=== PATIENT | female | born 1940 | race African-American/Black ===

== ENCOUNTER 2024-01-30 15:01 | Emergency (ER) | payer MEDICARE, MEDICAID, SELFPAY ==
--- NOTE | ~2024-01-30 | CT_ITS ---
EXAMINATION: CT brain wo con DATE: 01/30/2024 16:45 INDICATION: Head injury post fall TECHNIQUE: Computed tomography (CT) of the head was performed without intravenous contrast. Sagittal and coronal reconstructions were performed. The mA was adjusted according to patient size. Iterative reconstruction technique was employed. The dose-length product was 605.33 mGy-cm. COMPARISON: None FINDINGS: No fracture. No acute intracranial hemorrhage, acute infarction or abnormal extra axial fluid collect ion. Region of decreased attenuation at the central marcia which appears more likely sequela of streak artifact from old lacunar infarct. There is mild scattered white matter hypoattenuation consistent wi th chronic small vessel ischemic disease. Symmetric prominence of the sulci consistent with mild age- appropriate diffuse cerebral volume loss. Ventricles are normal and symmetric. No mass/mass effect. M ucosal thickening the right maxillary sinus. The orbits, are normal. Small left mastoid effusion. Int racranial calcified cerebral atherosclerosis is noted. Likely developmental nonfusion of the posterio r ring of C1. IMPRESSION: 1. No fracture or acute intracranial process. 2. Streak artifact versus less likely old lacunar infarct at the central marcia. 3. Age-related changes including mild diffuse volume loss and mild scattered white matter hypoattenua tion consistent with chronic small vessel ischemic disease. Reviewed, dictated and finalized at location A. IMPRESSION: 1. No fracture or acute intracranial process. 2. Streak artifact versus less likely old lacunar infarct at the central marcia. 3. Age-related changes including mild diffuse volume loss and mild scattered wh ite matter hypoattenuation consistent with chronic small vessel ischemic diseas e.
--- NOTE | ~2024-01-30 | CT_ITS ---
EXAMINATION: CT cervical spine wo con DATE: 01/30/2024 16:45 INDICATION: Fall with head injury TECHNIQUE: Computed tomography (CT) of the cervical spine was performed without intravenous contrast. Automated exposure control and iterative reconstruction technique were employed. The dose-length pro duct was 484.78 mGy-cm. COMPARISON: None FINDINGS: Mild cervicothoracic dextrocurvature. Sagittal alignment is normal. Vertebral body heights are normal . No fracture. Disc heights are normal. There is multilevel moderate to severe cervical and upper tho racic facet osteoarthritis. There is also multilevel mild cervical uncovertebral osteoarthritis. No c entral canal stenosis. There is mild stenosis of several of the bilateral cervical and upper thoracic vertebral foramina. Cervical soft tissues are unremarkable. Visualized portions of the bilateral upp er lungs are clear. IMPRESSION: 1. 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 No acute osseous a bnormality. Reviewed, dictated and finalized at location A. IMPRESSION: 1. Multilevel moderate to severe cervical and upper thoracic facet osteoarthrit is. No acute osseous abnormality.
--- NOTE | ~2024-01-30 | XR_ITS ---
XR humerus RT Ordering provider: Tameka Vargas MD History: . pain, fall . Comparison: None. FINDINGS: BONES: No acute fracture or dislocation. JOINT SPACES: Osteoarthritic changes of the glenohumeral joint. Osteoarthritic changes of the acromio clavicular joint. SOFT TISSUES: Normal. IMPRESSION: No acute osseous abnormality right humerus. Reviewed, dictated and finalized at location A.
[2024-01-30 15:12] VITALS: BP 143/81; PULSE 97; RESP 18; TEMP 36.3; O2SAT 98
[2024-01-30 15:30] VITALS: PULSE 86; RESP 22
[2024-01-30] MEDS: ACETAMINOPHEN 325 MG TABLET 650 MG PO (16:59)
[2024-01-30 17:00] VITALS: PULSE 82; RESP 20; O2SAT 99
--- NOTE | 2024-01-30 17:21 | ED.FALL ---
HPI - Fall General Chief Complaint: Fall Stated Complaint: fall hit head sent by urgent care Time Seen by Provider: 01/30/24 16:23 Source: patient, RN notes reviewed and other (counter caser) Mode of arrival: ambulatory Limitations: no limitations History of Present Illness HPI Narrative: This is an 83 year old female with history of hypertension and intellectual disabilities who presents for evaluation after head injury. Patient states she was looking at her dempsey so she bent down. When she stood back up she lost her balance and she fell backwards. She hit the back of her head on sidewalk but she denies LOC. She has abrasions to her bilateral arms. She takes aspirin daily. Her case packer and sealer states she is up to date on her immunizations such as tetanus. PAtient reports mild frontal headache but this is chronic. She has been ambulatory without any other complaints. They went to urgent care and they were referred to ER. Related Data Allergies Allergy/AdvReac Type Severity Reaction Status Date / Time No Known Allergies Allergy Verified 01/30/24 16:22 Review of Systems Constitutional: Constitutional: Denies weakness Cardiovascular: Cardiovascular: Denies syncope, Denies rapid heart rate, Denies irregular heart rhythm, Denies leg edema and Denies dyspnea Respiratory: Respiratory: Denies chest congestion, Denies hemoptysis, Denies excessive phlegm production and Denies dyspnea Gastrointestinal: Gastrointestinal: Denies abdominal pain, Denies hematochezia, Denies diarrhea and Denies vomiting Genitourinary: Genitourinary: Denies hematuria and Denies dysuria Musculoskeletal: Musculoskeletal: Denies joint swelling, Denies loss of height, Reports muscle cramps and Denies muscle weakness Neurologic: Denies syncope, Reports headache(s), Denies focal weakness and Denies weakness PMFSH Past Medical History Medical History (Updated 01/30/24 @ 17:32 by Tameka Vargas MD) Depression GERD (gastroesophageal reflux disease) Hyperlipidemia Hypertension Intellectual disability Surgical History Surgical History (Updated 01/30/24 @ 17:29 by Tameka Vargas MD) No pertinent past surgical history Social History Social History (Updated 01/30/24 @ 17:29 by Tameka Vragas MD) Smoking status: Never smoker Exam Const: General: no acute distress and alert Nutritional Appearance: well nourished Orientation/consciousness: patient oriented x3 HENMT: Head: normal to inspection Ears: external ears normal Face and sinus: normal facial exam Throat: posterior oropharynx normal and uvula midline Eyes: Pupils: Equal, round and reactive pupils present EOM: EOMs intact bilaterally Neck: Neck: normal visual inspection and no lymphadenopathy Chest: Chest palpation & inspection: normal inspection of the chest Resp: Effort & Inspection: normal respiratory effort Auscultation: clear to auscultation bilaterally Cardio: Rate: regular rate Rhythm: regular rhythm Heart sounds: no murmurs GI: GI Palp: Yes Soft to palpation, No Tenderness to palpation present (GI), No Guarding due to palpation present (GI) and No Rigid due to palpation Auscultation: normal bowel sounds Skin: Other: abrasion to right posterior upper arm Neuro: General: patient oriented x3, moves all extremities and CN's II-XI intact bilaterally Extrem: Other: FROM of all extremities. Psych: Mental Status: mental status grossly normal Affect: normal affect Attitude: cooperative Course Reevaluation(s) Reevaluation #1: I Reviewed imaging with patient and her case packer and sealer. She feels comfortable with discharge home. Date: 01/30/24 Time: 17:37 Vital Signs Vital signs: Vital Signs Temperature 97.4 F L 01/30/24 15:12 Pulse Rate 97 01/30/24 15:12 Respiratory Rate 18 01/30/24 15:12 Blood Pressure 143/81 H 01/30/24 15:12 Pulse Oximetry 98 01/30/24 15:12 Oxygen Delivery Room Air 01/30/24 15:12 Temperature 97.4 F L 06
== END 2024-01-30 18:17 | disposition home or self-care (01) ==
LOC: ANHED 18:02
PROVIDERS: Emergency Provider General Practice; PCP Family Medicine
DX: S09.90XA Unspecified injury of head, initial encounter (principal); S40.811A Abrasion of right upper arm, initial encounter; F41.9 Anxiety disorder, unspecified; F32.A Depression, unspecified; K21.9 Gastro-esophageal reflux disease without esophagitis; I10 Essential (primary) hypertension; E78.5 Hyperlipidemia, unspecified; W01.0XXA Fall on same level from slipping, tripping and stumbling without subsequent striking against object, initial encounter
CPT/HCPCS: 70450; 72125; 73060; 99284; A9270

== ENCOUNTER 2024-10-26 16:02 | Emergency (ER) | payer MEDICARE, MEDICAID, SELFPAY ==
--- NOTE | ~2024-10-26 | CT_ITS ---
History: Fall PROCEDURE: CT cervical spine without intravenous contrast. COMPARISON: 01/30/2024 TECHNIQUE: Multiple contiguous axial images of the cervical spine were performed without the administration of i ntravenous contrast. DLP: 431 mGy-cm FINDINGS: Preservation of the normal curvature of the cervical spine is identified. Significant degenerative disease is identified, with osteophyte formation, disc space narrowing, and endplate changes. Moderate kyphosis is suspected. No acute fractures are present. Incomplete visualization of 2 suspicious nodules measuring 11 and a 6 mm within the left upper lobe f or which dedicated chest CT is recommended. This focus was not present on the CT examination of the cervical spine in 2023. The remainder of the bilateral lung apices are otherwise unremarkable. No soft tissue abnormality is present. The airway is patent Impression: Severe degenerative disease, without acute fracture. Incomplete visualization of 2 suspicious left upper lobe lung nodules for which dedicated chest CT is recommended. Reviewed, dictated and finalized at location A. Impression: Severe degenerative disease, without acute fracture. Incomplete visualization of 2 suspicious left upper lobe lung nodules for which dedicated chest CT is recommended.
--- NOTE | ~2024-10-26 | CT_ITS ---
CT brain wo con Ordering provider: Fabrizio Mathur MD History: 84 years Female with . FALL . Comparison: January 30, 2024 Technique: CT of the head without contrast. Radiation reduction technique utilized.The dose-length product was 605.33 mGy-cm. FINDINGS: BRAIN PARENCHYMA AND CSF SPACES: Mild leukoaraiosis and diffuse cortical atrophy. Mild atheromatous d isease. No midline shift, mass effect or hemorrhage. The brain parenchyma and CSF spaces are otherwi se normal. VISUALIZED PARANASAL SINUSES: Well aerated. MASTOIDS: Well aerated. BONES: The bones appear intact. SOFT TISSUES: Visualized nasopharynx is normal. Superficial soft tissues are normal. IMPRESSION: No acute intracranial findings. Reviewed, dictated and finalized at location A.
--- NOTE | ~2024-10-26 | CT_ITS ---
CT diagnostic chest wo con Ordering provider: Fabrizio Mathur MD History: 84 years Female with . lung nodules . Comparison: None. Technique: CT chest without IV contrast. Radiation reduction technique utilized.The dose-length product was 95.83 mGy-cm. FINDINGS: VISUALIZED THORACIC INLET: Normal. MEDIASTINUM: Aorta/coronary arteries: Mild atheromatous disease. Heart/other: The heart is not enlarged. Lymph nodes: No mediastinal or hilar adenopathy. LUNGS: Multiple nodules are seen in the right and left upper lobes with the largest measures 9 mm in the left upper lobe No pulmonary masses. No infiltrates or effusions. No pneumothorax. VISUALIZED UPPER ABDOMEN: Cholelithiasis. Otherwise, the visualized upper abdomen is normal. MUSCULOSKELETAL: Soft tissues: The superficial soft tissues are normal. Bones: Age appropriate degenerative changes of the spine. IMPRESSION: Multiple nodules in the right and left upper lobes with the largest measures 9 mm and the left upper lobe. 6 months follow-up CT advised. No acute cardiopulmonary pathology. Cholelithiasis. Reviewed, dictated and finalized at location A.
[2024-10-26 16:04] VITALS: BP 117/72; PULSE 68; RESP 18; TEMP 36.4; O2SAT 95
--- NOTE | 2024-10-26 17:21 | ECG_ITS ---
Test Date: 2024-10-26 18:56:02 Measurements Intervals [place] Rate: 69 P: 63 [place]: 175 QRS: -28 QRSD: 76 T: 31 QT: 390 QTc: 418 Interpretive Statements SINUS RHYTHM LOW QRS VOLTAGE IN PRECORDIAL LEADS PATTERN CONSISTENT WITH PULMONARY DISEASE Electronically Signed On 10-28-2024 13:53:16 CDT by Filiberto Odonnell D.O
--- OUTSIDE RECORDS SUMMARY | 2024-10-26 19:09 | XMS_ITS | Encounter Summary ---
Author Organization [facility] Address [address] [facility] [place] [address] Care Team Providers Care Case Investigator Name Role Phone Ramya Preston NP Primary Care Provider [phone] David Fermin DPM Unavailable [phone] Encounter Details Date Type Department Care Team (Late st Contact Info) Description 10/02/2024 Results Follow-Up [facility] Primary Care at [address] [id number] Ramya Preston NP [address] [facility] [address] [place] [address] Social History Tobacco Use Types Packs/Day Years Used Date Smoking Tobacco: Never Smokeless Tobacco: Never Alcohol Use Standard Drinks/Week Comments No 0 (1 standard drink = 0.6 oz pur e alcohol) PHQ-2 Answer Date Recorded PHQ-2 Total Score (If total score is 3 or more points, staff should administer the PHQ-9) 0 07/05/2024 Comments Unknown Sex and Gender Information Value Date Recorded Sex Assigned at Not on file Legal Sex Female 5:46 PM [employer] 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
--- OUTSIDE RECORDS SUMMARY | 2024-10-26 19:09 | XMS_ITS | Referral Summary ---
Author Organization [facility] Address [address] [place] [phone] Care Team Providers Care Desktop Support Technician Name Role Phone Ramya Preston NP Primary Care Provider [phone] David FerminM Unavailable [phone] Encounters Date Type Department Care Team Description 10/19/2024 Orders Only [facility] Sports Medicine and Primary Care at [address] [phone] Jeremias Laureano DO Chronic left shoulder pain (Primary Dx); Osteoarthritis of left shoulder, unspecified osteoarthritis type 10/19/2024 1:30 PM CAUSTIC ROOM ATTENDANT Office Visit [facility] Medical [facility] Sports Medicine and Primary Care at [address] [phone] Jeremias Laureano DO Osteoarthritis of left shoulder, unspecified osteoarthritis type (Primary Dx); Chronic left shoulder pain; Cervicalgia 10/17/2024 2:15 PM CAUSTIC ROOM ATTENDANT Office Visit [facility] Nephrology at [address] [place] [phone] Raffy Flowers MD Stage 3b chronic kidney disease (HCC) (Primary Dx); Essential hypertension; Type 2 diabetes mellitus with stage 3b chronic kidney disease, without long-term current use of insulin (HCC) 10/16/2024 Telephone [facility] Nephrology at [address] [place] [address] Naif Rodriguez 10/10/2024 Results Follow-Up [facility] Group Primary Care at [address] [phone] Ramya Preston NP Type 2 diabetes mellitus with stage 3b chronic kidney disease, without long-term current use of insulin (HCC) (Primary Dx) 10/09/2024 10:04 AM CAUSTIC ROOM ATTENDANT - 10/09/2024 11:59 PM CAUSTIC ROOM ATTENDANT Hospital Encounter [address] [address] Type 2 diabetes mellitus with stage 3a chronic kidney disease, without long-term current use of insulin (HCC); Leukocytosis, unspecified type Discharge Disposition: Discharge to home or self care 10/09/2024 12:00 PM CAUSTIC ROOM ATTENDANT Lab [facility] Outpatient Lab at [address] [phone] Hypertension (Primary Dx); Hyperlipidemia; Type 2 diabetes mellitus with stage 3a chronic kidney disease, without long-term current use of insulin (HCC) 10/09/2024 11:00 AM CAUSTIC ROOM ATTENDANT Office Visit [facility] Primary Care at [address] [phone] Ramya Preston NP Type 2 diabetes mellitus with stage 3a chronic kidney disease, without long-term current use of insulin (HCC) (Primary Dx); Mixed stress and urge urinary incontinence; Primary hypertension; Mixed hyperlipidemia; Chronic left shoulder pain 10/02/2024 Results Follow-Up [facility] Primary Care at [address] [phone] Ramya Preston NP 09/27/2024 2:24 PM CAUSTIC ROOM ATTENDANT - 09/27/2024 11:59 PM CAUSTIC ROOM ATTENDANT Hospital Encounter [facility] [address] [place] [address] Encounter for osteoporosis screening in asymptomatic postmenopausal patient Discharge Disposition: Discharge to home or self care from Last 3 Months Allergies No known active allergies Medications omega 3-gtu-rsh-fish oil 300-1,000 mg capsule 8 Active nystatin cream 6 8 Active cholecalciferol (REPLESTA) 50,000 unit wafer 8 Active benzonatate (TESSALON) 200 mg capsuleIndicatio ns:Chronic cough Take 1 capsule (200 mg total) by mouth 3 (three) times a day as needed for cough 30 capsule 4 Active aspirin 81 mg enteric coated tablet Take 1 tablet (81 mg total) by mouth daily 90 tablet 1 4 Active NIFEdipine XL 30 mg 24 hr tablet TAKE (1) TABLET BY MOUTH DAILY. 90 tablet [address] (PROTONIX) 40 mg EC tablet TAKE (1) TABLET BY MOUTH DAILY. 90 tablet 1 4 Active ergocalciferol (VITAMIN D) 50,000 unit capsule TAKE (1) CAPSULE BY MOUTH ONCE PER WEEK ON TUESDAY 4 capsule 10 4 Active empagliflozin (JARDIANCE) 10 mg tablet Take 1 tablet (10 mg total) by mouth daily 90 tablet 1 4 Active acetaminophen (TYLENOL) 500 mg tablet Take 1 tablet (500 mg total) by mouth every 6 (six) hours as needed for pain 30 tablet 3 4 Active calcium carbonate-vitami n D3 1500 mg (600 mg elemental) -200 units per tablet Take 1 tablet by mouth 2 (two) times a day 180 tablet 1 4 Active citalopram (CeleXA) 20 mg tablet TAKE (1) TABLET BY MOUTH DAILY. 30 tablet 10 5 Active docusate sodium (COLACE) 100 mg capsule TAKE (1) CAPSULE BY MOUTH TWICE DAILY. 60 capsule 10 5 Active pravastatin (PRAVACHOL) 20 mg tablet TAKE (1) TABLET BY MOUTH AT BEDTIME. 30 tablet 5 Active latanoprost (XALATAN) 0.005 % ophthalmic solution 1 drop nightly Active dapagliflozin propanediol (FARXIGA) 10 mg tablet 1 tablet (10 mg total) Active ibuprofen (ADVIL,MOTRIN) 600 mg tablet TAKE ONE TABLET 3 TIMES DAILY NEEDED FOR PAIN 90 tablet 11 9 10/18/19 25 Discontinu ed(Therapy completed) dapagliflozin propanediol (FARXIGA) 10 mg tablet 1 tablet (10 mg total) 10/18/19 25 Discontinu ed(Therapy completed) Active Problems Problem Noted Date Diagnosed Date Type 2 diabetes mellitus wit h stage 3a chronic kidney disease, without long-term current use of insulin 07/05/2024 Assessment & Plan (10/09/2024 12:38 PM CAUSTIC ROOM ATTENDANT): Continuing Farxiga, updated labs ordered Assessment & Plan (07/05/2024 1:12 PM CAUSTIC ROOM ATTENDANT): Previous A1c 8.1 six months ago. Attempted to start Farxiga, but did not hear back from the pt's facility. Will recheck A1c and kidney function with labs today. Also sending in [facility], samples given today to get started. Medicare annual wellness visit, subsequent 07/05 Assessment & Plan (07/05/2024 1:14 PM CAUSTIC ROOM ATTENDANT): A yearly Medicare Annual Wellness Visit has been performed today. Coral Holt is not up to date on screening tests. She is in need of DEXA- these have been ordered. She is not up to date on needed preventative vaccinations; She is in need of Tdap/Td, Pneumonia (Prevnar-13 or Pneumovax-23), Zoster, and Covid-19 (booster). These have been ordered/arranged unless otherwise indicated. 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 Long-term current use of steroids 12/07/2017 Anxiety 10/24/2017 Assessment & Plan (07/05/2024 12:26 PM CAUSTIC ROOM ATTENDANT): Overall stable on Celexa. Assessment & Plan (01/03/2024 10:55 AM CDT): Overall stable on Celexa. 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 Updated labs ordered for today. Assessment & Plan (07/05/2024 12:26 PM CAUSTIC ROOM ATTENDANT): Patient taking Pravastatin, no side effects noted. Updated labs ordered for today. Assessment & Plan (01/03/2024 10:55 AM CDT): Patient taking Pravastatin, no side effects noted. Updated labs ordered. Hypertension 10/24/2017 Assessment & Plan (10/09/2024 12:37 PM CAUSTIC ROOM ATTENDANT): BP well controlled in office, continuing Nifedipine 30 mg daily. Updated labs ordered today. Assessment & Plan (07/05/2024 12:26 PM CAUSTIC ROOM ATTENDANT): BP well controlled in office, continuing Nifedipine 30 mg daily. Updated labs ordered today. Assessment & Plan (01/03/2024 10:55 AM CDT): BP well controlled in office, continuing Nifedipine 30 mg daily. Updated labs ordered. Resolved Problems Problem Noted Date Diagnosed Date Resolved Date PMR (polymyalgia rheumatica) 10/24/2017 05/30/2018 Immunizations Immunization Administration Dates Next Due Influenza, Quadrivalent, Hig h Dose, Preservative Free, Intrr 05/09/2023,06/09/2022,06/17/2021 Influenza, Quadrivalent, Spl it, Intramuscular 05/29/2020,05/30/2019,09/20/2018,06/01,05/28/2015 Influenza, Trivalent, High D ose, Split, Preservative Free, Intramuscular 07/05/2024 Pneumococcal Polysaccharide PPV23 12/08/2022 Social History Tobacco Use Types Packs/Day Years Used Date Smoking Tobacco: Never Smokeless Tobacco: Never Tobacco Cessation:Counseling Given: Not Answered Alcohol Use Standard Drinks/Week Comments No 0 (1 standard drink = 0.6 oz pur e alcohol) AUDIT-C Answer Date Recorded Q1: How often do you have a drink containing alc ohol? Never 10/17/2024 Average Number of Drinks Not on file 025 Frequency of Binge Drinking Not on file 12/2024 PHQ-2 Answer Date Recorded PHQ-2 Total Score (If total score is 3 or more points, staff should administer the PHQ-9) 0 10/09/2024 Comments Unknown Sex and Gender Information Value Date Recorded Sex Assigned at Not on file Legal Sex Female 5:46 PM CAUSTIC ROOM ATTENDANT Gender Identity Female 10/25/2018 11:04 AM CDT Sexual Orientation Not on file Last Filed Vital Signs Vital Sign Reading Time Taken Comments Blood Pressure 110/69 10/19/2024 1:36 PM CAUSTIC ROOM ATTENDANT Pulse 76 10/19/2024 1:36 PM CAUSTIC ROOM ATTENDANT Temperature 37 C (98.6 F) 10/17/2024 2:09 PM CAUSTIC ROOM ATTENDANT Respiratory Rate 20 07/17/2024 10:14 AM CAUSTIC ROOM ATTENDANT Oxygen Saturation 97% 10/09/2024 11:06 AM CAUSTIC ROOM ATTENDANT Inhaled Oxygen Concentration - - Weight 80.3 kg (177 lb) 10/19/2024 1:36 PM CAUSTIC ROOM ATTENDANT Height 165.1 cm (5' 5 ) 10/19/2024 1:36 PM CAUSTIC ROOM ATTENDANT Body Mass Index 29.45 10/19/2024 1:36 PM CAUSTIC ROOM ATTENDANT Plan of Treatment Not on file Procedures Procedure Name Priority Date/Time Associated Diagnosis Comments EGFR Routine 10/09/2024 10:04 AM CAUSTIC ROOM ATTENDANT Type 2 diabetes mellitus with stage 3a chronic kidney disease, without long-term current use of insulin (HCC) DIFFERENTIAL AUTO Routine 10/09/2024 10:04 AM CAUSTIC ROOM ATTENDANT Leukocytosis, unspecified type CBC WITH AUTO DIFFERENTIAL Routine 10/09/2024 10:04 AM CAUSTIC ROOM ATTENDANT Leukocytosis, unspecified type LIPID PANEL Routine 10/09/2024 10:04 AM CAUSTIC ROOM ATTENDANT Type 2 diabetes mellitus with stage 3a chronic kidney disease, without long-term current use of insulin (HCC) HEMOGLOBIN A1C Routine 10/09/2024 10:04 AM CAUSTIC ROOM ATTENDANT Type 2 diabetes mellitus with stage 3a chronic kidney disease, without long-term current use of insulin (HCC) COMPREHENSIVE METABOLIC PANEL Routine 10/09/2024 10:04 AM CAUSTIC ROOM ATTENDANT Type 2 diabetes mellitus with stage 3a chronic kidney disease, without long-term current use of insulin (HCC) DEXA AXIAL SKELETON BONE DENSITY 1 OR MORE SITES Schedule Routine, Read Routine (OP Routine) 09/27/2024 2:52 PM CAUSTIC ROOM ATTENDANT Encounter for osteoporosis screening in asymptomatic postmenopausal patient ALBUMIN CREATININE RATIO, URINE Routine 07/05/2024 12:30 PM CAUSTIC ROOM ATTENDANT Type 2 diabetes mellitus with stage 3a chronic kidney disease, without long-term current use of insulin (HCC) from Last 3 Months or Most Recently Relevant to Health Maintenance Results * (ABNORMAL) eGFR (10/09/2024 10:04 AM CAUSTIC ROOM ATTENDANT) eGFR 42(L) >=60 mL/min/1. 73 m2 Comment: Interpretive Data Reference Interval Normal >/= 90 mL/min/1.73m2 Mildly decreased* 60 - 89 mL/min/1.73m2 Mildly to moderately decreased 45 - 59 mL/min/1.73m2 Moderately to severely decreased 30 - 44 mL/min/1.73m2 Severely decreased 15 - 29 mL/min/1.73m2 Kidney Failure < 15 mL/min/1.73m2 *Relative to young adult level Estimated glomerular filtration rate is determined by the 2020 CKD-EPI equation recommended by the National Kidney Foundation (A Unifying Approach to GFR Estimation: Recommendations of the NKF-ASK Task Force on Reassessing the Inclusion of Race in Diagnosing Kidney Disease, JASN 202). The CKD-EPI equation should not be used for patients with unstable renal function and has not been validated in children and those over 70. Current interpretive data was last reviewed 2021. Blood 10/09/2024 10:0 4 AM CAUSTIC ROOM ATTENDANT 10/09/2024 9:25 PM CAUSTIC ROOM ATTENDANT us Ramya Preston CUT ROLL MACHINE OFFBEARER LAB BLOOD ORDERABLES Final Resul t [facility] [place] [id number] [address] [place] [address] * Differential, auto (10/09/2024 10:04 AM CAUSTIC ROOM ATTENDANT) Neutrophil abs 6.1 1.5 - 6.5 K/cumm Imm gran abs 0.1 0.0 - 0.1 K/cumm [facility] Lymphocyte abs 2.5 0.8 - 3.3 K/cumm [facility] Monocyte abs 0.6 0.2 - 0.8 K/cumm [facility] Eosinophil abs 0.1 0.0 - 0.5 K/cumm [facility] Basophil abs 0.0 0.0 - 0.1 K/cumm [facility] Neutrophil pct 64.9 % [facility] Comment: Interpretive Data Percent cell count reference ranges are not reported, since discordance with absolute values may lead to misinterpretation of CBC data. Current Interpretive Data was last revised on 2017. Imm gran pct 0.6 % [facility] Comment: Interpretive Data Percent cell count reference ranges are not reported, since discordance with absolute values may lead to misinterpretation of CBC data. Current Interpretive Data was last revised on 2017. Lymphocyte pct 26.1 % [facility] Comment: Interpretive Data Percent cell count reference ranges are not reported, since discordance with absolute values may lead to misinterpretation of CBC data. Current Interpretive Data was last revised on 2017. Monocyte pct 6.8 % [facility] Comment: Interpretive Data Percent cell count reference ranges are not reported, since discordance with absolute values may lead to misinterpretation of CBC data. Current Interpretive Data was last revised on 2017. Eosinophil pct 1.2 % [facility] Comment: Interpretive Data Percent cell count reference ranges are not reported, since discordance with absolute values may lead to misinterpretation of CBC data. Current Interpretive Data was last revised on 2017. Basophil pct 0.4 % [facility] Comment: Interpretive Data Percent cell count reference ranges are not reported, since discordance with absolute values may lead to misinterpretation of CBC data. Current Interpretive Data was last revised on 2017. Blood 10/09/2024 10:0 4 AM CAUSTIC ROOM ATTENDANT 10/09/2024 9:15 PM CAUSTIC ROOM ATTENDANT us Ramya Preston NP LAB BLOOD [place]ABLES [place] [id number] [address] [place] [address] * (ABNORMAL) CBC with auto differential (10/09/2024 10:04 AM CAUSTIC ROOM ATTENDANT) WBC 9.4 3.8 - 9.9 K/cumm Hgb 13.2 11.9 - 15.5 g/dL [facility] Hct 42.0 35.6 - 45.5 % [facility] Plt 349 150 - 400 K/cumm [facility] MPV 11.2 9.1 - 12.3 fL [facility] RBC 4.36 3.90 - 5.20 M/cumm [facility] MCV 96.3 81.3 - 96.4 fL [facility] MCH 30.3 27.1 - 33.3 pg [facility] MCHC 31.4(L) 32.3 - 35.7 g/dL [facility] RDW CV 13.7 11.1 - 14.9 % [facility] RDW SD 48.9(H) 35.7 - 48.1 fL [facility] NRBC abs 0.00 0.00 - 0.01 K/cumm [facility] Blood 10/09/2024 10:0 4 AM CAUSTIC ROOM ATTENDANT 10/09/2024 9:15 PM CAUSTIC ROOM ATTENDANT us Ramya Preston NP LAB BLOOD ORDERABLES Final Resul t Performing Organization Address City/State/[facility] de Phone Number [facility] [address] [address] Department of Laboratories [place], [place] [id number] * (ABNORMAL) Hemoglobin A1c (10/09/2024 10:04 AM CAUSTIC ROOM ATTENDANT) Pathologist [facility] Hgb A1C 6.7(H) 4.0 - 5.6 % Estimated Average Glucose 146 mg/dL [facility] Comment: The ADA recommends reporting an estimated Average Glucose (eAG) with all Hemoglobin A1c results using the equation derived from a study of 507 normal and diabetic adults. Minority populations were underrepresented and children were not included. (Diabetes Care 31:0006-1788, 2008). The eAG is not equivalent to a fasting glucose. Blood 10/09/2024 10:0 4 AM CAUSTIC ROOM ATTENDANT 10/09/2024 9:15 PM CAUSTIC ROOM ATTENDANT us Ramya Preston NP LAB BLOOD ORDERABLES [place] [address] [address] [place] [address] * Lipid panel (10/09/2024 10:04 AM CAUSTIC ROOM ATTENDANT) Cholesterol 151 30 - 199 mg/dL Comment: Interpretive Data Ages < or = 19 years Acceptable: <170 mg/dL Borderline high: 170-199 mg/dL High: >or= 200 mg/dL Ages > or = 20 years Desirable: <200 mg/dL Borderline high: 200-239 mg/dL High: >or= 240 mg/dL Literature References: 1. Expert Panel on Integrated Guidelines for Cardiovascular Health and Risk Reduction in Children and Adolescents. Pediatrics 2011;128:S213 2. NCEP Expert Panel. Circulation 2004;110:227 Current Interpretive Data was last revised on 2018. Triglycerides 140 <=149 mg/dL [facility] Comment: Interpretive Data Ages < or = 9 years Acceptable: <75 mg/dL Borderline high: 75-99 mg/dL High: >or= 100 mg/dL Ages 10 to 20 years Acceptable: <90 mg/dL Borderline high: 90-129 mg/dL High: >or= 130 mg/dL Ages > or = 20 years Desirable: <150 mg/dL Borderline high: 150-199 mg/dL High: 200-499 mg/dL Very high: >or= 499 mg/dL Literature References: 1. Expert Panel on Integrated Guidelines for Cardiovascular Health and Risk Reduction in Children and Adolescents. Pediatrics 2011;128:S213 2. NCEP Expert Panel. Circulation 2004;110:227 Current Interpretive Data was last revised on 2018. HDL 42 >=40 mg/dL [facility] Comment: Interpretive Data Ages < or = 19 years Acceptable: >45 mg/dL Borderline low: 40-45 mg/dL Low: <40 mg/dL Ages > or = 20 years Desirable: >or= 60 mg/dL Low: <40 mg/dL Literature References: 1. Expert Panel on Integrated Guidelines for Cardiovascular Health and Risk Reduction in Children and Adolescents. Pediatrics 2011;128:S213 2. NCEP Expert Panel. Circulation 2004;110:227 Current Interpretive Data was last revised on 2018. LDL, calculated 84 <=129 mg/dL [facility] Comment: Interpretive Data Ages < or = 19 years Acceptable: <110 mg/dL Borderline high: 110-129 mg/dL High: >or= 130 mg/dL Ages > or = 20 years Optimal: <100 mg/dL Near optimal: 100-129 mg/dL Borderline high: 130-159 mg/dL High: >160 mg/dL Calculated using the Ganesh LDL-C estimating equation. This equation was implemented on 2024. Prior to this date LDL-C was estimated using the Friedewald equation. Literature References: 1. Expert Panel on Integrated Guidelines for Cardiovascular Health and Risk Reduction in Children and Adolescents. Pediatrics 2011;128:S213 2. NCEP Expert Panel. Circulation 2004;110:227 3. Ganesh Oviedo et al. PRAFUL Cardiol. 2020 December 13;5(5):540-548. doi: 10.1001/jamacardio.2020.0013 Current Interpretive Data was last revised on 2024. Non-HDL Cholesterol 109 mg/dL [facility] Comment: Interpretive Data Ages < or = 19 years Acceptable: <120 mg/dL Borderline high: 120-144 mg/dL High: >145 mg/dL Ages > or = 20 years When triglycerides are >200 mg/dL, Non-HDL cholesterol is a secondary target of therapy with treatment goals that are 30 mg/dL greater than the LDL cholesterol target. Literature References: 1. Expert Panel on Integrated Guidelines for Cardiovascular Health and Risk Reduction in Children and Adolescents. Pediatrics 2011;128:S213 2. NCEP Expert Panel. Circulation 2004;110:227 Current Interpretive Data was last revised on 2018. Chol/HDL ratio 4 [facility] Blood 10/09/2024 10:0 4 AM CAUSTIC ROOM ATTENDANT 10/09/2024 9:15 PM CAUSTIC ROOM ATTENDANT us Ramya Preston NP LAB BLOOD ORDERABLES Final Resul t [place] [address] [address] [place] [address] * (ABNORMAL) Comprehensive metabolic panel (10/09/2024 10:04 AM CAUSTIC ROOM ATTENDANT) Sodium 136 135 - 145 mmol/L Potassium, pl 4.9 3.3 - 4.9 mmol/L [facility] Chloride 99 97 - 110 mmol/L [facility] CO2 21(L) 22 - 32 mmol/L [facility] Anion gap 16(H) 2 - 15 mmol/L [facility] BUN 26(H) 6 - 25 mg/dL [facility] Creatinine 1.26(H) 0.60 - 1.10 mg/dL [facility] Glucose 120 70 - 199 mg/dL [facility] Comment: Interpretive Data Fasting glucose >/= 126 mg/dl is diagnostic for diabetes. Fasting is defined as no caloric intake for at least 8 hours. Fasting glucose between 100 mg/dl to 125 mg/dl is diagnostic of prediabetes. In a patient with classic symptoms of hyperglycemia or hyperglycemic crisis, a random glucose >/= 200 mg/dl is diagnostic for diabetes. In the absence of unequivocal hyperglycemia, results should be confirmed by repeat testing. The classification and Diagnosis of Diabetes Diabetes Care 2021; 46: S19-S40. Current interpretive data was last revised 2022. Calcium 10.1 8.5 - 10.3 mg/dL [facility] Bilirubin, total 0.3 0.1 - 1.2 mg/dL [facility] Protein, pl 7.8 6.5 - 8.5 g/dL [facility] Albumin 3.9 3.5 - 5.0 g/dL [facility] Alk phos 60 40 - 130 Units/L [facility] ALT 12 7 - 45 Units/L [facility] AST 31 10 - 45 Units/L [facility] Blood 10/09/2024 10:0 4 AM CAUSTIC ROOM ATTENDANT 10/09/2024 9:15 PM CAUSTIC ROOM ATTENDANT us Ramya Preston NP LAB BLOOD ORDERABLES [place]ul [place] [id number] [address] Department [place] [address] * Dexa Axial Skeleton Bone Density 1 or 2 Site (09/27/2024 2:52 PM CAUSTIC ROOM ATTENDANT) Anatomical Region Laterality Modality Body N/A Other 10/02/2024 8:21 AM CAUSTIC ROOM ATTENDANT Narrative 10/02/2024 8:21 AM CAUSTIC ROOM ATTENDANT EXAM DESCRIPTION: DEXA AXIAL SKELETON BONE DENSITY 1 OR MORE SITES REASON FOR STUDY: 83 y/o year old F with given history of: Postmenopausal status. History of secondary osteoporosis. Patient takes vitamin-D and calcium. It Instructor/Model: [employer] (S/N [id number]) Facility LSC value of 0.022 for the AP spine, 0.027 for the femur, and 0.023 for the forearm. CLINICAL INFORMATION: Current height: 65 inches Maximum height: 65 inches Weight: 187 pounds Risk factors: Secondary osteoporosis COMPARISON: None available FINDINGS: AP LUMBAR SPINE L1-L4: Total BMD is 1.406 g/cm2 T-score is 3.3 LEFT HIP: Total BMD is 0.964 g/cm2 T-score is 0.2 Femoral neck BMD is 0.700 g/cm2 T-score is -1.3 FRAX: 10 year risk for a major osteoporotic fracture is 12 %, 10 year risk for a hip fracture is 3 % IMPRESSION: Low bone mass REFERENCE: Bone mineral density: T-Score: Normal (T-score above or = -1.0) Low bone mass (T-score between -1.0 and -2.5) replaces the previously used term osteopenia Osteoporosis (T-score = or below -2.5) Z-Score: Within the expected range for age (Z-score above -2.0) Below the expected range for age (Z-score is -2.0 or below) Please see below follow up recommendations. Medical evaluation for secondary causes of low bone mineral density may be appropriate. FRAX is a World Health Organization validated fracture risk assessment tool that calculates a person's 10 year probability of a major osteoporosis related fracture and hip fracture. According to the National Osteoporosis Foundation guidelines, postmenopausal women and men age 50 or older with low bone mass and a 10 year probability of a major osteoporosis related fracture = or greater than 20% or a 10 year probability of a hip fracture = or greater than 3% should be considered for pharmacological treatment for the prevention of osteoporosis. For further information, including treatment recommendations, please refer to the 2019 ISCD Official Positions (http://www.iscd.org) and the NOF's Clinician's Guide to Prevention and Treatment of Osteoporosis (http://www.nof.org/professionals/clinical-guidelines) THIS IS AN ELECTRONICALLY VERIFIED FINAL REPORT 10/02/2024 8:21 AM - Electronically signed by Beatrice Vogel M.D. TW: TW Report ID: [id number] Reading Location: [place] [address] Procedure Note Beatrice Vogel MD - 10/02/2024 EXAM DESCRIPTION: DEXA AXIAL SKELETON BONE DENSITY 1 OR MORE SITES REASON FOR STUDY: 83 y/o year old F with given history of:Postmenopausal status. History of secondary osteoporosis. Patient takes vitamin-D and calcium. It Instructor/Model: [employer] (S/N [id number]) Facility LSC value of 0.022 for the AP spine, 0.027 for the femur, and0.023 for the forearm. CLINICAL INFORMATION: Current height: 65 inches Maximum height: 65 inches Weight: 187 pounds Risk factors: Secondary osteoporosis COMPARISON: None available FINDINGS: AP LUMBAR SPINE L1-L4: Total BMD is 1.406 g/cm2 T-score is 3.3 LEFT HIP: Total BMD is 0.964 g/cm2 T-score is 0.2 Femoral neck BMD is 0.700 g/cm2 T-score is -1.3 FRAX: 10 year risk for a major osteoporotic fracture is 12 %, 10 year risk for ahip fracture is 3 % IMPRESSION: Low bone mass REFERENCE: Bone mineral density: T-Score: Normal (T-score above or = -1.0) Low bone mass (T-score between -1.0 and -2.5) replaces thepreviously used term osteopenia Osteoporosis (T-score = or below -2.5) Z-Score: Within the expected range for age (Z-score above -2.0) Below the expected range for age (Z-score is -2.0 or below) Please see below follow up recommendations. Medical evaluation forsecondary causes of low bone mineral density may be appropriate. FRAX is a World Health Organization validated fracture risk assessmenttool that calculates a person's 10 year probability of a major osteoporosisrelated fracture and hip fracture. According to the National OsteoporosisFoundation guidelines, postmenopausal women and men age 50 or older with low bonemass and a 10 year probability of a major osteoporosis related fracture = or greater than 20% or a 10 year probability of a hip fracture = or greaterthan 3% should be considered for pharmacological treatment for the preventionof osteoporosis. For further information, including treatment recommendations, please referto the 2019 ISCD Official Positions (http://www.iscd.org) and the NOF's Clinician's Guide to Prevention and Treatment of Osteoporosis (http://www.nof.org/professionals/clinical-guidelines) THIS IS AN ELECTRONICALLY VERIFIED FINAL REPORT 10/02/2024 8:21 AM - Electronically signed by Beatrice Vogel M.D. TW: WILLIAMS Report ID: [id number] Reading Location: [place] [address] us Ramya Preston NP IMG DXA PROCEDURES Final Result * (ABNORMAL) Albumin Creatinine Ratio, Urine (07/05/2024 12:30 PM CAUSTIC ROOM ATTENDANT) Albumin Ur 198.1 mg/L Comment: Interpretive Data No reference range established. Current interpretive data was last revised 2018. Creatinine Ur 255.5 mg/dL [facility] Comment: Interpretive Data No reference range established. Current interpretive data was last revised 2018. Albumin Creatinine Ratio, Ur 78(H) 1 - 29 mg/g [facility] Urine 07/05/2024 12:3 0 PM CAUSTIC ROOM ATTENDANT 07/06/2024 11:13 AM CAUSTIC ROOM ATTENDANT us Ramya Preston NP LAB URINE [place] [address] R[address] [place] [address] from Last 3 Months or Most Recently Relevant to Health Maintenance Insurance MEDICARE [facility] Address: [address] [phone] IDPA IDPA IDPA MEDICARE [facility] Address: [address] [phone] Care Teams Desktop Support Technician Relationship Specialty Start Date End Date Ramya Preston NP [address] [facility] [facility] [address] [place] [address] PCP - General Family Medicine 01/03/24 David Fermin DPM [address] [place] [address] Consulting Physician Orthotics 01/03/24
--- OUTSIDE RECORDS SUMMARY | 2024-10-26 19:09 | XMS_ITS | Clinical Summary ---
Author Organization [facility] Address [address] [place] [address] Care Team Providers Care Mine Promotor Name Role Phone Ramya Preston NP Primary Care Provider [phone] David Fermin DPM Unavailable [phone] Allergies No known active allergies Medications omega 3-twq-hdm-fish oil 300-1,000 mg capsule 8 Active nystatin [...] TABLET BY MOUTH AT BEDTIME. 30 tablet 10 5 Active latanoprost (XALATAN) 0.005 % ophthalmic [...] 07/05/2024 Assessment & Plan (10/09/2024 12:38 PM NON MORSE INTERCEPT TECHNICIAN): Continuing Farxiga, updated labs ordered Assessment & Plan (07/05/2024 1:12 PM NON MORSE INTERCEPT TECHNICIAN): Previous A1c 8.1 six months ago. Attempted to start Farxiga, but did not hear back from the pt's facility. Will recheck A1c and kidney function with labs today. Also sending in Farxiga, samples given today to get started. Medicare annual wellness visit, subsequent 07/05 Assessment & Plan (07/05/2024 1:14 PM NON MORSE INTERCEPT TECHNICIAN): A yearly Medicare Annual Wellness Visit has been performed today. 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 Long-term current use of steroids 12/07/2017 Anxiety 10/24/2017 Assessment & Plan (07/05/2024 12:26 PM NON MORSE INTERCEPT TECHNICIAN): Overall stable on Celexa. Assessment & Plan (01/03/2024 10:55 AM CDT): Overall stable on Celexa. 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 Updated labs ordered for today. Assessment & Plan (07/05/2024 12:26 PM NON MORSE INTERCEPT TECHNICIAN): Patient taking Pravastatin, no side effects noted. Updated labs ordered for today. Assessment & Plan (01/03/2024 10:55 AM CDT): Patient taking Pravastatin, no side effects noted. Updated labs ordered. Hypertension 10/24/2017 Assessment & Plan (10/09/2024 12:37 PM NON MORSE INTERCEPT TECHNICIAN): BP well controlled in office, continuing Nifedipine 30 mg daily. Updated labs ordered today. Assessment & Plan (07/05/2024 12:26 PM NON MORSE INTERCEPT TECHNICIAN): BP well controlled in office, continuing Nifedipine 30 mg daily. Updated labs ordered today. Assessment & Plan (01/03/2024 10:55 AM CDT): BP well controlled in office, continuing Nifedipine 30 mg daily. Updated labs ordered. Resolved Problems Problem Noted Date Diagnosed Date Resolved Date PMR (polymyalgia rheumatica) 10/24/2017 05/30/2018 Encounters Date Type Department Care Team Description 10/19/2024 1:30 PM NON MORSE INTERCEPT TECHNICIAN Office Visit [facility] at [address] [place] [address] Jeremias Laureano DO Osteoarthritis of left shoulder, unspecified osteoarthritis type (Primary Dx); Chronic left shoulder pain; Cervicalgia 10/19/2024 Orders Only [facility] at [address] [place] [address] Jeremias Laureano DO Chronic left shoulder pain (Primary Dx); Osteoarthritis of left shoulder, unspecified osteoarthritis type 10/17/2024 2:15 PM NON MORSE INTERCEPT TECHNICIAN Office Visit [facility] Nephrology at [address] [address] Raffy Flowers MD Stage 3b chronic kidney disease (HCC) (Primary Dx); Essential hypertension; Type 2 diabetes mellitus with stage 3b chronic kidney disease, without long-term current use of insulin (HCC) 10/16/2024 Telephone [facility] at [address] [place] [address] Naif Rodriguez 10/10/2024 Results Follow-Up [facility] at [address] [address] Ramya Preston NP Type 2 diabetes mellitus with stage 3b chronic kidney disease, without long-term current use of insulin (HCC) (Primary Dx) 10/09/2024 12:00 PM NON MORSE INTERCEPT TECHNICIAN Lab [facility] at [address] [address] Hypertension (Primary Dx); Hyperlipidemia; Type 2 diabetes mellitus with stage 3a chronic kidney disease, without long-term current use of insulin (HCC) 10/09/2024 11:00 AM NON MORSE INTERCEPT TECHNICIAN Office Visit [facility] at [address] [address] Ramya Preston NP Type 2 diabetes mellitus with stage 3a chronic kidney disease, without long-term current use of insulin (HCC) (Primary Dx); Mixed stress and urge urinary incontinence; Primary hypertension; Mixed hyperlipidemia; Chronic left shoulder pain 10/09/2024 10:04 AM NON MORSE INTERCEPT TECHNICIAN - 10/09/2024 11:59 PM NON MORSE INTERCEPT TECHNICIAN Hospital Encounter [address] [address] Type 2 diabetes mellitus with stage 3a chronic kidney disease, without long-term current use of insulin (HCC); Leukocytosis, unspecified type Discharge Disposition: Discharge to home or self care 10/02/2024 Results Follow-Up [facility] at [address] [phone] Ramya Preston NP 09/27/2024 2:24 PM NON MORSE INTERCEPT TECHNICIAN - 09/27/2024 11:59 PM NON MORSE INTERCEPT TECHNICIAN Hospital Encounter [facility] [address] [place] [address] Encounter for osteoporosis screening in asymptomatic postmenopausal patient Discharge Disposition: Discharge to home or self care from Last 3 Months Immunizations Immunization Administration Dates Next Due Influenza, Quadrivalent, Hig h Dose, Preservative Free, Intrr 05/09/2023,06/09/2022,06/17/2021 Influenza, Quadrivalent, Spl it, Intramuscular 05/29/2020,05/30/2019,09/20/2018,06/01,05/28/2015 Influenza, Trivalent, High D ose, Split, Preservative Free, Intramuscular 07/05/2024 Pneumococcal Polysaccharide PPV23 12/08/2022 Surgical History Surgery Date Site/Laterality Comments HEEL SPUR SURGERY Medical History Medical History Date Comments Hypertension Osteoporosis GERD (gastroesophageal reflux disease) Depression Family History Medical History Relation Name Comments Heart disease Father Heart disease Mother Relation Name Status Comments Father Mother Social History Tobacco Use Types Packs/Day Years [...] Frequency of Binge Drinking Not on file 030 12/2024 PHQ-2 Answer Date Recorded PHQ-2 Total Score (If total score is 3 or more points, staff should administer the PHQ-9) 0 10/09/2024 Comments Unknown Sex and Gender Information Value Date Recorded Sex Assigned at Not on file Legal Sex Female 5:46 PM NON MORSE INTERCEPT TECHNICIAN Gender Identity Female 10/25/2018 11:04 AM CDT Sexual Orientation Not on file Obstetrics History Last Filed Vital Signs Vital Sign Reading Time Taken Comments Blood Pressure 110/69 10/19/2024 1:36 PM NON MORSE INTERCEPT TECHNICIAN Pulse 76 10/19/2024 1:36 PM NON MORSE INTERCEPT TECHNICIAN Temperature 37 C (98.6 F) 10/17/2024 2:09 PM NON MORSE INTERCEPT TECHNICIAN Respiratory Rate 20 07/17/2024 10:14 AM NON MORSE INTERCEPT TECHNICIAN Oxygen Saturation 97% 10/09/2024 11:06 AM NON MORSE INTERCEPT TECHNICIAN Inhaled Oxygen Concentration - - Weight 80.3 kg (177 lb) 10/19/2024 1:36 PM NON MORSE INTERCEPT TECHNICIAN Height 165.1 cm (5' 5 ) 10/19/2024 1:36 PM NON MORSE INTERCEPT TECHNICIAN Body Mass Index 29.45 10/19/2024 1:36 PM NON MORSE INTERCEPT TECHNICIAN Plan of Treatment Health Maintenance Due Date Last Done Comments Dilated Eye Exam 1940 Foot Exam 1940 DTaP/Tdap/Td Vaccine (1 - Tdap) 1950 Hepatitis B Screening 1957 Zoster Vaccine (1 of 2) 1989 Pneumococcal vaccine 65+ (2 of 2 - PCV) 12/09/2023 12/08/2022 Covid-19 Vaccine (4 - 2023-2 5 season) 2024 09/02/2021, 11/04/2020, 10/07/2020 Hemoglobin A1C 04/08/2025 10/09/2024, 06/16, 01/03/2024 Albumin Creatinine Ratio, Urine 07/05/2025 Well Visit 65+ 07/05/2025 07/05/2024 Depression Screening 10/09/2025 10/09/2024, 07/05/2024, 01/03/2024 Fall Risk Assessment 10/09/2025 10/09/2024, 07/05/2024, 01/03/2024 Lipid Panel 10/09/2025 10/09/2024, 06/16, 01/03/2024 eGFR 10/09/2025 10/09/2024, 06/16, 01/03/2024, Additional history exists Osteoporosis Screening-Bone Density Scan 09/27/2026 09/27/2024 Influenza Vaccine Completed 07/05/2024, , 06/09/2022, Additional history exists Procedures Procedure Name Priority Date/Time Associated Diagnosis Comments EGFR Routine 10/09/2024 10:04 AM NON MORSE INTERCEPT TECHNICIAN Type 2 diabetes mellitus with stage 3a chronic kidney disease, without long-term current use of insulin (HCC) DIFFERENTIAL AUTO Routine 10/09/2024 10:04 AM NON MORSE INTERCEPT TECHNICIAN Leukocytosis, unspecified type CBC WITH AUTO DIFFERENTIAL Routine 10/09/2024 10:04 AM NON MORSE INTERCEPT TECHNICIAN Leukocytosis, unspecified type LIPID PANEL Routine 10/09/2024 10:04 AM NON MORSE INTERCEPT TECHNICIAN Type 2 diabetes mellitus with stage 3a chronic kidney disease, without long-term current use of insulin (HCC) HEMOGLOBIN A1C Routine 10/09/2024 10:04 AM NON MORSE INTERCEPT TECHNICIAN Type 2 diabetes mellitus with stage 3a chronic kidney disease, without long-term current use of insulin (HCC) COMPREHENSIVE METABOLIC PANEL Routine 10/09/2024 10:04 AM NON MORSE INTERCEPT TECHNICIAN Type 2 diabetes mellitus with stage 3a chronic kidney disease, without long-term current use of insulin (HCC) DEXA AXIAL SKELETON BONE DENSITY 1 OR MORE SITES Schedule Routine, Read Routine (OP Routine) 09/27/2024 2:52 PM NON MORSE INTERCEPT TECHNICIAN Encounter for osteoporosis screening in asymptomatic postmenopausal patient ALBUMIN CREATININE RATIO, URINE Routine 07/05/2024 12:30 PM NON MORSE INTERCEPT TECHNICIAN Type 2 diabetes mellitus with stage 3a chronic kidney disease, without long-term current use of insulin (HCC) from Last 3 Months or Most Recently Relevant to Health Maintenance Results * (ABNORMAL) eGFR (10/09/2024 10:04 AM NON MORSE INTERCEPT TECHNICIAN) Pathologist [facility] eGFR 42(L) >=60 mL/min/1. 73 m2 Comment: [...] of Race in Diagnosing Kidney Disease, JASN 2020). The CKD-EPI equation should not be used for patients with unstable renal function and has not been validated in children and those over 70. Current interpretive data was last reviewed 2021. Blood 10/09/2024 10:0 4 AM NON MORSE INTERCEPT TECHNICIAN 10/09/2024 9:25 PM NON MORSE INTERCEPT TECHNICIAN us Ramya Preston NP LAB BLOOD [place] [address] [address]ani [address] Department [place] [address] * Differential, auto (10/09/2024 10:04 AM NON MORSE INTERCEPT TECHNICIAN) Pathologist [facility] Neutrophil abs 6.1 1.5 - 6.5 K/cumm Imm gran abs 0.1 0.0 - 0.1 K/cumm [facility] Lymphocyte abs 2.5 0.8 - 3.3 K/cumm [facility] Monocyte abs 0.6 0.2 - 0.8 K/cumm [facility] Eosinophil abs 0.1 0.0 - 0.5 K/cumm [facility] Basophil abs 0.0 0.0 - 0.1 K/cumm [facility] Neutrophil pct 64.9 % [facility] Comment: Interpretive Data Percent cell count reference ranges are not reported, since discordance with absolute values may lead to misinterpretation of CBC data. Current Interpretive Data was last revised on 2017. Imm gran pct 0.6 % [facility] Comment: Interpretive Data Percent cell count reference ranges are not reported, since discordance with absolute values may lead to misinterpretation of CBC data. Current Interpretive Data was last revised on 2017. Lymphocyte pct 26.1 % [facility] Comment: Interpretive Data Percent cell count reference ranges are not reported, since discordance with absolute values may lead to misinterpretation of CBC data. Current Interpretive Data was last revised on 2017. Monocyte pct 6.8 % [facility] Comment: Interpretive Data Percent cell count reference ranges are not reported, since discordance with absolute values may lead to misinterpretation of CBC data. Current Interpretive Data was last revised on 2017. Eosinophil pct 1.2 % [facility] Comment: Interpretive Data Percent cell count reference ranges are not reported, since discordance with absolute values may lead to misinterpretation of CBC data. Current Interpretive Data was last revised on 2017. Basophil pct 0.4 % [facility] Comment: Interpretive Data Percent cell count reference ranges are not reported, since discordance with absolute values may lead to misinterpretation of CBC data. Current Interpretive Data was last revised on 2017. Blood 10/09/2024 10:0 4 AM NON MORSE INTERCEPT TECHNICIAN 10/09/2024 9:15 PM NON MORSE INTERCEPT TECHNICIAN us Ramya Preston NP LAB BLOOD [place]AB[place] [address] [address] Department [place] [address] * (ABNORMAL) CBC with auto differential (10/09/2024 10:04 AM NON MORSE INTERCEPT TECHNICIAN) WBC 9.4 3.8 - 9.9 K/cumm Hgb 13.2 11.9 - 15.5 g/dL [facility] Hct 42.0 35.6 - 45.5 % [facility] Plt 349 150 - 400 K/cumm [facility] MPV 11.2 9.1 - 12.3 fL [facility] RBC 4.36 3.90 - 5.20 M/cumm [facility] MCV 96.3 81.3 - 96.4 fL [facility] MCH 30.3 27.1 - 33.3 pg [facility] MCHC 31.4(L) 32.3 - 35.7 g/dL [facility] RDW CV 13.7 11.1 - 14.9 % [facility] RDW SD 48.9(H) 35.7 - 48.1 fL [facility] NRBC abs 0.00 0.00 - 0.01 K/cumm [facility] Blood 10/09/2024 10:0 4 AM NON MORSE INTERCEPT TECHNICIAN 10/09/2024 9:15 PM NON MORSE INTERCEPT TECHNICIAN us Ramya Preston NP LAB BLOOD ORDERABLES Final Resul t Performing Organization Address [facility] de Phone Number [facility] [address] [address] [place] [employer] [place] [address] * (ABNORMAL) Hemoglobin A1c (10/09/2024 10:04 AM NON MORSE INTERCEPT TECHNICIAN) Pathologist [facility] Hgb A1C 6.7(H) 4.0 - 5.6 % Estimated Average Glucose 146 mg/dL [facility] Comment: The ADA recommends reporting an estimated Average Glucose (eAG) with all Hemoglobin A1c results using the equation derived from a study of 507 normal and diabetic adults. Minority populations were underrepresented and children were not included. (Diabetes Care 31:0210-6797, 2008). The eAG is not equivalent to a fasting glucose. Blood 10/09/2024 10:0 4 AM NON MORSE INTERCEPT TECHNICIAN 10/09/2024 9:15 PM NON MORSE INTERCEPT TECHNICIAN us Ramya Preston NP LAB BLOOD ORDERABLES Final Resul t Performing Organization Address [facility] Co de Phone Number [facility] [address] [address] [facility] [place] [address] * Lipid panel (10/09/2024 10:04 AM NON MORSE INTERCEPT TECHNICIAN) Pathologist [facility] Cholesterol 151 30 - 199 mg/dL Comment: [...] on 2018. Triglycerides 140 <=149 mg/dL [facility] Comment: Interpretive Data Ages < or = [...] on 2018. HDL 42 >=40 mg/dL ROM Comment: Interpretive Data Ages < or = [...] 2018. LDL, calculated 84 <=129 mg/dL ROM Comment: Interpretive Data Ages < or = 19 years Acceptable: <110 mg/dL Borderline high: 110-129 mg/dL High: >or= 130 mg/dL Ages > or = 20 years Optimal: <100 mg/dL Near optimal: 100-129 mg/dL Borderline high: 130-159 mg/dL High: >160 mg/dL Calculated using the Andersen LDL-C estimating equation. This equation was implemented on 2024. Prior to this date LDL-C was estimated using the Friedewald equation. Literature References: 1. Expert Panel on Integrated Guidelines for Cardiovascular Health and Risk Reduction in Children and Adolescents. Pediatrics 2011;128:S213 2. NCEP Expert Panel. Circulation 2004;110:227 3. Ganesh Oviedo et al. PRAFUL Cardiol. 2019December 13;5(5):540-548. doi: 10.1001/jamacardio.2020.0013 Current Interpretive Data was last revised on 2024. Non-HDL Cholesterol 109 mg/dL [facility] Comment: Interpretive Data Ages < or = [...] last revised on 2018. Chol/HDL ratio 4 [facility] Blood 10/09/2024 10:0 4 AM NON MORSE INTERCEPT TECHNICIAN 10/09/2024 9:15 PM NON MORSE INTERCEPT TECHNICIAN Ramya Preston NP LAB BLOOD ORDERABLES Final Resul t [facility] [address] [address] Department [place] [address] * (ABNORMAL) Comprehensive metabolic panel (10/09/2024 10:04 AM NON MORSE INTERCEPT TECHNICIAN) Sodium 136 135 - 145 mmol/L Potassium, [...] [facility] Blood 10/09/2024 10:0 4 AM NON MORSE INTERCEPT TECHNICIAN 10/09/2024 9:15 PM NON MORSE INTERCEPT TECHNICIAN us Ramya Preston NP LAB BLOOD ORDERABLES Final Resul t [place] [address] [address]ani Vasquez Department [place] [address] * Dexa Axial Skeleton Bone Density 1 or 2 Site (09/27/2024 2:52 PM NON MORSE INTERCEPT TECHNICIAN) Anatomical Region Laterality Modality Body N/A Other 10/02/2024 8:21 AM NON MORSE INTERCEPT TECHNICIAN Narrative 10/02/2024 8:21 AM NON MORSE INTERCEPT TECHNICIAN EXAM DESCRIPTION: DEXA AXIAL SKELETON BONE DENSITY 1 OR MORE SITES REASON FOR STUDY: 83 y/o year old F with given history of: Postmenopausal status. History of secondary osteoporosis. Patient takes vitamin-D and calcium. 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 TW: TW Report ID: [id number] Reading Location: [id number] Procedure Note Beatrice Vogel MD - 10/02/2024 EXAM DESCRIPTION: DEXA AXIAL SKELETON BONE DENSITY 1 OR MORE SITES REASON FOR STUDY: 83 y/o year old F with given history of:Postmenopausal status. History of secondary osteoporosis. Patient takes vitamin-D and calcium. 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 TW: WILLIAMS Report ID: [id number] Reading Location: [place] [address] us Ramya Preston NP IMG DXA PROCEDURES Final Result * (ABNORMAL) Albumin Creatinine Ratio, Urine (07/05/2024 12:30 PM NON MORSE INTERCEPT TECHNICIAN) Albumin Ur 198.1 mg/L Comment: Interpretive Data No reference range established. Current interpretive data was last revised 2018. Creatinine Ur 255.5 mg/dL [facility] Comment: Interpretive Data No reference range established. Current interpretive data was last revised 2018. Albumin Creatinine Ratio, Ur 78(H) 1 - 29 mg/g [facility] Urine 07/05/2024 12:3 0 PM NON MORSE INTERCEPT TECHNICIAN 07/06/2024 11:13 AM NON MORSE INTERCEPT TECHNICIAN Ramya Preston NP LAB URINE ORDERABLES [place] [address] [address] Department [place] [address] from Last 3 Months or Most Recently Relevant to Health Maintenance Insurance MEDICARE [facility] MEDIC[facility] Care Teams Mine Promotor Relationship Specialty Start Date End Date Ramya Preston NP [address] [place] [address] PCP - General Family Medicine 01/03/24 David Fermin DPM [address] [place] [address] Consulting Physician Orthotics 01/03/24
--- OUTSIDE RECORDS SUMMARY | 2024-10-26 19:09 | XMS_ITS | CONTINUITY OF CARE DOCUMENT ---
Author Name duyen geller Address Unknown Organization [facility] Address [address] [place] [address] Phone [phone] Care Team Providers Care Store Stock Associate Name Role Phone REYNOLD ANAYA, AARON Unavailable [phone] ANJELICA WOODSON MD Unavailable [phone] INSURANCE PROVIDERS Payer name Policy type / Coverage type [place] red democrat [employer] [facility] Medicaid 0 [id number] [place] Medicare [id number]
--- OUTSIDE RECORDS SUMMARY | 2024-10-26 19:09 | XMS_ITS | Encounter Summary ---
Author Organization [facility] Address [address] [place] [address] Phone Care Team Providers Care Conflicts Analyst Name Role Phone Maryse Schrader MD Primary Care Provider [phone] Ramya Preston NP Primary Care Provider [phone] David Fermin DPM Unavailable [phone] Encounter Details Date Type Department Care Team (Late st Contact Info) Description 12/27/2017 Orders Only [facility] Scanning, Provider Social History Tobacco Use Types Packs/Day Years Used Date Smoking Tobacco: Never Comments Unknown Sex and Gender Information Value Date Recorded Sex Assigned at Not on file Legal Sex Female 5:46 PM ASSOCIATE DIRECTOR Gender Identity Female 10/25/2018 11:04 AM CDT Sexual Orientation Not on file documented as of this encounter Plan of Treatment Not on file documented as of this encounter Procedures Procedure Name Priority Date/Time Associated Diagnosis Comments SCAN - RADIOLOGY/IMAGING 12/27/2017 documented in this encounter Results * SCAN - RADIOLOGY/IMAGING (12/27/2017) Anatomical Region Laterality Modality Other us Provider Scanning Final Result documented in this encounter Visit Diagnoses Not on filedocumented in this encounter Care Teams Conflicts Analyst Relationship Specialty Start Date End Date Maryse Schrader MD [address] [address] PCP - General 12/07/17 01/02/24 Ramya Preston NP [address] [facility] [address] [place] [address] PCP - General Family Medicine 01/03/24 David Fermin DPM [address] [place] [address] Consulting Physician Orthotics 01/03/24 [employer] Truck Driver 01/03/24 01/03/24 documented as of this encounter
--- OUTSIDE RECORDS SUMMARY | 2024-10-26 19:09 | XMS_ITS | Continuity of Care Document ---
Author Organization [facility] Address [address] [place] [address] Phone Care Team Providers Care Career Services Director Name Role Phone Mary Becerra OT Unavailable Unavailable Procedures Procedure Date Therapeutic Activities Hot or Cold Pack Doc neg elder mal no plan PRES/ABSN URINE INCON ASSESS Identified as not an unhealthy alcohol u ser Not identified as unhealthy alcohol via screening OT Evaluation Low Complexity Therapeutic Activities Hot or Cold Pack Advance Directives Directive Yes / No Effective Date File Name No Information Encounters Encounter Description Practice Location Reason(s) For Visit Diagnoses Date Provider Providers Copied on Encounter [facility], [address], [place], [place], [id number], tel:[phone] [place] No Information 5 Mariam Hernandez. . Referring Provider: Jeremias Laureano [address], [place], [address]. tel:[phone] [facility], [address], [place], [place], [id number], tel:[phone] [place] No Information 5 Mariam Hernandez. . Referring Provider: Jeremias Laureano [address], [place], [address]. tel:[phone] Family History Family Member Type Diagnosis Age At Onset No Information Payers Payer name Insurance type Covered republican ID Leonarda arguelles(s) Medicare [facility] [id number] Medicaid OON Write Off CI 00 Social History Type Description Quantity Date Captured Comments Sex Female Smoking Status No Information Chief Complaint And Reason For Visit No Information Reason For Referral Reason For Referral No Information Plan Of Treatment Date Type Action Status Appointment Silvia Kern BOOKED Appointment Sivlia Kern BOOKED History Of Present Illness Encounter Date Complaint History Of Prese nt Illness No Information Functional Status Date Functional Assessmen t No Information Instructions Date Instruction Additional Infor mation No Information Assessments Type Assessment Date No Information Patient Care Teams Name Effective Dates (start - stop) Status Members No Information
--- OUTSIDE RECORDS SUMMARY | 2024-10-26 19:09 | XMS_ITS | Encounter Summary ---
Author Organization [facility] Address [address] [place] [address] Care Team Providers Care Software Computer Specialist Name Role Phone Ramya Preston NP Primary Care Provider [phone] David Fermin DPM Unavailable [phone] Reason for Referral * Consultation (Routine) - Authorized Specialty Diagnoses / Procedures Referred By Ros klein Referred To Contact Nephrology Diagnoses Type 2 diabetes mellitus with stage 3b chronic kidney disease, without long-term current use of insulin (HCC) Ramya Preston NP [address] [place] [address] Phone: tel: fax: [facility] at [address] [place] [address] Phone: tel: fax: Referral ID Status Reason Start Date Expiration Date Visits Requested Visits Authorized [id number] Authorized Specialty Services Required 10/10/2024 11/09/2025 1 1 Question Answer Please select the performing region: [facility] [[id number]] Please select the performing department: [facility] [[id number]] # of visits: 1 DOFFER Encounter Details Date Type Department Care Team (Late st Contact Info) Description 10/10/2024 Results Follow-Up [facility] at [address] [address] Ramya Preston NP [address] [facility] [place] [address] Type 2 diabetes mellitus with stage 3b chronic kidney disease, without long-term current use of insulin (HCC) (Primary Dx) Social History Tobacco Use Types Packs/Day Years [...] on file Legal Sex Female 5:46 PM HEAD DOFFER Gender Identity Female 10/25/2018 11:04 AM CDT Sexual Orientation Not on file documented as of this encounter Plan of Treatment Scheduled Referrals Name Type Priority Associated Diagnoses Order Schedule Ambulatory referral to Nephrology Outpatient Referral Routine Type 2 diabetes mellitus with stage 3b chronic kidney disease, without long-term current use of insulin (HCC) Expected: 10/24/2024 (Approximate), Expires: 10/10/2025 documented as of this encounter Visit Diagnoses Diagnosis Type 2 diabetes mellitus with stage 3b chronic kidney disease, without long-term current use of insulin (HCC)- Primary documented in this encounter Care Teams Software Computer Specialist Relationship Specialty Start Date End Date Ramya Preston NP [address] [facility] [address] [place] [address] PCP - General Family Medicine 01/03/24 David Fermin DPM [address] [place] [address] Consulting Physician Orthotics 01/03/24 documented as of this encounter
--- OUTSIDE RECORDS SUMMARY | 2024-10-26 19:09 | XMS_ITS | Data Portability ---
Author Organization [facility] Rae [facility] Address [address] [place] [address] Care Team Providers Care Sociology Instructor Name Role Phone JANET HAGEN Paper Bundler Assessment No assessment recorded. Plan of Treatment Reminders Order Date Submit Date Provider Last Modified By Organization Details Last Modified Time Details Appointments ANY 15 2024 02:00P M Adriana Flores MD Not available Not available Not available Lab None recorded. Referral None recorded. Procedures None recorded. Surgeries None recorded. Imaging None recorded. Medication Orders nystatin 100,000 unit/gram topical cream 2022 023 [employer], [address], [address] [place] [address], [id number], 05/09/2023 12:52:05 aspirin 81 mg tablet,de layed release 2022 023 [employer], [address], [address] [place] [address], [id number], 12/08/2022 11:33:44 pantopraz ole 40 mg tablet,de layed release 2022 023 [employer], [address], [address] [place] [address], [address], 12/08/2022 11:33:44 nystatin 100,000 unit/gram topical cream 2022 023 [employer], [address], [address] [place] [address], [address], 12/08/2022 11:33:44 nifedipin e ER 30 mg tablet,ex tended release 24 hr 2022 023 [employer], [address], [address], [place], [address], 12/08/2022 11:33:44 calcium 600 mg (as carbonate )-vitamin D3 10 mcg (400 unit) tablet 2022 023 [employer], [address], [place], [address], 12/08/2022 11:33:44 ergocalci ferol (vitamin D2) 1,250 mcg (50,000 unit) capsule 2022 023 [employer], [facility], , [place], [address], 12/08/2022 11:33:44 pravastat in 20 mg tablet 2022 023 [employer], [facility], , [place], [address], 12/08/2022 11:33:44 Patient TargetsNo targets recorded. Patient Instructions Encounter Date Encounter Id Patient Instructions Last Modified By Organization Details Last Modified Time 03/09/2022 [id number] osteoarthritis: care instructions [facility] Not available 03/09/2022 11:41:43 When You Want to Lose Weight: Care Instructions si Not available 03/09/2022 11:41:43 06/09/2022 [id number] influenza (flu) vaccine: care instructions si Not available 06/10/2022 10:32:36 osteoarthritis: care instructions [facility] Not available 06/10/2022 13:18:24 osteoporosis: care instructions [facility] Not available 06/10/2022 13:18:24 high cholesterol : care instructions sie[facility] Not available 06/10/2022 13:18:24 When You Want to Lose Weight: Care Instructions [facility] Not available 06/10/2022 13:18:24 learning about high blood pressure si Not available 06/10/2022 13:18:24 12/08/2022 [id number] osteoarthritis: care instructions [facility] Not available 12/08/2022 11:33:44 When You Want to Lose Weight: Care Instructions [facility] Not available 12/08/2022 11:33:43 A healthy lifestyle: care instructions [facility] Not available 12/08/2022 11:34:47 A healthy lifestyle: care instructions [facility] Not available 12/08/2022 11:34:47 high cholesterol : care instructions [facility] Not available 12/08/2022 11:33:43 05/09/2023 [id number] influenza (flu) vaccine: care instructions [facility] Not available 05/09/2023 12:51:47 Reason for Referral None Reported. Problems Name Problem SNOMED Code Status Onset Date Resolution Date Notes Provider Name and Address Organization Details Recorded Time Glaucoma 50917996 Active 2019 ZENAIDA HARRELL Attn: Parminder gillette,[address] [place], [place], [address] [place] [address] 2, [place] [facility] 0 11:10:12 Osteopenia 314392939 Active Maryse Schrader MD Attn: Parmin[employer] gillette,[address] [place], [address] [place] [address] 2, [place] [facility] 5 10:46:50 Osteoarthritis 679594202 Active Maryse Schrader MD Attn: Parminder gillette,[address] [place], [address] [place] [address] 2, [place] [facility] 6 11:06:35 Essential hypertension 87508883 Active Maryse Schrader MD Attn: Parminder gillette,[address] [place], [address] [place] [address] 2, [place] [facility] 6 11:06:35 Obesity 919854250 Active Maryse Schrader MD Attn: Parminder gillette,[address] [place], [address] [place] [address] 2, [place] [facility] 6 11:06:35 Hyperlipidemia 99783574 Active Maryse Schrader MD Attn: [employer]ell gileltte,[address] [facility], [place], [place], [address] [place] [address] 2, [place] [facility] 6 11:43:13 Tinea corporis 41989256 Active Maryse Schrader MD Attn: Kanjewell gillette,[address] [facility], [place], [place], [address] [place] [address] 2, [place] [facility] 6 11:06:35 Scapulalgia 51435006 Active Maryse Schrader MD Attn: Parminder nain,[address] [facility], [place], [place], [address] [place] [address] 2, [place] [facility] 5 10:56:06 Osteoporosis 05194103 Active Maryse Schrader MD Attn: Parminder nain,[address] [facility], [place], [place], [address] [place] [address] 2, [place] [facility] 6 11:43:13 Chronic anemia 361357006 Active Maryse Schrader MD Attn: Parminder nain,[address] [facility], [place], [address] [place] [address] 2, [place] [facility] 6 11:43:13 Osteoarthritis of knee 589558711 Active Maryse Schrader MD Attn: Parminder nain,[address] [facility], [place], [place], [address] [place] [address] 2, [place] [facility] 6 11:43:13 Unsteady gait Active Maryse Schrader MD Attn: Parminder gillette,[address] [facility], [place], [place], [address] [place] [address] 2, [place] [facility] 6 11:43:13 Acid reflux 410666253 Active Maryse Schrader MD Attn: Parminder nain,[address] [facility], [place], [place], [address] [place] [address] 2, [place] [facility] 6 11:43:13 Problem Notes None recorded. Medical Equipment None Reported. Allergies No known drug allergies Medications Name Sig Start Date Stop Date Status Note LastModified by Organization Details LastModified Time Prescriptio n - Clarificati on 09/08 completed Not Available Not Available Not Available nifedipine ER 30 mg tablet,exte nded release 24 hr TAKE 1 TABLET BY MOUTH DAILY. active Not Available Not Available No t Available celecoxib 200 mg capsule TAKE ONE CAPSULE BY MOUTH EVERY DAY 09/08 completed Not Available Not Available Not Available latanoprost 0.005 % eye drops 08/25 completed Not Available Not Available Not Available nystatin 100,000 unit/mL oral suspension Take 5 mL 3 times a day by oral route as directed for 7 days. 11/30 completed Not Available Not Available Not Available pravastatin 40 mg tablet Take 1 tablet(s) every day by oral route at dinner for 30 days. 09/08 completed Not Available Not Available Not Available Fish Oil 120 mg-180 mg-1000 mg capsule Take by oral route. active Not Available Not Available No t Available lisinopril 20 mg tablet Take one tablet by mouth once daily. 09/08 completed Not Available Not Available Not Available prednisone 20 mg tablet 06/01 completed Not Available Not Available Not Available alendronate 70 mg tablet TAKE 1 TABLET BY MOUTH ONCE A WEEK, 30 minutes before meal, in upright position, with a glass of water. 09/08 completed Not Available Not Available Not Available prednisone 5 mg tablet 11/30 completed Not Available Not Available Not Available pantoprazol e 40 mg intravenous solution active Not Available Not Available Not Available simvastatin 80 mg tablet 09/08 completed Not Available Not Available Not Available aspirin 81 mg tablet,torey yed release TAKE (1) TABLET BY MOUTH ONCE DAILY WITH MEAL. active Not Available Not Available No t Available simvastatin 40 mg tablet TAKE 1 TABLET BY MOUTH AT BEDTIME 09/08 completed Not Available Not Available Not Available citalopram 20 mg tablet TAKE (1) TABLET BY MOUTH DAILY. active Not Available Not Available No t Available nifedipine ER 60 mg tablet,exte nded release 24 hr TAKE ONE TABLET DAILY 09/08 completed Not Available Not Available Not Available prednisone 1 mg tablet 05/30 completed Not Available Not Available Not Available L-Glutamine 500 mg capsule Take 1 capsule 3 times a day by oral route as directed for 30 days. 09/08 completed Not Available Not Available Not Available benzonatate 100 mg capsule Take 1 capsule 3 times a day by oral route as needed for 10 days. active Not Available Not Available No t Available pantoprazol e 40 mg tablet,torey yed release TAKE 1 TABLET BY MOUTH DAILY. active Not Available Not Available No t Available nystatin 100,000 unit/gram topical cream APPLY TO THE AFFECTED AREA(S) BY TOPICAL ROUTE 2 TIMES PER DAY active Not Available Not Available No t Available lisinopril 10 mg tablet TAKE 1 TABLET BY MOUTH EVERY DAY (STOP LISINOPRI L 20 MG) 06/01 completed Not Available Not Available Not Available docusate sodium 100 mg capsule one tab po bid prn 2024 active Not Available Not Available Not Avai lable pravastatin 20 mg tablet one tab po q d active Not Available Not Available No t Available lisinopril 5 mg tablet 06/01 completed Not Available Not Available Not Available gabapentin 100 mg capsule Take 1 capsule(s ) 3 times a day by oral route with meals for 30 days. 09/08 completed Not Available Not Available Not Available ergocalcife rol (vitamin D2) 1,250 mcg (50,000 unit) capsule TAKE (1) CAPSULE BY MOUTH ONCE PER WEEK ON TUESDAY active Not Available Not Available No t Available Cheratussin AC 10 mg-100 mg/5 mL oral liquid Take 10 mL 3 times a day by oral route as needed for 5 days. 11/30 completed Not Available Not Available Not Available ibuprofen 600 mg tablet TAKE 1 TABLET BY MOUTH 3 TIMES A DAY NEEDED FOR PAIN. active Not Available Not Available No t Available celecoxib 100 mg capsule Take 1 capsule(s ) every day by oral route as needed for 30 days. 09/08 completed Not Available Not Available Not Available docusate sodium 100 mg tablet Take 1 tablet twice a day by oral route. 11/30 completed Not Available Not Available Not Available amoxicillin 500 mg-potassiu m clavulanate 125 mg tablet Take 1 tablet every 12 hours by oral route after meals for 10 days. 07/03 completed Not Available Not Available Not Available Fish Oil 500 mg capsule Take 1 capsule 3 times a day by oral route with meals for 30 days. 09/08 completed Not Available Not Available Not Available fenofibrate nanocrystal lized 145 mg tablet Take 1 tablet every day by oral route. 09/08 completed Not Available Not Available Not Available omega-3 fatty acids-fish oil 300 mg-1,000 mg capsule Take 1 capsule twice a day by oral route with meals for 30 days. 08/25 completed Not Available Not Available Not Available calcium 600 mg (as carbonate)- vitamin D3 10 mcg (400 unit) tablet TAKE (1) TABLET BY MOUTH TWICE DAILY. active Not Available Not Available No t Available fenofibric acid (choline) 135 mg capsule,del ayed release TAKE ONE CAPSULE BY MOUTH EVERY DAY 09/08 completed Not Available Not Available Not Available Vitals Date Recorded Body height Body mass index (BMI) Body weight Body temperature Oxygen saturation Oxygen saturation in Arterial blood by Pulse oximetry Heart rate Systolic blood pressure Diastolic blood pressure Provider Name and Address Organization Details Last Updated DateTime 2 149.86 cm 39.1 kg/m2 72788.2 g 97.5 [degF] 95 % 95 % 90 /min 126 mm[Hg] 74 mm[Hg] Alessio Watson [place] - [facility] 2 11:08:00 Date Recorded Body height Body mass index (BMI) Body weight Heart rate Oxygen saturation Oxygen saturation in Arterial blood by Pulse oximetry Systolic blood pressure Diastolic blood pressure Provider Name and Address Organization Details Last Updated DateTime 2 149.86 cm 39 kg/m2 31185.3 3 g 71 /min 96 % 96 % 118 mm[Hg] 70 mm[Hg] Uyen Cagel [place] - [facility] 2 10:28:40 Date Recorded Body height Heart rate Oxygen saturation Oxygen saturation in Arterial blood by Pulse oximetry Body mass index (BMI) Body weight Systolic blood pressure Diastolic blood pressure Provider Name and Address Organization Details Last Updated DateTime 3 149.86 cm 75 /min 95 % 95 % 35.9 kg/m2 77429.7 2 g 142 mm[Hg] 82 mm[Hg] Ellen Ca [place] - [facility] 3 10:32:57 Date Recorded Body height Body mass index (BMI) Body weight Heart rate Oxygen saturation Oxygen saturation in Arterial blood by Pulse oximetry Systolic blood pressure Diastolic blood pressure Provider Name and Address Organization Details Last Updated DateTime 3 149.86 cm 39.4 kg/m2 66160.5 1 g 66 /min 97 % 97 % 130 mm[Hg] 78 mm[Hg] Fernanda Ramsay [place] - [facility] 3 11:51:42 Social History Question Answer Notes LastModified by Organizat ion Details LastModified Time Tobacco Smoking Status Never Smoker Alessio Watson [place] null, [place] [facility] 10/18/2014 12:48:11 What Was The Date Of Your Most Recent Tobacco Screening? 05/09/2023 adavisma Information not available 05/09/2023 Sex: Unknown Functional Status None recorded. Mental Status None recorded. Family History Nothing Reported. Medical History No medical history recorded. Gynecological HistoryNo gynecological history recorded. Obstetrics History GPAL:G 0 P 0 0 0 0 Immunizations Vaccine Type Date Status Note Provider Nam e and Address Organization Details Recorded Time COVID-19, mRNA, LNP-S, PF, 100 mcg/0.5mL dose or 50 mcg/0.25mL dose 1 completed Ginny Oliveros [place], [place] [facility] 02/18/2021 12:22:58 COVID-19, mRNA, LNP-S, PF, 100 mcg/0.5mL dose or 50 mcg/0.25mL dose 1 completed Ginny Oliver[place], [place] [facility] 02/18/2021 12:23:34 Influenza, split virus, quadrivalent, preservative 7 completed Not Available [facility] 09/01/2019 02:34:25 Influenza, split virus, quadrivalent, preservative 9 completed Not Available [facility] 09/01/2019 02:47:53 Influenza, split virus, quadrivalent, preservative 9 completed Not Available [facility] 09/01/2019 02:38:15 Influenza, split virus, quadrivalent, preservative 0 completed Alessio Watson [place], [place] [facility] 05/29/2020 14:22:58 Influenza, high-dose, quadrivalent, PF 1 completed Maryse Schrader MD Attn: [employer]ing[address] [place], [address], [place] [facility] 06/17/2021 14:41:23 COVID-19, mRNA, LNP-S, PF, 100 mcg/0.5mL dose or 50 mcg/0.25mL dose 2 completed Francine Rodriges LPN [place], [place] [facility] 09/02/2021 11:00:47 Influenza, high-dose, quadrivalent, PF 2 completed Maryse Schrader MD Attn: [address] [place], [address], [place] [facility] 06/10/2022 13:18:24 pneumococcal polysaccharide PPV23 3 completed Ellen Ca [place], [place] [facility] 12/08/2022 12:21:38 Influenza, high-dose, quadrivalent, PF 3 completed Maryse Schrader MD Attn: Accounting[address] [facility], [place], [address], [place] [facility] 05/09/2023 16:52:48 Influenza, split virus, quadrivalent, preservative 5 completed Not Available [facility] 09/01/2019 02:32:10 Past Encounters Encounter ID Performer Location Encounter Start Date Encounter Closed Date Diagnosis/Indication Diagnosis SNOMED-CT Code Diagnosis ICD10 Code Diagnosis Note [id number] MIKE Tay (Adult Med) [address] [place] [id number] 10/18/2014 12:10:04 10/18/2014 13:36:21 Osteopenia 058853051 Osteoarthritis 310205779 Essential hypertension 48248529 Obesity 879673341 Hyperlipidemia 81132673 Tinea corporis 98902162 [id number] MD Tim Juan (Adult Med) [address] [place] [address] [id number] 02/25/2015 09:56:28 02/25/2015 13:12:09 Scapulalgia 86695963 Essential hypertension 47633849 Hyperlipidemia 40385975 Obesity 043857822 Osteoarthritis 252736397 Osteoporosis 91593759 [id number] Haley Dumont (Adult Med) [address] [place] [id number] 05/28/2015 10:30:05 05/28/2015 12:50:50 Obesity 358582677 E66.9 Hyperlipidemia 20650841 E78.5 Essential hypertension 66798480 I10 Osteoporosis 62565605 M8 1.0 Administra tion of influenza vaccine 94162769 Z23 [id number] [facility] (Adult Med) [address] [place] [address] [id number] 11/27/2015 09:56:38 11/27/2015 11:07:35 Essential hypertension 87492463 I10 Hyperlipidemia 96146310 E78.5 Obesity 433381792 E66.9 Osteoarthritis 152448119 M19.90 Osteoporosis 46292769 M8 1.0 Tinea corporis 10578790 B35.4 [id number] [facility] (Adult Med) [address] [place] [id number] 05/17/2016 10:24:34 05/17/2016 11:46:02 Chronic anemia 426305582 D64.9 Osteoarthr itis of knee 102463551 M17.0 Unsteady gait 083536804 R26.81 Administra tion of influenza vaccine 80285308 Z23 Hyperlipidemia 92309938 E78.5 Acid reflux 545942845 K2 1.9 Osteoporosis 24553289 M8 1.0 [id number] MD Tmi Juan (Adult Med) [address] [place] [address] [id number] 12/01/2016 10:46:31 12/01/2016 12:18:26 Chronic anemia 233823563 D64.9 Will check CBC and blood test. Osteoarthr itis of knee 088027755 M17.0 PT, calcium/vi tamin D and alendronat e. Osteoarthritis 193649740 M19.90 Calcium/vi tamin d and alendronat e. Obesity 685590869 E66.9 Diet, exercise and lose weight. Hyperlipidemia 88918440 E78.5 Low saturated diet and pravastati n. Essential hypertension 99043796 I10 Low salt diet,and lisinopril . Osteoporosis 57029757 M8 1.0 To continue PT. calcium/vi tamin D and alendronat e, may add on glucosamin . Tinea corporis 34847099 B35.4 To continue nystatin cream topically. Screening mammography 24 273623 Z12.31 Patient refuses. Screening for malignant neoplasm of colon 107020103 Z12.11 Patient refuses. [id number] Maryse Schrader MD [facility] (Adult Med) [address] [place] [id number] 06/01/2017 10:40:59 06/01/2017 12:28:15 Chronic anemia 665548029 D64.9 Will check CBC and blood test. She is no longer anemic according to cbc 12-01-2016 her HG, was 11.5 g/dl. Osteoarthr itis of knee 353277798 M17.0 PT, calcium/vi tamin D and alendronat e. will add physical therapy. She reuses to see a improvement specialist . Unsteady gait 937009618 R26.81 Due to her osteoarthr itis, right side is worse than the left. Osteoarthritis 754783089 M19.90 Calcium/vi tamin d and alendronat e. Hyperlipidemia 51889759 E78.5 Low saturated diet and pravastati n. Osteoporosis 13399184 M8 1.0 Acid reflux 263460141 K2 1.9 Administra tion of influenza vaccine 33428290 Z23 Hypertensive disorder 38 659816 I10 Low salt diet. Screening mammography 24 372184 Z12.31 She refuses. Screening for malignant neoplasm of colon 550633639 Z12.11 She refuses. [id number] [facility] [address] [place] [address] [id number] 0 09/08/2017 12:12:36 09/08/2017 13:21:45 Polymyalgia rheumatica 01145956 M35.3 Urgent. Patient is dydisablin g on wheel chair. Go to ER any time for any concern. Depressive disorder 3548 9007 F32.9 Essential hypertension 28975927 I10 Low salt diet,and lisinopril . Acid reflux 360828064 K2 1.9 Vitamin D deficiency 347 66493 E55.9 On vitamin D as prescribed . Osteoporosis 89853595 M8 1.0 [id number] [facility] [address] [place] [address] [id number] 11/30/2017 10:13:08 11/30/2017 16:30:24 Screening for malignant neoplasm of colon 624321390 Z12.11 She refuses. Screening mammography 24 749130 Z12.31 She refuses. Osteoarthr itis of knee 253556938 M17.0 PT, calcium/vi tamin D and alendronat e. will add physical therapy. She reuses to see a improvement specialist . Osteopenia 209856048 M85 .80 On vitamin D. Unsteady gait 988872000 R26.81 Due to her osteoarthr itis, right side is worse than the left. Hyperlipidemia 72978631 E78.5 Low saturated diet and pravastati n. On fish oil. Essential hypertension 70199237 I10 Low salt diet,and lisinopril . Osteoporosis 55212798 M8 1.0 Acid reflux 110831514 K2 1.9 Tinea corporis 52580043 B35.4 To continue nystatin cream topically. Depressive disorder 3548 9007 F32.9 Chronic constipation 236 541556 K59.09 [id number] Maryse Schrader MD [facility] (Adult Med) [address] [place] [address] [id number] 0 06/01/2018 10:03:04 06/01/2018 11:04:30 Acute bronchitis 61554305 J20.9 [id number] Maryse Schrader MD [facility] (Adult Med) [address] [place] [address] [id number] 07/03/2018 10:12:07 07/03/2018 11:11:56 Chronic bronchitis 90911915 J42 [id number] JULIANNE Ledesma (Adult Med) [address] [place] [address] [id number] 09/20/2018 14:19:45 09/21/2018 10:01:25 Administration of influenza vaccine 34243547 Z23 [id number] MD Tim Juan (Adult Med) [address] [place] [address] [id number] 0 11/30/2018 10:11:22 12/01/2018 09:11:14 Screening for osteoporosis 249449817 Z13.820 Tinea cruris 707781542 B 35.6 Osteoporosis 35732401 M8 1.0 [id number] MD Tim Juan (Adult Med) [address] [place] [address] [id number] 0 05/30/2019 09:52:54 05/30/2019 11:08:06 Essential hypertension 78653269 I10 Low salt diet,and lisinopril . Hyperlipidemia 01749740 E78.5 Low saturated diet and pravastati n. On fish oil. Obesity 079266596 E66.9 Diet, exercise and lose weight. Osteoarthritis 950241304 M19.90 Calcium/vi tamin d and alendronat e. Acid reflux 683738853 K2 1.9 Controlled by pantoprazo le, Osteoporosis 39916271 M8 1.0 Senile osteopenia 536562 06 M85.80 Administra tion of influenza vaccine 09806354 Z23 Marsha tolerated shot well. Administra tion of diphtheria, pertussis, and tetanus vaccine 384726516 Z23 [id number] ZENAIDA COVARRUBIAS ([employer]PER[employer]) [address] [place] [address] [id number] 11/29/2019 09:55:17 12/07/2019 09:14:55 Essential hypertension 76940213 I10 Continue nifedipine as prescribed . F/u CBC, CMP.Discus sed DASH diet. Advised 30 minutes of exercise minimum daily. RTC in 3 months. Hyperlipidemia 86062072 E78.5 Continue fish oil supplement s. Recheck fasting lipid panel. Limit saturated fats and sugars. Osteopenia 252706979 M85 .80 Continue Calcium/Vi tamin D supplement twice daily. Vitamin D deficiency 347 45816 E55.9 Previously taking 50,000 units daily. Now taking 800 units daily. Last vitamin D level a year ago. Will recheck. Glaucoma 86680132 H40.9 Continue eye drops as prescribed . Follows with [facility]. Obesity 644319984 E66.9 Diet high in fruits and vegetables . Limit fat, sugar, and processed foods. Exercise at least 30 minutes 5x/week. Gastroesop hageal reflux disease without esophagitis 849612432 K21.9 Continue pantoprazo le as prescribed . Advised to stay away from spicy and greasy foods. Do not eat within 2 hours of going to bed. Stay sitting up after meals. [id number] Maryse Schrader MD [facility] (Adult Med) [address] [place] [address] [id number] 0 02/25/2020 09:45:46 02/27/2020 12:39:36 Acid reflux 144929322 K21.9 Controlled by pantoprazo le, Essential hypertension 98773234 I10 Low salt diet,and on nifedipine Er 30 mg/day according to record. Hyperlipidemia 32912721 E78.5 Low saturated diet and pravastati n. On fish oil. Obesity 347442660 E66.9 Diet, exercise and lose weight. Osteoarthritis 700787568 M19.90 Calcium/vi tamin d and alendronat e. Osteoporosis 11177142 M8 1.0 On vitamin D and calcium, [id number] Alessio Watson MA [facility] (Adult Med) [address] [place] [address] [id number] 0 05/29/2020 13:52:40 05/30/2020 10:48:47 Administration of influenza vaccine 66155610 Z23 Marsha tolerated shot well. [id number] Maryse Schrader MD [facility] (Adult Med) [address] [place] [address] [id number] 09/03/2020 08:07:13 09/04/2020 10:37:08 Degenerative joint disease involving multiple joints 149483427 M15.9 On ibuprofen three times after meals as needed,, seems helping for the relief of joint pain. Acid reflux 810385074 K2 1.9 Controlled by pantoprazo le, Essential hypertension 87331040 I10 Low salt diet,and on nifedipine Er 30 mg/day according to record. Glaucoma 00170805 H40.9 Under the care of her ophthalmol ogist. Hyperlipidemia 29647668 E78.5 Low saturated diet and pravastati n. On fish oil. Obesity 648897657 E66.9 Diet, exercise and lose weight. Osteopenia 929577419 M85 .80 On vitamin D. 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 [id number] Maryse Schrader MD [facility] (Adult Med) [address] [place] [address] [phone] 03/03/2021 13:22:47 03/09/2021 13:19:42 Acid reflux 357360473 K21.9 Controlled by pantoprazo le, Essential hypertension 87795164 I10 Low salt diet,and on nifedipine Er 30 mg/day according to record. Hyperlipidemia 88770402 E78.5 Low saturated diet and pravastati n. On fish oil. Obesity 456244497 E66.9 Diet, exercise and lose weight. Osteoarthritis 309758583 M19.90 Calcium/vi tamin d and alendronat e. Osteopenia 373871281 M85 .80 On vitamin D. Osteoporosis 98724671 M8 1.0 On vitamin D and calcium, Acute sinusitis 64173543 J01.90 Will give benzonatat e. [id number] Maryse Schrader MD [facility] (Adult Med) [address] [place] [address] [phone] 06/17/2021 14:30:59 06/18/2021 12:14:33 Administration of influenza vaccine 40396723 Z23 She tolerated shot well. [id number] Maryse Schrader MD [facility] (Adult Med) [address] [place] [address] [phone] 08/25/2021 11:24:11 08/27/2021 15:07:37 Acid reflux 442201040 K21.9 Controlled by pantoprazo le, Chronic anemia 507442707 D64.9 Will check CBC and blood test. She is no longer anemic according to cbc 12-01-2016 her HG, was 11.5 g/dl. Essential hypertension 74381525 I10 Low salt diet,and on nifedipine Er 30 mg/day according to record. Blood pressure reading is 140/82 mm Hg. 08-26-2021 . Hyperlipidemia 22826469 E78.5 Low saturated diet and pravastati n. On fish oil. Osteoarthritis 225594458 M19.90 Calcium/vi tamin d and alendronat e. Obesity 809574717 E66.9 Diet, exercise and lose weight. Osteoporosis 07279079 M8 1.0 On vitamin D and calcium, [id number] [facility] (Peds) [address] [place] [address] [phone] 09/02/2021 10:21:38 09/14/2021 05:12:03 Administration of SARS-CoV-2 mRNA vaccine 2912949200 Z23 [id number] MD [facility] (Adult Med) [address] [place] [address] [phone] 03/09/2022 10:31:27 03/10/2022 13:32:58 Acid reflux 084771296 K21.9 Controlled by pantoprazo le, Obesity 701566222 E66.9 Diet, exercise and lose weight. Hypertensive disorder 38 516373 I10 Low salt diet. Blood pressure is 126/74 today 03-09-2022 . on nifediopin e Vitamin D deficiency 347 84175 E55.9 On vitamin D as prescribed . Dyslipidemia 489339546 E 78.5 On low animal fat diet, also on fish oil. Degenerati ve joint disease involving multiple joints 177315774 M15.9 On ibuprofen three times after meals as needed,, seems helping for the relief of joint pain. Also on calcium. [id number] MD [facility] (Adult Med) [address] [place] [address] [phone] 06/09/2022 10:10:54 06/10/2022 16:20:23 Administration of influenza vaccine 51848410 Z23 She tolerated shot well. Acid reflux 288947434 K2 1.9 Controlled by pantoprazo le, Essential hypertension 62262877 I10 Low salt diet,and on nifedipine Er 30 mg/day according to record. Blood pressure reading is 140/82 mm Hg. 08-26-2021 .As 06-09-2022 , her blood pressure is 118/70. Hyperlipidemia 52772757 E78.5 Low saturated diet and pravastati n. On fish oil. Obesity 807843351 E66.9 Diet, exercise and lose weight. Osteoarthritis 176327286 M19.90 Calcium/vi tamin d and alendronat e. Osteopenia 048423676 M85 .80 On vitamin D. Osteoporosis 53932518 M8 1.0 On vitamin D and calcium, [id number] MD [facility] (Adult [facility]) [address] [place] [address] [phone] 12/08/2022 10:18:53 12/14/2022 14:25:51 Acid reflux 781392419 K21.9 Controlled by pantoprazo le, Hyperlipidemia 25364786 E78.5 Low saturated diet and pravastati n. On fish oil. Obesity 117195845 E66.9 Diet, exercise and lose weight.BMI is 345.9, 12-08-22. Osteoarthritis 378130584 M19.90 Calcium/vi tamin d and alendronat e. Administra tion of pneumococcal vaccine 08410478 Z23 She tolerated the shot well. Tinea corporis 76473215 B35.4 To continue nystatin cream topically. Osteopenia 351739301 M85 .80 On vitamin D. Essential hypertension 78638708 I10 Low salt diet,and on nifedipine Er 30 mg/day according to record. Blood pressure reading is 140/82 mm Hg. 08-26-2021 .As 06-09-2022 , her blood pressure is 118/70. Tinea cruris 922482645 B 35.6 Refills of nystatin. [id number] Marsye Schrader MD [facility] (Adult Med) [address] [place] [address] [phone] 05/09/2023 11:37:10 05/10/2023 11:47:36 Administration of influenza vaccine 22772959 Z23 She tolerated shot well. Tinea cruris 821393018 B 35.6 Refills of nystatin. Health Concerns Section Related Observation LastModified by Organization Detai ls LastModified Time None Recorded Concern Status LastModified by Organization Details LastModified Time None Recorded Advance Directives Directive None Recorded Payers Encounter Date Sequence Insurance Name Policy Number Policy [place] Covered Member ID [place] Member ID Guarantor Name 09/02/2021 1 [place] Silvia Kern [id number] Silvia Kern 09/02/2021 2 [place] OR MEDICARE REPLACEMENT PRIMARY) Silvia Kern [id number] Silvia Kern 03/09/2022 1 [place] Silvia Lainey MonteiroConcha [id number] Silvia Concha 03/09/2022 2 [place]PLACEMENT PR[place]) Silvia Concha [id number] Silvia Concha 06/09/2022 1 [place] Silvia L Concha [id number] Silvia Concha 06/09/2022 2 [place]IC[place] REPLACEMENT PRIMARY) Silvia Concha [id number] Silvia Concha 12/08/2022 1 [place] Silvia L Concha [id number] Silvia Concha 12/08/2022 2 [place] MEDIC[place] REPLACEMENT PRIMARY) Silvia Concha [id number] Silvia Concha 05/09/2023 1 [place] Silvia L Concha [id number] Silvia Concha 05/09/2023 2 [place] OR MEDICARE REPLACEMENT PRIMARY) Silvia Concha [id number] Silvia Concha Notes Date Note Type Note Provider Name and Address Organization Details Recorded Time 03/09/2022 text/html Office visit, ANDREA CANTRELL. history of acid reflux, hypertension, obesity and hyperlipidemia. Came with field care manager as usual. Maryse Schrader MD Attn: [address] [place], [address], [place] [facility] 03/09/2022 11:42:18 06/09/2022 text/html Office visit, ca tn with her field care manager, WING. history of acid reflux , hypertension, hyperlipidemia, osteoarthritis , osteopenia and osteoporosis. Has enough med refills. Maryse Schrader MD Attn: [address] [place], [address], [place] [facility] 06/10/2022 13:18:28 12/08/2022 text/html Office visit. NK DA, history of arthritis, tinea corporis. acid reflux. dyslipidemia and hypertension. Med refill.. Maryse Schrader MD Attn: [address] [facility], [place], [address], [facility] 12/08/2022 11:34:51 05/09/2023 text/html Office visit, as usual , came with field care manager. NKDA. med refill as usual. Maryse Schrader MD Attn: [address] [facility], [place], [address], [facility] 05/09/2023 16:55:59 OBGyn Episode No OBEpisode recorded.
[2024-10-26] MEDS: ACETAMINOPHEN 500 MG TABLET 1000 MG PO (20:27)
[2024-10-26 20:28] VITALS: BP 147/75; PULSE 70; RESP 18; O2SAT 98
--- NOTE | 2024-10-26 22:29 | ED_ITS ---
HPI - Fall General Chief Complaint: Fall Stated Complaint: fall Time Seen by Provider: 10/26/24 16:07 History of Present Illness HPI Narrative: 84-year-old female with history of hypertension, intellectual disability who presents to the emergency department for evaluation of a head injury. Patient is accompanied by her daughter who provides the majority collateral formation. Patient was at home when she stepped backwards and tripped over her own wheelchair and landed on the ground hitting her head. Did not lose consciousness and not taking blood thinners. She is alert oriented x1 which is her baseline mentation. Denies any headache, vision changes. She has a left- sided scalp hematoma without any actual bleeding. No visual deficits, headache, nausea, vomiting. Patient has been acting appropriately according to the daughter. No restricted range of motion and she has no overt injury or deficits. Related Data Home Medications ?Medication ?Instructions ?Recorded ?Confirmed ?Last Taken ?Type aspirin 81 mg tablet,delayed mg 10/26/24 Unknown History release benzonatate 200 mg capsule mg PO 10/26/24 Unknown History calcium 600 mg (as tablet PO 10/26/24 Unknown History carbonate)-vitamin D3 10 mcg (400 unit) tablet citalopram 20 mg tablet mg 10/26/24 Unknown History docusate sodium 100 mg capsule mg PO 10/26/24 Unknown History empagliflozin 10 mg tablet 10 mg PO DAILY 10/26/24 10/26/24 Unknown History (Jardiance) ergocalciferol (vitamin D2) 1,250 10/26/24 Unknown History mcg (50,000 unit) capsule ibuprofen 600 mg tablet mg 10/26/24 Unknown History nifedipine 30 mg tablet,extended mg PO 10/26/24 Unknown History release 24 hr pantoprazole 40 mg tablet,delayed mg PO 10/26/24 Unknown History release pravastatin 20 mg tablet mg 10/26/24 Unknown History Allergies Allergy/AdvReac Type Severity Reaction Status Date / Time No Known Allergies Allergy Verified 01/30/24 16:22 Review of Systems Review of Systems: As reviewed above in HPI [facility] Past Medical History Medical History Hyperlipidemia GERD (gastroesophageal reflux disease) Depression Hypertension Intellectual disability Surgical History Surgical History No pertinent past surgical history Social History Social History Smoking status: Never smoker Exam Narrative: GENERAL: [Well-appearing, well-nourished, and in no acute distress.] HEAD: Left-sided scalp hematoma without any active bleeding. No tenderness to palpation. EYES: [PERRLA and EOMI.] ENT: Nares clear, no rhinorrhea or epistaxis. Mucous membranes moist. NECK: Supple. CHEST: [Clear to auscultation. No respiratory distress.] HEART: [Regular rate and rhythm]. No murmur heard. [Normal peripheral pulses.] ABDOMEN: [Soft, nondistended], [nontender], [No rigidity or guarding] EXTREMITIES: Normal range of motion. [No edema.] SKIN: Warm, dry, no rash. NEURO: [No focal deficits]. Alert and oriented x1, at baseline mentation PSYCH: [Normal mood and affect.] Course Vital Signs Vital signs: Vital Signs Temperature 36.4 C 10/26/24 16:04 Pulse Rate 68 10/26/24 16:04 Respiratory Rate 18 10/26/24 16:04 Blood Pressure 117/72 10/26/24 16:04 Pulse Oximetry 95 10/26/24 16:04 Oxygen Delivery Room Air 10/26/24 16:04 Temperature 36.4 C 10/26/24 16:04 Pulse Rate 70 10/26/24 20:28 Respiratory Rate 18 10/26/24 20:28 Blood Pressure 147/75 H 10/26/24 20:28 Pulse Oximetry 98 10/26/24 20:28 Oxygen Delivery Room Air 10/26/24 16:04 MDM - Fall MDM Narrative Medical decision making narrative: 84-year-old female with history of intellectual delay and hypertension. She presents after a ground level mechanical fall while tripping on her wheelchair landing backwards onto her left head. No loss of consciousness. No blood thinner use. Patient is alert oriented x1 which is her baseline. She has left- sided parietal scalp hematoma without bleeding. No neurological deficits that are new. She is moving all extremities equally. CT of the head and CT cervical spine were obtained given her injuries and risk factors. Suspicion low for in tracranial pathology such as bleed or skull fracture. Low suspicion cervical injury or cervical fracture. EKG also obtained. CT head shows no acute intracranial findings. Cervical spine CT shows d egenerative changes but no acute fracture. They did visualize some upper lobe nodules with recommendations for CT chest which were ordered. Chest CT shows nodules in the right and left upper lobes, recommended 6 month follow-up. No acute cardiopulmonary process. EKG obtained shows no dysrhythmia and appears normal sinus rhythm. She is safe and stable for discharge home at this time. Encouraged to follow-up about her lung nodules and provided return precautions. Patient's family member comfortable with this plan and was safely discharged. Medical Records Attestation: I reviewed the patient's medical records. Imaging Data Attestation: I personally reviewed and interpreted this imaging study as follows: My impression: Impressions Head CT 10/26/24 17:23 IMPRESSION: No acute intracranial findings. Cervical Spine CT 10/26/24 17:28 Impression: Severe degenerative disease, without acute fracture. Incomplete visualization of 2 suspicious left upper lobe lung nodules for which dedicated chest CT is recommended. Chest CT 10/26/24 20:24 IMPRESSION: Multiple nodules in the right and left upper lobes with the largest measures 9 mm and the left upper lobe. 6 months follow-up CT advised. No acute cardiopulmonary pathology. Cholelithiasis. Discharge Plan Discharge Clinical Impression: CHI (closed head injury), Incidental pulmonary nodule Patient Disposition: Home, Self-Care Condition: Stable Instructions: Antibiotic Form, Concussion (ED), Head Injury (DC), Pulmonary Nodules (ED) Additional Instructions: Your CT scan shows no intracranial injury, no cervical spinal injury. No trauma from the injury. There was some incidentally found nodules in her lungs on the left and right upper lobes with recommendations to follow-up with a outpatient CT scan. Will refer you back to her primary care provider as well as a experiential therapist to schedule an appointment with. No acute concerns today. Patient Language: Romansh Prescriptions: No Action benzonatate 200 mg capsule PO aspirin 81 mg tablet,delayed release (DR/EC) citalopram 20 mg tablet docusate sodium 100 mg capsule PO ibuprofen 600 mg tablet Jardiance 10 mg tablet 10 mg PO DAILY nifedipine 30 mg tablet extended release 24hr PO pantoprazole 40 mg tablet,delayed release (DR/EC) PO pravastatin 20 mg tablet ergocalciferol (vitamin D2) 1,250 mcg (50,000 unit) capsule calcium carbonate-vitamin D3 600 mg-10 mcg (400 unit) tablet PO Follow-up/Referrals: Nakul,Kevin Larry MD [Primary Care Provider] - Jeremias Mueller MD [Physician] - 1 Week (Incidental pulmonary nodule) Time of Disposition: 21:06
== END 2024-10-26 21:22 | disposition home or self-care (01) ==
PROVIDERS: Emergency Provider Student in an Organized Health Care Education/Training Program; PCP Family Medicine
DX: S09.90XA Unspecified injury of head, initial encounter (principal); R91.8 Other nonspecific abnormal finding of lung field; I10 Essential (primary) hypertension; E78.5 Hyperlipidemia, unspecified; K21.9 Gastro-esophageal reflux disease without esophagitis; F32.A Depression, unspecified; F79 Unspecified intellectual disabilities; M47.812 Spondylosis without myelopathy or radiculopathy, cervical region; K80.20 Calculus of gallbladder without cholecystitis without obstruction; Z79.82 Long term (current) use of aspirin; Z79.899 Other long term (current) drug therapy; Z79.84 Long term (current) use of oral hypoglycemic drugs; W18.09XA Striking against other object with subsequent fall, initial encounter
CPT/HCPCS: 70450; 71250; 72125; 93005; 99284; A9270

== ENCOUNTER 2024-12-28 20:36 | Emergency (ER) | payer MEDICARE, MEDICAID, SELFPAY ==
--- NOTE | ~2024-12-28 | XR_ITS ---
XR shoulder LT min 2V Ordering provider: Fabrizio Mathur MD History: . fall . Comparison: None. FINDINGS: BONES: No acute fracture or dislocation. JOINT SPACES: The acromioclavicular joint shows osteoarthritic changes. The glenohumeral joint is nor mal. SOFT TISSUES: Normal. IMPRESSION: No acute osseous abnormality left shoulder. Reviewed, dictated and finalized at location A.
--- NOTE | ~2024-12-28 | CT_ITS ---
CT cervical spine wo con Ordering provider: Fabrizio Mathur MD History: . fall . Comparison: October 26, 2024 Technique: CT of the cervical spine was performed without contrast. Sagittal and coronal reformatted images were also obtained and reviewed. Automated exposure control and iterative reconstruction link hnique were employed. The dose-length product was 444.94 mGy-cm. FINDINGS: VERTEBRAE: No subluxation or acute fracture. The occipital condyles are intact. Bifid posterior arch of C1 DISC SPACES: Normal. Multilevel facet joint disease. PARASPINOUS SOFT TISSUES: Normal. Focal atelectasis or pneumonia in the left upper lobe is noted. Nodule is also seen measuring 5 mm. N odule in the right side is seen measuring 5 mm. 6 months follow-up CT advised. IMPRESSION: No acute osseous abnormality cervical spine. Nodules in the upper lobes. 6 months follow-up CT is advised. Reviewed, dictated and finalized at location A.
--- OUTSIDE RECORDS SUMMARY | 2024-12-28 20:38 | XMS_ITS | CONTINUITY OF CARE DOCUMENT ---
Author Name duyen geller Address Unknown Organization [facility] Address [address] [place] [address] Phone [phone] Care Team Providers Care Injection Operator Name Role Phone REYNOLD ANAYA, AARON Unavailable [phone] ANJELICA WOODSON MD Unavailable [phone] INSURANCE PROVIDERS Payer name Policy type / Coverage type [place] [employer] party ID [facility] [facility] FAMILY [facility] Medicaid 0 [id number] [place] [employer] Medicare [id number]
--- OUTSIDE RECORDS SUMMARY | 2024-12-28 20:38 | XMS_ITS | Referral Summary ---
Author Organization [facility] Address [address] [place] [id number] Care Team Providers Care Conservation Officer Name Role Phone Ramya Preston KLYSTROM TUBE TESTER Primary Care Provider [phone] David Fermin DPM Unavailable [phone] Encounters Date Type Department Care Team Description 11/28/2024 Telephone [facility] Medical Group Primary Care at [address] [address] Ramya Preston NP Additional Services Or Orders 10/31/2024 8:30 AM CDT Office Visit [facility] Medical Group Primary Care at [address] [phone] Julia Gonzalez NP Incidental lung nodule, greater than or equal to 8mm (Primary Dx); Concussion without loss of consciousness, subsequent encounter 10/29/2024 Telephone [facility] Medical Group Primary Care at [address] [phone] Ramya Preston NP Appointment Request 10/19/2024 Orders Only [facility] Medical [facility] Sports Medicine and Primary Care at [address] [phone] Jeremias Laureano DO Chronic left shoulder pain (Primary Dx); Osteoarthritis of left shoulder, unspecified osteoarthritis type 10/19/2024 1:30 PM TELEVISION WRITER Office Visit [facility] Medical [facility] Sports Medicine and Primary Care at [address] [address] Jeremias Laureano DO Osteoarthritis of left shoulder, unspecified osteoarthritis type (Primary Dx); Chronic left shoulder pain; Cervicalgia 10/17/2024 2:15 PM TELEVISION WRITER Office Visit [facility] Nephrology [place] [address] [facility] [address] [address] [place] [phone] Raffy Flowers MD Stage 3b chronic kidney disease (HCC) (Primary Dx); Essential hypertension; Type 2 diabetes mellitus with stage 3b chronic kidney disease, without long-term current use of insulin (HCC) 10/16/2024 Telephone [facility] Nephrology at [address] [place] [address] Naif Rodriguez 10/10/2024 Results Follow-Up [facility] Primary Care at [address] [phone] Ramya Preston NP Type 2 diabetes mellitus with stage 3b chronic kidney disease, without long-term current use of insulin (HCC) (Primary Dx) 10/09/2024 10:04 AM TELEVISION WRITER - 10/09/2024 11:59 PM TELEVISION WRITER [place] [address] Type 2 diabetes mellitus with stage 3a chronic kidney disease, without long-term current use of insulin (HCC); Leukocytosis, unspecified type Discharge Disposition: Discharge to home or self care 10/09/2024 12:00 PM TELEVISION WRITER Lab [facility] at [address] [address] Hypertension (Primary Dx); Hyperlipidemia; Type 2 diabetes mellitus with stage 3a chronic kidney disease, without long-term current use of insulin (HCC) 10/09/2024 11:00 AM TELEVISION WRITER Office Visit [facility] Primary Care at [address] [phone] Ramya Preston NP Type 2 diabetes mellitus with stage 3a chronic kidney disease, without long-term current use of insulin (HCC) (Primary Dx); Mixed stress and urge urinary incontinence; Primary hypertension; Mixed hyperlipidemia; Chronic left shoulder pain 10/02/2024 Results Follow-Up [facility] Primary Care at [address] [phone] Ramya Preston NP from Last 3 Months Allergies No known active allergies Medications omega 0-dkm-rvo-fish oil 300-1,000 mg capsule 8 Active nystatin cream 6 8 Active cholecalciferol (REPLESTA) 50,000 unit wafer 8 Active benzonatate (TESSALON) 200 mg capsuleIndicatio ns:Chronic cough Take 1 capsule (200 mg total) by mouth 3 (three) times a day as needed for cough 30 capsule 4 Active ergocalciferol (VITAMIN D) 50,000 unit capsule TAKE (1) CAPSULE BY MOUTH ONCE PER WEEK ON TUESDAY 4 capsule 10 4 Active acetaminophen (TYLENOL) 500 mg tablet Take 1 tablet (500 mg total) by mouth every 6 (six) hours as needed for pain 30 tablet 3 4 Active citalopram (CeleXA) 20 mg tablet [...] tablet 1 tablet (10 mg total) Active NIFEdipine (NIFEdipine XL) 30 mg 24 hr tablet TAKE (1) TABLET BY MOUTH DAILY. 30 tablet [address] (PROTONIX) 40 mg EC tablet TAKE (1) TABLET BY MOUTH DAILY. 30 tablet 2 5 Active Jardiance 10 mg tablet TAKE (1) TABLET BY MOUTH DAILY. 30 tablet 10 5 Active aspirin 81 mg enteric coated tablet Take 1 tablet (81 mg total) by mouth daily 90 tablet 1 5 Active calcium carbonate-vitami n D3 1500 mg (600 mg elemental) -200 units per tablet Take 1 tablet by mouth 2 (two) times a day 180 tablet 1 5 Active aspirin 81 mg enteric coated tablet Take 1 tablet (81 mg total) by mouth daily 90 tablet 1 4 12/25/19 25 Discontinu ed(Reorder ) calcium carbonate-vitami n D3 1500 mg (600 mg elemental) -200 units per tablet Take 1 tablet by mouth 2 (two) times a day 180 tablet 1 4 12/25/19 25 Discontinu ed(Reorder ) Active Problems Problem Noted Date Diagnosed Date Concussion without loss of consciousness 025 Assessment & Plan (10/31/2024 9:24 AM CDT): CT brain negative for acute injury. Fall precautions advised. Incidental lung nodule, greater than or equal to 8mm 10/31/2024 Assessment & Plan (10/31/2024 9:25 AM CDT): F/u CT in 6 months ordered. Type 2 diabetes mellitus wit h stage 3a chronic kidney disease, without long-term current use of insulin 07/05/2024 Assessment & Plan (10/09/2024 12:38 PM TELEVISION WRITER): Continuing Farxiga, updated labs ordered Assessment & Plan (07/05/2024 1:12 PM TELEVISION WRITER): Previous A1c 8.1 six months ago. Attempted to start Farxiga, but did not hear back from the pt's facility. Will recheck A1c and kidney function with labs today. Also sending in [facility], samples given today to get started. Medicare annual wellness visit, subsequent 07/05 Assessment & Plan (07/05/2024 1:14 PM TELEVISION WRITER): A yearly Medicare Annual Wellness Visit has [...] CDT): Patient has had DEXA performed, patient's case consultant is getting records to drop off to us. Long-term current use of steroids 12/07/2017 Anxiety 10/24/2017 Assessment & Plan (07/05/2024 12:26 PM TELEVISION WRITER): Overall stable on Celexa. Assessment & Plan (01/03/2024 10:55 AM CDT): Overall stable on Celexa. 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 Updated labs ordered for today. Assessment & Plan (07/05/2024 12:26 PM TELEVISION WRITER): Patient taking Pravastatin, no side effects noted. Updated labs ordered for today. Assessment & Plan (01/03/2024 10:55 AM CDT): Patient taking Pravastatin, no side effects noted. Updated labs ordered. Hypertension 10/24/2017 Assessment & Plan (10/09/2024 12:37 PM TELEVISION WRITER): BP well controlled in office, continuing Nifedipine 30 mg daily. Updated labs ordered today. Assessment & Plan (07/05/2024 12:26 PM TELEVISION WRITER): BP well controlled in office, continuing Nifedipine [...] on file Legal Sex Female 5:46 PM TELEVISION WRITER Gender Identity Female 10/25/2018 11:04 AM CDT Sexual Orientation Not on file Last Filed Vital Signs Vital Sign Reading Time Taken Comments Blood Pressure 128/82 10/31/2024 8:43 AM CDT Pulse 85 10/31/2024 8:43 AM CDT Temperature 36.3 C (97.3 F) 10/31/2024 8:43 AM CDT Respiratory Rate 18 10/31/2024 8:43 AM CDT Oxygen Saturation 95% 10/31/2024 8:43 AM CDT Inhaled Oxygen Concentration - - Weight 80.2 kg (176 lb 12.8 oz) 10/31/2024 8:43 AM CDT Height 165.1 cm (5' 5 ) 10/31/2024 8:43 AM CDT Body Mass Index 29.42 10/31/2024 8:43 AM CDT Plan of Treatment Not on file Procedures Procedure Name Priority Date/Time Associated Diagnosis Comments BRAIN COMPUTED TOMOGRAPHY (CT) Schedule Routine, Read Routine (OP Routine) 10/26/2024 CT CERVICAL SPINE WO CONTRAST Schedule Routine, Read Routine (OP Routine) 10/26/2024 CT CHEST WO CONTRAST Schedule Routine, Read Routine (OP Routine) 10/26/2024 EGFR Routine 10/09/2024 10:04 AM TELEVISION WRITER Type 2 diabetes mellitus with stage 3a chronic kidney disease, without long-term current use of insulin (HCC) DIFFERENTIAL AUTO Routine 10/09/2024 10:04 AM TELEVISION WRITER Leukocytosis, unspecified type CBC WITH AUTO DIFFERENTIAL Routine 10/09/2024 10:04 AM TELEVISION WRITER Leukocytosis, unspecified type LIPID PANEL Routine 10/09/2024 10:04 AM TELEVISION WRITER Type 2 diabetes mellitus with stage 3a chronic kidney disease, without long-term current use of insulin (HCC) HEMOGLOBIN A1C Routine 10/09/2024 10:04 AM TELEVISION WRITER Type 2 diabetes mellitus with stage 3a chronic kidney disease, without long-term current use of insulin (HCC) COMPREHENSIVE METABOLIC PANEL Routine 10/09/2024 10:04 AM TELEVISION WRITER Type 2 diabetes mellitus with stage 3a chronic kidney disease, without long-term current use of insulin (HCC) DEXA AXIAL SKELETON BONE DENSITY 1 OR MORE SITES Schedule Routine, Read Routine (OP Routine) 09/27/2024 2:52 PM TELEVISION WRITER Encounter for osteoporosis screening in asymptomatic postmenopausal patient ALBUMIN CREATININE RATIO, URINE Routine 07/05/2024 12:30 PM TELEVISION WRITER Type 2 diabetes mellitus with stage 3a chronic kidney disease, without long-term current use of insulin (HCC) from Last 3 Months or Most Recently Relevant to Health Maintenance Results * BRAIN COMPUTED TOMOGRAPHY (CT) (10/26/2024) Anatomical Region Laterality Modality N/A Computed Tomogra phy us Historical Provider MD RAZO CT PROCEDURES Final R esult * CT Cervical Spine WO Contrast (10/26/2024) Anatomical Region Laterality Modality Spine N/A Computed Tomogra phy Historical Provider IMG CT PROCEDURES Final R esult * CT Chest WO Contrast (10/26/2024) Anatomical Region Laterality Modality Body N/A Computed Tomogra phy Historical Provider IMConner CT PROCEDURES Final R esult * (ABNORMAL) eGFR (10/09/2024 10:04 AM TELEVISION WRITER) eGFR 42(L) >=60 mL/min/1. 73 m2 Comment: [...] reviewed 2021. Blood 10/09/2024 10:0 4 AM TELEVISION WRITER 10/09/2024 9:25 PM TELEVISION WRITER Ramya Preston KLYSTROM TUBE TESTER LAB BLOOD [place]AB[place] [address] Rani [address] Department [place] [address] * Differential, auto (10/09/2024 10:04 AM TELEVISION WRITER) Neutrophil abs 6.1 1.5 - 6.5 K/cumm Imm gran abs 0.1 0.0 - 0.1 K/cumm [facility] Lymphocyte abs 2.5 0.8 - 3.3 K/cumm [facility] Monocyte abs 0.6 0.2 - 0.8 K/cumm [facility] Eosinophil abs 0.1 0.0 - 0.5 K/cumm [facility] Basophil abs 0.0 0.0 - 0.1 K/cumm [facility] Neutrophil pct 64.9 % [facility] Comment: Interpretive Data Percent cell count reference ranges are not reported, since discordance with absolute values may lead to misinterpretation of CBC data. Current Interpretive Data was last revised on 2017. Imm gran pct 0.6 % [facility] Comment: Interpretive Data Percent cell count reference ranges are not reported, since discordance with absolute values may lead to misinterpretation of CBC data. Current Interpretive Data was last revised on 2017. Lymphocyte pct 26.1 % [facility] Comment: Interpretive Data Percent cell count reference ranges are not reported, since discordance with absolute values may lead to misinterpretation of CBC data. Current Interpretive Data was last revised on 2017. Monocyte pct 6.8 % [facility] Comment: Interpretive Data Percent cell count reference ranges are not reported, since discordance with absolute values may lead to misinterpretation of CBC data. Current Interpretive Data was last revised on 2017. Eosinophil pct 1.2 % [facility] Comment: Interpretive Data Percent cell count reference ranges are not reported, since discordance with absolute values may lead to misinterpretation of CBC data. Current Interpretive Data was last revised on 2017. Basophil pct 0.4 % [facility] Comment: Interpretive Data Percent cell count reference ranges are not reported, since discordance with absolute values may lead to misinterpretation of CBC data. Current Interpretive Data was last revised on 2017. Blood 10/09/2024 10:0 4 AM TELEVISION WRITER 10/09/2024 9:15 PM TELEVISION WRITER us Ramya Preston NP LAB BLOOD ORDERABLES Final Resul t [place] [address] [address] Department [place] [address] * (ABNORMAL) CBC with auto differential (10/09/2024 10:04 AM TELEVISION WRITER) WBC 9.4 3.8 - 9.9 K/cumm Hgb 13.2 11.9 - 15.5 g/dL [facility] Hct 42.0 35.6 - 45.5 % [facility] Plt 349 150 - 400 K/cumm [facility] MPV 11.2 9.1 - 12.3 fL [facility] RBC 4.36 3.90 - 5.20 M/cumm [facility] MCV 96.3 81.3 - 96.4 fL [facility] MCH 30.3 27.1 - 33.3 pg [facility] MCHC 31.4(L) 32.3 - 35.7 g/dL [facility] RDW CV 13.7 11.1 - 14.9 % [facility] RDW SD 48.9(H) 35.7 - 48.1 fL [facility] NRBC abs 0.00 0.00 - 0.01 K/cumm [facility] Blood 10/09/2024 10:0 4 AM TELEVISION WRITER 10/09/2024 9:15 PM TELEVISION WRITER us Ramya Preston NP LAB BLOOD ORDERABLES Final Resul t Performing Organization Address [facility] de Phone Number [place] [address] [address] [employer] [place] [address] * (ABNORMAL) Hemoglobin A1c (10/09/2024 10:04 AM TELEVISION WRITER) Hgb A1C 6.7(H) 4.0 - 5.6 % Estimated Average Glucose 146 mg/dL [facility] Comment: The ADA recommends reporting an estimated Average Glucose (eAG) with all Hemoglobin A1c results using the equation derived from a study of 507 normal and diabetic adults. Minority populations were underrepresented and children were not included. (Diabetes Care 31:4099-3053, 2008). The eAG is not equivalent to a fasting glucose. Blood 10/09/2024 10:0 4 AM TELEVISION WRITER 10/09/2024 9:15 PM TELEVISION WRITER us Ramya Preston NP LAB BLOOD ORDERABLES Final Resul t Performing Organization Address [facility] de Phone Number ROM [address] Rani Vasquez Department [place] [address] * Lipid panel (10/09/2024 10:04 AM TELEVISION WRITER) Cholesterol 151 30 - 199 mg/dL Comment: [...] revised on 2018. Chol/HDL ratio 4 ROM Blood 10/09/2024 10:0 4 AM TELEVISION WRITER 10/09/2024 9:15 PM TELEVISION WRITER us Ramya Preston NP LAB BLOOD ORDERABLES Final Resul t [place] [address] [address] Department [place] [address] * (ABNORMAL) Comprehensive metabolic panel (10/09/2024 10:04 AM TELEVISION WRITER) Sodium 136 135 - 145 mmol/L Potassium, pl 4.9 3.3 - 4.9 mmol/L [facility] Chloride 99 97 - 110 mmol/L [...] classification and Diagnosis of Diabetes Diabetes Care 202; 46: S19-S40. Current interpretive data was last [...] [facility] Blood 10/09/2024 10:0 4 AM TELEVISION WRITER 10/09/2024 9:15 PM TELEVISION WRITER Ramya Preston KLYSTROM TUBE TESTER LAB BLOOD ORDERABLES [place] [address] Rani Vasquez Department [place] [address] * Dexa Axial Skeleton Bone Density 1 or 2 Site (09/27/2024 2:52 PM TELEVISION WRITER) Anatomical Region Laterality Modality Body N/A Other 10/02/2024 8:2 1 AM TELEVISION WRITER Narrative 10/02/2024 8:21 AM TELEVISION WRITER EXAM DESCRIPTION: DEXA AXIAL SKELETON BONE DENSITY 1 OR MORE SITES REASON FOR STUDY: 83 y/o year old F with given history of: Postmenopausal status. History of secondary osteoporosis. Patient takes vitamin-D and calcium. Physician Pediatrician/Model: [email or web address] (S/N [id number]) Facility LSC value of 0.022 for the [...] Beatrice Vogel M.D. TW: TW Report ID: [id number] Reading Location: [id number] Procedure Note Beatrice Vogel MD - 10/02/2024 EXAM DESCRIPTION: DEXA AXIAL SKELETON BONE DENSITY 1 OR MORE SITES REASON FOR STUDY: 83 y/o year old F with given history of:Postmenopausal status. History of secondary osteoporosis. Patient takes vitamin-D and calcium. Physician Pediatrician/Model: [facility] (S/N [id number]) Facility LSC value of 0.022 for the [...] Beatrice Vogel M.D. TW: WILLIAMS Report ID: [id number] Reading Location: [place] [address] us Ramya Preston NP IMG DXA PROCEDURES Final Result * (ABNORMAL) Albumin Creatinine Ratio, Urine (07/05/2024 12:30 PM TELEVISION WRITER) Albumin Ur 198.1 mg/L Comment: Interpretive Data No reference range established. Current interpretive data was last revised 2018. Creatinine Ur 255.5 mg/dL ROM Comment: Interpretive Data No reference range established. Current interpretive data was last revised 2018. Albumin Creatinine Ratio, Ur 78(H) 1 - 29 mg/g [facility] Urine 07/05/2024 12:3 0 PM TELEVISION WRITER 07/06/2024 11:13 AM TELEVISION WRITER us Ramya Preston NP LAB URINE ORDERABLES [place] [address] Rani Vasquez [place] [address] from Last 3 Months or Most Recently Relevant to Health Maintenance Insurance MEDICARE IDPA Member Subscriber Plan / Payer (Ef fective 2017-Present) Name:CORAL HOLT Relation to Subscriber:Self Name:Coral Holt Payer ID [id number]|2024-12-28 22:30:00|2024-12-28 22:30:00|XMS_ITS|BKG DAEMON|External Medical Summaries|[id number]|" Encounter Summary Created on: December 28, 2024 Coral Holt : 1940 Sex: Female Author Organization [facility] Address [address] [facility] [address] [place] [address] Phone Care Team Providers Care Conservation Officer Name Role Phone Maryse Schrader MD Primary Care Provider [phone] Ramya Preston NP Primary Care Provider [phone] David Fermin DPM Unavailable [phone] Encounter Details Date Type Department Care Team (Late st Contact Info) Description 12/27/2017 Orders Only [facility] Scanning, Provider Social History Tobacco Use Types Packs/Day Years Used Date Smoking Tobacco: Never Comments Unknown Sex and Gender Information Value Date Recorded Sex Assigned at Not on file Legal Sex Female 5:46 PM TELEVISION WRITER Gender Identity Female 10/25/2018 11:04 AM CDT [...] on filedocumented in this encounter Care Teams Conservation Officer Relationship Specialty Start [place] [address] [place] [id number] PCP - General 12/07/17 01/02/24 Ramya Preston NP [address] [address] PCP - General Family Medicine 01/03/24 David Fermin DPM [address] [place] [id number] Consulting Physician Orthotics 01/03/24 Stove Carriage Operator 01/03/24 01/03/24 documented as of this encounter "
--- OUTSIDE RECORDS SUMMARY | 2024-12-28 20:38 | XMS_ITS | Data Portability ---
Author Organization [facility] MARKRae [facility] Address [address] [place] [address] Care Team Providers Care Emergency Department Manager Name Role Phone JANET HAGEN Well Tester [phone] Assessment No assessment recorded. Plan of Treatment Reminders Order Date Submit Date Provider Last Modified By Organization Details Last Modified Time Details Appointments None recorded. Lab None recorded. Referral None recorded. Procedures None recorded. Surgeries None recorded. Imaging None recorded. Medication Orders nystatin 100,000 unit/gram topical cream 2022 023 [facility], [facility], , [place], [address], 3 12:52:05 aspirin 81 mg tablet,torey yed release 2022 023 [employer] [address], [address] [place] [address], [address], 3 11:33:44 pantoprazol e 40 mg tablet,torey yed release 2022 023 [employer] [address], [address], [place], [address], 3 11:33:44 nystatin 100,000 unit/gram topical cream 2022 023 [employer] [address], [address], [address], 3 11:33:44 nifedipine ER 30 mg tablet,exte nded release 24 hr 2022 023 [employer] [address] [place] [address], , [place], [address], 3 11:33:44 calcium 600 mg (as carbonate)- vitamin D3 10 mcg (400 unit) tablet 2022 023 [employer] [address] [place], [place] [address]wy, , [place], [address], 11:33:44 ergocalcife rol (vitamin D2) 1,250 mcg (50,000 unit) capsule 2022 023 [employer] [address] [place] [address] Pkwy, , [place], [address], 11:33:44 pravastatin 20 mg tablet 2022 023 [employer] [address] [place] [address] Pkwy, , [place], [address], 11:33:44 Patient TargetsNo targets recorded. Patient Instructions Encounter Date Encounter Id Patient Instructions Last Modified By Organization Details Last Modified Time 03/09/2022 [id number] osteoarthritis: care instructions [facility] Not available 03/09/2022 11:41:43 When You Want to Lose Weight: Care Instructions [facility] Not available 03/09/2022 11:41:43 06/09/2022 [id number] influenza (flu) vaccine: care instructions [facility] Not available 06/10/2022 10:32:36 osteoarthritis: care instructions [facility] Not available 06/10/2022 13:18:24 osteoporosis: care instructions [facility] Not available 06/10/2022 13:18:24 high cholesterol : care instructions [facility] Not available 06/10/2022 13:18:24 When You Want to Lose Weight: Care Instructions [facility] Not available 06/10/2022 13:18:24 learning about high blood pressure [facility] Not available 06/10/2022 13:18:24 12/08/2022 [id number] osteoarthritis: care instructions [facility] Not available 12/08/2022 11:33:44 When You Want to Lose Weight: Care Instructions [facility] Not available 12/08/2022 11:33:43 A healthy lifestyle: care instructions [facility] Not available 12/08/2022 11:34:47 A healthy lifestyle: care instructions [facility] Not available 12/08/2022 11:34:47 high cholesterol : care instructions [facility] Not available 12/08/2022 11:33:43 05/09/2023 [id number] influenza (flu) vaccine: care instructions [facility] Not available 05/09/2023 12:51:47 Reason for Referral None Reported. Problems Name Problem SNOMED Code Status Onset Date Resolution Date Notes Provider Name and Address Organization Details Recorded Time Glaucoma 44841042 Active 2019 ZENAIDA HARRELL Attn: Parminder g,[address] [facility], [place], [address], [place] [facility] 0 11:10:12 Osteopenia 563961655 Active Maryse Schrader MD Attn: Kanin g,[address] [facility], [place], [address], [place] [facility] 5 10:46:50 Osteoarthritis 439779858 Active Maryse Schrader MD Attn: Accountin g,[address] [facility], [place], [address], [place] [facility] 6 11:06:35 Essential hypertension 98733286 Active Maryse Schrader MD Attn: Parminder g,[address] [facility], [place], [address], [place] [facility] 6 11:06:35 Obesity 792139177 Active Maryse Schrader MD Attn: Parminder g,[address] [facility], [place], [address], [place] [facility] 6 11:06:35 Hyperlipidemia 74379620 Active Maryse Schrader MD Attn: Parminder gillette,[address] [facility], [place], [place], [address] [place] [address] 2, [place] [facility] 6 11:43:13 Tinea corporis 67806446 Active Maryse Schrader MD Attn: Kanjewell gillette,[address] [facility], [place], [place], [address] [place] [address] 2, [place] [facility] 6 11:06:35 Scapulalgia 11967331 Active Maryse Schrader MD Attn: Kanjewell gillette,[address] [facility], [place], [place], [address] [place] [address] 2, [place] [facility] 5 10:56:06 Osteoporosis 42265574 Active Maryse Schrader MD Attn: Kanjewell gillette,[address] [place], [place], [address] [place] [address] 2, [place] [facility] 6 11:43:13 Chronic anemia 201544102 Active Maryse Schrader MD Attn: Kanjewell gillette,[address] [place], [place], [address] [place] [address] 2, [place] [facility] 6 11:43:13 Osteoarthritis of knee 578813397 Active Maryse Schrader MD Attn: Kanjewell gillette,[address] [place], [place], [address] [place] [address] 2, [place] [facility] 6 11:43:13 Unsteady gait Active Maryse Schrader MD Attn: Parminder nain,[address] [place], [place], [address] [place] [address] 2, [place] [facility] 6 11:43:13 Acid reflux 644617959 Active Maryse Schrader MD Attn: Parminder nain,[address] [place], [place], [address] [place] [address] 2, [place] [facility] 6 11:43:13 Problem [...] Updated DateTime 2 149.86 cm 39.1 kg/m2 40267.2 g 97.5 [degF] 95 % 95 % 90 /min 126 mm[Hg] 74 mm[Hg] Alessio Watson [place] [facility] 2 11:08:00 Date Recorded Body height Body mass index (BMI) Body weight Heart rate Oxygen saturation Oxygen saturation in Arterial blood by Pulse oximetry Systolic blood pressure Diastolic blood pressure Provider Name and Address Organization Details Last Updated DateTime 2 149.86 cm 39 kg/m2 56576.3 3 g 71 /min 96 % 96 % 118 mm[Hg] 70 mm[Hg] Uyen Cagle MA [place] [facility] 2 10:28:40 Date Recorded Body height Heart rate Oxygen saturation Oxygen saturation in Arterial blood by Pulse oximetry Body mass index (BMI) Body weight Systolic blood pressure Diastolic blood pressure Provider Name and Address Organization Details Last Updated DateTime 3 149.86 cm 75 /min 95 % 95 % 35.9 kg/m2 09351.7 2 g 142 mm[Hg] 82 mm[Hg] Ellen Ca MA [place] [facility] 3 10:32:57 Date Recorded Body height Body mass index (BMI) Body weight Heart rate Oxygen saturation Oxygen saturation in Arterial blood by Pulse oximetry Systolic blood pressure Diastolic blood pressure Provider Name and Address Organization Details Last Updated DateTime 3 149.86 cm 39.4 kg/m2 84141.5 1 g 66 /min 97 % 97 [...] or 50 mcg/0.25mL dose 1 completed Ginny griffith, [place] [facility] 02/18/2021 12:22:58 COVID-19, mRNA, LNP-S, PF, 100 mcg/0.5mL dose or 50 mcg/0.25mL dose 1 completed Ginny Oliveros [place], [place] [facility] 02/18/2021 12:23:34 Influenza, split virus, quadrivalent, preservative 7 completed Not Available [facility] 09/01/2019 02:34:25 Influenza, split virus, quadrivalent, preservative 9 completed Not Available [facility] 09/01/2019 02:47:53 Influenza, split virus, quadrivalent, preservative 9 completed Not Available [facility] 09/01/2019 02:38:15 Influenza, split virus, quadrivalent, preservative 0 completed Alessio Watson [place], [place] [facility] 05/29/2020 14:22:58 Influenza, high-dose, quadrivalent, PF 1 completed Maryse Schrader MD Attn: Accounting,[address] [place], [address], [place] [facility] 06/17/2021 14:41:23 COVID-19, mRNA, LNP-S, PF, 100 mcg/0.5mL dose or 50 mcg/0.25mL dose 2 completed Francine Rodriges LPN [place], [place] [facility] 09/02/2021 11:00:47 Influenza, high-dose, quadrivalent, PF 2 completed Maryse Schrader MD Attn: Accounting,[address] [facility], [place], [address], [place] [facility] 06/10/2022 13:18:24 pneumococcal polysaccharide PPV23 3 completed Ellen Ca [place] [facility] 12/08/2022 12:21:38 Influenza, high-dose, quadrivalent, PF 3 completed Maryse Schrader MD Attn: Accounting,[address] [facility], [place], [address], [place] [facility] 05/09/2023 16:52:48 Influenza, split virus, quadrivalent, preservative 5 completed Not Available [facility] 09/01/2019 02:32:10 Past Encounters Encounter ID Performer Location Encounter Start Date Encounter Closed Date Diagnosis/Indication Diagnosis SNOMED-CT Code Diagnosis ICD10 Code Diagnosis Note [id number] Maryse Schrader MD [facility] (Adult Med) [address] [place] [address] 10/18/2014 12:10:04 10/18/2014 13:36:21 Osteopenia 431738358 Osteoarthritis 086657448 Essential hypertension 84523770 Obesity 333844281 Hyperlipidemia 25064257 Tinea corporis 88266664 [id number] Maryse Schrader MD [facility] (Adult Med) [address] [place] [address] 02/25/2015 09:56:28 02/25/2015 13:12:09 Scapulalgia 78349147 Essential hypertension 34560466 Hyperlipidemia 94959273 Obesity 325174539 Osteoarthritis 062283446 Osteoporosis 40955474 [id number] Maryse Schrader MD [facility] (Adult Med) [address] [place] [address] 05/28/2015 10:30:05 05/28/2015 12:50:50 Obesity 551203603 E66.9 Hyperlipidemia 43181739 E78.5 Essential hypertension 80344818 I10 Osteoporosis 22866144 M8 1.0 Administra tion of influenza vaccine 51688872 Z23 [id number] Maryse Schrader MD [facility] (Adult Med) [address] [place] [address] 11/27/2015 09:56:38 11/27/2015 11:07:35 Essential hypertension 29514541 I10 Hyperlipidemia 14742389 E78.5 Obesity 699921415 E66.9 Osteoarthritis 554152133 M19.90 Osteoporosis 97496214 M8 1.0 Tinea corporis 34104265 B35.4 [id number] Maryse Schrader MD [facility] (Adult Med) [address] [place] [address] 05/17/2016 10:24:34 05/17/2016 11:46:02 Chronic anemia 597730339 D64.9 Osteoarthr itis of knee 757531518 M17.0 Unsteady gait 134788626 R26.81 Administra tion of influenza vaccine 13455598 Z23 Hyperlipidemia 92128838 E78.5 Acid reflux 189961906 K2 1.9 Osteoporosis 85339735 M8 1.0 [id number] Maryse Schrader MD [facility] (Adult Med) [address] [place] [address] 12/01/2016 10:46:31 12/01/2016 12:18:26 Chronic anemia 433093749 D64.9 Will check CBC and blood test. Osteoarthr itis of knee 461714309 M17.0 PT, calcium/vi tamin D and alendronat e. Osteoarthritis 367585562 M19.90 Calcium/vi tamin d and alendronat e. Obesity 213997220 E66.9 Diet, exercise and lose weight. Hyperlipidemia 76366862 E78.5 Low saturated diet and pravastati n. Essential hypertension 64232333 I10 Low salt diet,and lisinopril . Osteoporosis 18280015 M8 1.0 To continue PT. calcium/vi tamin D and alendronat e, may add on glucosamin . Tinea corporis 59132356 B35.4 To continue nystatin cream topically. Screening mammography 24 494888 Z12.31 Patient refuses. Screening for malignant neoplasm of colon 065138227 Z12.11 Patient refuses. [id number] MD Tim [facility] (Adult Med) [address] [place] [address] 06/01/2017 10:40:59 06/01/2017 12:28:15 Chronic anemia 046225673 D64.9 Will check CBC and blood test. She is no longer anemic according to cbc 12-01-2016 her HG, was 11.5 g/dl. Osteoarthr itis of knee 958385324 M17.0 PT, calcium/vi tamin D and alendronat e. will add physical therapy. 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 Unsteady gait 639033719 R26.81 Due to her osteoarthr itis, right side is worse than the left. Osteoarthritis 190652295 M19.90 Calcium/vi tamin d and alendronat e. Hyperlipidemia 34655284 E78.5 Low saturated diet and pravastati n. Osteoporosis 03852830 M8 1.0 Acid reflux 702221310 K2 1.9 Administra tion of influenza vaccine 90960070 Z23 Hypertensive disorder 38 377288 I10 Low salt diet. Screening mammography 24 335478 Z12.31 She refuses. Screening for malignant neoplasm of colon 802897479 Z12.11 She refuses. [id number] Maryse Schrader MD [facility] (Adult Med) [address] [place] [address] 09/08/2017 12:12:36 09/08/2017 13:21:45 Polymyalgia rheumatica 56773027 M35.3 Urgent. Patient is dydisablin g on wheel chair. Go to ER any time for any concern. Depressive disorder 3548 9007 F32.9 Essential hypertension 51460841 I10 Low salt diet,and lisinopril . Acid reflux 720881487 K2 1.9 Vitamin D deficiency 347 79231 E55.9 On vitamin D as prescribed . Osteoporosis 43565761 M8 1.0 [id number] [facility] [address] [place] [address] 11/30/2017 10:13:08 11/30/2017 16:30:24 Screening for malignant neoplasm of colon 595099456 Z12.11 She refuses. Screening mammography 24 335528 Z12.31 She refuses. Osteoarthr itis of knee 755990132 M17.0 PT, calcium/vi tamin D and alendronat e. will add physical therapy. 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 Osteopenia 947304231 M85 .80 On vitamin D. Unsteady gait 373169583 R26.81 Due to her osteoarthr itis, right side is worse than the left. Hyperlipidemia 65154080 E78.5 Low saturated diet and pravastati n. On fish oil. Essential hypertension 22041501 I10 Low salt diet,and lisinopril . Osteoporosis 51309407 M8 1.0 Acid reflux 066290647 K2 1.9 Tinea corporis 67116171 B35.4 To continue nystatin cream topically. Depressive disorder 3548 9007 F32.9 Chronic constipation 236 749918 K59.09 [id number] Maryse Schrader MD [facility] (Adult Med) [address] [place] [address] 06/01/2018 10:03:04 06/01/2018 11:04:30 Acute bronchitis 33035777 J20.9 [id number] Maryse Schrader MD [facility] (Adult Med) [address] [place] [address] 07/03/2018 10:12:07 07/03/2018 11:11:56 Chronic bronchitis 11996535 J42 [id number] Maryse Schrader MD [facility] (Adult Med) [address] [place] [address] 0 09/20/2018 14:19:45 09/21/2018 10:01:25 Administration of influenza vaccine 65889692 Z23 [id number] Maryse Schrader MD [facility] (Adult Med) [address] [place] [address] 0 11/30/2018 10:11:22 12/01/2018 09:11:14 Screening for osteoporosis 494508982 Z13.820 Tinea cruris 711318940 B 35.6 Osteoporosis 20841948 M8 1.0 [id number] MD Tim [facility] (Adult Med) [address] [place] [address] 05/30/2019 09:52:54 05/30/2019 11:08:06 Essential hypertension 74115385 I10 Low salt diet,and lisinopril . Hyperlipidemia 57463300 E78.5 Low saturated diet and pravastati n. On fish oil. Obesity 178208873 E66.9 Diet, exercise and lose weight. Osteoarthritis 593929722 M19.90 Calcium/vi tamin d and alendronat e. Acid reflux 758939019 K2 1.9 Controlled by pantoprazo le, Osteoporosis 32183089 M8 1.0 Senile osteopenia 404529 06 M85.80 Administra tion of influenza vaccine 37167957 Z23 Marsha tolerated shot well. Administra tion of diphtheria, pertussis, and tetanus vaccine 950525924 Z23 [id number] ZENAIDA COVARRUBIAS (REPAIR TABLE OPERATOR) [address] [place] [address] 11/29/2019 09:55:17 12/07/2019 09:14:55 Essential hypertension 38532676 I10 Continue nifedipine as prescribed . F/u CBC, CMP.Discus sed DASH diet. Advised 30 minutes of exercise minimum daily. RTC in 3 months. Hyperlipidemia 81676994 E78.5 Continue fish oil supplement s. Recheck fasting lipid panel. Limit saturated fats and sugars. Osteopenia 268687881 M85 .80 Continue Calcium/Vi tamin D supplement twice daily. Vitamin D deficiency 347 05168 E55.9 Previously taking 50,000 units daily. Now taking 800 units daily. Last vitamin D level a year ago. Will recheck. Glaucoma 10719437 H40.9 Continue eye drops as prescribed . Follows with [facility]. Obesity 213165462 E66.9 Diet high in fruits and vegetables . Limit fat, sugar, and processed foods. Exercise at least 30 minutes 5x/week. Gastroesop hageal reflux disease without esophagitis 766904659 K21.9 Continue pantoprazo le as prescribed . Advised to stay away from spicy and greasy foods. Do not eat within 2 hours of going to bed. Stay sitting up after meals. [id number] Maryse Schrader MD [facility] (Adult Med) [address] [place] [address] 0 02/25/2020 09:45:46 02/27/2020 12:39:36 Acid reflux 390241574 K21.9 Controlled by pantoprazo le, Essential hypertension 35473132 I10 Low salt diet,and on nifedipine Er 30 mg/day according to record. Hyperlipidemia 37028163 E78.5 Low saturated diet and pravastati n. On fish oil. Obesity 864937964 E66.9 Diet, exercise and lose weight. Osteoarthritis 808660083 M19.90 Calcium/vi tamin d and alendronat e. Osteoporosis 68209137 M8 1.0 On vitamin D and calcium, [id number] Maryse Schrader MD [facility] (Adult Med) [address] [place] [address] 16999[address]678 0 05/29/2020 13:52:40 05/30/2020 10:48:47 Administration of influenza vaccine 54983327 Z23 Marsha tolerated shot well. [id number] MD Tim [facility] (Adult Med) [address] [place] [address] 83366[address]169 0 09/03/2020 08:07:13 09/04/2020 10:37:08 Generalized osteoarthritis 645774616 M15.9 On ibuprofen three times after meals as needed,, seems helping for the relief of joint pain. Acid reflux 249434857 K2 1.9 Controlled by pantoprazo le, Essential hypertension 24928411 I10 Low salt diet,and on nifedipine Er 30 mg/day according to record. Glaucoma 69933322 H40.9 Under the care of her ophthalmol ogist. Hyperlipidemia 79700049 E78.5 Low saturated diet and pravastati n. On fish oil. Obesity 311048730 E66.9 Diet, exercise and lose weight. Osteopenia 060308089 M85 .80 On vitamin D. Osteoporosis 59243681 M8 1.0 On vitamin D and calcium, Unsteady when walking 22 441524 R26.89 Has youth career specialist at her apartment all the time. [id number] MD [facility] (Adult Med) [address] [place] [address] 03/03/2021 13:22:47 03/09/2021 13:19:42 Acid reflux 621553902 K21.9 Controlled by pantoprazo le, Essential hypertension 02384725 I10 Low salt diet,and on nifedipine Er 30 mg/day according to record. Hyperlipidemia 37855671 E78.5 Low saturated diet and pravastati n. On fish oil. Obesity 214183533 E66.9 Diet, exercise and lose weight. Osteoarthritis 038251112 M19.90 Calcium/vi tamin d and alendronat e. Osteopenia 367273474 M85 .80 On vitamin D. Osteoporosis 02807671 M8 1.0 On vitamin D and calcium, Acute sinusitis 34816662 J01.90 Will give benzonatat e. [id number] Maryse Schrader MD [facility] (Adul [id number]|2024-12-28 22:29:00|2024-12-28 22:29:00|XMS_ITS|BKG DAEMON|External Medical Summaries|[id number]|" Encounter Summary Created on: December 28, 2024 Silvia Kern : 1940 Sex: Female Author Organization [facility] Healthcare Address [address] [place] [address] Care Team Providers Care Emergency Department Manager Name Role Phone Ramya Preston NP Primary Care Provider [phone] David Fermin DPM Unavailable [phone] Reason for Visit * Reason Onset Date Comments Additional Services Or Orders 11/28/2024 Encounter Details Date Type Department Care Team (Late st Contact Info) Description 11/28/2024 Telephone [facility] Primary Care at [place] [address] [place] [phone] Ramya Preston NP [facility] [address] [place] [address] Additional Services Or Orders Social History Tobacco Use Types Packs/Day Years [...] on file Legal Sex Female 5:46 PM [employer] Gender Identity Female 10/25/2018 11:04 AM CDT Sexual Orientation Not on file documented as of this encounter Miscellaneous Notes * Telephone Encounter - Marti Dailey MA - 11/28/2024 4:29 PM CDT Noted will wait for fax. * Telephone Encounter - Ramya Preston NP - 11/28/2024 3:42 PM CDT Please assist with getting pt what I assume are incontinence supplies, not inconvenience supplies. * Telephone Encounter - Florencio Dumont - 11/28/2024 3:05 PM CDT Additional Services or Orders Type of Service Requested:Equipment Reason for Request (e.g. condition/symptom, date of COVID exposure if applicable): Forms for supplies Details Regarding Additional Services (e.g. type of home health, type of equipment, type of test, etc.): [facility] will be faxing form to practice Where will services be performed? (if outside of the practice, facility name, address, phone/fax offacility): Patient home Additional Comments: [facility] will be sending form to practice for patient's inconvenience supplies 126pull ups box of medium gloves Does message need to be routed? Yes-Action Needed documented in this encounter Plan of Treatment Not on file documented as of this encounter Visit Diagnoses Not on filedocumented in this encounter Care Teams Emergency Department Manager Relationship Specialty Start Date End Date Ramya Preston NP [address] [facility] [address] [place] [address] PCP - General Family Medicine 01/03/24 David Fermin DPM [address] [place] [address] Consulting Physician Orthotics 01/03/24 documented as of this encounter "
--- OUTSIDE RECORDS SUMMARY | 2024-12-28 20:38 | XMS_ITS | Continuity of Care Document ---
Author Organization [facility] Address [address] [facility] [place] [address] Phone Care Team Providers Care Liquid Hydrogen Plant Operator Name Role Phone Mary Becerra OT Unavailable Unavailable Procedures Procedure Date Therapeutic Activities Hot or Cold Pack Therapeutic Activities Hot or Cold Pack Therapeutic Activities Hot or Cold Pack Doc [...] Diagnoses Date Provider Providers Copied on Encounter [facility], [address] [facility] [address], [place], [place], [id number], tel:[phone] [place] No Information 0- 5 Mariam Hernandez. . Referring Provider: Jeremias Laureano [address], [place], [address]. tel:[phone] [facility], [address], [place], [place], [address], tel:[phone] [place] No Information 7 5 Mariam Hernandez. . Referring Provider: Jeremias Laureano [address], [place], [address]. tel:[phone] [facility], [address] [facility] [address], [place], [place], [address], tel:[phone] [place] No Information 5 Mariam Hernandez. . Referring Provider: Jeremias Laureano, [address], [place], [address]. tel:[phone] [facility], [address] [facility] [address], [place], [place], [address], tel:[phone] [place] No Information 5 Mariam Hernandez. . Referring Provider: Jeremias Laureano [address], [place], [address]. tel:[phone] Family History Family Member Type Diagnosis Age At Onset No Information Payers Payer name Insurance type Covered constitution party ID Authorlivia arguelles(s) Medicare [place] [id number] Medicaid OON Write Off CI 00 Social History Type Description Quantity Date Captured Comments Sex Female Smoking Status No Information Chief Complaint And Reason For Visit No Information Reason For Referral Reason For Referral No Information History Of Present Illness Encounter Date Complaint History Of Prese nt Illness No Information Functional Status Date Functional Assessmen t No Information Instructions Date Instruction Additional Infor mation No Information Assessments Type Assessment Date No Information Patient Care Teams Name Effective Dates (start - stop) Status Members No Information
--- OUTSIDE RECORDS SUMMARY | 2024-12-28 20:38 | XMS_ITS | Encounter Summary ---
Author Organization [facility] Address [address] [place] [address] Phone Care Team Providers Care Enamel Applier Name Role Phone Maryse Schrader MD Primary Care Provider [phone] aRmya Preston NP Primary Care Provider [phone] David Fermin DPM Unavailable [phone] Encounter Details Date Type Department Care Team (Late st Contact Info) Description 12/27/2017 Orders Only [facility] Scanning, Provider Social History Tobacco Use Types Packs/Day Years Used Date Smoking Tobacco: Never Comments Unknown Sex and Gender Information Value Date Recorded Sex Assigned at Not on file 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
--- OUTSIDE RECORDS SUMMARY | 2024-12-28 20:38 | XMS_ITS | Encounter Summary ---
Author Organization [facility] Healthcare Address [address] [place] [address] Care Team Providers Care Director Of Video Analytics Name Role Phone Ramya Preston NP Primary Care Provider [phone] David Fermin DPM Unavailable [phone] Reason for Visit * Reason Onset Date Comments Additional Services Or Orders 11/28/2024 Encounter Details Date Type Department Care Team (Late st Contact Info) Description 11/28/2024 Telephone [facility] Primary Care at [address] [address] Ramya Preston NP [address] [place] [address] [address] [place] [address] Additional Services Or Orders Social [...] on file Legal 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 [address] [place] [address] PCP - General Family Medicine 01/03/24 David Fermin DPM [address] [place] [address] Consulting Physician Orthotics 01/03/24 documented as of this encounter
--- OUTSIDE RECORDS SUMMARY | 2024-12-28 20:38 | XMS_ITS | Clinical Summary ---
Author Organization [facility] Address [address] [place] [phone] Care Team Providers Care Risk Officer Name Role Phone Ramya Preston NP Primary Care Provider [phone] David Fermin DPM Unavailable [phone] Allergies No known active allergies Medications omega 9-kcw-ckk-fish oil 300-1,000 mg capsule 8 Active nystatin [...] 07/05/2024 Assessment & Plan (10/09/2024 12:38 PM TILTR[employer] CHIEF): Continuing Farxiga, updated labs ordered Assessment & Plan (07/05/2024 1:12 PM [employer]IL[employer] CHIEF): Previous A1c 8.1 six months ago. Attempted to start Farxiga, but did not hear back from the pt's facility. Will recheck A1c and kidney function with labs today. Also sending in Farxiga, samples given today to get started. Medicare annual wellness visit, subsequent 07/05 Assessment & Plan (07/05/2024 1:14 PM TIL[employer]IEF): A yearly Medicare Annual Wellness Visit has [...] CDT): Patient has had DEXA performed, patient's caseworker intake is getting records to drop off to us. Long-term current use of steroids 12/07/2017 Anxiety 10/24/2017 Assessment & Plan (07/05/2024 12:26 PM [employer]IEF): Overall stable on Celexa. Assessment & Plan (01/03/2024 10:55 AM CDT): Overall stable on Celexa. 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 Updated labs ordered for today. Assessment & Plan (07/05/2024 12:26 PM [employer]IEF): Patient taking Pravastatin, no side effects noted. Updated labs ordered for today. Assessment & Plan (01/03/2024 10:55 AM CDT): Patient taking Pravastatin, no side effects noted. Updated labs ordered. Hypertension 10/24/2017 Assessment & Plan (10/09/2024 12:37 PM TILTR[employer] CHIEF): BP well controlled in office, continuing Nifedipine 30 mg daily. Updated labs ordered today. Assessment & Plan (07/05/2024 12:26 PM TILTR[employer]IEF): BP well controlled in office, continuing Nifedipine 30 mg daily. Updated labs ordered today. Assessment & Plan (01/03/2024 10:55 AM CDT): BP well controlled in office, continuing Nifedipine 30 mg daily. Updated labs ordered. Resolved Problems Problem Noted Date Diagnosed Date Resolved Date PMR (polymyalgia rheumatica) 10/24/2017 05/30/2018 Encounters Date Type Department Care Team Description 11/28/2024 Telephone [facility] at [address] [phone] Ramya Preston NP Additional Services Or Orders 10/31/2024 8:30 AM CDT Office Visit [facility] at [address] [phone] Julia Gonzalez NP Incidental lung nodule, greater than or equal to 8mm (Primary Dx); Concussion without loss of consciousness, subsequent encounter 10/29/2024 Telephone [facility] at [address] [phone] Ramya Preston NP Appointment Request 10/19/2024 1:30 PM [employer] Office Visit [facility] at [address] [phone] Jeremias Laureano DO Osteoarthritis of left shoulder, unspecified osteoarthritis type (Primary Dx); Chronic left shoulder pain; Cervicalgia 10/19/2024 Orders Only [facility] at [address] [phone] Jeremias Laureano DO Chronic left shoulder pain (Primary Dx); Osteoarthritis of left shoulder, unspecified osteoarthritis type 10/17/2024 2:15 PM [employer] Office Visit [facility] at [address] [place] [address] [place] [phone] Raffy Flowers MD Stage 3b chronic kidney disease (HCC) (Primary Dx); Essential hypertension; Type 2 diabetes mellitus with stage 3b chronic kidney disease, without long-term current use of insulin (HCC) 10/16/2024 Telephone [facility] at [address] [place] [address] Naif Rodriguez 10/10/2024 Results Follow-Up [facility] at [address] [phone] Ramya Preston NP Type 2 diabetes mellitus with stage 3b chronic kidney disease, without long-term current use of insulin (HCC) (Primary Dx) 10/09/2024 12:00 PM [employer] Lab [facility] at [address] [phone] Hypertension (Primary Dx); Hyperlipidemia; Type 2 diabetes mellitus with stage 3a chronic kidney disease, without long-term current use of insulin (HCC) 10/09/2024 11:00 AM [employer] Office Visit [facility] at [address] [phone] Ramya Preston NP Type 2 diabetes mellitus with stage 3a chronic kidney disease, without long-term current use of insulin (HCC) (Primary Dx); Mixed stress and urge urinary incontinence; Primary hypertension; Mixed hyperlipidemia; Chronic left shoulder pain 10/09/2024 10:04 AM [employer] - 10/09/2024 11:59 PM [employer] Hospital Encounter [address] [address] Type 2 diabetes mellitus with stage 3a chronic kidney disease, without long-term current use of insulin (HCC); Leukocytosis, unspecified type Discharge Disposition: Discharge to home or self care 10/02/2024 Results Follow-Up [facility] at [address] [phone] Ramya Preston NP from Last 3 Months Immunizations Immunization Administration Dates Next Due Influenza, Quadrivalent, Hig h Dose, Preservative Free, Intrr 05/09/2023,06/09/2022,06/17/2021 Influenza, Quadrivalent, Spl it, Intramuscular 05/29/2020,05/30/2019,09/20/2018,06/01,05/28/2015 Influenza, Trivalent, High D ose, Split, Preservative Free, Intramuscular 07/05/2024 Pneumococcal Polysaccharide PPV23 12/08/2022 Surgical History Surgery Date Site/Laterality Comments HEEL SPUR SURGERY Medical History Medical History Date Comments Hypertension Osteoporosis GERD (gastroesophageal reflux disease) Depression Chronic kidney disease Family History Medical History Relation Name Comments [...] on file Legal Sex Female 5:46 PM [employer] Gender Identity Female 10/25/2018 11:04 AM CDT [...] 10/31/2024 8:43 AM CDT Plan of Treatment Health Maintenance Due Date [...] Routine) 10/26/2024 EGFR Routine 10/09/2024 10:04 AM [employer] Type 2 diabetes mellitus with stage 3a chronic kidney disease, without long-term current use of insulin (HCC) DIFFERENTIAL AUTO Routine 10/09/2024 10:04 AM [employer]F Leukocytosis, unspecified type CBC WITH AUTO DIFFERENTIAL Routine 10/09/2024 10:04 AM [employer]F Leukocytosis, unspecified type LIPID PANEL Routine 10/09/2024 10:04 AM [employer] Type 2 diabetes mellitus with stage 3a chronic kidney disease, without long-term current use of insulin (HCC) HEMOGLOBIN A1C Routine 10/09/2024 10:04 AM [employer] Type 2 diabetes mellitus with stage 3a chronic kidney disease, without long-term current use of insulin (HCC) COMPREHENSIVE METABOLIC PANEL Routine 10/09/2024 10:04 AM [employer] Type 2 diabetes mellitus with stage 3a chronic kidney disease, without long-term current use of insulin (HCC) DEXA AXIAL SKELETON BONE DENSITY 1 OR MORE SITES Schedule Routine, Read Routine (OP Routine) 09/27/2024 2:52 PM [employer] Encounter for osteoporosis screening in asymptomatic postmenopausal patient ALBUMIN CREATININE RATIO, URINE Routine 07/05/2024 12:30 PM [employer] Type 2 diabetes mellitus with stage 3a chronic kidney disease, without long-term current use of insulin (HCC) from Last 3 Months or Most Recently Relevant to Health Maintenance Results * BRAIN COMPUTED TOMOGRAPHY (CT) (10/26/2024) Anatomical Region Laterality Modality N/A Computed Tomogra phy us Historical Provider IMG CT PROCEDURES Final R esult * CT Cervical Spine WO Contrast (10/26/2024) Anatomical Region Laterality Modality Spine N/A Computed Tomogra phy Historical Provider IMG CT PROCEDURES Final R esult * CT Chest WO Contrast (10/26/2024) Anatomical Region Laterality Modality Body N/A Computed Tomogra phy Historical Provider IMG CT PROCEDURES Final R esult * (ABNORMAL) eGFR (10/09/2024 10:04 AM TILTR[employer] CHIEF) Pathologist [facility] eGFR 42(L) >=60 mL/min/1. 73 m2 Comment: [...] reviewed 2021. Blood 10/09/2024 10:0 4 AM [employer] 10/09/2024 9:25 PM [employer] us Ramya Preston ADMINISTRATIVE HEARING OFFICER LAB BLOOD ORDERABLES Final Resul t [facility] [id number] [address] Department [place] [address] * Differential, auto (10/09/2024 10:04 AM TILTR[employer] CHIEF) Pathologist [facility] Neutrophil abs 6.1 1.5 - 6.5 K/cumm Imm gran abs 0.1 0.0 - 0.1 K/cumm [facility] Lymphocyte abs 2.5 0.8 - 3.3 K/cumm [facility] Monocyte abs 0.6 0.2 - 0.8 K/cumm [facility] Eosinophil abs 0.1 0.0 - 0.5 K/cumm [facility] Basophil abs 0.0 0.0 - 0.1 K/cumm [facility] Neutrophil pct 64.9 % [facility] Comment: Interpretive Data Percent cell count reference ranges are not reported, since discordance with absolute values may lead to misinterpretation of CBC data. Current Interpretive Data was last revised on 2017. Imm gran pct 0.6 % [facility] Comment: Interpretive Data Percent cell count reference ranges are not reported, since discordance with absolute values may lead to misinterpretation of CBC data. Current Interpretive Data was last revised on 2017. Lymphocyte pct 26.1 % [facility] Comment: Interpretive Data Percent cell count reference ranges are not reported, since discordance with absolute values may lead to misinterpretation of CBC data. Current Interpretive Data was last revised on 2017. Monocyte pct 6.8 % [facility] Comment: Interpretive Data Percent cell count reference ranges are not reported, since discordance with absolute values may lead to misinterpretation of CBC data. Current Interpretive Data was last revised on 2017. Eosinophil pct 1.2 % [facility] Comment: Interpretive Data Percent cell count reference ranges are not reported, since discordance with absolute values may lead to misinterpretation of CBC data. Current Interpretive Data was last revised on 2017. Basophil pct 0.4 % [facility] Comment: Interpretive Data Percent cell count reference ranges are not reported, since discordance with absolute values may lead to misinterpretation of CBC data. Current Interpretive Data was last revised on 2017. Blood 10/09/2024 10:0 4 AM [employer]IEF 10/09/2024 9:15 PM [employer] us Ramya Preston NP LAB BLOOD ORDERABLES Final Resul t [facility] [address] [address] Department [place] [address] * (ABNORMAL) CBC with auto differential (10/09/2024 10:04 AM TIL[employer] CHIEF) WBC 9.4 3.8 - 9.9 K/cumm Hgb 13.2 11.9 - 15.5 g/dL [facility] Hct 42.0 35.6 - 45.5 % [facility] Plt 349 150 - 400 K/cumm [facility] MPV 11.2 9.1 - 12.3 fL [facility] RBC 4.36 3.90 - 5.20 M/cumm [facility] MCV 96.3 81.3 - 96.4 fL [facility] MCH 30.3 27.1 - 33.3 pg [facility] MCHC 31.4(L) 32.3 - 35.7 g/dL [facility] RDW CV 13.7 11.1 - 14.9 % [facility] RDW SD 48.9(H) 35.7 - 48.1 fL [facility] NRBC abs 0.00 0.00 - 0.01 K/cumm [facility] Blood 10/09/2024 10:0 4 AM [employer]IE[employer] 10/09/2024 9:15 PM [employer]F Ramya Preston NP LAB BLOOD ORDERABLES Final Resul t Performing Organization Address [facility] de Phone Number [facility] [address] [place] [address] * (ABNORMAL) Hemoglobin A1c (10/09/2024 10:04 AM TILTR[employer] CHIEF) Pathologist [facility] Hgb A1C 6.7(H) 4.0 - 5.6 % Estimated Average Glucose 146 mg/dL [facility] Comment: The ADA recommends reporting an estimated Average Glucose (eAG) with all Hemoglobin A1c results using the equation derived from a study of 507 normal and diabetic adults. Minority populations were underrepresented and children were not included. (Diabetes Care 31:5590-1147, 2008). The eAG is not equivalent to a fasting glucose. Blood 10/09/2024 10:0 4 AM [employer] CHIEF 10/09/2024 9:15 PM [employer]IEF us Ramya Preston NP LAB BLOOD ORDERABLES Final Resul t Performing Organization Address City/[facility] Co de Phone Number [place] [address] [place] [address] * Lipid panel (10/09/2024 10:04 AM TILTROTOR CRE[employer] CHIEF) Pathologist [facility] Cholesterol 151 30 - 199 mg/dL Comment: [...] Pediatrics 2011;128:S213 2. NCEP Expert Panel. Circulation 2003;110:227 Current Interpretive Data was last revised on [...] CERNER CH Blood 10/09/2024 10:0 4 AM [employer] CHIEF 10/09/2024 9:15 PM [employer]F Ramya Preston NP LAB BLOOD ORDERABLES Final Resul t [place] [address] [address] Department [place] [address] * (ABNORMAL) Comprehensive metabolic panel (10/09/2024 10:04 AM TIL[employer] CHIEF) Sodium 136 135 - 145 mmol/L Potassium, [...] CERNER CH Blood 10/09/2024 10:0 4 AM [employer]IEF 10/09/2024 9:15 PM [employer]IEF us Ramya Preston ADMINISTRATIVE HEARING OFFICER LAB BLOOD ORDERABLES Final Resul t [place] [address] [address] Department [place] [address] * Dexa Axial Skeleton Bone Density 1 or 2 Site (09/27/2024 2:52 PM TILTR[employer] CRE[employer] CHIEF) Anatomical Region Laterality Modality Body N/A Other 10/02/2024 8:21 AM [employer] CHIEF Narrative 10/02/2024 8:21 AM [employer]IL[employer]OR CRE[employer] CHIEF EXAM DESCRIPTION: DEXA AXIAL SKELETON BONE DENSITY 1 OR MORE SITES REASON FOR STUDY: 83 y/o year old F with given history of: Postmenopausal status. History of secondary osteoporosis. Patient takes vitamin-D and calcium. Scanning Tech/Model: Black coin Discovery SL (S/N [id number]) Facility LSC value of 0.022 for the [...] Beatrice Vogel M.D. TW: TW Report ID: [id number] Reading Location: [place] [address] Procedure Note Beatrice Vogel MD - 10/02/2024 EXAM DESCRIPTION: DEXA AXIAL SKELETON BONE DENSITY 1 OR MORE SITES REASON FOR STUDY: 83 y/o year old F with given history of:Postmenopausal status. History of secondary osteoporosis. Patient takes vitamin-D and calcium. Scanning Tech/Model: HoloImpliant Discovery SL (S/N [id number]) Facility LSC value of 0.022 for the [...] Beatrice Vogel M.D. TW: TW Report ID: [id number] Reading Location: [id number] us Ramya Preston NP IMG DXA PROCEDURES Final Result * (ABNORMAL) Albumin Creatinine Ratio, Urine (07/05/2024 12:30 PM T[employer] CHIEF) Albumin Ur 198.1 mg/L [id number]|2024-12-28 22:30:00|2024-12-28 22:30:00|XMS_ITS|BKG DAEMON|External Medical Summaries|[id number]|" Referral Summary Created on: December 28, 2024 Coral Holt : 1940 Sex: Female Author Organization [facility] Address [address] [place] [phone] Care Team Providers Care Risk Officer Name Role Phone Ramya Preston NP Primary Care Provider [phone] David Fermin DPM Unavailable [phone] Encounters Date Type Department Care Team Description 11/28/[address] [facility] Primary Care at [address] [phone] Ramya Preston NP Additional Services Or Orders 10/31/2024 8:30 AM CDT Office Visit [facility] Care at [address] [phone] Julia Gonzalez NP Incidental lung nodule, greater than or equal to 8mm (Primary Dx); Concussion without loss of consciousness, subsequent encounter 10/29/[address] [facility] at [address] [phone] Ramya Preston NP Appointment Request 10/19/2024 Orders Only [facility] at [address] [place] [phone] Jeremias Laureano DO Chronic left shoulder pain (Primary Dx); Osteoarthritis of left shoulder, unspecified osteoarthritis type 10/19/2024 1:30 PM [employer] Office Visit [facility] at [address] [phone] Jeremias Laureano, Osteoarthritis of left shoulder, unspecified osteoarthritis type (Primary Dx); Chronic left shoulder pain; Cervicalgia 10/17/2024 2:15 PM [employer]F Office Visit [facility] Medical [facility] at [address] [place] [phone] Rfafy Flowers MD Stage 3b chronic kidney disease (HCC) (Primary Dx); Essential hypertension; Type 2 diabetes mellitus with stage 3b chronic kidney disease, without long-term current use of insulin (HCC) 10/16/2024 Telephone [facility] at [address] [place] [address] Naif Rodriguez 10/10/2024 Results Follow-Up [facility] Care at [address] [phone] Ramya Preston NP Type 2 diabetes mellitus with stage 3b chronic kidney disease, without long-term current use of insulin (HCC) (Primary Dx) 10/09/2024 10:04 AM [employer] CHIEF - 10/09/2024 11:59 PM [employer] CHIEF Hospital Encounter [address] [address] Type 2 diabetes mellitus with stage 3a chronic kidney disease, without long-term current use of insulin (HCC); Leukocytosis, unspecified type Discharge Disposition: Discharge to home or self care 10/09/2024 12:00 PM T[employer] CHIEF Lab [facility] at [address] [phone] Hypertension (Primary Dx); Hyperlipidemia; Type 2 diabetes mellitus with stage 3a chronic kidney disease, without long-term current use of insulin (HCC) 10/09/2024 11:00 AM [employer]IEF Office Visit [facility] at [address] [phone] Ramya Preston NP Type 2 diabetes mellitus with stage 3a chronic kidney disease, without long-term current use of insulin (HCC) (Primary Dx); Mixed stress and urge urinary incontinence; Primary hypertension; Mixed hyperlipidemia; Chronic left shoulder pain 10/02/2024 Results Follow-Up [facility] at [address] [phone] Ramya Preston NP from Last 3 Months Allergies No known active allergies Medications omega 7-ekl-res-fish oil 300-1,000 mg capsule 8 Active nystatin [...] 07/05/2024 Assessment & Plan (10/09/2024 12:38 PM TILTR[employer]OR [employer] CHIEF): Continuing Farxiga, updated labs ordered Assessment & Plan (07/05/2024 1:12 PM TILTR[employer]OR CRE[employer] CHIEF): Previous A1c 8.1 six months ago. Attempted to start Farxiga, but did not hear back from the pt's facility. Will recheck A1c and kidney function with labs today. Also sending in Farxiga, samples given today to get started. Medicare annual wellness visit, subsequent 07/05 Assessment & Plan (07/05/2024 1:14 PM TILTR[employer]OR [employer] CHIEF): A yearly Medicare Annual Wellness Visit has [...] CDT): Patient has had DEXA performed, patient's caseworker intake is getting records to drop off to us. Long-term current use of steroids 12/07/2017 Anxiety 10/24/2017 Assessment & Plan (07/05/2024 12:26 PM TIL[employer] CHIEF): Overall stable on Celexa. Assessment & Plan (01/03/2024 10:55 AM CDT): Overall stable on Celexa. 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 Updated labs ordered for today. Assessment & Plan (07/05/2024 12:26 PM TILTR[employer]OR [employer] CHIEF): Patient taking Pravastatin, no side effects noted. Updated labs ordered for today. Assessment & Plan (01/03/2024 10:55 AM CDT): Patient taking Pravastatin, no side effects noted. Updated labs ordered. Hypertension 10/24/2017 Assessment & Plan (10/09/2024 12:37 PM TILTR[employer]OR CRE[employer] CHIEF): BP well controlled in office, continuing Nifedipine 30 mg daily. Updated labs ordered today. Assessment & Plan (07/05/2024 12:26 PM TILTROTOR CREW CHIEF): BP well controlled in office, continuing Nifedipine [...] on file Legal Sex Female 5:46 PM T[employer] CHIEF Gender Identity Female 10/25/2018 11:04 AM CDT [...] Routine) 10/26/2024 EGFR Routine 10/09/2024 10:04 AM T[employer]OR [employer] CHIEF Type 2 diabetes mellitus with stage 3a chronic kidney disease, without long-term current use of insulin (HCC) DIFFERENTIAL AUTO Routine 10/09/2024 10:04 AM T[employer]OR [employer] CHIEF Leukocytosis, unspecified type CBC WITH AUTO DIFFERENTIAL Routine 10/09/2024 10:04 AM TIL[employer]OR [employer] CHIEF Leukocytosis, unspecified type LIPID PANEL Routine 10/09/2024 10:04 AM T[employer]OR [employer] CHIEF Type 2 diabetes mellitus with stage 3a chronic kidney disease, without long-term current use of insulin (HCC) HEMOGLOBIN A1C Routine 10/09/2024 10:04 AM TIL[employer]OR [employer] CHIEF Type 2 diabetes mellitus with stage 3a chronic kidney disease, without long-term current use of insulin (HCC) COMPREHENSIVE METABOLIC PANEL Routine 10/09/2024 10:04 AM TILTROTOR CRE[employer] CHIEF Type 2 diabetes mellitus with stage 3a chronic kidney disease, without long-term current use of insulin (HCC) DEXA AXIAL SKELETON BONE DENSITY 1 OR MORE SITES Schedule Routine, Read Routine (OP Routine) 09/27/2024 2:52 PM TILTROTOR CREW CHIEF Encounter for osteoporosis screening in asymptomatic postmenopausal patient ALBUMIN CREATININE RATIO, URINE Routine 07/05/2024 12:30 PM TILTROTOR CRE[employer] CHIEF Type 2 diabetes mellitus with stage 3a chronic kidney disease, without long-term current use of insulin (HCC) from Last 3 Months or Most Recently Relevant to Health Maintenance Results * BRAIN COMPUTED TOMOGRAPHY (CT) (10/26/2024) Anatomical Region Laterality Modality N/A Computed Tomogra phy us Historical Provider IMG CT PROCEDURES Final R esult * CT Cervical Spine WO Contrast (10/26/2024) Anatomical Region Laterality Modality Spine N/A Computed Tomogra phy Historical Provider IMG CT PROCEDURES Final R esult * CT Chest WO Contrast (10/26/2024) Anatomical Region Laterality Modality Body N/A Computed Tomogra phy Historical Provider IMG CT PROCEDURES Final R esult * (ABNORMAL) eGFR (10/09/2024 10:04 AM TILTROTOR CREW CHIEF) eGFR 42(L) >=60 mL/min/1. 73 m2 Comment: [...] reviewed 2021. Blood 10/09/2024 10:0 4 AM TILTR[employer]OR CREW CHIEF 10/09/2024 9:25 PM TILTR[employer]OR CRE[employer]IEF us Ramya Preston ADMINISTRATIVE HEARING OFFICER LAB BLOOD ORDERABLES Final Resul t [facility] [address] [address] Department [place] [address] * Differential, auto (10/09/2024 10:04 AM TILTROTOR CREW CHIEF) Neutrophil abs 6.1 1.5 - 6.5 K/cumm Imm gran abs 0.1 0.0 - 0.1 K/cumm [facility] Lymphocyte abs 2.5 0.8 - 3.3 K/cumm [facility] Monocyte abs 0.6 0.2 - 0.8 K/cumm [facility] Eosinophil abs 0.1 0.0 - 0.5 K/cumm [facility] Basophil abs 0.0 0.0 - 0.1 K/cumm [facility] Neutrophil pct 64.9 % [facility] Comment: Interpretive Data Percent cell count reference ranges are not reported, since discordance with absolute values may lead to misinterpretation of CBC data. Current Interpretive Data was last revised on 2017. Imm gran pct 0.6 % [facility] Comment: Interpretive Data Percent cell count reference ranges are not reported, since discordance with absolute values may lead to misinterpretation of CBC data. Current Interpretive Data was last revised on 2017. Lymphocyte pct 26.1 % [facility] Comment: Interpretive Data Percent cell count reference ranges are not reported, since discordance with absolute values may lead to misinterpretation of CBC data. Current Interpretive Data was last revised on 2017. Monocyte pct 6.8 % [facility] Comment: Interpretive Data Percent cell count reference ranges are not reported, since discordance with absolute values may lead to misinterpretation of CBC data. Current Interpretive Data was last revised on 2017. Eosinophil pct 1.2 % [facility] Comment: Interpretive Data Percent cell count reference ranges are not reported, since discordance with absolute values may lead to misinterpretation of CBC data. Current Interpretive Data was last revised on 2017. Basophil pct 0.4 % [facility] Comment: Interpretive Data Percent cell count reference ranges are not reported, since discordance with absolute values may lead to misinterpretation of CBC data. Current Interpretive Data was last revised on 2017. Blood 10/09/2024 10:0 4 AM TILTROTOR CREW CHIEF 10/09/2024 9:15 PM TILTROTOR CREW CHIEF us Ramya Preston ADMINISTRATIVE HEARING OFFICER LAB BLOOD ORDERABLES Final Resul t Performing Organization Address [facility] Co de Phone Number ROM BALDWIN [address] [place] [address] * (ABNORMAL) CBC with auto differential (10/09/2024 10:04 AM TILTROTOR CREW CHIEF) WBC 9.4 3.8 - 9.9 K/cumm Hgb 13.2 11.9 - 15.5 g/dL [facility] Hct 42.0 35.6 - 45.5 % [facility] Plt 349 150 - 400 K/cumm [facility] MPV 11.2 9.1 - 12.3 fL [facility] RBC 4.36 3.90 - 5.20 M/cumm [facility] MCV 96.3 81.3 - 96.4 fL [facility] MCH 30.3 27.1 - 33.3 pg [facility] MCHC 31.4(L) 32.3 - 35.7 g/dL [facility] RDW CV 13.7 11.1 - 14.9 % [facility] RDW SD 48.9(H) 35.7 - 48.1 fL [facility] NRBC abs 0.00 0.00 - 0.01 K/cumm [facility] Blood 10/09/2024 10:0 4 AM TILTROTOR CREW CHIEF 10/09/2024 9:15 PM TILTROTOR CREW CHIEF us Ramya Preston ADMINISTRATIVE HEARING OFFICER LAB BLOOD ORDERABLES Final Resul t Performing Organization Address [facility] Co de Phone Number ROM BALDWIN [address] [place] [address] * (ABNORMAL) Hemoglobin A1c (10/09/2024 10:04 AM TILTROTOR CREW CHIEF) Hgb A1C 6.7(H) 4.0 - 5.6 % Estimated Average Glucose 146 mg/dL ROM BALDWIN Comment: The ADA recommends reporting an estimated Average Glucose (eAG) with all Hemoglobin A1c results using the equation derived from a study of 507 normal and diabetic adults. Minority populations were underrepresented and children were not included. (Diabetes Care 31:1854-8623, 2008). The eAG is not equivalent to a fasting glucose. Blood 10/09/2024 10:0 4 AM TILTROTOR CREW CHIEF 10/09/2024 9:15 PM TILTROTOR CREW CHIEF us Ramya Preston NP LAB BLOOD ORDERABLES Final Resul t ROM [facility]IN [address] Department [place] [address] * Lipid panel (10/09/2024 10:04 AM TILTROTOR CREW CHIEF) Cholesterol 151 30 - 199 mg/dL Comment: [...] CERNER CH Blood 10/09/2024 10:0 4 AM TILTROTOR CREW CHIEF 10/09/2024 9:15 PM TILTROTOR CREW CHIEF us Ramya Preston ADMINISTRATIVE HEARING OFFICER LAB BLOOD [place] [address] [address] Department [place] [address] * (ABNORMAL) Comprehensive metabolic panel (10/09/2024 10:04 AM TILTROTOR CREW CHIEF) Sodium 136 135 - 145 mmol/L Potassium, [...] CERNER CH Blood 10/09/2024 10:0 4 AM TILTROTOR CREW CHIEF 10/09/2024 9:15 PM TILTROTOR CREW CHIEF us Ramya Preston NP LAB BLOOD ORDERABLES Final Resul t ROM [place] [address] [place] [address] * Dexa Axial Skeleton Bone Density 1 or 2 Site (09/27/2024 2:52 PM TILTROTOR CREW CHIEF) Anatomical Region Laterality Modality Body N/A Other 10/02/2024 8:2 1 AM TILTROTOR CREW CHIEF Narrative 10/02/2024 8:21 AM TILTROTOR CREW CHIEF EXAM DESCRIPTION: DEXA AXIAL SKELETON BONE DENSITY 1 OR MORE SITES REASON FOR STUDY: 83 y/o year old F with given history of: Postmenopausal status. History of secondary osteoporosis. Patient takes vitamin-D and calcium. Scanning Tech/Model: Black coin Discovery SL (S/N [id number]) Facility LSC value of 0.022 for the [...] Beatrice Vogel M.D. TW: TW Report ID: [id number] Reading Location: [id number] Procedure Note Beatrice Vogel MD - 10/02/2024 EXAM DESCRIPTION: DEXA AXIAL SKELETON BONE DENSITY 1 OR MORE SITES REASON FOR STUDY: 83 y/o year old F with given history of:Postmenopausal status. History of secondary osteoporosis. Patient takes vitamin-D and calcium. Scanning Tech/Model: Black coin Discovery SL (S/N [id number]) Facility LSC value of 0.022 for the [...] Beatrice Vogel M.D. TW: TW Report ID: [id number] Reading Location: [place] [address] Ramya Preston ADMINISTRATIVE HEARING OFFICER IMG DXA PROCEDURES Final Result * (ABNORMAL) Albumin Creatinine Ratio, Urine (07/05/2024 12:30 PM TILTROTOR CREW CHIEF) Albumin Ur 198.1 mg/L Comment: Interpretive Data No reference range established. Current interpretive data was last revised 2018. Creatinine Ur 255.5 mg/dL ROM Comment: Interpretive Data No reference range established. Current interpretive data was last revised 2018. Albumin Creatinine Ratio, Ur 78(H) 1 - 29 mg/g ROM Urine 07/05/2024 12:3 0 PM TILTROTOR CREW CHIEF 07/06/2024 11:13 AM TILTROTOR CREW CHIEF us Ramya Preston NP LAB URINE ORDERABLES Final Resul t ROM [place] [address] Department [place] [address] from Last 3 Months or Most Recently Relevant to Health Maintenance Insurance MEDICARE IDPR Member Subscriber Plan / Payer (Ef fective 2017-Present) Name:CORAL HOLT Relation to Subscriber:Self Name:Coral Holt Payer ID
[2024-12-28 20:40] VITALS: BP 135/66; PULSE 73; RESP 16; TEMP 36.6; O2SAT 98
--- NOTE | 2024-12-28 20:49 | PC.NURSE ---
Per Haley - Pt does take a baby aspirin daily. 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 Pt [facility] [address] [facility]. Pt knows name, not sure on year, month, where she lives. Pt will know birds name (kiki biggs) and room mates name is alyce. This is how they tell her orientation status daily.
--- NOTE | 2024-12-28 21:59 | PC.NURSE ---
insights manager at bedside with patient. [facility].
--- OUTSIDE RECORDS SUMMARY | 2024-12-28 22:29 | XMS_ITS | CONTINUITY OF CARE DOCUMENT ---
Author Name duyen geller Address Unknown Organization [facility] Address [address] [place] [address] Phone [phone] Care Team Providers Care Parachute Repairer Name Role Phone REYNOLD ANAYA, AARON Unavailable [phone] ANJELICA WOODSON MD Unavailable [phone] INSURANCE PROVIDERS Payer name Policy type / Coverage type Susan red green party ID [employer] FAMILY [employer] Medicaid 0 [id number] [place] [employer] Medicare [id number]
--- OUTSIDE RECORDS SUMMARY | 2024-12-28 22:29 | XMS_ITS | Continuity of Care Document ---
Author Organization [facility] Address [address] [place] [address] Phone Care Team Providers Care Crop Or Grain Farmworker Name Role Phone Mary Becerra OT Unavailable [...] Diagnoses Date Provider Providers Copied on Encounter [facility], [address], [place], [place], [id number], tel:[phone] Laura No Information 0- 5 Mariam Hernandez. . Referring Provider: Jeremias Laureano [address], [place], [address]. tel:[phone] [facility], [address], [place], [place], [id number], tel:[phone] Laura No Information 7 5 Mariam Hernandez. . Referring Provider: Jeremias Laureano [address], [place], [address]. tel:[phone] [facility], [address], [place], [place], [id number], tel:[phone] Laura No Information 5 Mariam Hernandez. . Referring Provider: Jeremias Laureano, [address], [place], [address]. tel:[phone] [facility], [address], [place], [place], [id number], tel:[phone] Laura No Information 5 Mariam Hernandez. . Referring Provider: Jeremias Laureano [address], [place], [address]. tel:[phone] Family History Family Member Type Diagnosis Age At Onset No Information Payers Payer name Insurance type Covered alliance party ID Authorlivia arguelles(s) Medicare [place] [id number] Medicaid OON Write Off CI 00 Social [...]
--- OUTSIDE RECORDS SUMMARY | 2024-12-28 22:30 | XMS_ITS | Clinical Summary ---
Author Organization [facility] Address [address] [place] [address] Care Team Providers Care Laminator Hand Name Role Phone Ramya Preston NP Primary Care Provider [phone] David Fermin DPM Unavailable [phone] Allergies No known active allergies Medications omega [id number]-[id number]-fish oil 300-1,000 mg capsule 8 Active nystatin [...] 07/05/2024 Assessment & Plan (10/09/2024 12:38 PM JEWELRY SALES): Continuing Farxiga, updated labs ordered Assessment & Plan (07/05/2024 1:12 PM JEWELRY SALES): Previous A1c 8.1 six months ago. Attempted to start Farxiga, but did not hear back from the pt's facility. Will recheck A1c and kidney function with labs today. Also sending in Farxiga, samples given today to get started. Medicare annual wellness visit, subsequent 07/05 Assessment & Plan (07/05/2024 1:14 PM JEWELRY SALES): A yearly Medicare Annual Wellness Visit has been performed today. Silvia Kern is not up to date on screening [...] CDT): Patient has had DEXA performed, patient's pillowcase maker is getting records to drop off to us. Long-term current use of steroids 12/07/2017 Anxiety 10/24/2017 Assessment & Plan (07/05/2024 12:26 PM JEWELRY SALES): Overall stable on Celexa. Assessment & Plan (01/03/2024 10:55 AM CDT): Overall stable on Celexa. 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 Updated labs ordered for today. Assessment & Plan (07/05/2024 12:26 PM JEWELRY SALES): Patient taking Pravastatin, no side effects noted. Updated labs ordered for today. Assessment & Plan (01/03/2024 10:55 AM CDT): Patient taking Pravastatin, no side effects noted. Updated labs ordered. Hypertension 10/24/2017 Assessment & Plan (10/09/2024 12:37 PM JEWELRY SALES): BP well controlled in office, continuing Nifedipine 30 mg daily. Updated labs ordered today. Assessment & Plan (07/05/2024 12:26 PM JEWELRY SALES): BP well controlled in office, continuing Nifedipine 30 mg daily. Updated labs ordered today. Assessment & Plan (01/03/2024 10:55 AM CDT): BP well controlled in office, continuing Nifedipine 30 mg daily. Updated labs ordered. Resolved Problems Problem Noted Date Diagnosed Date Resolved Date PMR (polymyalgia rheumatica) 10/24/2017 05/30/2018 Encounters Date Type Department Care Team Description 11/28/2024 Telephone [facility] Primary Care at [address] [address] Ramya Preston NP Additional Services Or Orders 10/31/2024 8:30 AM CDT Office Visit [facility] Primary Care at [address] [address] Julia Gonzalez NP Incidental lung nodule, greater than or equal to 8mm (Primary Dx); Concussion without loss of consciousness, subsequent encounter 10/29/2024 Telephone [facility] Primary Care at [address] [address] Ramya Preston NP Appointment Request 10/19/2024 1:30 PM JEWELRY SALES Office Visit [facility] Sports Medicine and Primary Care at [address] [address] Jeremias Laureano DO Osteoarthritis of left shoulder, unspecified osteoarthritis type (Primary Dx); Chronic left shoulder pain; Cervicalgia 10/19/2024 Orders Only [facility] Sports Medicine and Primary Care at [address] [address] Jeremias Laureano DO Chronic left shoulder pain (Primary Dx); Osteoarthritis of left shoulder, unspecified osteoarthritis type 10/17/2024 2:15 PM JEWELRY SALES Office Visit [facility] Nephrology at [address] [place] [address] [place] [phone] Raffy Flowers MD Stage 3b chronic kidney disease (HCC) (Primary Dx); Essential hypertension; Type 2 diabetes mellitus with stage 3b chronic kidney disease, without long-term current use of insulin (HCC) 10/16/2024 Telephone [facility] Nephrology at [address] [place] [address] Naif Rodriguez 10/10/2024 Results Follow-Up [facility] Primary Care at [address] [address] Ramya Preston NP Type 2 diabetes mellitus with stage 3b chronic kidney disease, without long-term current use of insulin (HCC) (Primary Dx) 10/09/2024 12:00 PM JEWELRY SALES Lab [facility] Outpatient Lab at [address] [address] Hypertension (Primary Dx); Hyperlipidemia; Type 2 diabetes mellitus with stage 3a chronic kidney disease, without long-term current use of insulin (HCC) 10/09/2024 11:00 AM JEWELRY SALES Office Visit [facility] Primary Care at [address] [address] Ramya Preston NP Type 2 diabetes mellitus with stage 3a chronic kidney disease, without long-term current use of insulin (HCC) (Primary Dx); Mixed stress and urge urinary incontinence; Primary hypertension; Mixed hyperlipidemia; Chronic left shoulder pain 10/09/2024 10:04 AM JEWELRY SALES - 10/09/2024 11:59 PM JEWELRY SALES Hospital Encounter [address] [address] Type 2 diabetes mellitus with stage 3a chronic kidney disease, without long-term current use of insulin (HCC); Leukocytosis, unspecified type Discharge Disposition: Discharge to home or self care 10/02/2024 Results Follow-Up [facility] Primary Care at [address] [phone] Ramya Preston NP from Last [...] on file Legal Sex Female 5:46 PM JEWELRY SALES Gender Identity Female 10/25/2018 11:04 AM CDT [...] Routine) 10/26/2024 EGFR Routine 10/09/2024 10:04 AM JEWELRY SALES Type 2 diabetes mellitus with stage 3a chronic kidney disease, without long-term current use of insulin (HCC) DIFFERENTIAL AUTO Routine 10/09/2024 10:04 AM JEWELRY SALES Leukocytosis, unspecified type CBC WITH AUTO DIFFERENTIAL Routine 10/09/2024 10:04 AM JEWELRY SALES Leukocytosis, unspecified type LIPID PANEL Routine 10/09/2024 10:04 AM JEWELRY SALES Type 2 diabetes mellitus with stage 3a chronic kidney disease, without long-term current use of insulin (HCC) HEMOGLOBIN A1C Routine 10/09/2024 10:04 AM JEWELRY SALES Type 2 diabetes mellitus with stage 3a chronic kidney disease, without long-term current use of insulin (HCC) COMPREHENSIVE METABOLIC PANEL Routine 10/09/2024 10:04 AM JEWELRY SALES Type 2 diabetes mellitus with stage 3a chronic kidney disease, without long-term current use of insulin (HCC) DEXA AXIAL SKELETON BONE DENSITY 1 OR MORE SITES Schedule Routine, Read Routine (OP Routine) 09/27/2024 2:52 PM JEWELRY SALES Encounter for osteoporosis screening in asymptomatic postmenopausal patient ALBUMIN CREATININE RATIO, URINE Routine 07/05/2024 12:30 PM JEWELRY SALES Type 2 diabetes mellitus with stage 3a [...] esult * (ABNORMAL) eGFR (10/09/2024 10:04 AM JEWELRY SALES) Pathologist [facility] eGFR 42(L) >=60 mL/min/1. [...] reviewed 2021. Blood 10/09/2024 10:0 4 AM JEWELRY SALES 10/09/2024 9:25 PM JEWELRY SALES us Ramya Preston ENDOCRINOLOGY NURSE LAB BLOOD ORDERABLES Final Resul t [facility] [address] Department [place] [address] * Differential, auto (10/09/2024 10:04 AM JEWELRY SALES) Pathologist [facility] Neutrophil abs 6.1 1.5 - 6.5 K/cumm Imm gran abs 0.1 0.0 - 0.1 K/cumm [facility] Lymphocyte abs 2.5 0.8 - 3.3 K/cumm [facility] Monocyte abs 0.6 0.2 - 0.8 K/cumm [facility] Eosinophil abs 0.1 0.0 - 0.5 K/cumm [facility] Basophil abs 0.0 0.0 - 0.1 K/cumm [facility] Neutrophil pct 64.9 % [facility] Comment: Interpretive Data Percent cell count reference ranges are not reported, since discordance with absolute values may lead to misinterpretation of CBC data. Current Interpretive Data was last revised on 2017. Imm gran pct 0.6 % [facility] Comment: Interpretive Data Percent cell count reference [...] revised on 2017. Monocyte pct 6.8 % [facility] Comment: Interpretive Data Percent cell count reference [...] revised on 2017. Basophil pct 0.4 % [facility] Comment: Interpretive Data Percent cell count reference ranges are not reported, since discordance with absolute values may lead to misinterpretation of CBC data. Current Interpretive Data was last revised on 2017. Blood 10/09/2024 10:0 4 AM JEWELRY SALES 10/09/2024 9:15 PM JEWELRY SALES us Ramya Preston NP LAB BLOOD ORDERABLES Final Resul t [facility] [address] Department [place] [address] * (ABNORMAL) CBC with auto differential (10/09/2024 10:04 AM JEWELRY SALES) WBC 9.4 3.8 - 9.9 K/cumm Hgb 13.2 11.9 - 15.5 g/dL [facility] Hct 42.0 35.6 - 45.5 % [facility] Plt 349 150 - 400 K/cumm [facility] MPV 11.2 9.1 - 12.3 fL [facility] RBC 4.36 3.90 - 5.20 M/cumm [facility] MCV 96.3 81.3 - 96.4 fL [facility] MCH 30.3 27.1 - 33.3 pg [facility] MCHC 31.4(L) 32.3 - 35.7 g/dL [facility] RDW CV 13.7 11.1 - 14.9 % [facility] RDW SD 48.9(H) 35.7 - 48.1 fL [facility] NRBC abs 0.00 0.00 - 0.01 K/cumm [facility] Blood 10/09/2024 10:0 4 AM JEWELRY SALES 10/09/2024 9:15 PM JEWELRY SALES Ramya Preston NP LAB BLOOD ORDERABLES Final Resul t Performing Organization Address [facility] de Phone Number [facility] [address] [place] [address] * (ABNORMAL) Hemoglobin A1c (10/09/2024 10:04 AM JEWELRY SALES) Pathologist [facility] Hgb A1C 6.7(H) 4.0 - 5.6 % Estimated Average Glucose 146 mg/dL [facility] Comment: The ADA recommends reporting an estimated Average Glucose (eAG) with all Hemoglobin A1c results using the equation derived from a study of 507 normal and diabetic adults. Minority populations were underrepresented and children were not included. (Diabetes Care 31:3568-2843, 2008). The eAG is not equivalent to a fasting glucose. Blood 10/09/2024 10:0 4 AM JEWELRY SALES 10/09/2024 9:15 PM JEWELRY SALES us Ramya Preston NP LAB BLOOD ORDERABLES Final Resul t Performing Organization Address [facility] Co de Phone Number ROM [place]DWIN [address] [place] [address] * Lipid panel (10/09/2024 10:04 AM JEWELRY SALES) Pathologist [facility] Cholesterol 151 30 - [...] CERNER CH Blood 10/09/2024 10:0 4 AM JEWELRY SALES 10/09/2024 9:15 PM JEWELRY SALES Ramya Preston NP LAB BLOOD ORDERABLES Final Resul t [facility] [address] Department [place] [address] * (ABNORMAL) Comprehensive metabolic panel (10/09/2024 10:04 AM JEWELRY SALES) Sodium 136 135 - 145 mmol/L Potassium, [...] CERNER CH Blood 10/09/2024 10:0 4 AM JEWELRY SALES 10/09/2024 9:15 PM JEWELRY SALES us Ramya Preston ENDOCRINOLOGY NURSE LAB BLOOD ORDERABLES Final Resul t [facility] [place] [address] Department [place] [address] * Dexa Axial Skeleton Bone Density 1 or 2 Site (09/27/2024 2:52 PM JEWELRY SALES) Anatomical Region Laterality Modality Body N/A Other 10/02/2024 8:21 AM JEWELRY SALES Narrative 10/02/2024 8:21 AM JEWELRY SALES EXAM DESCRIPTION: DEXA AXIAL SKELETON BONE DENSITY 1 OR MORE SITES REASON FOR STUDY: 83 y/o year old F with given history of: Postmenopausal status. History of secondary osteoporosis. Patient takes vitamin-D and calcium. Regulatory Auditor/Model: Testlio Discovery SL (S/N [id number]) Facility LSC value of 0.022 for the [...] Beatrice Vogel M.D. TW: TW Report ID: [id number] Reading Location: [place] [address] Procedure Note Beatrice Vogel MD - 10/02/2024 EXAM DESCRIPTION: DEXA AXIAL SKELETON BONE DENSITY 1 OR MORE SITES REASON FOR STUDY: 83 y/o year old F with given history of:Postmenopausal status. History of secondary osteoporosis. Patient takes vitamin-D and calcium. Regulatory Auditor/Model: HoloComecer Discovery SL (S/N [id number]) Facility LSC value of 0.022 for the [...] Beatrice Vogel M.D. TW: WILLIAMS Report ID: [id number] Reading Location: [place] [address] us Ramya Preston ENDOCRINOLOGY NURSE IMG DXA PROCEDURES Final Result * (ABNORMAL) Albumin Creatinine Ratio, Urine (07/05/2024 12:30 PM JEWELRY SALES) Albumin Ur 198.1 mg/L [id number]||2024-12-28 22:23:00|CT_ITS|ELZIMMILIZ|Imaging|[id number]|"CT brain wo con Ordering provider: Fabrizio Mathur MD History: 84 years Female with . fall . Comparison: October 26, 2024 Technique: CT of the head without contrast. Radiation reduction technique utilized.The dose-length product was 681 mGy-cm. FINDINGS: BRAIN PARENCHYMA AND CSF SPACES: Deep white matter ischemic changes with mild brain atrophy. No midli ne shift, mass effect or hemorrhage. The brain parenchyma and CSF spaces are otherwise normal. VISUALIZED PARANASAL SINUSES: Well aerated. MASTOIDS: Well aerated. BONES: The bones appear intact. SOFT TISSUES: Visualized nasopharynx is normal. hematoma in the left frontal scalp. Otherwise, Supe rficial soft tissues are normal. IMPRESSION: No acute intracranial findings. Reviewed, dictated and finalized at location A. IMPRESSION: No acute intracranial findings. "
--- NOTE | 2024-12-29 00:08 | ED.FALL ---
HPI - Fall General Chief Complaint: Fall Stated Complaint: glf head lac Time Seen by Provider: 12/28/24 22:01 Source: patient and family Mode of arrival: ambulatory Limitations: no limitations History of Present Illness HPI Narrative: Patient is an 84-year-old female, past medical history of intellectual disability, who presents the ED with report of a fall. Patient reports she slipped and fell walking in her room with the lights off. She hit her head against her bedside table and her bed. Sustained 2 small abrasions/contusions to bilateral upper forehead regions. Denied LOC. Denies neck or back pain. Also complains of pain to her left shoulder. Family member notes that patient has long history of issues with L shoulder. She has been through PT for this. Patient takes an aspirin 81 mg daily. No other blood thinners. Denies any other areas of pain. Has been ambulatory since the fall. Related Data Home Medications Medication Instructions Recorded Confirmed Last Taken Type aspirin 81 mg tablet,delayed mg 10/26/24 Unknown History release benzonatate 200 mg capsule mg PO 10/26/24 Unknown History calcium 600 mg (as tablet PO 10/26/24 Unknown History carbonate)-vitamin D3 10 mcg (400 unit) tablet citalopram 20 mg tablet mg 10/26/24 Unknown History docusate sodium 100 mg capsule mg PO 10/26/24 Unknown History empagliflozin 10 mg tablet 10 mg PO DAILY 10/26/24 10/26/24 Unknown History (Jardiance) ergocalciferol (vitamin D2) 1,250 10/26/24 Unknown History mcg (50,000 unit) capsule ibuprofen 600 mg tablet mg 10/26/24 Unknown History nifedipine 30 mg tablet,extended mg PO 10/26/24 Unknown History release 24 hr pantoprazole 40 mg tablet,delayed mg PO 10/26/24 Unknown History release pravastatin 20 mg tablet mg 10/26/24 Unknown History Allergies Allergy/AdvReac Type Severity Reaction Status Date / Time No Known Allergies Allergy Verified 01/30/24 16:22 Review of Systems Review of Systems: All systems reviewed & are unremarkable except as noted in HPI. All systems reviewed & are unremarkable except as noted in HPI and below PMFSH Past Medical History Medical History Hyperlipidemia GERD (gastroesophageal reflux disease) Depression Hypertension Intellectual disability Surgical History Surgical History No pertinent past surgical history Social History Social History Smoking status: Never smoker Exam Narrative: GENERAL: Elderly but well appearing, obese with BMI of 39.1, non-toxic, in no acute distress. HEAD: Normocephalic. 2 small hematoma/contusions to hay lateral forehead with small overlying abrasion. No active bleeding. Focal TTP. EYES: PERRL/EOMI, conjunctiva clear NECK: NO midline cervical spinal tenderness. RESPIRATORY: Airway patent, respirations nonlabored. Clear to auscultation bilaterally, no rales, rhonchi, wheezing. CARDIOVASCULAR: Regular rate and rhythm without murmurs, rubs, or gallops. Peripheral pulses intact. MUSCULOSKELETAL: Moves all extremities. No gross deformities. No tenderness throughout lumbar or thoracic midline spine. Mild tenderness to palpation over left anterior shoulder joint, but intact range of motion of left upper extremity. SKIN: Warm, dry, normal color. NEURO: Alert, answers questions appropriately. Speech clear. Cranial nerves II-XII grossly intact. Steady gait. No ataxic movements. No focal deficits. PSYCHIATRIC: Appropriate mood and affect. Normal interaction. Course Vital Signs Vital signs: Vital Signs Temperature 97.8 F 12/28/24 20:40 Pulse Rate 73 12/28/24 20:40 Respiratory Rate 16 12/28/24 20:40 Blood Pressure 135/66 12/28/24 20:40 Pulse Oximetry 98 12/28/24 20:40 Oxygen Delivery Room Air 12/28/24 20:40 Temperature 97.8 F 12/28/24 20:40 Pulse Rate 73 12/28/24 20:40 Respiratory Rate 16 12/28/24 20:40 Blood Pressure 135/66 12/28/24 20:40 Pulse Oximetry 98 12/28/24 20:40 Oxygen Delivery Room Air 12/28/24 20:40 MDM - Fall MDM Narrative Medical decision making narrative: Patient presented to ED status post ground level mechanical fall with head injury. Sustained 2 small contusions to forehead. No LOC. Also reporting pain to left shoulder. Vital signs are stable. Patient in no acute distress. Patient neurovascularly intact. Given Tylenol for pain control with relief. CT brain and cervical spine without traumatic findings. X-ray of left shoulder negative. Discussed imaging findings with patient and family at bedside. Offered sling for comfort support, however patient politely declined. Feel patient is safe for discharge home, given strict return precautions. She agrees with plan, is ready to go home. Discharged in stable condition. Medical Records Attestation: I reviewed the patient's medical records. Imaging Data Attestation: I personally reviewed and interpreted this imaging study as follows: Radiologist's impression: ITS Impressions Shoulder X-Ray 12/28/24 22:00 IMPRESSION: No acute osseous abnormality left shoulder. Head CT 12/28/24 22:23 IMPRESSION: No acute intracranial findings. Cervical Spine CT 12/28/24 23:34 IMPRESSION: No acute osseous abnormality cervical spine. Nodules in the upper lobes. 6 months follow-up CT is advised. Discharge Plan Discharge Clinical Impression: Fall from ground level, Closed head injury, Strain of left shoulder Patient Disposition: Home Condition: Stable Instructions: Antibiotic Form, Head Injury (ED), Abrasion (ED) Additional Instructions: Your imaging here did not show any traumatic findings. You may be sore over the next few days. Continue Tylenol as needed for pain. You may ice areas of pain. Follow-up with your primary care doctor for further evaluation. Return to the ED if you experience recurrent fall or injury, severe pain, severe headache, severe dizziness, numbness, or any other symptoms of concern. Patient Language: Bhutanese Prescriptions: No Action benzonatate 200 mg capsule PO aspirin 81 mg tablet,delayed release (DR/EC) citalopram 20 mg tablet docusate sodium 100 mg capsule PO ibuprofen 600 mg tablet Jardiance 10 mg tablet 10 mg PO DAILY nifedipine 30 mg tablet extended release 24hr PO pantoprazole 40 mg tablet,delayed release (DR/EC) PO pravastatin 20 mg tablet ergocalciferol (vitamin D2) 1,250 mcg (50,000 unit) capsule calcium carbonate-vitamin D3 600 mg-10 mcg (400 unit) tablet PO Follow-up/Referrals: Nakul,Kevin Larry MD [Primary Care Provider] - Time of Disposition: 00:10
[2024-12-29] MEDS: ACETAMINOPHEN 500 MG TABLET 1000 MG PO (00:17)
== END 2024-12-29 00:42 | disposition home or self-care (01) ==
PROVIDERS: Emergency Provider Physician Assistant; PCP Family Medicine
DX: S09.90XA Unspecified injury of head, initial encounter (principal); S43.402A Unspecified sprain of left shoulder joint, initial encounter; W18.30XA Fall on same level, unspecified, initial encounter; F79 Unspecified intellectual disabilities; Z79.82 Long term (current) use of aspirin; K21.9 Gastro-esophageal reflux disease without esophagitis; E78.5 Hyperlipidemia, unspecified; I10 Essential (primary) hypertension
CPT/HCPCS: 70450; 72125; 73030; 99284; A9270

== ENCOUNTER 2025-01-06 11:56 | Emergency (ER) | payer MEDICARE, MEDICAID, SELFPAY ==
--- NOTE | ~2025-01-06 | XR_ITS ---
XR knee LT 3V Ordering provider: Deborah Cannon MD History: . fall X 2 DAYS W/AMBULATING PAIN . Comparison: None. FINDINGS: BONES: No acute fracture or dislocation. JOINT SPACES: Moderate to severe narrowing of the medial and lateral compartments. Marginal osteophyt es are seen in the knee and patella. SOFT TISSUES: Normal. IMPRESSION: No acute osseous abnormality left knee. Moderate to severe osteoarthritic changes. Reviewed, dictated and finalized at location A.
--- OUTSIDE RECORDS SUMMARY | 2025-01-06 11:58 | XMS_ITS | CONTINUITY OF CARE DOCUMENT ---
Author Name duyen geller Address Unknown Organization [facility] Address [address] [place] [address] Phone [phone] Care Team Providers Care Surveillance Monitor Name Role Phone REYNOLD ANAYA, AARON Unavailable [phone] ANJELICA WOODSON MD Unavailable [phone] INSURANCE PROVIDERS Payer name Policy type / Coverage type [place] [employer] party ID [employer] Medicaid 0 [id number] [place] [employer] Medicare [id number]
--- OUTSIDE RECORDS SUMMARY | 2025-01-06 11:58 | XMS_ITS | Clinical Summary ---
Author Organization [facility] Address [address] [place] [id number] Care Team Providers Care Police Worker Name Role Phone Ramya Preston NP Primary Care Provider [phone] David Fermin DPM Unavailable [phone] Allergies No known active allergies Medications omega 1-flu-lke-fish oil 300-1,000 mg capsule 8 Active nystatin [...] 07/05/2024 Assessment & Plan (10/09/2024 12:38 PM LARGE ENGINE ASSEMBLER): Continuing Farxiga, updated labs ordered Assessment & Plan (07/05/2024 1:12 PM LARGE ENGINE ASSEMBLER): Previous A1c 8.1 six months ago. Attempted to start Farxiga, but did not hear back from the pt's facility. Will recheck A1c and kidney function with labs today. Also sending in Farxiga, samples given today to get started. Medicare annual wellness visit, subsequent 07/05 Assessment & Plan (07/05/2024 1:14 PM LARGE ENGINE ASSEMBLER): A yearly Medicare Annual Wellness Visit has [...] CDT): Patient has had DEXA performed, patient's director case is getting records to drop off to us. Long-term current use of steroids 12/07/2017 Anxiety 10/24/2017 Assessment & Plan (07/05/2024 12:26 PM LARGE ENGINE ASSEMBLER): Overall stable on Celexa. Assessment & Plan (01/03/2024 10:55 AM CDT): Overall stable on Celexa. 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 Updated labs ordered for today. Assessment & Plan (07/05/2024 12:26 PM LARGE ENGINE ASSEMBLER): Patient taking Pravastatin, no side effects noted. Updated labs ordered for today. Assessment & Plan (01/03/2024 10:55 AM CDT): Patient taking Pravastatin, no side effects noted. Updated labs ordered. Hypertension 10/24/2017 Assessment & Plan (10/09/2024 12:37 PM LARGE ENGINE ASSEMBLER): BP well controlled in office, continuing Nifedipine 30 mg daily. Updated labs ordered today. Assessment & Plan (07/05/2024 12:26 PM LARGE ENGINE ASSEMBLER): BP well controlled in office, continuing Nifedipine 30 mg daily. Updated labs ordered today. Assessment & Plan (01/03/2024 10:55 AM CDT): BP well controlled in office, continuing Nifedipine 30 mg daily. Updated labs ordered. Resolved Problems Problem Noted Date Diagnosed Date Resolved Date PMR (polymyalgia rheumatica) 10/24/2017 05/30/2018 Encounters Date Type Department Care Team Description 01/04/2025 Results Follow-Up [facility] Nephrology at [address] [phone] Jamal Forrest MD PTH, Renal function panel, Vitamin D 25 hydroxy, Additional followed-up results: 4 01/03/2025 2:00 PM CDT Lab [facility] Outpatient Lab at [address] [phone] 01/03/2025 1:49 PM CDT - 01/03/2025 11:59 PM CDT Hospital Encounter [address] [address] Stage 3b chronic kidney disease (HCC) Discharge Disposition: Discharge to home or self care 11/28/2024 Telephone [facility] Primary Care at [address] [phone] Ramya Preston NP Additional Services Or Orders 10/31/2024 8:30 AM CDT Office Visit [facility] Primary Care at [address] [phone] Julia Gonzalez NP Incidental lung nodule, greater than or equal to 8mm (Primary Dx); Concussion without loss of consciousness, subsequent encounter 10/29/2024 Telephone [facility] Primary Care at [address] [phone] Ramya Preston NP Appointment Request 10/19/2024 1:30 PM LARGE ENGINE ASSEMBLER Office Visit [facility] Sports Medicine and Primary Care at [address] [phone] Jeremias Laureano, Osteoarthritis of left shoulder, unspecified osteoarthritis type (Primary Dx); Chronic left shoulder pain; Cervicalgia 10/19/2024 Orders Only [facility] Sports Medicine and Primary Care at [address] [phone] Jeremias Laureano, Chronic left shoulder pain (Primary Dx); Osteoarthritis of left shoulder, unspecified osteoarthritis type 10/17/2024 2:15 PM LARGE ENGINE ASSEMBLER Office Visit [facility] Nephrology at [address] [phone] Raffy Flowers MD Stage 3b chronic kidney disease (HCC) (Primary Dx); Essential hypertension; Type 2 diabetes mellitus with stage 3b chronic kidney disease, without long-term current use of insulin (HCC) 10/16/2024 Telephone [facility] Nephrology at [address] [phone] Naif Rodriguez 10/10/2024 Results Follow-Up [facility] Primary Care at [address] [phone] Ramya Preston NP Comprehensive metabolic panel, Hemoglobin A1c, Lipid panel, Additional followed-up results: 3 10/09/2024 12:00 PM LARGE ENGINE ASSEMBLER Lab [facility] Outpatient Lab at [address] [phone] Hypertension (Primary Dx); Hyperlipidemia; Type 2 diabetes mellitus with stage 3a chronic kidney disease, without long-term current use of insulin (HCC) 10/09/2024 11:00 AM LARGE ENGINE ASSEMBLER Office Visit [facility] Primary Care at [address] [phone] Ramya Preston NP Type 2 diabetes mellitus with stage 3a chronic kidney disease, without long-term current use of insulin (HCC) (Primary Dx); Mixed stress and urge urinary incontinence; Primary hypertension; Mixed hyperlipidemia; Chronic left shoulder pain 10/09/2024 10:04 AM LARGE ENGINE ASSEMBLER - 10/09/2024 11:59 PM LARGE ENGINE ASSEMBLER [place] [address] Type 2 diabetes mellitus with stage 3a [...] on file Legal Sex Female 5:46 PM LARGE ENGINE ASSEMBLER Gender Identity Female 10/25/2018 11:04 AM CDT [...] 8:43 AM CDT Height 165.1 cm (5' 5) 10/31/2024 8:43 AM CDT Body Mass Index [...] 10/07/2020 Hemoglobin A1C 04/08/2025 10/09/2024, 06/16, 01/03/2024 Well Visit 65+ 07/05/2025 07/05/2024 Depression Screening 10/09/2025 10/09/2024, 07/05/2024, 01/03/2024 Fall Risk Assessment 10/09/2025 10/09/2024, 07/05/2024, 01/03/2024 Lipid Panel 10/09/2025 10/09/2024, 06/16, 01/03/2024 Albumin Creatinine Ratio, Urine 01/03/2026 , 07/05/2024 eGFR 01/03/2026 01/03/2025, 09/16, 07/05/2024, Additional history exists Osteoporosis Screening-Bone Density Scan 09/27/2026 09/27/2024 Influenza Vaccine Completed 07/05/2024, , 06/09/2022, Additional history exists Procedures Procedure Name Priority Date/Time Associated Diagnosis Comments EGFR Routine 01/03/2025 1:49 PM CDT Stage 3b chronic kidney disease (HCC) DIFFERENTIAL AUTO Routine 01/03/2025 1:4 9 PM CDT Stage 3b chronic kidney disease (HCC) ALBUMIN CREATININE RATIO, URINE Routine 01/03/2025 1:49 PM CDT Stage 3b chronic kidney disease (HCC) CBC WITH AUTO DIFFERENTIAL Routine 01/03/2025 1:49 PM CDT Stage 3b chronic kidney disease (HCC) VITAMIN D 25 HYDROXY Routine 01/03/2025 1:49 PM CDT Stage 3b chronic kidney disease (HCC) RENAL FUNCTION PANEL Routine 01/03/2025 1:49 PM CDT Stage 3b chronic kidney disease (HCC) PTH Routine 01/03/2025 1:49 PM CDT Stage 3b chronic kidney disease (HCC) BRAIN COMPUTED TOMOGRAPHY (CT) Schedule Routine, Read Routine (OP Routine) 10/26/2024 CT CERVICAL SPINE WO CONTRAST Schedule Routine, Read Routine (OP Routine) 10/26/2024 CT CHEST WO CONTRAST Schedule Routine, Read Routine (OP Routine) 10/26/2024 EGFR Routine 10/09/2024 10:04 AM LARGE ENGINE ASSEMBLER Type 2 diabetes mellitus with stage 3a chronic kidney disease, without long-term current use of insulin (HCC) DIFFERENTIAL AUTO Routine 10/09/2024 10:04 AM LARGE ENGINE ASSEMBLER Leukocytosis, unspecified type CBC WITH AUTO DIFFERENTIAL Routine 10/09/2024 10:04 AM LARGE ENGINE ASSEMBLER Leukocytosis, unspecified type LIPID PANEL Routine 10/09/2024 10:04 AM LARGE ENGINE ASSEMBLER Type 2 diabetes mellitus with stage 3a chronic kidney disease, without long-term current use of insulin (HCC) HEMOGLOBIN A1C Routine 10/09/2024 10:04 AM LARGE ENGINE ASSEMBLER Type 2 diabetes mellitus with stage 3a chronic kidney disease, without long-term current use of insulin (HCC) COMPREHENSIVE METABOLIC PANEL Routine 10/09/2024 10:04 AM LARGE ENGINE ASSEMBLER Type 2 diabetes mellitus with stage 3a chronic kidney disease, without long-term current use of insulin (HCC) DEXA AXIAL SKELETON BONE DENSITY 1 OR MORE SITES Schedule Routine, Read Routine (OP Routine) 09/27/2024 2:52 PM LARGE ENGINE ASSEMBLER Encounter for osteoporosis screening in asymptomatic postmenopausal patient from Last 3 Months or Most Recently Relevant to Health Maintenance Results * (ABNORMAL) eGFR (01/03/2025 1:49 PM CDT) Pathologist [facility] eGFR 48(L) >=60 mL/min/1. 73 m2 Comment: Interpretive Data [...] interpretive data was last reviewed 2021. Blood 01/03/2025 1:49 PM CDT 01/03/2025 9:30 PM CDT us Raffy Flowers MD LAB BLOOD ORDERABLES Final Resu lt [place] [address] [address] Department [place] [address] * Differential, auto (01/03/2025 1:49 PM CDT) Neutrophil abs 6.17 1.50 - 6.50 K/cumm Imm gran abs 0.05 0.00 - 0.10 K/cumm [facility] Lymphocyte abs 2.76 0.80 - 3.30 K/cumm [facility] Monocyte abs 0.70 0.20 - 0.80 K/cumm [facility] Eosinophil abs 0.19 0.00 - 0.50 K/cumm [facility] Basophil abs 0.05 0.00 - 0.10 K/cumm [facility] Neutrophil pct 62.2 % [facility] Comment: Interpretive Data Percent cell count reference ranges are not reported, since discordance with absolute values may lead to misinterpretation of CBC data. Current Interpretive Data was last revised on 2017. Imm gran pct 0.5 % [facility] Comment: Interpretive Data Percent cell count reference ranges are not reported, since discordance with absolute values may lead to misinterpretation of CBC data. Current Interpretive Data was last revised on 2017. Lymphocyte pct 27.8 % [facility] Comment: Interpretive Data Percent cell count reference ranges are not reported, since discordance with absolute values may lead to misinterpretation of CBC data. Current Interpretive Data was last revised on 2017. Monocyte pct 7.1 % [facility] Comment: Interpretive Data Percent cell count reference ranges are not reported, since discordance with absolute values may lead to misinterpretation of CBC data. Current Interpretive Data was last revised on 2017. Eosinophil pct 1.9 % [facility] Comment: Interpretive Data Percent cell count reference ranges are not reported, since discordance with absolute values may lead to misinterpretation of CBC data. Current Interpretive Data was last revised on 2017. Basophil pct 0.5 % [facility] Comment: Interpretive Data Percent cell count reference ranges are not reported, since discordance with absolute values may lead to misinterpretation of CBC data. Current Interpretive Data was last revised on 2017. Blood 01/03/2025 1:49 PM CDT 01/03/2025 9:22 PM CDT us Raffy Flowers MD LAB BLOOD ORDERABLES Final Resu lt [place] [address] [address] Department [place] [address] * (ABNORMAL) CBC with auto differential (01/03/2025 1:49 PM CDT) Pathologist [facility] WBC 9.92(H) 3.80 - 9.90 K/cumm Hgb 12.4 11.9 - 15.5 g/dL [facility] Hct 39.7 35.6 - 45.5 % [facility] Plt 326 150 - 400 K/cumm [facility] MPV 11.2 9.1 - 12.3 fL [facility] RBC 4.13 3.90 - 5.20 M/cumm [facility] MCV 96.1 81.3 - 96.4 fL [facility] MCH 30.0 27.1 - 33.3 pg [facility] MCHC 31.2(L) 32.3 - 35.7 g/dL [facility] RDW CV 13.9 11.1 - 14.9 % [facility] RDW SD 49.1(H) 35.7 - 48.1 fL [facility] NRBC abs 0.00 0.00 - 0.01 K/cumm [facility] Blood 01/03/2025 1:49 PM CDT 01/03/2025 9:22 PM CDT us Raffy Flowers MD LAB BLOOD ORDERABLES Final Resu lt Performing Organization Address City/[facility]/ZIP Co de Phone Number [place] [address] [address] Department [place] [address] * (ABNORMAL) Albumin Creatinine Ratio, Urine (01/03/2025 1:49 PM CDT) Pathologist [facility] Albumin Ur 88.3 mg/L Comment: Interpretive Data No reference range established. Current interpretive data was last revised 2018. Creatinine Ur 113.0 mg/dL [facility] Comment: Interpretive Data No reference range established. Current interpretive data was last revised 2018. Albumin Creatinine Ratio, Ur 78(H) 1 - 29 mg/g [facility] Urine 01/03/2025 1:49 PM CDT 01/03/2025 9:22 PM CDT us Raffy Flowers MD LAB URINE ORDERABLES Final Resu lt Performing Organization Address City/[facility]/ZIP Co de Phone Number [place] [address] [address] [facility] [place] [place] [address] * Vitamin D 25 hydroxy (01/03/2025 1:49 PM CDT) Vitamin D 25-OH 53 30 - 80 ng/mL Blood 01/03/2025 1:49 PM CDT 01/03/2025 9:22 PM CDT us Raffy Flowers MD LAB BLOOD ORDERABLES Final Resu lt Performing Organization Address [facility] Co de Phone Number TELMAJOEL [place] [address] [address] [facility] [place] [place] [address] * PTH (01/03/2025 1:49 PM CDT) PTH 45 15 - 65 pg/mL Blood 01/03/2025 1:49 PM CDT 01/03/2025 9:22 PM CDT us Raffy Flowers MD LAB BLOOD ORDERABLES Final Resu lt Performing Organization Address [facility] Co de Phone Number TELMAJOEL [place] [address] [address] [facility] [place] [place] [address] * (ABNORMAL) Renal function panel (01/03/2025 1:49 PM CDT) Sodium 138 135 - 145 mmol/L Potassium, pl 4.5 3.3 - 4.9 mmol/L [facility] Chloride 102 97 - 110 mmol/L [facility] CH CO2 27 22 - 32 mmol/L [facility] Anion gap 9 2 - 15 mmol/L [facility] BUN 25 6 - 25 mg/dL [facility] Creatinine 1.12(H) 0.60 - 1.10 mg/dL [facility] Glucose 160 70 - 199 mg/dL [facility] Comment: Interpretive Data Fasting glucose >/= 126 [...] interpretive data was last revised 2022. Calcium 9.8 8.5 - 10.3 mg/dL [facility] Phosphorus, pl 3.1 2.3 - 4.5 mg/dL [facility] Albumin 3.8 3.5 - 5.0 g/dL [facility] Blood 01/03/2025 1:49 PM CDT 01/03/2025 9:22 PM CDT Result [facility] Raffy Flowers MD LAB BLOOD ORDERABLES [place] [id number] [address] Department [place] [address] * BRAIN COMPUTED TOMOGRAPHY (CT) (10/26/2024) Anatomical Region Laterality Modality N/A Computed Tomogra phy Result [facility] Provider IMG CT PROCEDURES Final R esult * CT Cervical Spine WO Contrast (10/26/2024) Anatomical Region Laterality Modality Spine N/A Computed Tomogra phy Result [facility] Provider IMG CT PROCEDURES Final R esult * CT Chest WO Contrast (10/26/2024) Anatomical Region Laterality Modality Body N/A Computed Tomogra phy Result [facility] Provider IMG CT PROCEDURES Final R esult * (ABNORMAL) eGFR (10/09/2024 10:04 AM LARGE ENGINE ASSEMBLER) eGFR 42(L) >=60 mL/min/1. 73 m2 Comment: [...] reviewed 2021. Blood 10/09/2024 10:0 4 AM LARGE ENGINE ASSEMBLER 10/09/2024 9:25 PM LARGE ENGINE ASSEMBLER Ramya Preston [employer] LAB BLOOD ORDERABLES Final Resul t [facility] [address] [address] Department [place] [address] * Differential, auto (10/09/2024 10:04 AM LARGE ENGINE ASSEMBLER) Neutrophil abs 6.1 1.5 - 6.5 K/cumm Imm gran abs 0.1 0.0 - 0.1 K/cumm [facility] Lymphocyte abs 2.5 0.8 - 3.3 K/cumm [facility] Monocyte abs 0.6 0.2 - 0.8 K/cumm [facility] Eosinophil abs 0.1 0.0 - 0.5 K/cumm [facility] Basophil abs 0.0 0.0 - 0.1 K/cumm [facility] Neutrophil pct 64.9 % [facility] Comment: Interpretive Data Percent cell count reference ranges are not reported, since discordance with absolute values may lead to misinterpretation of CBC data. Current Interpretive Data was last revised on 2017. Imm gran pct 0.6 % [facility] Comment: Interpretive Data Percent cell count reference ranges are not reported, since discordance with absolute values may lead to misinterpretation of CBC data. Current Interpretive Data was last revised on 2017. Lymphocyte pct 26.1 % [facility] Comment: Interpretive Data Percent cell count reference ranges are not reported, since discordance with absolute values may lead to misinterpretation of CBC data. Current Interpretive Data was last revised on 2017. Monocyte pct 6.8 % [facility] Comment: Interpretive Data Percent cell count reference [...] revised on 2017. Basophil pct 0.4 % [facility] Comment: Interpretive Data Percent cell count reference ranges are not reported, since discordance with absolute values may lead to misinterpretation of CBC data. Current Interpretive Data was last revised on 2017. Blood 10/09/2024 10:0 4 AM LARGE ENGINE ASSEMBLER 10/09/2024 9:15 PM LARGE ENGINE ASSEMBLER Ramya Preston NP LAB BLOOD ORDERABLES Final Resul t [facility] [address] [address] Department [place] [address] * (ABNORMAL) CBC with auto differential (10/09/2024 10:04 AM LARGE ENGINE ASSEMBLER) WBC 9.4 3.8 - 9.9 K/cumm Hgb 13.2 11.9 - 15.5 g/dL [facility] Hct 42.0 35.6 - 45.5 % [facility] Plt 349 150 - 400 K/cumm [facility] MPV 11.2 9.1 - 12.3 fL [facility] RBC 4.36 3.90 - 5.20 M/cumm [facility] MCV 96.3 81.3 - 96.4 fL [facility] MCH 30.3 27.1 - 33.3 pg [facility] MCHC 31.4(L) 32.3 - 35.7 g/dL [facility] RDW CV 13.7 11.1 - 14.9 % [facility] RDW SD 48.9(H) 35.7 - 48.1 fL [facility] NRBC abs 0.00 0.00 - 0.01 K/cumm [facility] Blood 10/09/2024 10:0 4 AM LARGE ENGINE ASSEMBLER 10/09/2024 9:15 PM LARGE ENGINE ASSEMBLER Ramya Preston NP LAB BLOOD ORDERABLES Final Resul t Performing Organization Address [facility] de Phone Number [facility] [address] [address] [place] [address] * (ABNORMAL) Hemoglobin A1c (10/09/2024 10:04 AM LARGE ENGINE ASSEMBLER) Hgb A1C 6.7(H) 4.0 - 5.6 % Estimated Average Glucose 146 mg/dL [facility] Comment: The ADA recommends reporting an estimated Average Glucose (eAG) with all Hemoglobin A1c results using the equation derived from a study of 507 normal and diabetic adults. Minority populations were underrepresented and children were not included. (Diabetes Care 31:6674-6887, 2008). The eAG is not equivalent to a fasting glucose. Blood 10/09/2024 10:0 4 AM LARGE ENGINE ASSEMBLER 10/09/2024 9:15 PM LARGE ENGINE ASSEMBLER us Ramya Preston NP LAB BLOOD ORDERABLES Final Resul t Performing Organization Address [facility] de Phone Number [facility] [address] [address] Department [employer] [place], [place] [id number] * Lipid panel (10/09/2024 10:04 AM LARGE ENGINE ASSEMBLER) Cholesterol 151 30 - 199 mg/dL Comment: [...] NCEP Expert Panel. Circulation 2004;110:227 3. Ganesh M et al. PRAFUL Cardiol. 2020 December 13;5(5):540-548. [...] revised on 2018. Chol/HDL ratio 4 [facility] Blood 10/09/2024 10:0 4 AM LARGE ENGINE ASSEMBLER 10/09/2024 9:15 PM LARGE ENGINE ASSEMBLER us Ramya Preston NP LAB BLOOD ORDERABLES [place] [id number] [address] Department [place] [address] * (ABNORMAL) Comprehensive metabolic panel (10/09/2024 10:04 AM LARGE ENGINE ASSEMBLER) Sodium 136 135 - 145 mmol/L Potassium, [...] [facility] CH Blood 10/09/2024 10:0 4 AM LARGE ENGINE ASSEMBLER 10/09/2024 9:15 PM LARGE ENGINE ASSEMBLER Ramya Preston NP LAB BLOOD ORDERABLES Final Resul t [facility] [address] [address] Department of Laboratories [place] [id number] * Dexa Axial Skeleton Bone Density 1 or 2 Site (09/27/2024 2:52 PM LARGE ENGINE ASSEMBLER) Anatomical Region Laterality Modality Body N/A Other 10/02/2024 8:21 AM LARGE ENGINE ASSEMBLER Narrative 10/02/2024 8:21 AM LARGE ENGINE ASSEMBLER EXAM DESCRIPTION: DEXA AXIAL SKELETON BONE DENSITY 1 OR MORE SITES REASON FOR STUDY: 83 y/o year old F with given history of: Postmenopausal status. History of secondary osteoporosis. Patient takes vitamin-D and calcium. Glue Maker/Model: Sunglass Discovery SL (S/N [id number]) Facility LSC value of 0.022 for the [...] Beatrice Vogel M.D. TW: TW Report ID: [id number] Reading Location: [id number] Procedure Note Beatrice Vogel MD - 10/02/2024 EXAM DESCRIPTION: DEXA AXIAL SKELETON BONE DENSITY 1 OR MORE SITES REASON FOR STUDY: 83 y/o year old F with given history of:Postmenopausal status. History of secondary osteoporosis. Patient takes vitamin-D and calcium. Glue Maker/Model: [employer]ang Lian [employer] Dai Discovery SL (S/N [id number]) Facility LSC value of 0.022 for the [...] Beatrice Vogel M.D. TW: WILLIAMS Report ID: [id number] Reading Location: [place] [address] Ramya Preston NP IMG DXA PROCEDURES Final Result from Last 3 Months or Most Recently Relevant to Health Maintenance Insurance MEDICARE [facility] Address: [address] [address] IDGA IDGA IDPA MEDICARE Care Teams Police Worker Relationship Specialty Start Date End Date Ramya Preston NP [address] [place] [address] PCP - General Family Medicine 01/03/24 David Fermin DPM [address] [place] [address] Consulting Physician Orthotics 01/03/24
--- OUTSIDE RECORDS SUMMARY | 2025-01-06 11:58 | XMS_ITS | Referral Summary ---
Author Organization [facility] Address [address] [place] [address] Care Team Providers Care Law Enforcement Officer Name Role Phone Ramya Preston NP Primary Care Provider [phone] David Fermin DPM Unavailable [phone] Encounters Date Type Department Care Team Description 01/04/2025 Results Follow-Up [facility] Nephrology at [address] [address] Jamal Forrest MD PTH, Renal function panel, Vitamin D 25 hydroxy, Additional followed-up results: 4 01/03/2025 1:49 PM CDT - 01/03/2025 11:59 PM CDT Hospital Encounter [address] [address] Stage 3b chronic kidney disease (HCC) Discharge Disposition: Discharge to home or self care 01/03/2025 2:00 PM CDT Lab [facility] Outpatient Lab at [address] [address] 11/28/2024 Telephone [facility] Primary Care at [address] [phone] Ramya Preston NP Additional Services Or Orders 10/31/2024 8:30 AM CDT Office Visit [facility] Primary Care at [address] [phone] Julia Gonzalez NP Incidental lung nodule, greater than or equal to 8mm (Primary Dx); Concussion without loss of consciousness, subsequent encounter 10/29/2024 Telephone [facility] Primary Care at [address] [phone] Ramya Preston NP Appointment Request 10/19/2024 Orders Only [facility] Care at [address] [phone] Jeremias Laureano, Chronic left shoulder pain (Primary Dx); Osteoarthritis of left shoulder, unspecified osteoarthritis type 10/19/2024 1:30 PM WAFER FABRICATION OPERATOR Office Visit [facility] at [address] [place] [phone] Jeremias Laureano, Osteoarthritis of left shoulder, unspecified osteoarthritis type (Primary Dx); Chronic left shoulder pain; Cervicalgia 10/17/2024 2:15 PM WAFER FABRICATION OPERATOR Office Visit [facility] Nephrology at [address] [address] Raffy Flowers MD Stage 3b chronic kidney disease (HCC) (Primary Dx); Essential hypertension; Type 2 diabetes mellitus with stage 3b chronic kidney disease, without long-term current use of insulin (HCC) 10/16/2024 Telephone [facility] Nephrology at [address] [place] [address] Naif Rodriguez 10/10/2024 Results Follow-Up [facility] Primary Care at [address] [phone] Ramya Preston NP Comprehensive metabolic panel, Hemoglobin A1c, Lipid panel, Additional followed-up results: 3 10/09/2024 10:04 AM WAFER FABRICATION OPERATOR - 10/09/2024 11:59 PM WAFER FABRICATION OPERATOR Hospital Encounter [address] [address] Type 2 diabetes mellitus with stage 3a chronic kidney disease, without long-term current use of insulin (HCC); Leukocytosis, unspecified type Discharge Disposition: Discharge to home or self care 10/09/2024 12:00 PM WAFER FABRICATION OPERATOR Lab [facility] Outpatient Lab at [address] [address] Hypertension (Primary Dx); Hyperlipidemia; Type 2 diabetes mellitus with stage 3a chronic kidney disease, without long-term current use of insulin (HCC) 10/09/2024 11:00 AM WAFER FABRICATION OPERATOR Office Visit [facility] Primary Care at [address] [phone] Ramya Preston NP Type 2 diabetes mellitus with stage 3a chronic kidney disease, without long-term current use of insulin (HCC) (Primary Dx); Mixed stress and urge urinary incontinence; Primary hypertension; Mixed hyperlipidemia; Chronic left shoulder pain from Last 3 Months Allergies No known active allergies Medications omega 5-mds-mnp-fish oil 300-1,000 mg capsule 8 Active nystatin [...] 07/05/2024 Assessment & Plan (10/09/2024 12:38 PM WAFER FABRICATION OPERATOR): Continuing Farxiga, updated labs ordered Assessment & Plan (07/05/2024 1:12 PM WAFER FABRICATION OPERATOR): Previous A1c 8.1 six months ago. Attempted to start Farxiga, but did not hear back from the pt's facility. Will recheck A1c and kidney function with labs today. Also sending in [facility], samples given today to get started. Medicare annual wellness visit, subsequent 07/05 Assessment & Plan (07/05/2024 1:14 PM WAFER FABRICATION OPERATOR): A yearly Medicare Annual Wellness Visit has been performed today. Coral Kern is not up to date on [...] CDT): Patient has had DEXA performed, patient's bottle caser is getting records to drop off to us. Long-term current use of steroids 12/07/2017 Anxiety 10/24/2017 Assessment & Plan (07/05/2024 12:26 PM WAFER FABRICATION OPERATOR): Overall stable on Celexa. Assessment & Plan (01/03/2024 10:55 AM CDT): Overall stable on Celexa. 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 Updated labs ordered for today. Assessment & Plan (07/05/2024 12:26 PM WAFER FABRICATION OPERATOR): Patient taking Pravastatin, no side effects noted. Updated labs ordered for today. Assessment & Plan (01/03/2024 10:55 AM CDT): Patient taking Pravastatin, no side effects noted. Updated labs ordered. Hypertension 10/24/2017 Assessment & Plan (10/09/2024 12:37 PM WAFER FABRICATION OPERATOR): BP well controlled in office, continuing Nifedipine 30 mg daily. Updated labs ordered today. Assessment & Plan (07/05/2024 12:26 PM WAFER FABRICATION OPERATOR): BP well controlled in office, continuing Nifedipine [...] on file Legal Sex Female 5:46 PM WAFER FABRICATION OPERATOR Gender Identity Female 10/25/2018 11:04 AM [...] Routine) 10/26/2024 EGFR Routine 10/09/2024 10:04 AM WAFER FABRICATION OPERATOR Type 2 diabetes mellitus with stage 3a chronic kidney disease, without long-term current use of insulin (HCC) DIFFERENTIAL AUTO Routine 10/09/2024 10:04 AM WAFER FABRICATION OPERATOR Leukocytosis, unspecified type CBC WITH AUTO DIFFERENTIAL Routine 10/09/2024 10:04 AM WAFER FABRICATION OPERATOR Leukocytosis, unspecified type LIPID PANEL Routine 10/09/2024 10:04 AM WAFER FABRICATION OPERATOR Type 2 diabetes mellitus with stage 3a chronic kidney disease, without long-term current use of insulin (HCC) HEMOGLOBIN A1C Routine 10/09/2024 10:04 AM WAFER FABRICATION OPERATOR Type 2 diabetes mellitus with stage 3a chronic kidney disease, without long-term current use of insulin (HCC) COMPREHENSIVE METABOLIC PANEL Routine 10/09/2024 10:04 AM WAFER FABRICATION OPERATOR Type 2 diabetes mellitus with stage 3a chronic kidney disease, without long-term current use of insulin (HCC) DEXA AXIAL SKELETON BONE DENSITY 1 OR MORE SITES Schedule Routine, Read Routine (OP Routine) 09/27/2024 2:52 PM WAFER FABRICATION OPERATOR Encounter for osteoporosis screening in asymptomatic postmenopausal patient from Last 3 Months or Most Recently Relevant to Health Maintenance Results * (ABNORMAL) eGFR (01/03/2025 1:49 PM CDT) eGFR 48(L) >=60 mL/min/1. 73 m2 Comment: [...] MD LAB BLOOD ORDERABLES Final Resu lt [facility] [address] [address] Department [place] [address] * Differential, auto (01/03/2025 1:49 PM CDT) Neutrophil abs 6.17 1.50 - 6.50 K/cumm Imm gran abs 0.05 0.00 - 0.10 K/cumm [facility] Lymphocyte abs 2.76 0.80 - 3.30 K/cumm [facility] Monocyte abs 0.70 0.20 - 0.80 K/cumm [facility] Eosinophil abs 0.19 0.00 - 0.50 K/cumm [facility] Basophil abs 0.05 0.00 - 0.10 K/cumm [facility] Neutrophil pct 62.2 % [facility] Comment: Interpretive Data Percent cell count reference ranges are not reported, since discordance with absolute values may lead to misinterpretation of CBC data. Current Interpretive Data was last revised on 2017. Imm gran pct 0.5 % [facility] Comment: Interpretive Data Percent cell count reference [...] revised on 2017. Monocyte pct 7.1 % [facility] Comment: Interpretive Data Percent cell count reference ranges are not reported, since discordance with absolute values may lead to misinterpretation of CBC data. Current Interpretive Data was last revised on 2017. Eosinophil pct 1.9 % [facility] Comment: Interpretive Data Percent cell count reference ranges are not reported, since discordance with absolute values may lead to misinterpretation of CBC data. Current Interpretive Data was last revised on 2017. Basophil pct 0.5 % [facility] Comment: Interpretive Data Percent cell count reference ranges are not reported, since discordance with absolute values may lead to misinterpretation of CBC data. Current Interpretive Data was last revised on 2017. Blood 01/03/2025 1:49 PM CDT 01/03/2025 9:22 PM CDT Raffy Flowers MD LAB BLOOD ORDERABLES Final Resu lt [facility] [place] [address] [place] [address] * (ABNORMAL) CBC with auto differential (01/03/2025 1:49 PM CDT) WBC 9.92(H) 3.80 - 9.90 K/cumm Hgb 12.4 11.9 - 15.5 g/dL [facility] Hct 39.7 35.6 - 45.5 % [facility] Plt 326 150 - 400 K/cumm [facility] MPV 11.2 9.1 - 12.3 fL [facility] RBC 4.13 3.90 - 5.20 M/cumm [facility] MCV 96.1 81.3 - 96.4 fL [facility] MCH 30.0 27.1 - 33.3 pg [facility] MCHC 31.2(L) 32.3 - 35.7 g/dL [facility] RDW CV 13.9 11.1 - 14.9 % [facility] RDW SD 49.1(H) 35.7 - 48.1 fL [facility] NRBC abs 0.00 0.00 - 0.01 K/cumm [facility] Blood 01/03/2025 1:49 PM CDT 01/03/2025 9:22 PM CDT Raffy Flowers MD LAB BLOOD ORDERABLES Final Resu lt [facility] [place] [address] [address] [place] [address] * (ABNORMAL) Albumin Creatinine Ratio, Urine (01/03/2025 1:49 PM CDT) Albumin Ur 88.3 mg/L Comment: Interpretive Data No reference range established. Current interpretive data was last revised 2018. Creatinine Ur 113.0 mg/dL [facility] Comment: Interpretive Data No reference range established. Current interpretive data was last revised 2018. Albumin Creatinine Ratio, Ur 78(H) 1 - 29 mg/g [facility] Urine 01/03/2025 1:49 PM CDT 01/03/2025 9:22 PM CDT Raffy Flowers MD LAB URINE ORDERABLES Final Resu lt Performing Organization Address City/[facility]/ZIP Co de Phone Number [facility] [address] [address] [place] [address] * Vitamin D 25 hydroxy (01/03/2025 1:49 PM CDT) Vitamin D 25-OH 53 30 - 80 ng/mL Blood 01/03/2025 1:49 PM CDT 01/03/2025 9:22 PM CDT Raffy Flowers MD LAB BLOOD ORDERABLES Final Resu lt Performing Organization Address [facility] Co de Phone Number [place] [address] [address] [employer] [place], [place] [id number] * PTH (01/03/2025 1:49 PM CDT) PTH 45 15 - 65 pg/mL Blood 01/03/2025 1:49 PM CDT 01/03/2025 9:22 PM CDT Raffy Flowers MD LAB BLOOD ORDERABLES Final Resu lt Performing Organization Address [facility]/ZIP Co de Phone Number [place] [address] [address] [employer] [place], [place] [id number] * (ABNORMAL) Renal function panel (01/03/2025 1:49 PM CDT) Sodium 138 135 - 145 mmol/L Potassium, pl 4.5 3.3 - 4.9 mmol/L [facility] Chloride 102 97 - 110 mmol/L [facility] CO2 27 22 - 32 mmol/L [facility] Anion gap 9 2 - 15 mmol/L [facility] BUN 25 6 - 25 mg/dL [facility] Creatinine 1.12(H) 0.60 - 1.10 mg/dL [facility] Glucose 160 70 - 199 mg/dL [facility] Comment: Interpretive Data Fasting glucose >/= 126 [...] 2022. Calcium 9.8 8.5 - 10.3 mg/dL [facility] Phosphorus, pl 3.1 2.3 - 4.5 mg/dL [facility] Albumin 3.8 3.5 - 5.0 g/dL [facility] Blood 01/03/2025 1:49 PM CDT 01/03/2025 9:22 PM CDT Raffy Flowers MD LAB BLOOD ORDERABLES Final Resu lt [facility] [address] [address] Department [place] [address] * BRAIN COMPUTED TOMOGRAPHY (CT) (10/26/2024) Anatomical Region Laterality Modality N/A Computed Tomogra phy Historical Provider IMG CT PROCEDURES Final R esult * CT Cervical Spine WO Contrast (10/26/2024) Anatomical Region Laterality Modality Spine N/A Computed Tomogra phy Historical Provider MD RAZO CT PROCEDURES Final R esult * CT Chest WO Contrast (10/26/2024) Anatomical Region Laterality Modality Body N/A Computed Tomogra phy Historical Provider MD RAZO CT PROCEDURES Final R esult * (ABNORMAL) eGFR (10/09/2024 10:04 AM WAFER FABRICATION OPERATOR) eGFR 42(L) >=60 mL/min/1. 73 m2 Comment: [...] reviewed 2021. Blood 10/09/2024 10:0 4 AM WAFER FABRICATION OPERATOR 10/09/2024 9:25 PM WAFER FABRICATION OPERATOR Ramya Preston NP LAB BLOOD ORDERABLES Final Resul t [facility] [place] [address] [address] [place] [address] * Differential, auto (10/09/2024 10:04 AM WAFER FABRICATION OPERATOR) Neutrophil abs 6.1 1.5 - 6.5 K/cumm Imm gran abs 0.1 0.0 - 0.1 K/cumm [facility] Lymphocyte abs 2.5 0.8 - 3.3 K/cumm [facility] Monocyte abs 0.6 0.2 - 0.8 K/cumm [facility] Eosinophil abs 0.1 0.0 - 0.5 K/cumm [facility] Basophil abs 0.0 0.0 - 0.1 K/cumm [facility] Neutrophil pct 64.9 % [facility] Comment: Interpretive Data Percent cell count reference ranges are not reported, since discordance with absolute values may lead to misinterpretation of CBC data. Current Interpretive Data was last revised on 2017. Imm gran pct 0.6 % [facility] Comment: Interpretive Data Percent cell count reference ranges are not reported, since discordance with absolute values may lead to misinterpretation of CBC data. Current Interpretive Data was last revised on 2017. Lymphocyte pct 26.1 % [facility] Comment: Interpretive Data Percent cell count reference ranges are not reported, since discordance with absolute values may lead to misinterpretation of CBC data. Current Interpretive Data was last revised on 2017. Monocyte pct 6.8 % [facility] Comment: Interpretive Data Percent cell count reference ranges are not reported, since discordance with absolute values may lead to misinterpretation of CBC data. Current Interpretive Data was last revised on 2017. Eosinophil pct 1.2 % [facility] Comment: Interpretive Data Percent cell count reference ranges are not reported, since discordance with absolute values may lead to misinterpretation of CBC data. Current Interpretive Data was last revised on 2017. Basophil pct 0.4 % [facility] Comment: Interpretive Data Percent cell count reference ranges are not reported, since discordance with absolute values may lead to misinterpretation of CBC data. Current Interpretive Data was last revised on 2017. Blood 10/09/2024 10:0 4 AM WAFER FABRICATION OPERATOR 10/09/2024 9:15 PM WAFER FABRICATION OPERATOR us Ramya Preston NP LAB BLOOD ORDERABLES [place] [address] [address] [place] [address] * (ABNORMAL) CBC with auto differential (10/09/2024 10:04 AM WAFER FABRICATION OPERATOR) WBC 9.4 3.8 - 9.9 K/cumm Hgb 13.2 11.9 - 15.5 g/dL [facility] Hct 42.0 35.6 - 45.5 % [facility] Plt 349 150 - 400 K/cumm [facility] MPV 11.2 9.1 - 12.3 fL [facility] RBC 4.36 3.90 - 5.20 M/cumm [facility] MCV 96.3 81.3 - 96.4 fL [facility] MCH 30.3 27.1 - 33.3 pg [facility] MCHC 31.4(L) 32.3 - 35.7 g/dL [facility] RDW CV 13.7 11.1 - 14.9 % [facility] RDW SD 48.9(H) 35.7 - 48.1 fL [facility] NRBC abs 0.00 0.00 - 0.01 K/cumm [facility] Blood 10/09/2024 10:0 4 AM WAFER FABRICATION OPERATOR 10/09/2024 9:15 PM WAFER FABRICATION OPERATOR us Ramya Preston NP LAB BLOOD ORDERABLES Final Resul t Performing Organization Address [facility] de Phone Number [place] [address] [address] [employer] [place] [address] * (ABNORMAL) Hemoglobin A1c (10/09/2024 10:04 AM WAFER FABRICATION OPERATOR) [facility] Signature Hgb A1C 6.7(H) 4.0 - 5.6 % Estimated Average Glucose 146 mg/dL [facility] Comment: The ADA recommends reporting an estimated Average Glucose (eAG) with all Hemoglobin A1c results using the equation derived from a study of 507 normal and diabetic adults. Minority populations were underrepresented and children were not included. (Diabetes Care 31:4616-7388, 2008). The eAG is not equivalent to a fasting glucose. Blood 10/09/2024 10:0 4 AM WAFER FABRICATION OPERATOR 10/09/2024 9:15 PM WAFER FABRICATION OPERATOR us Ramya Preston NP LAB BLOOD ORDERABLES Final Resul t Performing Organization Address City/[facility] Co de Phone Number [place] [address] [address] [employer] [place], [place] [id number] * Lipid panel (10/09/2024 10:04 AM WAFER FABRICATION OPERATOR) Cholesterol 151 30 - 199 mg/dL Comment: [...] [facility] Blood 10/09/2024 10:0 4 AM WAFER FABRICATION OPERATOR 10/09/2024 9:15 PM WAFER FABRICATION OPERATOR Ramya Preston NP LAB BLOOD ORDERABLES Final Resul t [place] [address] [place] [address] * (ABNORMAL) Comprehensive metabolic panel (10/09/2024 10:04 AM WAFER FABRICATION OPERATOR) Sodium 136 135 - 145 mmol/L Potassium, [...] [facility] Blood 10/09/2024 10:0 4 AM WAFER FABRICATION OPERATOR 10/09/2024 9:15 PM WAFER FABRICATION OPERATOR Ramya Preston NP LAB BLOOD ORDERABLES [place]ul [place] [address] [address] [place] [address] * Dexa Axial Skeleton Bone Density 1 or 2 Site (09/27/2024 2:52 PM WAFER FABRICATION OPERATOR) Anatomical Region Laterality Modality Body N/A Other 10/02/2024 8:21 AM WAFER FABRICATION OPERATOR Narrative 10/02/2024 8:21 AM WAFER FABRICATION OPERATOR EXAM DESCRIPTION: DEXA AXIAL SKELETON BONE DENSITY 1 OR MORE SITES REASON FOR STUDY: 83 y/o year old F with given history of: Postmenopausal status. History of secondary osteoporosis. Patient takes vitamin-D and calcium. Payroll Specialist/Model: [employer] (S/N [id number]) Facility LSC value of 0.022 for the [...] Beatrice Vogel M.D. TW: WILLIAMS Report ID: [id number] Reading Location: [id number] Procedure Note Beatrice Vogel MD - 10/02/2024 EXAM DESCRIPTION: DEXA AXIAL SKELETON BONE DENSITY 1 OR MORE SITES REASON FOR STUDY: 83 y/o year old F with given history of:Postmenopausal status. History of secondary osteoporosis. Patient takes vitamin-D and calcium. Payroll Specialist/Model: [employer] SL (S/N [id number]) Facility LSC value of 0.022 for the [...] Beatrice Vogel M.D. TW: WILLIAMS Report ID: [id number] Reading Location: [id number] Ramya Preston NP IMG DXA PROCEDURES Final Result from Last 3 Months or Most Recently Relevant to Health Maintenance Insurance MEDICARE [facility] IDPA IDPA MEDICARE Care Teams Law Enforcement Officer Relationship Specialty Start Date End Date Ramya Preston NP [address] [place] [address] PCP - General Family Medicine 01/03/24 David Fermin DPM [address] [place] [address] Consulting Physician Orthotics 01/03/24
--- OUTSIDE RECORDS SUMMARY | 2025-01-06 11:58 | XMS_ITS | Continuity of Care Document ---
Author Organization [facility] Address [address] [place] [address] Phone Care Team Providers Care Web Portal Developer Name Role Phone Mary Becerra OT Unavailable [...] Diagnoses Date Provider Providers Copied on Encounter [facility], [place], [place], [id number], tel:[phone] [place] No Information 5 Mariam Hernandez. . [facility], [place], [place], [address], tel:[phone] [place] No Information 0 5 Mariam Conwayyenne. . Referring Provider: Jeremias Laureano, [address], [place], [address]. tel:[phone] [facility], [place], [place], [address], tel:[phone] [place] No Information 5 Becerra Mary. . Referring Provider: Jeremias Laureano [address], [place], [address]. tel:[phone] [facility], [address] [place] [address] [address], [place], [place], [id number], tel:[phone] [place] No Information 5 Becerra Mary. . Referring Provider: Jeremias Laureano [address], [place], [address]. tel:[phone], [place], [place], [id number], tel:[phone] [place] No Information 5 Becerra Mary. . Referring Provider: Jeremias Laureano [address], [place], [address]. tel:[phone] Family History Family Member Type Diagnosis Age At Onset No Information Payers Payer name Insurance type Covered republican ID Authoriza tion(s) Medicare [place] MB [id number] Medicaid OON Write Off CI 00 Social [...]
--- OUTSIDE RECORDS SUMMARY | 2025-01-06 11:58 | XMS_ITS | Encounter Summary ---
Author Organization [facility] Healthcare Address [address] [place] [address] Care Team Providers Care Sandblaster Supervisor Name Role Phone Ramya Preston NP Primary Care Provider [phone] David Fermin DPM Unavailable Encounter Details Date Type Department Care Team (Late st Contact Info) Description 01/04/2025 Results Follow-Up [facility] Nephrology at [address] [place] [address] Jamal Forrest MD [address] [place] [address] [address] [place] [address] PTH, Renal function panel, Vitamin D 25 hydroxy, Additional followed-up results: 4 Social History Tobacco Use Types Packs/Day Years [...] on file Legal Sex Female 5:46 PM PHYSICAL BIOCHEMIST Gender Identity Female 10/25/2018 11:04 AM CDT Sexual Orientation Not on file documented as of this encounter Plan of Treatment Not on file documented as of this encounter Visit Diagnoses Not on filedocumented in this encounter Care Teams Sandblaster Supervisor Relationship Specialty Start Date End Date Ramya Preston NP [address] [address] PCP - General Family Medicine 01/03/24 David Fermin DPM [address] [place] [address] Consulting Physician Orthotics 01/03/24 documented as of this encounter
--- OUTSIDE RECORDS SUMMARY | 2025-01-06 11:58 | XMS_ITS | Encounter Summary ---
Author Organization [facility] Address [address] [place] [address] Phone Care Team Providers Care Folder Gluer Operator Name Role Phone Maryse Schrader MD Primary Care Provider [phone] Ramya Preston NP Primary Care Provider [phone] David Fermin DPM Unavailable Encounter Details Date Type Department Care Team (Late st Contact Info) Description 12/27/2017 Orders Only [facility] Scanning, Provider Social History Tobacco Use Types Packs/Day Years Used Date Smoking Tobacco: Never Comments Unknown Sex and Gender Information Value Date Recorded Sex Assigned at Not on file Legal Sex Female 5:46 PM 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
[2025-01-06 12:08] VITALS: BP 141/61; PULSE 78; RESP 16; TEMP 36.6; O2SAT 99
--- OUTSIDE RECORDS SUMMARY | 2025-01-06 13:01 | XMS_ITS | CONTINUITY OF CARE DOCUMENT ---
Author Name duyen geller Address Unknown Organization [facility] Address [address] [place] [address] Phone [phone] Care Team Providers Care Special Machine Operator Name Role Phone REYNOLD ANAYA, AARON Unavailable [phone] ANJELICA WOODSON MD Unavailable [phone] INSURANCE PROVIDERS Payer name Policy type / Coverage type Ocate red libertarian ID [facility] Medicaid 0 [id number] [place] Medicare [id number]
--- OUTSIDE RECORDS SUMMARY | 2025-01-06 13:01 | XMS_ITS | Encounter Summary ---
Author Organization [facility] Address [address] [place] [address] Phone Care Team Providers Care Transportation Coordinator Name Role Phone Maryse Schrader MD Primary Care Provider [phone] Ramya Preston NP Primary Care Provider [phone] David Fermin DPM Unavailable [phone] Encounter Details Date Type Department Care Team (Late st Contact Info) Description 12/27/2017 Orders Only [facility] Scanning, Provider Social History Tobacco Use Types Packs/Day Years Used Date Smoking Tobacco: Never Comments Unknown Sex and Gender Information Value Date Recorded Sex Assigned at Not on file Legal Sex Female 5:46 PM SEPTIC TANK CLEANER Gender Identity Female 10/25/2018 11:04 AM CDT [...] on filedocumented in this encounter Care Teams Transportation Coordinator Relationship Specialty Start Date End Date Maryse Schrader MD [address] [address] PCP - General 12/07/17 01/02/24 Ramya Preston NP [address] [facility] [address] [place] [address] PCP - General Family Medicine 01/03/24 David Fermin DPM [address] [place] [address] Consulting Physician Orthotics 01/03/24 Medical Services Coordinator 01/03/24 01/03/24 documented as of this encounter
--- OUTSIDE RECORDS SUMMARY | 2025-01-06 13:01 | XMS_ITS | Encounter Summary ---
Author Organization [facility] Healthcare Address [address] [place] [address] Care Team Providers Care Obstetrics Teacher Name Role Phone Ramya Preston NP Primary Care Provider [phone] David Fermin DPM Unavailable [phone] Encounter Details Date Type Department Care Team (Late st Contact Info) Description 01/04/2025 Results Follow-Up [facility] Nephrology at [address] [place] [address] Jamal Forrest MD [address] [place] [address] [address] [place] [address] PTH, Renal function panel, Vitamin [...] on file 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
--- OUTSIDE RECORDS SUMMARY | 2025-01-06 13:02 | XMS_ITS | Clinical Summary ---
Author Organization [facility] Address [address] [place] [address] Care Team Providers Care Genetic Technologist Name Role Phone Ramya Preston NP Primary Care Provider [phone] David Fermin DPM Unavailable [phone] Allergies No known active allergies Medications omega 6-trm-eyi-fish oil 300-1,000 mg capsule 8 Active nystatin [...] 07/05/2024 Assessment & Plan (10/09/2024 12:38 PM BRIAR WOOD SORTER): Continuing Farxiga, updated labs ordered Assessment & Plan (07/05/2024 1:12 PM BRIAR WOOD SORTER): Previous A1c 8.1 six months ago. Attempted to start Farxiga, but did not hear back from the pt's facility. Will recheck A1c and kidney function with labs today. Also sending in Farxiga, samples given today to get started. Medicare annual wellness visit, subsequent 07/05 Assessment & Plan (07/05/2024 1:14 PM BRIAR WOOD SORTER): A yearly Medicare Annual Wellness Visit has [...] CDT): Patient has had DEXA performed, patient's casey saw operator is getting records to drop off to us. Long-term current use of steroids 12/07/2017 Anxiety 10/24/2017 Assessment & Plan (07/05/2024 12:26 PM BRIAR WOOD SORTER): Overall stable on Celexa. Assessment & Plan (01/03/2024 10:55 AM CDT): Overall stable on Celexa. 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 Updated labs ordered for today. Assessment & Plan (07/05/2024 12:26 PM BRIAR WOOD SORTER): Patient taking Pravastatin, no side effects noted. Updated labs ordered for today. Assessment & Plan (01/03/2024 10:55 AM CDT): Patient taking Pravastatin, no side effects noted. Updated labs ordered. Hypertension 10/24/2017 Assessment & Plan (10/09/2024 12:37 PM BRIAR WOOD SORTER): BP well controlled in office, continuing Nifedipine 30 mg daily. Updated labs ordered today. Assessment & Plan (07/05/2024 12:26 PM BRIAR WOOD SORTER): BP well controlled in office, continuing Nifedipine 30 mg daily. Updated labs ordered today. Assessment & Plan (01/03/2024 10:55 AM CDT): BP well controlled in office, continuing Nifedipine 30 mg daily. Updated labs ordered. Resolved Problems Problem Noted Date Diagnosed Date Resolved Date PMR (polymyalgia rheumatica) 10/24/2017 05/30/2018 Encounters Date Type Department Care Team Description 01/04/2025 Results Follow-Up [facility] Nephrology at [address] [address] Jamal Forrest MD PTH, Renal function panel, Vitamin D 25 hydroxy, Additional followed-up results: 4 01/03/2025 2:00 PM CDT Lab [facility] Outpatient Lab at [address] [phone] 01/03/2025 1:49 PM CDT - 01/03/2025 11:59 PM CDT Hospital Encounter [address] [address] Stage 3b chronic kidney disease (HCC) Discharge Disposition: Discharge to home or self care 11/28/2024 Telephone [facility] Primary Care at [address] [phone] Ramya Preston NP Additional Services Or Orders 10/31/2024 8:30 AM CDT Office Visit [facility] Primary Care at [address] [phone] Julia Gonzalez NP Incidental lung nodule, greater than or equal to 8mm (Primary Dx); Concussion without loss of consciousness, subsequent encounter 10/29/2024 Telephone [facility] Primary Care at [address] [phone] Ramya Preston NP Appointment Request 10/19/2024 1:30 PM BRIAR WOOD SORTER Office Visit [facility] Sports Medicine and Primary Care at [address] [phone] Jeremias Laureano, Osteoarthritis of left shoulder, unspecified osteoarthritis type (Primary Dx); Chronic left shoulder pain; Cervicalgia 10/19/2024 Orders Only [facility] Sports Medicine and Primary Care at [address] [phone] Jeremias Laureano, Chronic left shoulder pain (Primary Dx); Osteoarthritis of left shoulder, unspecified osteoarthritis type 10/17/2024 2:15 PM BRIAR WOOD SORTER Office Visit [facility] Nephrology at [address] [phone] Raffy Flowers MD Stage 3b chronic kidney disease (HCC) (Primary Dx); Essential hypertension; Type 2 diabetes mellitus with stage 3b chronic kidney disease, without long-term current use of insulin (HCC) 10/16/2024 Telephone [facility] Nephrology at [address] [phone] Naif Rodriguez 10/10/2024 Results Follow-Up [facility] Primary Care at [address] [phone] Ramya Preston NP Comprehensive metabolic panel, Hemoglobin A1c, Lipid panel, Additional followed-up results: 3 10/09/2024 12:00 PM BRIAR WOOD SORTER Lab [facility] Outpatient Lab at [address] [phone] Hypertension (Primary Dx); Hyperlipidemia; Type 2 diabetes mellitus with stage 3a chronic kidney disease, without long-term current use of insulin (HCC) 10/09/2024 11:00 AM BRIAR WOOD SORTER Office Visit [facility] Primary Care at [address] [phone] Ramya Preston NP Type 2 diabetes mellitus with stage 3a chronic kidney disease, without long-term current use of insulin (HCC) (Primary Dx); Mixed stress and urge urinary incontinence; Primary hypertension; Mixed hyperlipidemia; Chronic left shoulder pain 10/09/2024 10:04 AM BRIAR WOOD SORTER - 10/09/2024 11:59 PM BRIAR WOOD [place] [address] Type 2 diabetes mellitus with stage 3a [...] on file Legal Sex Female 5:46 PM BRIAR WOOD SORTER Gender Identity Female 10/25/2018 11:04 AM CDT [...] Routine) 10/26/2024 EGFR Routine 10/09/2024 10:04 AM BRIAR WOOD SORTER Type 2 diabetes mellitus with stage 3a chronic kidney disease, without long-term current use of insulin (HCC) DIFFERENTIAL AUTO Routine 10/09/2024 10:04 AM BRIAR WOOD SORTER Leukocytosis, unspecified type CBC WITH AUTO DIFFERENTIAL Routine 10/09/2024 10:04 AM BRIAR WOOD SORTER Leukocytosis, unspecified type LIPID PANEL Routine 10/09/2024 10:04 AM BRIAR WOOD SORTER Type 2 diabetes mellitus with stage 3a chronic kidney disease, without long-term current use of insulin (HCC) HEMOGLOBIN A1C Routine 10/09/2024 10:04 AM BRIAR WOOD SORTER Type 2 diabetes mellitus with stage 3a chronic kidney disease, without long-term current use of insulin (HCC) COMPREHENSIVE METABOLIC PANEL Routine 10/09/2024 10:04 AM BRIAR WOOD SORTER Type 2 diabetes mellitus with stage 3a chronic kidney disease, without long-term current use of insulin (HCC) DEXA AXIAL SKELETON BONE DENSITY 1 OR MORE SITES Schedule Routine, Read Routine (OP Routine) 09/27/2024 2:52 PM BRIAR WOOD SORTER Encounter for osteoporosis screening in asymptomatic postmenopausal patient from Last 3 Months or Most Recently Relevant to Health Maintenance Results * (ABNORMAL) eGFR (01/03/2025 1:49 PM CDT) Pathologist [facility] eGFR 48(L) >=60 mL/min/1. 73 m2 Comment: [...] BLOOD ORDERABLES Final Resu lt [place] [address] [address] [place] [address] * Differential, auto (01/03/2025 1:49 PM CDT) Neutrophil abs 6.17 1.50 - 6.50 K/cumm Imm gran abs 0.05 0.00 - 0.10 K/cumm [facility] Lymphocyte abs 2.76 0.80 - 3.30 K/cumm [facility] Monocyte abs 0.70 0.20 - 0.80 K/cumm [facility] Eosinophil abs 0.19 0.00 - 0.50 K/cumm [facility] Basophil abs 0.05 0.00 - 0.10 K/cumm [facility] Neutrophil pct 62.2 % [facility] Comment: [...] revised on 2017. Monocyte pct 7.1 % [facility] Comment: Interpretive Data Percent cell count reference ranges are not reported, since discordance with absolute values may lead to misinterpretation of CBC data. Current Interpretive Data was last revised on 2017. Eosinophil pct 1.9 % [facility] Comment: Interpretive Data Percent cell count reference ranges are not reported, since discordance with absolute values may lead to misinterpretation of CBC data. Current Interpretive Data was last revised on 2017. Basophil pct 0.5 % [facility] Comment: Interpretive Data Percent cell count reference ranges are not reported, since discordance with absolute values may lead to misinterpretation of CBC data. Current Interpretive Data was last revised on 2017. Blood 01/03/2025 1:49 PM CDT 01/03/2025 9:22 PM CDT us Raffy Flowers MD LAB BLOOD ORDERABLES Final Resu lt [place] [address] [address] [place] [address] * (ABNORMAL) CBC with auto differential (01/03/2025 1:49 PM CDT) Pathologist [facility] WBC 9.92(H) 3.80 - 9.90 K/cumm Hgb 12.4 11.9 - 15.5 g/dL [facility] Hct 39.7 35.6 - 45.5 % [facility] Plt 326 150 - 400 K/cumm [facility] MPV 11.2 9.1 - 12.3 fL [facility] RBC 4.13 3.90 - 5.20 M/cumm [facility] MCV 96.1 81.3 - 96.4 fL [facility] MCH 30.0 27.1 - 33.3 pg [facility] MCHC 31.2(L) 32.3 - 35.7 g/dL [facility] RDW CV 13.9 11.1 - 14.9 % [facility] RDW SD 49.1(H) 35.7 - 48.1 fL [facility] NRBC abs 0.00 0.00 - 0.01 K/cumm [facility] Blood 01/03/2025 1:49 PM CDT 01/03/2025 9:22 PM CDT us Raffy Flowers MD LAB BLOOD ORDERABLES Final Resu lt Performing Organization Address City/[facility]/ZIP Co de Phone Number [place] [address] Department [place] [address] * (ABNORMAL) Albumin Creatinine Ratio, Urine (01/03/2025 1:49 PM CDT) Pathologist [facility] Albumin Ur 88.3 mg/L Comment: Interpretive Data No reference range established. Current interpretive data was last revised 2018. Creatinine Ur 113.0 mg/dL [facility] Comment: Interpretive Data No reference range established. Current interpretive data was last revised 2018. Albumin Creatinine Ratio, Ur 78(H) 1 - 29 mg/g [facility] Urine 01/03/2025 1:49 PM CDT 01/03/2025 9:22 PM CDT us Raffy Flowers MD LAB URINE ORDERABLES Final Resu lt Performing Organization Address City/[facility]/ZIP Co de Phone Number [place] [address] [address] [facility] [email or web address] [address] * Vitamin D 25 hydroxy (01/03/2025 1:49 PM CDT) Vitamin D 25-OH 53 30 - 80 ng/mL Blood 01/03/2025 1:49 PM CDT 01/03/2025 9:22 PM CDT us Raffy Flowers MD LAB BLOOD ORDERABLES Final Resu lt Performing Organization Address [facility] Co de Phone Number TELMAJOEL [place] [address] [address] [facility] [email or web address] [address] * PTH (01/03/2025 1:49 PM CDT) PTH 45 15 - 65 pg/mL Blood 01/03/2025 1:49 PM CDT 01/03/2025 9:22 PM CDT us Raffy Flowers MD LAB BLOOD ORDERABLES Final Resu lt Performing Organization Address [facility] Co de Phone Number T[place]MAJOEL [place] [address] [address] [facility] [email or web address] [address] * (ABNORMAL) Renal function panel (01/03/2025 1:49 PM CDT) Sodium 138 135 - 145 mmol/L Potassium, pl 4.5 3.3 - 4.9 mmol/L [facility] Chloride 102 97 - 110 mmol/L [facility] CH CO2 27 22 - 32 mmol/L [facility] Anion gap 9 2 - 15 mmol/L [facility] BUN 25 6 - 25 mg/dL [facility] [...] 2022. Calcium 9.8 8.5 - 10.3 mg/dL [facility] Phosphorus, pl 3.1 2.3 - 4.5 mg/dL [facility] Albumin 3.8 3.5 - 5.0 g/dL [facility] Blood 01/03/2025 1:49 PM CDT 01/03/2025 9:22 PM CDT Result [facility] Raffy Flowers MD LAB BLOOD ORDERABLES [place] [address] [address] Department [place] [address] * BRAIN COMPUTED TOMOGRAPHY (CT) (10/26/2024) Anatomical Region Laterality Modality N/A Computed Tomogra phy Result [facility] Provider IMG CT PROCEDURES Final R esult * CT Cervical Spine WO Contrast (10/26/2024) Anatomical Region Laterality Modality Spine N/A Computed Tomogra phy Result [facility] Provider IMG CT PROCEDURES Final R esult * CT Chest WO Contrast (10/26/2024) Anatomical Region Laterality Modality Body N/A Computed Tomogra phy Result [facility] Provider IMG CT PROCEDURES Final R esult * (ABNORMAL) eGFR (10/09/2024 10:04 AM BRIAR WOOD SORTER) eGFR 42(L) >=60 mL/min/1. 73 m2 Comment: [...] reviewed 2021. Blood 10/09/2024 10:0 4 AM BRIAR WOOD SORTER 10/09/2024 9:25 PM BRIAR WOOD SORTER Ramya Preston COMMUNITY HEALTH EDUCATOR LAB BLOOD ORDERABLES Final Resul t [facility] [address] [address] Department [place] [address] * Differential, auto (10/09/2024 10:04 AM BRIAR WOOD SORTER) Neutrophil abs 6.1 1.5 - 6.5 K/cumm [...] on 2017. Imm gran pct 0.6 % [facility] Comment: Interpretive Data Percent cell count reference ranges are not reported, since discordance with absolute values may lead to misinterpretation of CBC data. Current Interpretive Data was last revised on 2017. Lymphocyte pct 26.1 % [facility] Comment: Interpretive Data Percent cell count reference ranges are not reported, since discordance with absolute values may lead to misinterpretation of CBC data. Current Interpretive Data was last revised on 2017. Monocyte pct 6.8 % [facility] Comment: Interpretive Data Percent cell count reference [...] revised on 2017. Basophil pct 0.4 % [facility] Comment: Interpretive Data Percent cell count reference ranges are not reported, since discordance with absolute values may lead to misinterpretation of CBC data. Current Interpretive Data was last revised on 2017. Blood 10/09/2024 10:0 4 AM BRIAR WOOD SORTER 10/09/2024 9:15 PM BRIAR WOOD SORTER Ramya Preston NP LAB BLOOD ORDERABLES Final Resul t [facility] [address] [address] Department [place] [address] * (ABNORMAL) CBC with auto differential (10/09/2024 10:04 AM BRIAR WOOD SORTER) WBC 9.4 3.8 - 9.9 K/cumm Hgb [...] [facility] Blood 10/09/2024 10:0 4 AM BRIAR WOOD SORTER 10/09/2024 9:15 PM BRIAR WOOD SORTER Ramya Preston NP LAB BLOOD ORDERABLES Final Resul t Performing Organization Address [facility] de Phone Number [facility] [address] [address] [place] [address] * (ABNORMAL) Hemoglobin A1c (10/09/2024 10:04 AM BRIAR WOOD SORTER) Hgb A1C 6.7(H) 4.0 - 5.6 % Estimated Average Glucose 146 mg/dL [facility] Comment: The ADA recommends reporting an estimated Average Glucose (eAG) with all Hemoglobin A1c results using the equation derived from a study of 507 normal and diabetic adults. Minority populations were underrepresented and children were not included. (Diabetes Care 31:9941-7186, 2008). The eAG is not equivalent to a fasting glucose. Blood 10/09/2024 10:0 4 AM BRIAR WOOD SORTER 10/09/2024 9:15 PM BRIAR WOOD SORTER us Ramya Preston NP LAB BLOOD ORDERABLES Final Resul t Performing Organization Address [facility] de Phone Number [facility] [address] [address] [employer] [place], [place] [id number] * Lipid panel (10/09/2024 10:04 AM BRIAR WOOD SORTER) Cholesterol 151 30 - 199 mg/dL Comment: [...] 4 [facility] Blood 10/09/2024 10:0 4 AM BRIAR WOOD SORTER 10/09/2024 9:15 PM BRIAR WOOD SORTER us Ramya Preston NP LAB BLOOD ORDERABLES [place]ul [place] [address] [address] Department [place] [address] * (ABNORMAL) Comprehensive metabolic panel (10/09/2024 10:04 AM BRIAR WOOD SORTER) Sodium 136 135 - 145 mmol/L Potassium, [...] [facility] CH Blood 10/09/2024 10:0 4 AM BRIAR WOOD SORTER 10/09/2024 9:15 PM BRIAR WOOD SORTER Ramya Preston NP LAB BLOOD ORDERABLES Final Resul t [facility] [address] [address] Department of Laboratories [place] [id number] * Dexa Axial Skeleton Bone Density 1 or 2 Site (09/27/2024 2:52 PM BRIAR WOOD SORTER) Anatomical Region Laterality Modality Body N/A Other 10/02/2024 8:21 AM BRIAR WOOD SORTER Narrative 10/02/2024 8:21 AM BRIAR WOOD SORTER EXAM DESCRIPTION: DEXA AXIAL SKELETON BONE DENSITY 1 OR MORE SITES REASON FOR STUDY: 83 y/o year old F with given history of: Postmenopausal status. History of secondary osteoporosis. Patient takes vitamin-D and calcium. 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 TW: TW Report ID: [id number] Reading Location: [id number] Procedure Note Beatrice Vogel MD - 10/02/2024 EXAM DESCRIPTION: DEXA AXIAL SKELETON BONE DENSITY 1 OR MORE SITES REASON FOR STUDY: 83 y/o year old F with given history of:Postmenopausal status. History of secondary osteoporosis. Patient takes vitamin-D and calcium. 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 TW: WILLIAMS Report ID: [id number] Reading Location: [place] [address] Ramya Preston NP IMG DXA PROCEDURES Final Result from Last 3 Months or Most Recently Relevant to Health Maintenance Insurance MEDICARE IDNC IDNC IDPA MEDICARE Care Teams Genetic Technologist Relationship Specialty Start Date End Date Ramya Preston NP [address] [place] [address] PCP - General Family Medicine 01/03/24 David Fermin DPM [address] [place] [address] Consulting Physician Orthotics 01/03/24
--- OUTSIDE RECORDS SUMMARY | 2025-01-06 13:02 | XMS_ITS | Continuity of Care Document ---
Author Organization [facility] Address [address] [place] [address] Phone Care Team Providers Care Hyperion Developer Name Role Phone Mary Becerra OT [...] Diagnoses Date Provider Providers Copied on Encounter [facility], [place], [place], [id number], tel:[phone] [place] No Information 5 Mariam Hernandez. . [facility], [place], [place], [id number], tel:[phone] [place] No Information 0 5 Mariam Conwayyenne. . Referring Provider: Jeremias Laureano, [address], [place], [address]. tel:[phone] [facility], [place], [place], [id number], tel:[phone] [place] No Information 5 Becerra Mary. . Referring Provider: Jeremias Laureano [address], [place], [address]. tel:[phone] [facility], [address] [place] [address] [address], [place], [place], [id number], tel:[phone] [place] No Information 5 Becerra Mary. . Referring Provider: Jeremias Laureano [address], [place], [address]. tel:[phone], [place], [place], [id number], tel:[phone] [place] No Information 5 Becerra Mary. . Referring Provider: Jeremias Laureano [address], [place], [address]. tel:[phone] Family History Family Member Type Diagnosis Age At Onset No Information Payers Payer name Insurance type Covered democrat ID Authoriza tion(s) Medicare [place] MB [id number] Medicaid OON Write Off CI 00 Social [...]
--- OUTSIDE RECORDS SUMMARY | 2025-01-06 13:02 | XMS_ITS | Referral Summary ---
Author Organization [facility] Address [address] [place] [phone] Care Team Providers Care Youth Services Librarian Name Role Phone Ramya Preston NP Primary Care Provider [phone] David Fermin DPM Unavailable [phone] Encounters Date Type Department Care Team Description 01/04/2025 Results Follow-Up [facility] Nephrology at [address] [phone] Jamal Forrest MD PTH, Renal function panel, Vitamin D 25 hydroxy, Additional followed-up results: 4 01/03/2025 1:49 PM CDT - 01/03/2025 11:59 PM CDT Hospital Encounter [address] [address] Stage 3b chronic kidney disease (HCC) Discharge Disposition: Discharge to home or self care 01/03/2025 2:00 PM CDT Lab [facility] Outpatient Lab at [address] [phone] 11/28/2024 Telephone [facility] Primary Care at [address] [phone] Ramya Preston NP Additional Services Or Orders 10/31/2024 8:30 AM CDT Office Visit [facility] Primary Care at [address] [phone] Julia Gonzalez NP Incidental lung nodule, greater than or equal to 8mm (Primary Dx); Concussion without loss of consciousness, subsequent encounter 10/29/2024 Telephone [facility] Primary Care at [address] [phone] Rayma Preston NP Appointment Request 10/19/2024 Orders Only [facility] at [address] [phone] Jeremias Laureano, Chronic left shoulder pain (Primary Dx); Osteoarthritis of left shoulder, unspecified osteoarthritis type 10/19/2024 1:30 PM SENIOR ACCOUNTS PAYABLE SPECIALIST Office Visit [facility] at [address] [place] [phone] Jeremias Laureano, Osteoarthritis of left shoulder, unspecified osteoarthritis type (Primary Dx); Chronic left shoulder pain; Cervicalgia 10/17/2024 2:15 PM SENIOR ACCOUNTS PAYABLE SPECIALIST Office Visit [facility]ph[facility] at [address] [phone] Raffy Flowers MD Stage 3b chronic kidney disease (HCC) (Primary Dx); Essential hypertension; Type 2 diabetes mellitus with stage 3b chronic kidney disease, without long-term current use of insulin (HCC) 10/16/2024 Telephone [facility] at [address] [place] [address] Naif Rodriguez 10/10/2024 Results Follow-Up [facility] Primary Care at [address] [phone] Ramya Preston NP Comprehensive metabolic panel, Hemoglobin A1c, Lipid panel, Additional followed-up results: 3 10/09/2024 10:04 AM SENIOR ACCOUNTS PAYABLE SPECIALIST - 10/09/2024 11:59 PM SENIOR ACCOUNTS PAYABLE SPECIALIST Hospital Encounter [address] [address] Type 2 diabetes mellitus with stage 3a chronic kidney disease, without long-term current use of insulin (HCC); Leukocytosis, unspecified type Discharge Disposition: Discharge to home or self care 10/09/2024 12:00 PM SENIOR ACCOUNTS PAYABLE SPECIALIST Lab [facility] Outpatient Lab at [address] [phone] Hypertension (Primary Dx); Hyperlipidemia; Type 2 diabetes mellitus with stage 3a chronic kidney disease, without long-term current use of insulin (HCC) 10/09/2024 11:00 AM SENIOR ACCOUNTS PAYABLE SPECIALIST Office Visit [facility] at [address] [phone] Ramya Preston NP Type 2 diabetes mellitus with stage 3a chronic kidney disease, without long-term current use of insulin (HCC) (Primary Dx); Mixed stress and urge urinary incontinence; Primary hypertension; Mixed hyperlipidemia; Chronic left shoulder pain from Last 3 Months Allergies No known active allergies Medications omega 2-xzw-blo-fish oil 300-1,000 mg capsule 8 Active nystatin [...] 07/05/2024 Assessment & Plan (10/09/2024 12:38 PM SENIOR ACCOUNTS PAYABLE SPECIALIST): Continuing Farxiga, updated labs ordered Assessment & Plan (07/05/2024 1:12 PM SENIOR ACCOUNTS PAYABLE SPECIALIST): Previous A1c 8.1 six months ago. Attempted to start Farxiga, but did not hear back from the pt's facility. Will recheck A1c and kidney function with labs today. Also sending in [facility], samples given today to get started. Medicare annual wellness visit, subsequent 07/05 Assessment & Plan (07/05/2024 1:14 PM SENIOR ACCOUNTS PAYABLE SPECIALIST): A yearly Medicare Annual Wellness Visit has [...] 10/24/2017 Assessment & Plan (07/05/2024 12:26 PM SENIOR ACCOUNTS PAYABLE SPECIALIST): Overall stable on Celexa. Assessment & Plan (01/03/2024 10:55 AM CDT): Overall stable on Celexa. 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 Updated labs ordered for today. Assessment & Plan (07/05/2024 12:26 PM SENIOR ACCOUNTS PAYABLE SPECIALIST): Patient taking Pravastatin, no side effects noted. Updated labs ordered for today. Assessment & Plan (01/03/2024 10:55 AM CDT): Patient taking Pravastatin, no side effects noted. Updated labs ordered. Hypertension 10/24/2017 Assessment & Plan (10/09/2024 12:37 PM SENIOR ACCOUNTS PAYABLE SPECIALIST): BP well controlled in office, continuing Nifedipine 30 mg daily. Updated labs ordered today. Assessment & Plan (07/05/2024 12:26 PM SENIOR ACCOUNTS PAYABLE SPECIALIST): BP well controlled in office, continuing Nifedipine [...] on file Legal Sex Female 5:46 PM SENIOR ACCOUNTS PAYABLE SPECIALIST Gender Identity Female 10/25/2018 11:04 AM CDT [...] Routine) 10/26/2024 EGFR Routine 10/09/2024 10:04 AM SENIOR ACCOUNTS PAYABLE SPECIALIST Type 2 diabetes mellitus with stage 3a chronic kidney disease, without long-term current use of insulin (HCC) DIFFERENTIAL AUTO Routine 10/09/2024 10:04 AM SENIOR ACCOUNTS PAYABLE SPECIALIST Leukocytosis, unspecified type CBC WITH AUTO DIFFERENTIAL Routine 10/09/2024 10:04 AM SENIOR ACCOUNTS PAYABLE SPECIALIST Leukocytosis, unspecified type LIPID PANEL Routine 10/09/2024 10:04 AM SENIOR ACCOUNTS PAYABLE SPECIALIST Type 2 diabetes mellitus with stage 3a chronic kidney disease, without long-term current use of insulin (HCC) HEMOGLOBIN A1C Routine 10/09/2024 10:04 AM SENIOR ACCOUNTS PAYABLE SPECIALIST Type 2 diabetes mellitus with stage 3a chronic kidney disease, without long-term current use of insulin (HCC) COMPREHENSIVE METABOLIC PANEL Routine 10/09/2024 10:04 AM SENIOR ACCOUNTS PAYABLE SPECIALIST Type 2 diabetes mellitus with stage 3a chronic kidney disease, without long-term current use of insulin (HCC) DEXA AXIAL SKELETON BONE DENSITY 1 OR MORE SITES Schedule Routine, Read Routine (OP Routine) 09/27/2024 2:52 PM SENIOR ACCOUNTS PAYABLE SPECIALIST Encounter for osteoporosis screening in asymptomatic postmenopausal [...] MD LAB BLOOD ORDERABLES Final Resu lt [facility] [address] [address] Department [place] [address] * Differential, auto (01/03/2025 1:49 PM CDT) Neutrophil abs 6.17 1.50 - 6.50 K/cumm Imm gran abs 0.05 0.00 - 0.10 K/cumm [facility] Lymphocyte abs 2.76 0.80 - 3.30 K[facility]cumm [facility] Monocyte abs 0.70 0.20 - 0.80 K/cumm [facility] Eosinophil abs 0.19 0.00 - 0.50 K/cumm [facility] Basophil abs 0.05 0.00 - 0.10 K/cumm [facility] Neutrophil pct 62.2 % [facility] Comment: Interpretive Data Percent cell count reference ranges are not reported, since discordance with absolute values may lead to misinterpretation of CBC data. Current Interpretive Data was last revised on 2017. Imm gran pct 0.5 % [facility] Comment: Interpretive Data Percent cell count [...] BLOOD ORDERABLES Final Resu lt [place] [address] [place] [address] * (ABNORMAL) CBC with auto differential (01/03/2025 1:49 PM CDT) WBC 9.92(H) 3.80 - 9.90 K/cumm Hgb 12.4 11.9 - 15.5 g/dL [facility] Hct 39.7 35.6 - 45.5 % [facility] Plt 326 150 - 400 K/cumm [facility] MPV 11.2 9.1 - 12.3 fL [facility] RBC 4.13 3.90 - 5.20 M/cumm [facility] MCV 96.1 81.3 - 96.4 fL [facility] MCH 30.0 27.1 - 33.3 pg [facility] MCHC 31.2(L) 32.3 - 35.7 g/dL [facility] RDW CV 13.9 11.1 - 14.9 % [facility] RDW SD 49.1(H) 35.7 - 48.1 fL [facility] NRBC abs 0.00 0.00 - 0.01 K/cumm [facility] Blood 01/03/2025 1:49 PM CDT 01/03/2025 9:22 PM CDT Raffy Flowers MD LAB BLOOD ORDERABLES Final Resu lt [place] [address] [place] [address] * (ABNORMAL) Albumin Creatinine Ratio, [...] ORDERABLES Final Resu lt Performing Organization Address City/[facility]/ZIP Co de Phone Number TELMAJOEL [place] [address] [address] [place] [address] * Vitamin D 25 hydroxy (01/03/2025 1:49 PM CDT) Vitamin D 25-OH 53 30 - 80 ng/mL Blood 01/03/2025 1:49 PM CDT 01/03/2025 9:22 PM CDT Raffy Flowers MD LAB BLOOD ORDERABLES Final Resu lt Performing Organization Address [facility] Co de Phone Number ROM [address] [employer] [place], [place] [id number] * PTH (01/03/2025 1:49 PM CDT) PTH 45 15 - 65 pg/mL Blood 01/03/2025 1:49 PM CDT 01/03/2025 9:22 PM CDT Raffy Flowers MD LAB BLOOD ORDERABLES Final Resu lt Performing Organization Address [facility]/ZIP Co de Phone Number [place] [address] [address] [employer] [place], [place] [phone] * (ABNORMAL) Renal function panel (01/03/2025 1:49 [...] CH Glucose 160 70 - 199 mg/dL [facility] Comment: Interpretive Data Fasting glucose [...] [facility] Albumin 3.8 3.5 - 5.0 g/dL [facility] Blood 01/03/2025 1:49 PM CDT 01/03/2025 9:22 PM CDT Raffy Flowers MD LAB BLOOD ORDERABLES Final Resu lt [facility] [address] [address] Department [place] [address] * BRAIN COMPUTED TOMOGRAPHY (CT) (10/26/2024) Anatomical [...] esult * (ABNORMAL) eGFR (10/09/2024 10:04 AM SENIOR ACCOUNTS PAYABLE SPECIALIST) eGFR 42(L) >=60 mL/min/1. 73 m2 Comment: [...] reviewed 2021. Blood 10/09/2024 10:0 4 AM SENIOR ACCOUNTS PAYABLE SPECIALIST 10/09/2024 9:25 PM SENIOR ACCOUNTS PAYABLE SPECIALIST Ramya Preston NP LAB BLOOD ORDERABLES Final Resul t [place] [address] [address] Department [place] [address] * Differential, auto (10/09/2024 10:04 AM SENIOR ACCOUNTS PAYABLE SPECIALIST) Neutrophil abs 6.1 1.5 - 6.5 K/cumm Imm gran abs 0.1 0.0 - 0.1 K/cumm [facility] Lymphocyte abs 2.5 0.8 - 3.3 K/cumm [facility] Monocyte abs 0.6 0.2 - 0.8 K/cumm [facility] Eosinophil abs 0.1 0.0 - 0.5 K/cumm [facility] Basophil abs 0.0 0.0 - 0.1 K/cumm [facility] Neutrophil pct 64.9 % [facility] Comment: Interpretive Data Percent cell count reference ranges are not reported, since discordance with absolute values may lead to misinterpretation of CBC data. Current Interpretive Data was last revised on 2017. Imm gran pct 0.6 % [facility] Comment: Interpretive Data Percent cell count reference ranges are not reported, since discordance with absolute values may lead to misinterpretation of CBC data. Current Interpretive Data was last revised on 2017. Lymphocyte pct 26.1 % [facility] Comment: Interpretive Data Percent cell count reference ranges are not reported, since discordance with absolute values may lead to misinterpretation of CBC data. Current Interpretive Data was last revised on 2017. Monocyte pct 6.8 % [facility] Comment: Interpretive Data Percent cell count reference ranges are not reported, since discordance with absolute values may lead to misinterpretation of CBC data. Current Interpretive Data was last revised on 2017. Eosinophil pct 1.2 % [facility] Comment: Interpretive Data Percent cell count reference ranges are not reported, since discordance with absolute values may lead to misinterpretation of CBC data. Current Interpretive Data was last revised on 2017. Basophil pct 0.4 % [facility] Comment: Interpretive Data Percent cell count reference ranges are not reported, since discordance with absolute values may lead to misinterpretation of CBC data. Current Interpretive Data was last revised on 2017. Blood 10/09/2024 10:0 4 AM SENIOR ACCOUNTS PAYABLE SPECIALIST 10/09/2024 9:15 PM SENIOR ACCOUNTS PAYABLE SPECIALIST us Ramya Preston NP LAB BLOOD ORDERABLES Final Resul t [place] [address] [address] Department [place] [address] * (ABNORMAL) CBC with auto differential (10/09/2024 10:04 AM SENIOR ACCOUNTS PAYABLE SPECIALIST) WBC 9.4 3.8 - 9.9 K/cumm Hgb 13.2 11.9 - 15.5 g/dL [facility] Hct 42.0 35.6 - 45.5 % [facility] Plt 349 150 - 400 K/cumm [facility] MPV 11.2 9.1 - 12.3 fL [facility] RBC 4.36 3.90 - 5.20 M/cumm [facility] MCV 96.3 81.3 - 96.4 fL [facility] MCH 30.3 27.1 - 33.3 pg [facility] MCHC 31.4(L) 32.3 - 35.7 g/dL [facility] RDW CV 13.7 11.1 - 14.9 % [facility] RDW SD 48.9(H) 35.7 - 48.1 fL [facility] NRBC abs 0.00 0.00 - 0.01 K/cumm [facility] Blood 10/09/2024 10:0 4 AM SENIOR ACCOUNTS PAYABLE SPECIALIST 10/09/2024 9:15 PM SENIOR ACCOUNTS PAYABLE SPECIALIST us Ramya Preston NP LAB BLOOD ORDERABLES Final Resul t Performing Organization Address [facility] de Phone Number [place] [address] [place] [address] * (ABNORMAL) Hemoglobin A1c (10/09/2024 10:04 AM SENIOR ACCOUNTS PAYABLE SPECIALIST) [facility] Signature Hgb A1C 6.7(H) 4.0 - 5.6 % Estimated Average Glucose 146 mg/dL [facility] Comment: The ADA recommends reporting an estimated Average Glucose (eAG) with all Hemoglobin A1c results using the equation derived from a study of 507 normal and diabetic adults. Minority populations were underrepresented and children were not included. (Diabetes Care 31:5434-7506, 2008). The eAG is not equivalent to a fasting glucose. Blood 10/09/2024 10:0 4 AM SENIOR ACCOUNTS PAYABLE SPECIALIST 10/09/2024 9:15 PM SENIOR ACCOUNTS PAYABLE SPECIALIST us Ramya Preston NP LAB BLOOD ORDERABLES Final Resul t Performing Organization Address City/[facility] Co de Phone Number ROM [address] [address] Department [employer] [place], [place] [phone] * Lipid panel (10/09/2024 10:04 AM SENIOR ACCOUNTS PAYABLE SPECIALIST) Cholesterol 151 30 - 199 mg/dL Comment: [...] [facility] CH Blood 10/09/2024 10:0 4 AM SENIOR ACCOUNTS PAYABLE SPECIALIST 10/09/2024 9:15 PM SENIOR ACCOUNTS PAYABLE SPECIALIST Ramya Preston NP LAB BLOOD ORDERABLES Final Resul t [place] [address] Department [place] [address] * (ABNORMAL) Comprehensive metabolic panel (10/09/2024 10:04 AM SENIOR ACCOUNTS PAYABLE SPECIALIST) Sodium 136 135 - 145 mmol/L Potassium, [...] [facility] CH Blood 10/09/2024 10:0 4 AM SENIOR ACCOUNTS PAYABLE SPECIALIST 10/09/2024 9:15 PM SENIOR ACCOUNTS PAYABLE SPECIALIST Ramya Preston NP LAB BLOOD ORDERABLES Final Resul t [place] [address] [address] Department [place] [address] * Dexa Axial Skeleton Bone Density 1 or 2 Site (09/27/2024 2:52 PM SENIOR ACCOUNTS PAYABLE SPECIALIST) Anatomical Region Laterality Modality Body N/A Other 10/02/2024 8:21 AM SENIOR ACCOUNTS PAYABLE SPECIALIST Narrative 10/02/2024 8:21 AM SENIOR ACCOUNTS PAYABLE SPECIALIST EXAM DESCRIPTION: DEXA AXIAL SKELETON BONE DENSITY 1 OR MORE SITES REASON FOR STUDY: 83 y/o year old F with given history of: Postmenopausal status. History of secondary osteoporosis. Patient takes vitamin-D and calcium. Last Model Maker/Model: [employer] (S/N [id number]) Facility LSC value of 0.022 for the [...] Beatrice Vogel M.D. TW: WILLIAMS Report ID: [id number] Reading Location: [id number] Procedure Note Beatrice Vogel MD - 10/02/2024 EXAM DESCRIPTION: DEXA AXIAL SKELETON BONE DENSITY 1 OR MORE SITES REASON FOR STUDY: 83 y/o year old F with given history of:Postmenopausal status. History of secondary osteoporosis. Patient takes vitamin-D and calcium. Last Model Maker/Model: [employer] SL (S/N [id number]) Facility LSC value of 0.022 for the [...] Beatrice Vogel M.D. TW: WILLIAMS Report ID: [id number] Reading Location: [id number] Ramya Preston NP IMG DXA PROCEDURES Final Result from Last 3 Months or Most Recently Relevant to Health Maintenance Insurance MEDICARE [facility] IDPA IDPA MEDICARE [facility] Address: [address] [address] [place] [address] Care Teams Youth Services Librarian Relationship Specialty Start Date End Date Ramya Preston NP [address] [place] [address] PCP - General Family Medicine 01/03/24 David Fermin DPM [address] [place] [address] Consulting Physician Orthotics 01/03/24
--- NOTE | 2025-01-06 14:11 | ED.LOWEXIN ---
HPI - Extremity Injury (Lower) General Chief Complaint: Extremity Injury, Lower Stated Complaint: fall-left knee pain Time Seen by Provider: 01/06/25 12:54 Source: patient Mode of arrival: ambulatory Limitations: no limitations History of Present Illness HPI Narrative: Patient trying to get inside a van, missed step and fell on her left knee. Three days ago, she denies other injuries. Trouble walking and moving left knee. Related Data Home Medications ?Medication ?Instructions ?Recorded ?Confirmed ?Last Taken ?Type aspirin 81 mg tablet,delayed mg 10/26/24 Unknown History release benzonatate 200 mg capsule mg PO 10/26/24 Unknown History calcium 600 mg (as tablet PO 10/26/24 Unknown History carbonate)-vitamin D3 10 mcg (400 unit) tablet citalopram 20 mg tablet mg 10/26/24 Unknown History docusate sodium 100 mg capsule mg PO 10/26/24 Unknown History empagliflozin 10 mg tablet 10 mg PO DAILY 10/26/24 10/26/24 Unknown History (Jardiance) ergocalciferol (vitamin D2) 1,250 10/26/24 Unknown History mcg (50,000 unit) capsule ibuprofen 600 mg tablet mg 10/26/24 Unknown History nifedipine 30 mg tablet,extended mg PO 10/26/24 Unknown History release 24 hr pantoprazole 40 mg tablet,delayed mg PO 10/26/24 Unknown History release pravastatin 20 mg tablet mg 10/26/24 Unknown History Allergies Allergy/AdvReac Type Severity Reaction Status Date / Time No Known Allergies Allergy Verified 01/30/24 16:22 Review of Systems Review of Systems: All systems reviewed & are unremarkable except as noted in HPI and below PMFSH Past Medical History Medical History Hyperlipidemia GERD (gastroesophageal reflux disease) Depression Hypertension Intellectual disability Surgical History Surgical History No pertinent past surgical history Social History Social History Smoking status: Never smoker Exam Narrative: General appearance: Well-developed, well-nourished Skin: Normal color Head: Normocephalic, nontraumatic Eyes: Clear conjunctiva ENT: Oropharynx normal, ears normal, nose normal Neck: Supple, nontender Chest and respiratory: Airway patent, no respiratory distress, no accessory muscle use Heart: Regular rate/rhythm Abdomen: Soft, nontender, no organomegaly, quiet bowel sounds Vascular: Normal peripheral pulses, normal capillary refill. Musculoskeletal: Left lower extremity exam showing bruises distal to the knee, no swelling, no deformity Neurologic: Alert and oriented ?3, ELECTRONICS ENGINEERING TECHNOLOGIST is normal as tested, no gross motor deficit Course Vital Signs Vital signs: Vital Signs Temperature 36.6 C 01/06/25 12:08 Pulse Rate 78 01/06/25 12:08 Respiratory Rate 16 01/06/25 12:08 Blood Pressure 141/61 H 01/06/25 12:08 Pulse Oximetry 99 01/06/25 12:08 Oxygen Delivery Room Air 01/06/25 12:08 Temperature 36.6 C 01/06/25 12:08 Pulse Rate 78 01/06/25 12:08 Respiratory Rate 16 01/06/25 12:08 Blood Pressure 141/61 H 01/06/25 12:08 Pulse Oximetry 99 01/06/25 12:08 Oxygen Delivery Room Air 01/06/25 12:08 MDM - Extremity Injury (Lower) MDM Narrative Medical decision making narrative: Differential diagnosis include contusion, bruises versus fracture X-ray of the left knee showed NO ACUTE OSSEOUS ABNORMALITY THE PT WAS DISCHARGED TO HOME.THE PT,S CONDITION UPON DISCHARGE WAS FAIR,EDUCATION WAS PROVIDED TO THE PT IN REFERENCE TO THE FINAL IMPRESSION,DISCHARGE STUDY RESULTS,TREATMENT,PROGNOSIS AND NEED FOR FOLLOW UP . Differential Diagnosis Differential diagnosis: Likely other (As above) Imaging Data Radiologist's impression: Impressions Knee X-Ray 01/06/25 15:07 IMPRESSION: No acute osseous abnormality left knee. Moderate to severe osteoarthritic changes. Critical Care Time Critical Care Time Critical Care Time: No Discharge Plan Discharge Clinical Impression: Contusion of left leg Patient Disposition: Home Condition: Stable Instructions: Leg Pain (ED) Additional Instructions: RETURN IF SYMPTOMS ARE WORSENING , CALL YOUR FAMILY PHYSICIAN FOR APPOINTMENT, TAKE TYLENOL, IBUPROFEN NEEDED FOR ACHES AND PAIN, CONTINUE HOME MEDICATIONS. Patient Language: Azeri Prescriptions: No Action benzonatate 200 mg capsule PO aspirin 81 mg tablet,delayed release (DR/EC) citalopram 20 mg tablet docusate sodium 100 mg capsule PO ibuprofen 600 mg tablet Jardiance 10 mg tablet 10 mg PO DAILY nifedipine 30 mg tablet extended release 24hr PO pantoprazole 40 mg tablet,delayed release (DR/EC) PO pravastatin 20 mg tablet ergocalciferol (vitamin D2) 1,250 mcg (50,000 unit) capsule calcium carbonate-vitamin D3 600 mg-10 mcg (400 unit) tablet PO Follow-up/Referrals: Nakul,Kevin Larry MD [Primary Care Provider] -
== END 2025-01-06 15:28 | disposition home or self-care (01) ==
PROVIDERS: Emergency Provider Emergency Medicine; PCP Family Medicine
DX: S80.12XA Contusion of left lower leg, initial encounter (principal); I10 Essential (primary) hypertension; E78.5 Hyperlipidemia, unspecified; K21.9 Gastro-esophageal reflux disease without esophagitis; F79 Unspecified intellectual disabilities; F32.A Depression, unspecified; Z79.82 Long term (current) use of aspirin; Z79.84 Long term (current) use of oral hypoglycemic drugs; Z79.899 Other long term (current) drug therapy; W10.8XXA Fall (on) (from) other stairs and steps, initial encounter
CPT/HCPCS: 73562; 99283

== ENCOUNTER 2025-03-16 19:05 | Inpatient (IN) | payer MEDICARE, MEDICAID, SELFPAY ==
--- NOTE | ~2025-03-16 | XR_ITS ---
EXAMINATION: XR forearm RT 2V DATE: 03/17/2025 12:03 INDICATION: Right forearm pain TECHNIQUE: AP an lateral views of the right forearm were obtained. COMPARISON: none FINDINGS: Bone alignment is normal. Polyarticular osteoarthritis, moderate severity at the first carpometacarpa l joint and mild at the right elbow and multiple joints at the right wrist and carpus. Peripheral IV projects over the right hand. No evident elbow joint effusion. Small amount of enthesopathic calcific ation at the biceps brachii insertion along the radial tuberosity. IMPRESSION: 1. No acute osseous abnormality. 2. Polyarticular osteoarthritis, moderate at the first carpometacarpal joint and otherwise mild at th e right elbow and multiple joints at the right wrist and carpus. Reviewed, dictated and finalized at location A. IMPRESSION: 1. No acute osseous abnormality. 2. Polyarticular osteoarthritis, moderate at the first carpometacarpal joint an d otherwise mild at the right elbow and multiple joints at the right wrist and carpus.
--- NOTE | ~2025-03-16 | CT_ITS ---
EXAMINATION: CT brain wo con DATE: 03/17/2025 11:45 INDICATION: Stroke TECHNIQUE: Computed tomography (CT) of the head was performed without intravenous contrast. Sagittal and coronal reconstructions were performed. The mA was adjusted according to patient size. Iterative reconstruction technique was employed. The dose-length product was 681.00 mGy-cm. COMPARISON: head CT dated 12/28/2024 FINDINGS: No acute intracranial hemorrhage, acute infarction or abnormal extra axial fluid collection. There is mild scattered white matter hypoattenuation consistent with chronic small vessel ischemic disease. S ymmetric prominence of the sulci consistent with mild age-appropriate diffuse cerebral volume loss.V entricles are normal and symmetric. No mass/mass effect. The orbits, paranasal sinuses and mastoid ai r cells are normal. IMPRESSION: 1. Stable appearance of age-related changes the brain. No acute intracranial process. Reviewed, dictated and finalized at location A. IMPRESSION: 1. Stable appearance of age-related changes the brain. No acute intracranial pr ocess.
--- NOTE | ~2025-03-16 | XR_ITS ---
EXAMINATION: XR humerus RT DATE: 03/17/2025 12:03 INDICATION: Right humeral pain TECHNIQUE: Internal and axillary rotated views of the right humerus were obtained. COMPARISON: None. FINDINGS: Bone alignment is normal. No fracture. Mild osteoarthritis at the right glenohumeral and acromioclavi cular joints. Suggestion of at least mild osteoarthritis at the right acromioclavicular joint which i s incompletely visualized. Soft tissues are unremarkable. Visualized portion of the right lung are cl ear. IMPRESSION: 1. Mild osteoarthritis at the right shoulder and elbow. No acute osseous abnormality. Reviewed, dictated and finalized at location A. IMPRESSION: 1. Mild osteoarthritis at the right shoulder and elbow. No acute osseous abnorm ality.
--- NOTE | ~2025-03-16 | XR_ITS ---
EXAM: XR shoulder RT min 2V DATE: 03/16/2025 20:14 HISTORY: R shoulder pain; slept on it funny . COMPARISON: X-ray right humerus 01/30/2024, CT chest 10/26/2024. FINDINGS: Exam limited by obliquity which was necessitated by the patient's condition. Moderate AC j oint and glenohumeral joint arthritic change. No fracture or dislocation. Bone island at the base of the coracoid. No suspicious lytic or blastic lesion. IMPRESSION: No acute osseous finding in the right shoulder. Reviewed, dictated and finalized at location K.
--- NOTE | ~2025-03-16 | XR_ITS ---
EXAMINATION: XR chest 1V portable Exam Date/Time: 03/16/2025 19:42 CDT HISTORY: generalized weakness. Comparison: CT chest 10/26/2024. RESULT: Lines, tubes, and devices: None. Lungs and pleura: No focal consolidation, pleural effusion, or pneumothorax. Rightward rotation. Chr onic right hemidiaphragm elevation. Streaky right basilar scar/atelectasis. Cardiomediastinal silhouette: Stable. Other: No acute osseous or upper abdominal finding. IMPRESSION: No acute cardiopulmonary process. Reviewed, dictated and finalized at location K.
[2025-03-16 19:09] VITALS: BP 138/66; PULSE 110; RESP 22; TEMP 36.6; O2SAT 96
--- NOTE | 2025-03-16 19:12 | ECG_ITS ---
Test Date: 2025-03-16 19:28:05 Measurements Intervals [place] Rate: 106 P: 35 IN: 157 QRS: -35 QRSD: 76 T: 52 QT: 275 QTc: 366 Interpretive Statements SINUS TACHYCARDIA LEFT AXIS DEVIATION POSSIBLE ANTERIOR MYOCARDIAL INFARCTION , PROBABLY OLD BORDERLINE ST-T WAVE ABNORMALITY- ANT/HIGH LAT LEADS BASELINE ARTIFACT- I, II, III, AVR, AVL, AVF, V4-V6 ABNORMAL ECG Compared to ECG 10/26/2024 18:56:02 HEART RATE HAS INCREASED Electronically Signed On 03-17-2025 08:14:32 CDT by Victor Hugo Guillen D.O.
--- NOTE | 2025-03-16 19:25 | ED_ITS ---
HPI - Weakness General Chief complaint: Weakness Stated complaint: THOMPSON, RT ARM PAIN, GEN WEAKNESS Time Seen by Provider: 03/16/25 19:09 History of Present Illness HPI Narrative: Patient presents here today with generalized weakness, not worse on 1 side or another, she has also noticed irritation to her left eye with discharge. No chest pain, abdominal or back pain. Related Data Home Medications ?Medication ?Instructions ?Recorded ?Confirmed ?Last Taken ?Type aspirin 81 mg tablet,delayed mg 10/26/24 Unknown History release benzonatate 200 mg capsule mg PO 10/26/24 Unknown History calcium 600 mg (as tablet PO 10/26/24 Unknown History carbonate)-vitamin D3 10 mcg (400 unit) tablet citalopram 20 mg tablet mg 10/26/24 Unknown History docusate sodium 100 mg capsule mg PO 10/26/24 Unknown History empagliflozin 10 mg tablet 10 mg PO DAILY 10/26/24 10/26/24 Unknown History (Jardiance) ergocalciferol (vitamin D2) 1,250 10/26/24 Unknown History mcg (50,000 unit) capsule ibuprofen 600 mg tablet mg 10/26/24 Unknown History nifedipine 30 mg tablet,extended mg PO 10/26/24 Unknown History release 24 hr pantoprazole 40 mg tablet,delayed mg PO 10/26/24 Unknown History release pravastatin 20 mg tablet mg 10/26/24 Unknown History Allergies Allergy/AdvReac Type Severity Reaction Status Date / Time No Known Allergies Allergy Verified 01/30/24 16:22 Review of Systems 2 Review of Systems: All systems reviewed & are unremarkable except as noted in HPI and below PMFSH Past Medical History Medical History Hyperlipidemia GERD (gastroesophageal reflux disease) Depression Hypertension Intellectual disability Surgical History Surgical History No pertinent past surgical history Social History Social History Smoking status: Never smoker Exam 2 Narrative: EXAMINATION OF ORGAN SYSTEMS/BODY AREAS: Constitutional: Vital signs per nursing GENERAL:[No acute distress, non-toxic appearing.] Smells malodorous, of urine HEAD: Normal with no signs of head trauma. EYES: EOMI, injected left conjunctiva with yellowish drainage, matted ENT: No facial droop LUNGS: Nonlabored breathing. HEART: Tachycardic ABD: [Soft], [nontender to palpation] EXT: Normal range of motion SKIN: [No rashes or lesions.] NEURO: [Alert and oriented x 3. No gross focal sensory or strength deficits.] PSYCH: Normal affect Course Vital Signs Vital signs: Vital Signs Temperature 97.9 F 03/16/25 19:09 Pulse Rate 110 H 03/16/25 19:09 Respiratory Rate 22 H 03/16/25 19:09 Blood Pressure 138/66 03/16/25 19:09 Pulse Oximetry 96 03/16/25 19:09 Oxygen Delivery Room Air 03/16/25 19:09 Temperature 97.9 F 03/16/25 19:09 Pulse Rate 97 03/16/25 21:02 Respiratory Rate 26 H 03/16/25 21:02 Blood Pressure 149/81 H 03/16/25 21:02 Pulse Oximetry 96 03/16/25 21:02 Oxygen Delivery Room Air 03/16/25 19:09 MDM - Weakness MDM Narrative Medical decision making narrative: 84 year-old patient presenting with generalized weakness, left eye irritation, malodorous here. Urinalysis is obtained and positive for signs of infection. Urine culture sent. Cultures obtained. EKG - 12-Lead: Performed at 1928. Interpreted by me. [Sinus rhythm]. Rate 106. Left axis. CO-interval [normal]. QRS duration [normal]. QTc [normal]. [No ST segment elevation or depression]. [T-wave normal]. Impression: No EKG evidence of acute ischemia or dysrhythmia. Patient started on ceftriaxone as there are no prior urine cultures. Labs concerning for white count 22.5, however she has no abdominal pain, fevers, or anything for me to be concerned about kidney stone. Given her age and risk factors, discussion with patient and her good friend/care management coordinator beside her, would like to be admitted for the night which I feel is quite reasonable. Discussed with hospitalist for admission. Lab Data 03/16/25 19:22 03/16/25 19:22 Labs: Lab Results 03/16/25 03/16/25 Range/Units 19:22 20:35 WBC 22.5 H (4.5-10.0) K/mm3 RBC 4.46 (4.2-5.4) M/mm3 Hgb 13.5 (12.0-15.0) g/dL Hct 41.2 (37.0-47.0) % MCV 92.4 (80-100) fl MCH 30.3 (26-34) pg MCHC 32.8 (32-36) g/dl RDW 13.2 (11.5-14.5) % Plt Count 525 H (150-375) k/mm3 MPV 9.8 (7.4-10.4) fl Immature Gran % (Auto) Not Reportable Neut % (Auto) Not Reportable Lymph % (Auto) Not Reportable [place] % (Auto) Not Reportable Eos % (Auto) Not Reportable Baso % (Auto) Not Reportable Lymph # (Auto) Not Reportable [place] # (Auto) Not Reportable Eos # (Auto) Not Reportable Baso # (Auto) Not Reportable Abs Immat Gran (auto) Not Reportable Absolute Neuts (auto) Not Reportable Absolute Nucleated RBC Not Reportable Total Counted 100 Neutrophils % (Manual) 81 H (46-73) % Band Neutrophils % 0 (0-6) % Lymphocytes % (Manual) 12.0 L (18-44) % Monocytes % (Manual) 7 (3-9) % Nucleated RBC % Not Reportable Abs Neuts (Manual) 18.22 H (1.3-6.7) K/mm3 Abs Lymphs (Manual) 2.70 (1.1-4.5) K/mm3 Abs Monocytes (Manual) 1.57 H (0.1-0.90) K/mm3 Platelet Estimate Increased (Adequate) Clumped Platelets Present Large Platelets Present Schistocytes None seen Sodium 133 L (137-145) mmol/L Potassium 4.3 (3.4-5.0) mmol/L Chloride 96 L (98-107) mmol/L Carbon Dioxide 25 (22-30) mmol/L Anion Gap 12 (4-12) mmol/L BUN 17 (7-17) mg/dL Creatinine 0.86 (0.7-1.0) mg/dL Estim Creat Clear Calc Not Reportable Estimated GFR > 60 (59 - ) Glucose 151 H (65-110) mg/dL Lactic Acid 1.5 (0.7-2.0) mmol/L Calcium 9.4 (8.4-10.2) mg/dL Total Bilirubin 1.3 (0.2-1.3) mg/dL AST 29 (14-36) U/L ALT 20 (6-35) U/L Alkaline Phosphatase 100 (38-126) U/L Total Protein 8.3 H (6.3-8.2) g/dL Albumin 3.9 (3.5-5.1) g/dL Urine Color Dark yellow (Yellow) Urine Appearance Turbid H (Clear) Urine pH 5.0 (5.0-9.0) Ur Specific [place] 1.028 (1.001-1.035) Urine Protein 2+ H (Negative) mg/dL Urine Glucose (UA) 3+ H (Negative) mg/dL Urine Ketones 2+ H (Negative) mg/dL Ur Blood (Man) 3+ H (Negative) Urine Nitrate Positive H (Negative) Urine Bilirubin 1+ H (Negative) Urine Urobilinogen 1.0 (<2.0) mg/dL Add Ur Microanalysis Reviewed Leukocyte Esterase Rfl 2+ H (Negative) JENSEN/UL Urine RBC 3-5 H (0-2) /hpf Urine WBC >100 H (0-3) /hpf Ur Squamous Epith Cells Occasional (Few) /hpf Urine Bacteria 4+ /hpf Urine Casts 6-10 Urine Yeast (Budding) Present H (None) /hpf Discharge Plan Discharge Clinical Impression: Acute UTI, Sepsis, Conjunctivitis Patient Disposition: Still a Patient Condition: Stable Patient Language: Turkish Prescriptions: No Action benzonatate 200 mg capsule PO aspirin 81 mg tablet,delayed release (DR/EC) citalopram 20 mg tablet docusate sodium 100 mg capsule PO ibuprofen 600 mg tablet Jardiance 10 mg tablet 10 mg PO DAILY nifedipine 30 mg tablet extended release 24hr PO pantoprazole 40 mg tablet,delayed release (DR/EC) PO pravastatin 20 mg tablet ergocalciferol (vitamin D2) 1,250 mcg (50,000 unit) capsule calcium carbonate-vitamin D3 600 mg-10 mcg (400 unit) tablet PO Follow-up/Referrals: Nakul,Kevin Larry MD [Primary Care Provider] -
[2025-03-16 19:28] LABS: Hematocrit 41.2 % (37.0-47.0); Hemoglobin 13.5 g/dL (12.0-15.0); Mean Corpuscular HGB Conc 32.8 g/dl (32-36); Mean Corpuscular Hemoglobin 30.3 pg (26-34); Mean Corpuscular Volume 92.4 fl (80-100); Platelet Count Result 525 k/mm3 (150-375); Red Blood Count 4.46 M/mm3 (4.2-5.4); White Blood Count 22.5 K/mm3 (4.5-10.0)
[2025-03-16 19:39] LABS: Alanine Aminotransferase 20 U/L (6-35); Albumin Level 3.9 g/dL (3.5-5.1); Alkaline Phosphatase 100 U/L (38-126); Anion Gap 12 mmol/L (4-12); Aspartate Amino Transferase 29 U/L (14-36); Bilirubin,Total 1.3 mg/dL (0.2-1.3); Blood Urea Nitrogen 17 mg/dL (7-17); Calcium 9.4 mg/dL (8.4-10.2); Carbon Dioxide 25 mmol/L (22-30); Chloride 96 mmol/L (98-107); Estimated Glomerular Filt Rate > 60; Glucose 151 mg/dL (65-110); Potassium 4.3 mmol/L (3.4-5.0); Sodium 133 mmol/L (137-145); Total Protein 8.3 g/dL (6.3-8.2)
[2025-03-16 19:53] LABS: Add Urine Microscopic? YES; Appearance Urine Turbid (Clear); Budding Yeast Urine Present /hpf; Glucose Urine UA 3+ mg/dL (Negative); Leukocyte Esterase Ur 2+ LEU/UL (Negative); Need Manual Microscopic Reviewed; Nitrate Urine Positive (Negative); Specific Grav Ur 1.028 (1.001-1.035)
[2025-03-16 19:57] LABS: Lymphocytes Absolute Manual 2.70 K/mm3 (1.1-4.5); Lymphocytes Percent Manual 12.0 % (18-44); Monocytes Absolute Manual 1.57 K/mm3 (0.1-0.90); Monocytes Percent Manual 7 % (3-9); Neutrophils Percent Manual 81 % (46-73); Total Cells Counted 100
[2025-03-16 19:58] LABS: Schistocytes None Seen
--- OUTSIDE RECORDS SUMMARY | 2025-03-16 19:58 | XMS_ITS | Referral Summary ---
Author Organization [facility] Address [address] [place] [address] Care Team Providers Care Legal Biller Name Role Phone Ramya Preston NP Primary Care Provider [phone] David Fermin DPM Unavailable [phone] Encounters Date Type Department Care Team Description 02/07/2025 9:00 AM CDT Office Visit [facility] Primary Care at [address] [phone] Julia Gnozalez NP Need for assistance due to unsteady gait (Primary Dx); Primary osteoarthritis involving multiple joints; Frequent falls 01/28/2025 Orders Only [facility] Primary Care at [address] [phone] Ellen Pearce NP 01/16/2025 2:30 PM CDT Office Visit [facility] Nephrology at [address] [place] [phone] Raffy Flowers MD Stage 3a chronic kidney disease (HCC) (Primary Dx); Type 2 diabetes mellitus with stage 3b chronic kidney disease, without long-term current use of insulin (HCC); Essential hypertension 01/14/2025 Telephone [facility] Primary Care at [address] [phone] Ramya Preston NP 01/11/2025 Telephone [facility] Primary Care at [address] [phone] Ramya Preston NP Manual wheel chair ; Medical Question/Miscellaneous 01/11/2025 Orders Only [address] [address] Raffy Flowers MD 01/10/2025 12:00 PM CDT - 01/10/2025 11:59 PM CDT Hospital Encounter [address] [id number] Stage 3b chronic kidney disease (HCC) Discharge Disposition: Discharge to home or self care 01/10/2025 3:00 PM CDT Lab [facility] Outpatient Lab at [address] [phone] 01/08/2025 Orders Only [facility] Primary Care at [address] [phone] Abdulaziz Tee MD 01/08/2025 10:30 AM CDT Office Visit [facility] Primary Care at [address] [phone] Ramya Preston NP Type 2 diabetes mellitus with stage 3a chronic kidney disease, without long-term current use of insulin (HCC) (Primary Dx); Dizziness on standing; Anxiety; Need for assistance due to unsteady gait; Acute pain of left knee 01/04/2025 Results Follow-Up [facility] Nephrology at [address] [place] [phone] Jamal Forrest MD PTH, Renal function panel, Vitamin D 25 hydroxy, Additional followed-up results: 6 01/03/2025 1:49 PM CDT - 01/03/2025 11:59 PM CDT Hospital Encounter [address] [address] Stage 3b chronic kidney disease (HCC) Discharge Disposition: Discharge to home or self care 01/03/2025 2:00 PM CDT Lab [facility] Outpatient Lab at [address] [phone] from Last 3 Months Allergies No known active allergies Medications omega 5-okq-dyk-fish oil 300-1,000 mg capsule 10/25/19 18 Active nystatin cream 6 12/01/19 18 Active cholecalcifero l (REPLESTA) 50,000 unit wafer 10/25/19 18 Active benzonatate (TESSALON) 200 mg capsuleIndicat ions:Chronic cough Take 1 capsule (200 mg total) by mouth 3 (three) times a day as needed for cough 30 capsule 11/23/19 24 Active ergocalciferol (VITAMIN D) 50,000 unit capsule TAKE (1) CAPSULE BY MOUTH ONCE PER WEEK ON TUESDAY 4 capsule 10 06/05/20 24 Active pravastatin (PRAVACHOL) 20 mg tablet TAKE (1) TABLET BY MOUTH AT BEDTIME. 30 tablet 10 08/29/19 25 Active latanoprost (XALATAN) 0.005 % ophthalmic solution 1 drop nightly Activ e NIFEdipine (NIFEdipine XL) 30 mg 24 hr tablet TAKE (1) TABLET BY MOUTH DAILY. 30 tablet 2 11/15/[address] (PROTONIX) 40 mg EC tablet TAKE (1) TABLET BY MOUTH DAILY. 30 tablet 2 11/15/19 25 Active Jardiance 10 mg tablet TAKE (1) TABLET BY MOUTH DAILY. 30 tablet 10 11/21/19 25 Active aspirin 81 mg enteric coated tablet Take 1 tablet (81 mg total) by mouth daily 90 tablet 1 12/25/19 25 Active calcium carbonate-sena min D3 1500 mg (600 mg elemental) -200 units per tablet Take 1 tablet by mouth 2 (two) times a day 180 tablet 1 12/25/19 25 Active fluticasone propionate (FLONASE) 50 mcg/actuation nasal spray Administer 2 sprays into each nostril daily 3 each 4 01/09/20 25 Active docusate sodium (COLACE) 100 mg capsule Take 1 capsule (100 mg total) by mouth 2 (two) times a day as needed for constipation 60 capsule 10 01/29/20 25 Active citalopram (CeleXA) 10 mg tablet TAKE (1) TABLET BY MOUTH DAILY. 30 tablet 10 02/26/20 25 Active acetaminophen (TYLENOL) 500 mg tablet TAKE 1 TABLET BY MOUTH EVERY 6 HOURS NEEDED FOR PAIN *MAX APAP 3G/24HR* 30 tablet 10 03/13/20 25 Active acetaminophen (TYLENOL) 500 mg tablet Take 1 tablet (500 mg total) by mouth every 6 (six) hours as needed for pain 30 tablet 3 07/19/20 24 025 Discontinued citalopram (CeleXA) 10 mg tablet Take 1 tablet (10 mg total) by mouth daily 30 tablet 1 01/09/20 25 025 Discontinued Active Problems Problem Noted Date Diagnosed Date Frequent falls 02/07/2025 Assessment & Plan (02/07/2025 9:49 AM CDT): Need for assistance due to unsteady gait Assessment & Plan (02/07/2025 9:49 AM CDT): Assessment & Plan (01/08/2025 12:33 PM CDT): Patient has a mobility limitation that significantly impairs ability to participate in one or more mobility-related activities of daily living (MRADLs) such as toileting, feeding, dressing, grooming, and bathing in customary locations in the home. Patient's mobility limitation cannot be sufficiently resolved by the use of an appropriately fitted cane or walker. Use of a lightweight, transfer wheelchair will significantly improve the patient's ability to participate in MRADLs and the patient will use it on a regular basis in the home and outside of the home. Patient has a caregiver who is available, willing, and able to provide assistance with the wheelchair. Concussion without loss of consciousness 025 Assessment [...] use of insulin 07/05/2024 Assessment & Plan (01/08/2025 12:28 PM CDT): A1c controlled in office, 6.8. Pt continuing Jardiance and follows with Nephrology. Assessment & Plan (10/09/2024 12:38 PM GROOMING SALON MANAGER): Continuing Farxiga, updated labs ordered Assessment & Plan (07/05/2024 1:12 PM GROOMING SALON MANAGER): Previous A1c 8.1 six months ago. Attempted to start Farxiga, but did not hear back from the pt's facility. Will recheck A1c and kidney function with labs today. Also sending in Farxinv, samples given today to get started. Medicare annual wellness visit, subsequent 07/05 Assessment & Plan (07/05/2024 1:14 PM GROOMING SALON MANAGER): A yearly Medicare Annual Wellness Visit has been performed today. Coral Kern is not up to date on screening tests. She is in need of DEXA- these have been ordered. She is not up to date on needed preventative vaccinations; She is in need of Tdap/Td, Pneumonia (Prevnar-13 or Pneumovax-23), Zoster, and Covid-19 (booster). These have been ordered/arranged unless otherwise indicated. Osteoarthritis 05/30/2018 Assessment & Plan (02/07/2025 9:49 AM CDT): Osteopenia 05/30/2018 Assessment & Plan (01/03/2024 10:55 AM CDT): Patient has had DEXA performed, patient's case checker is getting records to drop off to us. Long-term current use of steroids 12/07/2017 Anxiety 10/24/2017 Assessment & Plan (01/08/2025 12:34 PM CDT): Stable overall, will decrease Citalopram to 10 mg daily to see if this helps the dizziness symptoms. Assessment & Plan (07/05/2024 12:26 PM GROOMING SALON MANAGER): Overall stable on Celexa. Assessment & Plan (01/03/2024 10:55 AM CDT): Overall stable on Celexa. 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 Updated labs ordered for today. Assessment & Plan (07/05/2024 12:26 PM GROOMING SALON MANAGER): Patient taking Pravastatin, no side effects noted. Updated labs ordered for today. Assessment & Plan (01/03/2024 10:55 AM CDT): Patient taking Pravastatin, no side effects noted. Updated labs ordered. Hypertension 10/24/2017 Assessment & Plan (10/09/2024 12:37 PM GROOMING SALON MANAGER): BP well controlled in office, continuing Nifedipine 30 mg daily. Updated labs ordered today. Assessment & Plan (07/05/2024 12:26 PM GROOMING SALON MANAGER): BP well controlled in office, continuing Nifedipine [...] have a drink containing alc ohol? Never 01/16/2025 Average Number of Drinks Not on file 025 Frequency of Binge Drinking Not on file 11/2024 PHQ-2 Answer Date Recorded PHQ-2 Total Score (If total score is 3 or more points, staff should administer the PHQ-9) 0 02/07/2025 Comments Unknown Sex and Gender Information Value Date Recorded Sex Assigned at Not on file Legal Sex Female 5:46 PM GROOMING SALON MANAGER Gender Identity Female 10/25/2018 11:04 AM CDT Sexual Orientation Not on file Last Filed Vital Signs Vital Sign Reading Time Taken Comments Blood Pressure 118/80 02/07/2025 9:06 AM CDT Pulse 97 02/07/2025 9:06 AM CDT Temperature 36.5 C (97.7 F) 02/07/2025 9:06 AM CDT Respiratory Rate 18 02/07/2025 9:06 AM CDT Oxygen Saturation 98% 02/07/2025 9:06 AM CDT Inhaled Oxygen Concentration - - Weight 77.4 kg (170 lb 11.2 oz) 02/07/2025 9:06 AM CDT Height 165.1 cm (5' 5) 02/07/2025 9:06 AM CDT Body Mass Index 28.41 02/07/2025 9:06 AM CDT Plan of Treatment Not on file Procedures Procedure Name Priority Date/Time Associated Diagnosis Comments XR SHOULDER LEFT 2 OR MORE VIEWS Schedule Routine, Read Routine (OP Routine) 01/08/2025 3:48 PM CDT POCT HEMOGLOBIN A1C Routine 01/08/2025 11:10 AM CDT Type 2 diabetes mellitus with stage 3a chronic kidney disease, without long-term current use of insulin (HCC) CLINICAL PATHOLOGY REPORT Routine 01/03/2025 1:49 PM CDT EGFR Routine 01/03/2025 1:49 PM CDT Stage [...] CDT Stage 3b chronic kidney disease (HCC) PROTEIN ELECTROPHORESIS, WITH REFLEX, SERUM Routine 01/03/2025 1:49 PM CDT Stage 3b chronic kidney disease (HCC) LIPID PANEL Routine 10/09/2024 10:04 AM GROOMING SALON MANAGER Type 2 diabetes mellitus with stage 3a chronic kidney disease, without long-term current use of insulin (HCC) DEXA AXIAL SKELETON BONE DENSITY 1 OR MORE SITES Schedule Routine, Read Routine (OP Routine) 09/27/2024 2:52 PM GROOMING SALON MANAGER Encounter for osteoporosis screening in asymptomatic postmenopausal patient from Last 3 Months or Most Recently Relevant to Health Maintenance Results * XR Shoulder Left 2 or More Views (01/08/2025 3:48 PM CDT) Anatomical Region Laterality Modality Upper Extremities, Shoulder Left Radi ographic Imaging us Historical Provider MD RAZO XR PROCEDURES Final R esult * (ABNORMAL) POCT hemoglobin A1c (01/08/2025 11:10 AM CDT) Hemoglobin A1C, POC 6.8(A) 4.0 - 5.6 % Blood 01/08/2025 11:1 0 AM CDT Ramyatan Preston NP POINT OF CARE TEST ORDERABLES Fi nal Result * Clinical pathology report (01/03/2025 1:49 PM CDT) Miscellaneous 01/03/2025 1:4 9 PM CDT 01/10/2025 9:28 AM CDT Narrative 01/10/2025 1:40 PM CDT [facility] results best viewed via link to PDF [facility] Department of Pathology [address] [place] [id number] Final Report Note to Patients: This report may contain a detailed description of human tissue sent by a health care provider to the laboratory for pathologic evaluation. The content of this report is essential for diagnosis and may provide important critical findings. This information may be unfamiliar to patients to review without a medical professional present. It is advised that the patient review this report in the presence of a health care provider who can answer questions and explain the details. Patient Name: CORAL KERN Address: [address] [place] [address] Gender: F : 1940 (Age: 84) Service: Location: N : [id number] [facility] #: [id number] Patient Type: SPECIMEN Taken: 01/03/2025 Received: 01/10/2025 Accessioned: 01/10/2025 Physician(s): Raffy Flowers M.D. Specimen(s) Received A: Blood (serum) Serum Protein ElectrophoresisReported:01/10/2025 Interpretation: Serum Protein Electrophoresis: Normal serum protein electrophoresis pattern. Comment: Serum Protein Electrophoresis: There are no significant abnormalities of the protein fractions. See Epic and/or separate report for protein fraction table. Rik Casper MD PhDReport Electronically Reviewed and Signed Out By Rik Casper MD PhD 01/10/2025 13:39:45 The performance characteristics of some immunohistochemical stains, fluorescence in-situ hybridization tests and immunophenotyping by flow cytometry cited in this report (if any) were determined by the Surgical Pathology Department at [facility] as part of an ongoing quality improvement consultant program and in compliance with federally mandated regulations drawn from the Clinical Laboratory Improvement Act of 1988 (CLIA '88). Some of these tests rely on the use of analyte specific reagents and are subject to specific labeling requirements by the US Food and Drug Administration. Such diagnostic tests may only be performed in a facility that is certified by the Department of Health and Human Services as a high complexity laboratory under CLIA '88. The FDA has determined that such clearance or approval is not necessary. This test is used for clinical purposes. It should not be regarded as investigational or for research. Nevertheless, federal rules concerning the medical use of analyte specific reagents require that the following disclaimer be attached to the report: This test was developed and its performance characteristics determined by the Surgical Pathology Department [facility]. It has not been cleared or approved by the U. S. Food and Drug Administration. REPORT IMAGES AND SCANNED DOCUMENTS, IF INCLUDED, ONLY VIEWABLE IN PDF VERSION OF REPORTe o Raffy Flowers MD LAB PATHOLOGY ORDERABLES Final Result * (ABNORMAL) eGFR (01/03/2025 1:49 PM CDT) [...] MD LAB BLOOD ORDERABLES Final Resu lt [facility] [address] [address] Department [place] [address] * Differential, auto (01/03/2025 1:49 PM CDT) Neutrophil abs 6.17 1.50 - 6.50 K/cumm Imm gran abs 0.05 0.00 - 0.10 K/cumm [facility] Lymphocyte abs 2.76 0.80 - 3.30 K/cumm [facility] Monocyte abs 0.70 0.20 - 0.80 K/cumm [facility] Eosinophil abs 0.19 0.00 - 0.50 K/cumm [facility] Basophil abs 0.05 0.00 - 0.10 K/cumm [facility] Neutrophil pct 62.2 % [facility] Comment: Interpretive Data Percent cell count reference ranges are not reported, since discordance with absolute values may lead to misinterpretation of CBC data. Current Interpretive Data was last revised on 2017. Imm gran pct 0.5 % [facility] Comment: Interpretive Data Percent cell count reference ranges are not reported, since discordance with absolute values may lead to misinterpretation of CBC data. Current Interpretive Data was last revised on 2017. Lymphocyte pct 27.8 % [facility] Comment: Interpretive [...] revised on 2017. Eosinophil pct 1.9 % [facility] Comment: Interpretive [...] BLOOD ORDERABLES Final Resu lt [place] [address] [place] [address] * (ABNORMAL) CBC with auto differential (01/03/2025 1:49 PM CDT) WBC 9.92(H) 3.80 - 9.90 K/cumm Hgb 12.4 11.9 - 15.5 g/dL [facility] Hct 39.7 35.6 - 45.5 % [facility] Plt 326 150 - 400 K/cumm [facility] MPV 11.2 9.1 - 12.3 fL [facility] RBC 4.13 3.90 - 5.20 M/cumm [facility] MCV 96.1 81.3 - 96.4 fL [facility] MCH 30.0 27.1 - 33.3 pg [facility] MCHC 31.2(L) 32.3 - 35.7 g/dL [facility] RDW CV 13.9 11.1 - 14.9 % [facility] RDW SD 49.1(H) 35.7 - 48.1 fL [facility] NRBC abs 0.00 0.00 - 0.01 K/cumm [facility] Blood 01/03/2025 1:49 PM CDT 01/03/2025 9:22 PM CDT Raffy Flowers MD LAB BLOOD ORDERABLES Final Resu lt [place] [address] [address] [place] [address] * (ABNORMAL) Albumin Creatinine Ratio, Urine (01/03/2025 1:49 PM CDT) [facility] Albumin Ur 88.3 mg/L Comment: Interpretive Data [...] ORDERABLES Final Resu lt Performing Organization Address [facility]/ZIP Co de Phone Number [place] [address] [address] [place] [address] * Vitamin D 25 hydroxy (01/03/2025 1:49 PM CDT) [facility] Vitamin D 25-OH 53 30 - 80 ng/mL Blood 01/03/2025 1:49 PM CDT 01/03/2025 9:22 PM CDT Raffy Flowers MD LAB BLOOD ORDERABLES Final Resu lt Performing Organization Address [facility]/ZIP Co de Phone Number [place] [address] [address] [place] [address] * Protein electrophoresis with reflex, serum with interpretation (01/03/2025 1:49 PM CDT) [facility] Protein, sr 6.7 6.2 - 8.2 g/dL Albumin 3.6 3.2 - 5.0 g/dL [facility] Alpha-1 globulin 0.3 0.2 - 0.4 g/dL [facility] Alpha-2 globulin 0.9 0.5 - 1.0 g/dL [facility] Beta-1 globulin 0.4 0.3 - 0.6 g/dL [facility] Beta-2 globulin 0.4 0.2 - 0.6 g/dL [facility] Gamma globulin 1.0 0.5 - 1.7 g/dL [facility] SPEP interp See Cl Path Rpt [facility] Blood 01/03/2025 1:49 PM CDT 01/03/2025 9:22 PM CDT Raffy Flowers MD LAB BLOOD ORDERABLES Final Resu lt Performing Organization Address [facility] Co de Phone Number [place] [address] [address] Department [place] [address] * PTH (01/03/2025 1:49 PM CDT) Pathologist [facility] PTH 45 15 - 65 pg/mL Blood 01/03/2025 1:49 PM CDT 01/03/2025 9:22 PM CDT Raffy Flowers MD LAB BLOOD ORDERABLES Final Resu lt Performing Organization Address [facility] de Phone [facility] [address] [address] Department [place] [address] * (ABNORMAL) Renal function panel (01/03/2025 1:49 PM CDT) Pathologist [facility] Sodium 138 135 - 145 mmol/L Potassium, pl 4.5 3.3 - 4.9 mmol/L [facility] Chloride 102 97 - 110 mmol/L [facility] CO2 27 22 - 32 mmol/L [facility] Anion gap 9 2 - 15 mmol/L [facility] BUN 25 6 - 25 mg/dL [facility] Creatinine 1.12(H) 0.60 - 1.10 mg/dL [facility] Glucose 160 70 - 199 mg/dL [facility] Comment: Interpretive Data Fasting glucose >/= 126 [...] pl 3.1 2.3 - 4.5 mg/dL [facility] Albumin 3.8 3.5 - 5.0 g/dL [facility] Blood 01/03/2025 1:49 PM CDT 01/03/2025 9:22 PM CDT us Raffy Flowers MD LAB BLOOD ORDERABLES [place] [address] [address] Department [place] [address] * Lipid panel (10/09/2024 10:04 AM GROOMING SALON MANAGER) Cholesterol 151 30 - 199 mg/dL Comment: [...] NCEP Expert Panel. Circulation 2004;110:227 3. Ganesh Reina al. PRAFUL Cardiol. 2019December 13;5(5):540-548. doi: 10.1001/jamacardio.2020.0013 Current Interpretive Data was last revised on 2024. Non-HDL Cholesterol 109 mg/dL [facility] Comment: Interpretive Data Ages < [...] [facility] [place] Blood 10/09/2024 10:0 4 AM GROOMING SALON MANAGER 10/09/2024 9:15 PM GROOMING SALON MANAGER us Ramya Preston NP LAB BLOOD ORDERABLES [place]ul [place] [address] [address] Department [place] [address] * Dexa Axial Skeleton Bone Density 1 or 2 Site (09/27/2024 2:52 PM GROOMING SALON MANAGER) Anatomical Region Laterality Modality Body N/A Other 10/02/2024 8:21 AM GROOMING SALON MANAGER Narrative 10/02/2024 8:21 AM GROOMING SALON MANAGER EXAM DESCRIPTION: DEXA AXIAL SKELETON BONE DENSITY 1 OR MORE SITES REASON FOR STUDY: 83 y/o year old F with given history of: Postmenopausal status. History of secondary osteoporosis. Patient takes vitamin-D and calcium. Nail Setter/Model: [employer] SL (S/N [id number]) Facility LSC value of 0.022 for the [...] Beatrice Vogel M.D. TW: TW Report ID: [id number] Reading Location: [id number] Procedure Note Beatrice Vogel MD - 10/02/2024 EXAM DESCRIPTION: DEXA AXIAL SKELETON BONE DENSITY 1 OR MORE SITES REASON FOR STUDY: 83 y/o year old F with given history of:Postmenopausal status. History of secondary osteoporosis. Patient takes vitamin-D and calcium. Nail Setter/Model: [employer] Discovery SL (S/N [id number]) Facility LSC value of 0.022 for the [...] Beatrice Vogel M.D. TW: TW Report ID: [id number] Reading Location: [id number] Ramya Preston NP IMG DXA PROCEDURES Final Result from Last 3 Months or Most Recently Relevant to Health Maintenance Insurance MEDICARE [facility] Address: [address] [address] [place] [address] IDPA IDNJ [facility] MEDICARE [facility] Address: [address] [address] [place] [address] Care Teams Legal Biller Relationship Specialty Start Date End Date Ramya Preston NP [address] [place] [address] PCP - General Family Medicine 01/03/24 David Fermin DPM [address] [place] [address] Consulting Physician Orthotics 01/03/24
--- OUTSIDE RECORDS SUMMARY | 2025-03-16 19:58 | XMS_ITS | Continuity of Care Document ---
Author Organization [facility] Address [address] [place] [address] Phone Care Team Providers Care Brick Handler Name Role Phone Mary Becerra OT Unavailable [...] on Encounter [facility], [place], [place], [id number], tel:[phone] [place] No Information 5 Mariam Hernandez. . [facility], [place], [place], [id number], tel:[phone] [place] No Information 5 Mariam Conwayyenne. . Referring Provider: Jeremias Laureano, [address], [place], [address]. tel:[phone] [facility], [place], [place], [id number], tel:[phone] [place] No Information 5 Becerra Mary. . Referring Provider: Jeremias Laureano [address], [place], [address]. tel:[phone] [facility], [address] [place] [address] [address], [place], [place], [id number], tel:[phone] [place] No Information 5 Becerra Mary. . Referring Provider: Jeremias Laureano [address], [place], [address]. tel:[phone], [place], [place], [id number], tel:[phone] [place] No Information 5 Becerra Mary. . Referring Provider: Jeremias Laureano [address], [place], [address]. tel:[phone] Family History Family Member Type Diagnosis Age At Onset No Information Payers Payer name Insurance type Covered democrat ID Authoriza tion(s) Medicare [place] MB [id number] Medicaid OON Write Off CI 00 Social [...]
--- OUTSIDE RECORDS SUMMARY | 2025-03-16 19:58 | XMS_ITS | Encounter Summary ---
Author Organization [facility] Address [address] [place] [address] Phone Care Team Providers Care Chief Privacy Officer Name Role Phone Maryse Schrader MD Primary Care Provider [phone] Ramya Preston NP Primary Care Provider [phone] David Fermin DPM Unavailable [phone] Encounter Details Date Type Department Care Team (Late st Contact Info) Description 12/27/2017 Orders Only [facility] Scanning, Provider Social History Tobacco Use Types Packs/Day Years Used Date Smoking Tobacco: Never Comments Unknown Sex and Gender Information Value Date Recorded Sex Assigned at Not on file Legal Sex Female 5:46 PM TAX EXAMINER Gender Identity Female 10/25/2018 11:04 AM CDT [...] on filedocumented in this encounter Care Teams Chief Privacy Officer Relationship Specialty Start Date End Date Maryse Schrader MD [address] [place] [address] PCP - General 12/07/17 01/02/24 Ramya Preston NP [address] [address] PCP - General Family Medicine 01/03/24 David Fermin DPM [address] [place] [address] Consulting Physician Orthotics 01/03/24 Senior Research Engineer 01/03/24 01/03/24 documented as of this encounter
--- OUTSIDE RECORDS SUMMARY | 2025-03-16 19:58 | XMS_ITS | Clinical Summary ---
Author Organization [facility] Address [address] [place] [address] Care Team Providers Care Retail Training Manager Name Role Phone Ramya Preston NP Primary Care Provider [phone] David Fermin DPM Unavailable [phone] Allergies No known active allergies Medications omega 5-tqm-mfy-fish oil 300-1,000 mg capsule 10/25/19 18 Active [...] Need for assistance due to unsteady gait 025 Assessment & Plan (02/07/2025 9:49 AM CDT): [...] Nephrology. Assessment & Plan (10/09/2024 12:38 PM PROFESSOR OF OCEANOGRAPHY): Continuing Farxiga, updated labs ordered Assessment & Plan (07/05/2024 1:12 PM PROFESSOR OF OCEANOGRAPHY): Previous A1c 8.1 six months ago. Attempted to start Farxiga, but did not hear back from the pt's facility. Will recheck A1c and kidney function with labs today. Also sending in Farxiga, samples given today to get started. Medicare annual wellness visit, subsequent 07/05 Assessment & Plan (07/05/2024 1:14 PM PROFESSOR OF OCEANOGRAPHY): A yearly Medicare Annual Wellness Visit has [...] CDT): Patient has had DEXA performed, patient's foster care case manager is getting records to drop off to us. Long-term current use of steroids 12/07/2017 Anxiety 10/24/2017 Assessment & Plan (01/08/2025 12:34 PM CDT): Stable overall, will decrease Citalopram to 10 mg daily to see if this helps the dizziness symptoms. Assessment & Plan (07/05/2024 12:26 PM PROFESSOR OF OCEANOGRAPHY): Overall stable on Celexa. Assessment & Plan (01/03/2024 10:55 AM CDT): Overall stable on Celexa. 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 Updated labs ordered for today. Assessment & Plan (07/05/2024 12:26 PM PROFESSOR OF OCEANOGRAPHY): Patient taking Pravastatin, no side effects noted. Updated labs ordered for today. Assessment & Plan (01/03/2024 10:55 AM CDT): Patient taking Pravastatin, no side effects noted. Updated labs ordered. Hypertension 10/24/2017 Assessment & Plan (10/09/2024 12:37 PM PROFESSOR OF OCEANOGRAPHY): BP well controlled in office, continuing Nifedipine 30 mg daily. Updated labs ordered today. Assessment & Plan (07/05/2024 12:26 PM PROFESSOR OF OCEANOGRAPHY): BP well controlled in office, continuing Nifedipine 30 mg daily. Updated labs ordered today. Assessment & Plan (01/03/2024 10:55 AM CDT): BP well controlled in office, continuing Nifedipine 30 mg daily. Updated labs ordered. Resolved Problems Problem Noted Date Diagnosed Date Resolved Date PMR (polymyalgia rheumatica) 10/24/2017 05/30/2018 Encounters Date Type Department Care Team Description 02/07/2025 9:00 AM CDT Office Visit [facility] Primary Care at [address] [phone] Julia Gonzalez NP Need for assistance due to unsteady gait (Primary Dx); Primary osteoarthritis involving multiple joints; Frequent falls 01/28/2025 Orders Only [facility] Primary Care at [address] [phone] Ellen Pearce NP 01/16/2025 2:30 PM CDT Office Visit [facility] Nephrology at [address] [place] [phone] Raffy Flowers MD Stage 3a chronic kidney disease (HCC) (Primary Dx); Type 2 diabetes mellitus with stage 3b chronic kidney disease, without long-term current use of insulin (HCC); Essential hypertension 01/14/2025 Telephone [facility] Primary Care at [address] [phone] Ramya Preston NP 01/11/2025 Telephone [facility] Primary Care at [address] [phone] Ramya Preston NP Manual wheel chair ; Medical Question/Miscellaneous 01/11/2025 Orders Only [address] [address] Raffy Flowers MD 01/10/2025 3:00 PM CDT Lab [facility] Outpatient Lab at [address] [address] 01/10/2025 12:00 PM CDT - 01/10/2025 11:59 PM CDT Hospital Encounter [address] [address] Stage 3b chronic kidney disease (HCC) Discharge Disposition: Discharge to home or self care 01/08/2025 10:30 AM CDT Office Visit [facility] Primary Care at [address] [phone] Ramya Preston, MARILOU Type 2 diabetes mellitus with stage 3a chronic kidney disease, without long-term current use of insulin (HCC) (Primary Dx); Dizziness on standing; Anxiety; Need for assistance due to unsteady gait; Acute pain of left knee 01/08/2025 Orders Only [facility] Primary Care at [address] [phone] ProviderAbdulaziz MD 01/04/2025 Results Follow-Up [facility] Nephrology at [address] [place] [phone] Jamal Forrest MD PTH, Renal function panel, Vitamin D 25 hydroxy, Additional followed-up results: 6 01/03/2025 2:00 PM CDT Lab [facility] Outpatient Lab at [address] [phone] 01/03/2025 1:49 PM CDT - 01/03/2025 11:59 PM CDT Hospital Encounter [address] [address] Stage 3b chronic kidney disease (HCC) Discharge [...] on file Legal Sex Female 5:46 PM PROFESSOR OF OCEANOGRAPHY Gender Identity Female 10/25/2018 11:04 AM CDT [...] 02/07/2025 9:06 AM CDT Plan of Treatment Health Maintenance Due Date Last Done Comments Dilated Eye Exam 1940 Foot Exam 1940 DTaP/Tdap/Td Vaccine (1 - Tdap) 1950 Hepatitis B Screening 1957 Zoster Vaccine (1 of 2) 1989 Pneumococcal vaccine 65+ (2 of 2 - PCV) 12/09/2023 12/08/2022 Covid-19 Vaccine (4 - 2023-2 5 season) 2024 09/02/2021, 11/04/2020, 10/07/2020 Influenza Vaccine (#1) 2025 , 05/09/2023, 06/09/2022, Additional history exists Well Visit 65+ 07/05/2025 07/05/2024 Hemoglobin A1C 07/11/2025 01/08/2025, 09/16, 07/05/2024, Additional history exists Lipid Panel 10/09/2025 10/09/2024, 06/16, 01/03/2024 Albumin Creatinine Ratio, Urine 01/03/2026 , 07/05/2024 eGFR 01/03/2026 01/03/2025, 09/16, 07/05/2024, Additional history exists Fall Risk Assessment 01/08/2026 01/08/2025, 10/09/2024, 07/05/2024, Additional history exists Depression Screening 02/07/2026 02/07/2025, 01/08/2025, 10/09/2024, Additional history exists Osteoporosis Screening-Bone Density Scan 09/27/2026 09/27/2024 Procedures Procedure Name Priority Date/Time Associated Diagnosis [...] (HCC) LIPID PANEL Routine 10/09/2024 10:04 AM PROFESSOR OF OCEANOGRAPHY Type 2 diabetes mellitus with stage 3a chronic kidney disease, without long-term current use of insulin (HCC) DEXA AXIAL SKELETON BONE DENSITY 1 OR MORE SITES Schedule Routine, Read Routine (OP Routine) 09/27/2024 2:52 PM PROFESSOR OF OCEANOGRAPHY Encounter for osteoporosis screening in asymptomatic postmenopausal patient from Last 3 Months or Most Recently Relevant to Health Maintenance Results * XR Shoulder Left 2 or More Views (01/08/2025 3:48 PM CDT) Anatomical Region Laterality Modality Upper Extremities, Shoulder Left Radi ographic Imaging Historical Provider IMConner XR PROCEDURES Final R esult * (ABNORMAL) POCT hemoglobin A1c (01/08/2025 11:10 AM CDT) Hemoglobin A1C, POC 6.8(A) 4.0 - 5.6 % Blood 01/08/2025 11:1 0 AM CDT Ramya Preston NP POINT OF CARE TEST ORDERABLES Fi nal Result * Clinical pathology report (01/03/2025 1:49 PM CDT) Miscellaneous 01/03/2025 1:4 9 PM CDT 01/10/2025 9:28 AM CDT Narrative 01/10/2025 1:40 PM CDT EPIC results best viewed via link to PDF [facility] Department of Pathology [address] [place] [id number] Final Report Note to Patients: This [...] the details. Patient Name: CORAL KERN Address: [address] [place] [address] Gender: F : 1940 (Age: 84) Service: Location: N : [id number] [facility] #: [id number] Patient Type: SPECIMEN Taken: 01/03/2025 Received: 01/10/2025 [...] determined by the Surgical Pathology Department at [facility] as part of an ongoing training and quality manager program and in compliance with federally mandated [...] characteristics determined by the Surgical Pathology Department [facility]. It has not been cleared or approved by the U. S. Food and Drug Administration. REPORT IMAGES AND SCANNED DOCUMENTS, IF INCLUDED, ONLY VIEWABLE IN PDF VERSION OF REPORTe o us Raffy Flowers MD LAB PATHOLOGY ORDERABLES Final [...] MD LAB BLOOD ORDERABLES Final Resu lt [facility] [address] Department [place] [address] * Differential, auto (01/03/2025 1:49 PM CDT) Neutrophil abs 6.17 1.50 - 6.50 K/cumm Imm gran abs 0.05 0.00 - 0.10 K/cumm [facility] Lymphocyte abs 2.76 0.80 - 3.30 K/cumm [facility] Monocyte abs 0.70 0.20 - 0.80 K/cumm [facility] Eosinophil abs 0.19 0.00 - 0.50 K/cumm [facility] Basophil abs 0.05 0.00 - 0.10 K/cumm [facility] Neutrophil pct 62.2 % [facility] Comment: Interpretive Data Percent cell count reference ranges are not reported, since discordance with absolute values may lead to misinterpretation of CBC data. Current Interpretive Data was last revised on 2017. Imm gran pct 0.5 % [facility] Comment: Interpretive Data Percent cell count reference ranges are not reported, since discordance with absolute values may lead to misinterpretation of CBC data. Current Interpretive Data was last revised on 2017. Lymphocyte pct 27.8 % [facility] Comment: Interpretive Data Percent cell count reference ranges are not reported, since discordance with absolute values may lead to misinterpretation of CBC data. Current Interpretive Data was last revised on 2017. Monocyte pct 7.1 % [facility] Comment: Interpretive Data Percent cell count reference ranges are not reported, since discordance with absolute values may lead to misinterpretation of CBC data. Current Interpretive Data was last revised on 2017. Eosinophil pct 1.9 % [facility] Comment: Interpretive Data Percent cell count reference ranges are not reported, since discordance with absolute values may lead to misinterpretation of CBC data. Current Interpretive Data was last revised on 2017. Basophil pct 0.5 % [facility] Comment: Interpretive Data Percent cell count reference ranges are not reported, since discordance with absolute values may lead to misinterpretation of CBC data. Current Interpretive Data was last revised on 2017. Blood 01/03/2025 1:49 PM CDT 01/03/2025 9:22 PM CDT Raffy Flowers MD LAB BLOOD ORDERABLES Final Resu lt Performing Organization Address [facility] Co de Phone Number [address] Department of [employer] [place], [place] [phone] * (ABNORMAL) CBC with auto differential (01/03/2025 1:49 PM CDT) Pathologist [facility] WBC 9.92(H) 3.80 - 9.90 K/cumm Hgb 12.4 11.9 - 15.5 g/dL [facility] Hct 39.7 35.6 - 45.5 % [facility] Plt 326 150 - 400 K/cumm [facility] MPV 11.2 9.1 - 12.3 fL [facility] RBC 4.13 3.90 - 5.20 M/cumm [facility] MCV 96.1 81.3 - 96.4 fL [facility] MCH 30.0 27.1 - 33.3 pg [facility] MCHC 31.2(L) 32.3 - 35.7 g/dL [facility] RDW CV 13.9 11.1 - 14.9 % [facility] RDW SD 49.1(H) 35.7 - 48.1 fL [facility] NRBC abs 0.00 0.00 - 0.01 K/cumm [facility] Blood 01/03/2025 1:49 PM CDT 01/03/2025 9:22 PM CDT Raffy Flowers MD LAB BLOOD ORDERABLES Final Resu lt Performing Organization Address City/[facility]/ZIP Co de Phone Number [place] [address] [place] [address] * (ABNORMAL) Albumin Creatinine Ratio, Urine (01/03/2025 1:49 PM CDT) Pathologist [facility] Albumin Ur 88.3 mg/L Comment: Interpretive Data No reference range established. Current interpretive data was last revised 2018. Creatinine Ur 113.0 mg/dL [facility] Comment: Interpretive Data No reference range established. Current interpretive data was last revised 2018. Albumin Creatinine Ratio, Ur 78(H) 1 - 29 mg/g [facility] Urine 01/03/2025 1:49 PM CDT 01/03/2025 9:22 PM CDT us Raffy Flowers MD LAB URINE ORDERABLES Final Resu lt Performing Organization Address City/[facility] Co de Phone Number [place] [address] Department [place] [place] [address] * Vitamin D 25 hydroxy (01/03/2025 1:49 PM CDT) Pathologist [facility] Vitamin D 25-OH 53 30 - 80 ng/mL Blood 01/03/2025 1:49 PM CDT 01/03/2025 9:22 PM CDT us Raffy Flowers MD LAB BLOOD ORDERABLES Final Resu lt Performing Organization Address [facility] de Phone Number [address] [place] [address] * Protein electrophoresis with reflex, serum with interpretation (01/03/2025 1:49 PM CDT) Pathologist [facility] Protein, sr 6.7 6.2 - 8.2 g/dL Albumin 3.6 3.2 - 5.0 g/dL [facility] Alpha-1 globulin 0.3 0.2 - 0.4 g/dL [facility] Alpha-2 globulin 0.9 0.5 - 1.0 g/dL [facility] Beta-1 globulin 0.4 0.3 - 0.6 g/dL [facility] Beta-2 globulin 0.4 0.2 - 0.6 g/dL [facility] Gamma globulin 1.0 0.5 - 1.7 g/dL [facility] SPEP interp See Cl Path Rpt [facility] Blood 01/03/2025 1:49 PM CDT 01/03/2025 9:22 PM CDT us Raffy Flowers MD LAB BLOOD ORDERABLES Final Resu lt Performing Organization Address City/[facility]/ZIP Co de Phone Number [address] [address] Department [place] [address] * PTH (01/03/2025 1:49 PM CDT) PTH 45 15 - 65 pg/mL Blood 01/03/2025 1:49 PM CDT 01/03/2025 9:22 PM CDT Raffy Flowers MD LAB BLOOD ORDERABLES Final Resu Performing Organization Address [facility] Co de Phone Number [address] Department [place] [address] * (ABNORMAL) Renal function panel (01/03/2025 1:49 PM CDT) [facility] Sodium 138 135 - 145 mmol/L Potassium, pl 4.5 3.3 - 4.9 mmol/L [facility] Chloride 102 97 - 110 mmol/L [facility] CO2 27 22 - 32 mmol/L [facility] Anion gap 9 2 - 15 mmol/L [facility] BUN 25 6 - 25 mg/dL [facility] Creatinine 1.12(H) 0.60 - 1.10 mg/dL [facility] Glucose 160 70 - 199 mg/dL [facility] Comment: Interpretive Data Fasting glucose >/= 126 [...] [facility] Albumin 3.8 3.5 - 5.0 g/dL ROM Blood 01/03/2025 1:49 PM CDT 01/03/2025 9:22 PM CDT us Raffy Flowers MD LAB BLOOD ORDERABLES Final Resu lt ROM [address] [address] [place] [address] * Lipid panel (10/09/2024 10:04 AM PROFESSOR OF OCEANOGRAPHY) Cholesterol 151 30 - 199 mg/dL Comment: [...] 4 ROM Blood 10/09/2024 10:0 4 AM PROFESSOR OF OCEANOGRAPHY 10/09/2024 9:15 PM PROFESSOR OF OCEANOGRAPHY Ramya Preston DRAWBRIDGE TENDER LAB BLOOD ORDERABLES Final Resul t [place] [address] [place] [address] * Dexa Axial Skeleton Bone Density 1 or 2 Site (09/27/2024 2:52 PM PROFESSOR OF OCEANOGRAPHY) Anatomical Region Laterality Modality Body N/A Other 10/02/2024 8:21 AM PROFESSOR OF OCEANOGRAPHY Narrative 10/02/2024 8:21 AM PROFESSOR OF OCEANOGRAPHY EXAM DESCRIPTION: DEXA AXIAL SKELETON BONE DENSITY 1 OR MORE SITES REASON FOR STUDY: 83 y/o year old F with given history of: Postmenopausal status. History of secondary osteoporosis. Patient takes vitamin-D and calcium. 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 TW: TW Report ID: [id number] Reading Location: [id number] Procedure Note Beatrice Vogel MD - 10/02/2024 EXAM DESCRIPTION: DEXA AXIAL SKELETON BONE DENSITY 1 OR MORE SITES REASON FOR STUDY: 83 y/o year old F with given history of:Postmenopausal status. History of secondary osteoporosis. Patient takes vitamin-D and calcium. 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 TW: WILLI[place] Report ID: [id number] Reading Location: [place] [address] Ramya Preston NP IMG DXA PROCEDURES Final Result from Last 3 Months or Most Recently Relevant to Health Maintenance Insurance MEDICARE [employer] MEDICARE Care Teams Retail Training Manager Relationship Specialty Start Date End Date Ramya Preston NP [address] [place] [address] PCP - General Family Medicine 01/03/24 David Fermin DPM [address] [place] [address] Consulting Physician Orthotics 01/03/24
[2025-03-16 20:01] LABS: Band Neutrophils Percent 0 % (0-6); Neutrophils Absolute Manual 18.22 K/mm3 (1.3-6.7)
[2025-03-16] MEDS: cefTRIAXone 2 GM in SODIUM CHLORIDE 0.9% IV 100 ML 200 ML IVPB (20:36)
[2025-03-16] MEDS: POLYMYXIN/TRIMETHOPRIM OPHTH 10 ML DROPS 1 DROP LEFT EYE (20:52)
[2025-03-16 21:02] VITALS: BP 149/81; PULSE 97; RESP 26; O2SAT 96
[2025-03-16] MEDS: SODIUM CHLORIDE 0.9% IV 1,000 ML 999 ML IV CONT (21:10)
[2025-03-16 22:06] VITALS: BP 153/77; PULSE 86; RESP 20; O2SAT 96
--- NOTE | 2025-03-16 22:07 | ADMGEN ---
This patient, Silvia Kern, was admitted to [facility] Surg Room 324-01. Patient/family oriented to hospital policies and general routines including ID bracelet, bed and alarms, visiting hours, pain management, procedures, bathroom and other care routines, personal items, smoking policy, room service/diet, and visiting hours. Information on how to activate the Rapid Response Team has been discussed. Patient/Family are encouraged to report perceived risks to care and to ask questions if they do not understand what they are told or what they should do.
--- NOTE | 2025-03-16 22:40 | PM.IMHP ---
H&P: HPI History of Present Illness Date/Time: 03/16/25 22:40 Chief Complaint: Weakness, Headache Narrative: 84 y/o F with PMH of HTN, HLD, GERD, intellectual disability, and depression presents here with weakness, headache, and eye discharge. The patient [employer] for further evaluation of multiple medical complaints. She reports she has been feeling unwell for the past 2-3 days and has mostly been in bed. She reports generalized weakness, headache, pain and redness to her left eye, poor appetite, and right shoulder pain. She believes the pain in her right shoulder is secondary to laying on her right side/on her right shoulder. She describes the headache as sinus-like, the top of her head, nonradiating, intermittent, no aggravating factors, and alleviated by rest/laying down. Generalized weakness is nonfocal and not accompanied by focal weakness, focal numbness, vision changes, dizziness, or changes in gait. She denies abdominal pain, chest pain, nausea, vomiting or diarrhea. Initial VS at presentation: 97.9? F, HR 110, RR 22, 138/66, and 96% on RA. ED workup showed: WBC 22.5, no anemia, sodium 133, glucose 151, creatinine 0.86 and GFR >60. UA consistent with UTI. Right shoulder XR showed no acute osseous finding. CXR showed no acute cardiopulmonary process. Review of Systems Review of Systems: All systems reviewed & are unremarkable except as noted in HPI and below PMFSH Past Medical History Medical History Hyperlipidemia GERD (gastroesophageal reflux disease) Depression Hypertension Intellectual disability Surgical History Surgical History No pertinent past surgical history Social History Social History Smoking status: Never smoker Meds Home Medications and Allergies Home Medications ?Medication ?Instructions ?Recorded ?Confirmed ?Type aspirin 81 mg tablet,delayed 81 mg PO DAILY@0800 10/26/24 03/16/25 History release benzonatate 200 mg capsule 200 mg PO DAILY PRN cough 10/26/24 03/16/25 History calcium 600 mg (as 1 tablet PO DAILY 10/26/24 03/16/25 History carbonate)-vitamin D3 10 mcg (400 unit) tablet citalopram 20 mg tablet 20 mg PO DAILY 10/26/24 03/16/25 History docusate sodium 100 mg capsule 100 mg PO DAILY PRN constipation 10/26/24 03/16/25 History empagliflozin 10 mg tablet 10 mg PO DAILY 10/26/24 03/16/25 History (Jardiance) ergocalciferol (vitamin D2) 1,250 1,250 mcg PO WEEKLY 10/26/24 03/16/25 History mcg (50,000 unit) capsule ibuprofen 600 mg tablet 600 mg PO Q12H 10/26/24 03/16/25 History nifedipine 30 mg tablet,extended 30 mg PO DAILY 10/26/24 03/16/25 History release 24 hr pantoprazole 40 mg tablet,delayed 40 mg PO DAILY 10/26/24 03/16/25 History release pravastatin 20 mg tablet 20 mg PO DAILY 10/26/24 03/16/25 History acetaminophen 500 mg tablet 500 mg PO Q6H PRN pain 03/16/25 03/16/25 History nystatin 100,000 unit/gram topical 1 applic topical QID skin 03/16/25 03/16/25 History cream irritation Allergies Allergy/AdvReac Type Severity Reaction Status Date / Time No Known Allergies Allergy Verified 01/30/24 16:22 Vital Signs Vital Signs - 24 hr 03/16/25 19:09 03/16/25 21:02 03/16/25 22:06 Temperature 97.9 F Pulse Rate 110 H 97 86 Respiratory Rate 22 H 26 H 20 Blood Pressure 138/66 149/81 H 153/77 H Pulse Oximetry 96 96 96 Oxygen Delivery Room Air Exam Const: General: comfortable and no acute distress Other: , female, elderly, nontoxic appearance HENMT: Face/Nose/Sinus: Normal nares present Mouth: Yes moist mucous membranes Eyes: General: appearance normal, both eyes and all related structures Pupils: Equal, round and reactive pupils present EOM: EOMs intact bilaterally Other: Left eye injected with purulent drainage, right eye noninjected however mild purulent drainage noted Resp: Effort & Inspection: normal respiratory effort Auscultation: clear to auscultation bilaterally Cardio: Rate: regular rate Other: S1-S2 present without murmur, rub, ectopy GI: Other: Abdomen soft, nondistended, nontender. Normoactive bowel sounds in all quadrants. Skin: General skin exam: normal color and no rashes or lesions noted Wounds: no wounds Neuro: Speech: normal speech Motor exam (neuro): 5/5 motor strength present throughout Sensory Exam: normal sensation Other: A&O x4 Extrem: Other: +1 edema to bilateral ankles, nonpitting in symmetric Psych: Mental Status: mental status grossly normal Affect: normal affect Other: Fair insight and judgment, very pleasant H&P: Results Labs Labs: Short CBC 03/16/25 Range/Units 19:22 WBC 22.5 H (4.5-10.0) K/mm3 Hgb 13.5 (12.0-15.0) g/dL Hct 41.2 (37.0-47.0) % Plt Count 525 H (150-375) k/mm3 BMP 03/16/25 19:22 Sodium 133 L Potassium 4.3 Chloride 96 L Carbon Dioxide 25 BUN 17 Creatinine 0.86 Glucose 151 H Calcium 9.4 Liver Function 03/16/25 Range/Units 19:22 Total Bilirubin 1.3 (0.2-1.3) mg/dL AST 29 (14-36) U/L ALT 20 (6-35) U/L Alkaline Phosphatase 100 (38-126) U/L Albumin 3.9 (3.5-5.1) g/dL Urine 03/16/25 Range/Units 19:22 Urine Color Dark yellow (Yellow) Urine Appearance Turbid H (Clear) Urine pH 5.0 (5.0-9.0) Ur Specific [place] 1.028 (1.001-1.035) Urine Protein 2+ H (Negative) mg/dL Urine Glucose (UA) 3+ H (Negative) mg/dL Assessment and Plan Assessment and plan (1) Sepsis: Qualifiers: Sepsis acute organ dysfunction status: without acute organ dysfunction Sepsis type: sepsis due to unspecified organism Qualified Code(s): A41.9 - Sepsis, unspecified organism Code(s): A41.9 - Sepsis, unspecified organism Status: Acute Assessment and Plan: - meets SIRS criteria: HR >100, RR >20, WBC > 12. -hypotension, -hypoxia - lactic acid: 1.5 - 1L bolus -> 100 mL/hr x1L - suspected source: UTI - started on ceftriaxone - blood cultures drawn on 03/16, follow - monitor hemodynamic stability (2) Acute UTI: Code(s): N39.0 - Urinary tract infection, site not specified Status: Acute Assessment and Plan: - UA: Turbid, 2+ protein, 3+ glucose, 2+ ketones, 3+ blood, positive nitrates, 1+ bilirubin, 2+ leuk esterase, 3-5 RBC, greater than 100 WBC, occasional epithelial cells, yeast budding present - UC pending - no previous micro available for review - started on Ceftriaxone on 03/16 (3) Conjunctivitis: Qualifiers: Acute conjunctivitis type: bacterial Conjunctivitis type: acute Laterality: left Qualified Code(s): H10.32 - Unspecified acute conjunctivitis, left eye Code(s): H10.9 - Unspecified conjunctivitis Status: Acute Assessment and Plan: - left eye injected with purulence drainage. Left eye with purulent drainage however noninjected, associated headache - started on erythromycin ointment q.4 hours while awake (both eyes) (4) Hypertension: Qualifiers: Hypertension type: primary hypertension Qualified Code(s): I10 - Essential (primary) hypertension Code(s): I10 - Essential (primary) hypertension Status: Chronic Assessment and Plan: - chronic, currently 153/77 - continue home medications: Nifedipine - monitor Plan Diet: Heart healthy GI Prophylaxis: n/a DVT Prophylaxis: Lovenox SQ IV fluids: 1L bolus -> 100 mL/hour x1 L Lines/Tubes: Peripheral IV Code Status: Full code Quality VTE Prophylaxis VTE prophylaxis: pharmacologic ordered Hospitalist MIPS Advance Care Plan I have confirmed that the patient's Advanced Care Plan is present, code status is documented, or surrogate decision maker is listed in patient medical record.: Yes Medication Reconciliation I have utilized all available resources to obtain, update and review the patients current medications (includes all prescriptions, OTC, herbals, cannabis, and nutritional supplements).: Yes
[2025-03-16 23:08] VITALS: BP 147/68; PULSE 96; RESP 18; TEMP 36.9; O2SAT 100
[2025-03-16] MEDS: LACTATED RINGERS 1,000 ML 100 ML IV CONT (23:31)
[2025-03-17] VITALS (9 sets, daily range): BP systolic 124–145; BP diastolic 64–71; PULSE 79–92; RESP 18; TEMP 35.6–36.7; O2SAT 96–98
[2025-03-17] MEDS: ACETAMINOPHEN 500 MG TABLET 1000 MG PO ×4 (01:49→20:09)
[2025-03-17] MEDS: ERYTHROMYCIN OPHTH OINTMENT 1 GM TUBE 1 APPLIC EACH EYE ×5 (06:23→20:10)
[2025-03-17] MEDS: ASPIRIN 81 MG ENTERIC TABLET PO (07:42)
[2025-03-17] MEDS: CALCIUM/VITAMIN D 500 MG/5 MCG (200 I.U.) TABLET PO (07:43)
[2025-03-17] MEDS: CITALOPRAM HYDROBROMIDE 20 MG TABLET PO (07:43)
[2025-03-17] MEDS: PRAVASTATIN SODIUM 20 MG TABLET PO (07:43)
[2025-03-17] MEDS: PANTOPRAZOLE 40 MG TABLET PO (07:43)
[2025-03-17] MEDS: ENOXAPARIN 40 MG/0.4 ML SYRINGE SUB-Q (07:43)
[2025-03-17] MEDS: EMPAGLIFLOZIN 10 MG TABLET PO (07:43)
[2025-03-17] MEDS: MICONAZOLE NITRATE 2% CREAM 30 GM TUBE 1 APPLIC TOPICAL ×4 (07:44→20:09)
--- NOTE | 2025-03-17 10:15 | P.PNIM_ITS ---
Progress Note: A&P Assessment and Plan (1) Sepsis: Qualifiers: Sepsis acute organ dysfunction status: without acute organ dysfunction Sepsis type: sepsis due to unspecified organism Qualified Code(s): A41.9 - S epsis, unspecified organism Code(s): A41.9 - Sepsis, unspecified organism Status: Acute Assessment and Plan: - meets SIRS criteria: HR >100, RR >20, WBC > 12. -hypotension, -hypoxia - lactic acid: 1.5 - 1L bolus -> 100 mL/hr x1L - suspected source: UTI - started on ceftriaxone - blood cultures drawn on 03/16, follow - monitor hemodynamic stability (2) Acute UTI: Code(s): N39.0 - Urinary tract infection, site not specified Status: Acute Assessment and Plan: - UA: Turbid, 2+ protein, 3+ glucose, 2+ ketones, 3+ blood, positive nitrates, 1+ bilirubin, 2+ leuk esterase, 3-5 RBC, greater than 100 WBC, occasional epithelial cells, yeast budding present - UC pending - no previous micro available for review - started on Ceftriaxone on 03/16 (3) Conjunctivitis: Qualifiers: Acute conjunctivitis type: bacterial Conjunctivitis type: acute Laterality: left Qualified Code(s): H10.32 - Unspecified acute conjunctivitis, left eye Code(s): H10.9 - Unspecified conjunctivitis Status: Acute Assessment and Plan: - left eye injected with purulence drainage. Left eye with purulent drainage however noninjected, associated headache - started on erythromycin ointment q.4 hours while awake (both eyes) (4) Hypertension: Qualifiers: Hypertension type: primary hypertension Qualified Code(s): I10 - Essential (primary) hypertension Code(s): I10 - Essential (primary) hypertension Status: Chronic Assessment and Plan: - chronic, currently 153/77 - continue home medications: Nifedipine - monitor Plan Diet: Heart healthy GI Prophylaxis: n/a DVT Prophylaxis: Lovenox SQ IV fluids: 1L bolus -> 100 mL/hour x1 L Lines/Tubes: Peripheral IV Code Status: Full code Subjective Date/time seen: 03/17/25 10:15 Interval history: Complains of right arm pain. Order CT and right upper arm xray to r/o dislocation. Review of Systems Review of Systems: All systems reviewed & are unremarkable except as noted in HPI and below Exam Const: General: comfortable and no acute distress Other: , female, elderly, nontoxic appearance HENMT: Face/Nose/Sinus: Normal nares present Mouth: Yes moist mucous membranes Eyes: General: appearance normal, both eyes and all related structures Pupils: Equal, round and reactive pupils present EOM: EOMs intact bilaterally Other: Left eye injected with purulent drainage, right eye noninjected however mild purulent drainage noted Resp: Effort & Inspection: normal respiratory effort Auscultation: clear to auscultation bilaterally Cardio: Rate: regular rate Other: S1-S2 present without murmur, rub, ectopy GI: Other: Abdomen soft, nondistended, nontender. Normoactive bowel sounds in all quadrants. Skin: General skin exam: normal color and no rashes or lesions noted Wounds: no wounds Neuro: Cranial nerves: Yes Equal, round and reactive pupils present Speech: normal speech Motor exam (neuro): 5/5 motor strength present throughout Sensory Exam: normal sensation Other: A&O x4 Extrem: Other: +1 edema to bilateral ankles, nonpitting in symmetric Psych: Mental Status: mental status grossly normal Affect: normal affect Other: Fair insight and judgment, very pleasant Objective Data Vital Signs Vital Signs: Vital Signs - 24 hr 03/16/25 19:09 03/16/25 21:02 03/16/25 22:06 Temperature 97.9 F Pulse Rate 110 H 97 86 Respiratory Rate 22 H 26 H 20 Blood Pressure 138/66 149/81 H 153/77 H Pulse Oximetry 96 96 96 Oxygen Delivery Room Air 03/16/25 23:08 03/17/25 00:00 03/17/25 04:00 Temperature 98.4 F Pulse Rate 96 82 86 Respiratory Rate 18 Blood Pressure 147/68 H Pulse Oximetry 100 Oxygen Delivery 03/17/25 06:00 03/17/25 07:30 Temperature 98.1 F Pulse Rate 86 Respiratory Rate 18 Blood Pressure 145/71 H Pulse Oximetry 96 Oxygen Delivery Room Air Intake/Output Intake/Output: Intake & Output 03/14/25 03/15/25 03/16/25 03/17/25 23:59 23:59 23:59 23:59 Intake Total 100 120 Output Total 50 Balance 50 120 Meds/Results Medications: Active Medications Generic Name Dose Route Start Last Admin Trade Name Freq PRN Reason Stop Dose Admin Acetaminophen 1,000 mg 03/16/25 22:53 03/17/25 07:45 Acetaminophen 500 Mg Tablet PO 1,000 mg Q6H PRN Administration Mild Pain (1-3) or Fever Aspirin 81 mg 03/17/25 08:00 03/17/25 07:42 Aspirin 81 Mg Enteric Tablet PO 81 mg DAILY@0800 [facility] Administration Calcium Carbonate 500 mg 03/17/25 09:00 03/17/25 07:43 Calcium/Vitamin D 500 Mg/5 Mcg (200 I.U.) Tablet PO 500 mg QAM [facility] Administration Citalopram Hydrobromide 20 mg 03/17/25 09:00 03/17/25 07:43 Citalopram Hydrobromide 20 Mg Tablet PO 20 mg DAILY [facility] Administration Empagliflozin 10 mg 03/17/25 09:00 03/17/25 07:43 Empagliflozin 10 Mg Tablet PO 10 mg DAILY [facility] Administration Enoxaparin Sodium 40 mg 03/17/25 09:00 03/17/25 07:43 Enoxaparin 40 Mg/0.4 Ml Syringe SUB-Q 40 mg DAILY [facility] Administration Ergocalciferol 1,250 mcg 03/21/25 09:00 Ergocalciferol (Vitamin D2) 1,250 Mcg (50,000 Units) Capsule PO WEEKLY [facility] Erythromycin 1 applic 03/17/25 05:00 03/17/25 07:43 Erythromycin Ophth Ointment 1 Gm Tube EACH EYE 1 applic Q4HWA [facility] Administration Lactated Ringer's 1,000 mls @ 100 mls/hr 03/16/25 22:50 03/16/25 23:31 Lr - Lactated Ringers Iv IV CONT 100 mls/hr .Q10H [facility] Administration Miconazole Nitrate 1 applic 03/17/25 09:00 03/17/25 07:44 Miconazole Nitrate 2% Cream 30 Gm Tube TOPICAL 1 applic QID [facility] Administration Nifedipine 30 mg 03/17/25 09:00 03/17/25 07:43 Nifedipine 30 Mg Tab.Er.24 PO 30 mg DAILY [facility] Administration Ondansetron HCl 4 mg 03/16/25 22:53 Ondansetron Inj 4 Mg/2 Ml Vial IV PUSH Q6H PRN Nausea And Vomiting Pantoprazole Sodium 40 mg 03/17/25 09:00 03/17/25 07:43 Pantoprazole 40 Mg Tablet PO 40 mg DAILY [facility] Administration Pravastatin Sodium 20 mg 03/17/25 09:00 03/17/25 07:43 Pravastatin Sodium 20 Mg Tablet PO 20 mg DAILY [facility] Administration Radiology Results: ITS Impressions Shoulder X-Ray 03/16/25 20:20 IMPRESSION: No acute osseous finding in the right shoulder. Chest X-Ray 03/16/25 20:23 IMPRESSION: No acute cardiopulmonary process. Labs Labs: Laboratory Results - last 24 hr 03/16/25 03/16/25 19:22 20:35 WBC 22.5 H RBC 4.46 Hgb 13.5 Hct 41.2 MCV 92.4 MCH 30.3 MCHC 32.8 RDW 13.2 Plt Count 525 H MPV 9.8 Immature Gran % (Auto) Not Reportable Neut % (Auto) Not Reportable Lymph % (Auto) Not Reportable [place] % (Auto) Not Reportable Eos % (Auto) Not Reportable Baso % (Auto) Not Reportable Lymph # (Auto) Not Reportable [place] # (Auto) Not Reportable Eos # (Auto) Not Reportable Baso # (Auto) Not Reportable Abs Immat Gran (auto) Not Reportable Absolute Neuts (auto) Not Reportable Absolute Nucleated RBC Not Reportable Total Counted 100 Neutrophils % (Manual) 81 H Band Neutrophils % 0 Lymphocytes % (Manual) 12.0 L Monocytes % (Manual) 7 Nucleated RBC % Not Reportable Abs Neuts (Manual) 18.22 H Abs Lymphs (Manual) 2.70 Abs Monocytes (Manual) 1.57 H Platelet Estimate Increased Clumped Platelets Present Large Platelets Present Schistocytes None seen Sodium 133 L Potassium 4.3 Chloride 96 L Carbon Dioxide 25 Anion Gap 12 BUN 17 Creatinine 0.86 Estim Creat Clear Calc Not Reportable Estimated GFR > 60 Glucose 151 H Lactic Acid 1.5 Calcium 9.4 Total Bilirubin 1.3 AST 29 ALT 20 Alkaline Phosphatase 100 Total Protein 8.3 H Albumin 3.9 Urine Color Dark yellow Urine Appearance Turbid H Urine pH 5.0 Ur Specific [place] 1.028 Urine Protein 2+ H Urine Glucose (UA) 3+ H Urine Ketones 2+ H Ur Blood (Man) 3+ H Urine Nitrate Positive H Urine Bilirubin 1+ H Urine Urobilinogen 1.0 Add Ur Microanalysis Reviewed Leukocyte Esterase Rfl 2+ H Urine RBC 3-5 H Urine WBC >100 H Ur Squamous Epith Cells Occasional Urine Bacteria 4+ Urine Casts 6-10 Urine Yeast (Budding) Present H Quality VTE Prophylaxis VTE prophylaxis: pharmacologic ordered Hospitalist MIPS Advance Care Plan I have confirmed that the patient's Advanced Care Plan is present, code status is documented, or surrogate decision maker is listed in patient medical record.: Yes Medication Reconciliation I have utilized all available resources to obtain, update and review the patients current medications (includes all prescriptions, OTC, herbals, cannabis, and nutritional supplements).: Yes
[2025-03-17] MEDS: LACTATED RINGERS 1,000 ML 100 ML IV CONT (13:24)
[2025-03-18] VITALS (7 sets, daily range): BP systolic 110–140; BP diastolic 49–61; PULSE 66–114; RESP 18; TEMP 35.9–36.6; O2SAT 95–99
[2025-03-18] MEDS: LACTATED RINGERS 1,000 ML 100 ML IV CONT (00:30)
[2025-03-18] MEDS: ACETAMINOPHEN 500 MG TABLET 1000 MG PO ×4 (01:48→20:10)
[2025-03-18] MEDS: ERYTHROMYCIN OPHTH OINTMENT 1 GM TUBE 1 APPLIC EACH EYE ×5 (05:02→20:11)
[2025-03-18 06:21] LABS: Hematocrit 34.2 % (37.0-47.0); Hemoglobin 11.1 g/dL (12.0-15.0); Mean Corpuscular HGB Conc 32.5 g/dl (32-36); Mean Corpuscular Hemoglobin 29.8 pg (26-34); Mean Corpuscular Volume 91.7 fl (80-100); Platelet Count Result 443 k/mm3 (150-375); Red Blood Count 3.73 M/mm3 (4.2-5.4); White Blood Count 12.6 K/mm3 (4.5-10.0)
[2025-03-18 06:38] LABS: Alanine Aminotransferase 19 U/L (6-35); Albumin Level 2.9 g/dL (3.5-5.1); Alkaline Phosphatase 96 U/L (38-126); Anion Gap 5 mmol/L (4-12); Aspartate Amino Transferase 30 U/L (14-36); Bilirubin,Total 0.3 mg/dL (0.2-1.3); Blood Urea Nitrogen 21 mg/dL (7-17); Calcium 8.6 mg/dL (8.4-10.2); Carbon Dioxide 28 mmol/L (22-30); Chloride 100 mmol/L (98-107); Estimated CRCL calculation 40 ml/min; Estimated Glomerular Filt Rate > 60; Glucose 88 mg/dL (65-110); Potassium 3.5 mmol/L (3.4-5.0); Sodium 133 mmol/L (137-145); Total Protein 6.4 g/dL (6.3-8.2)
[2025-03-18] MEDS: PANTOPRAZOLE 40 MG TABLET PO (08:41)
[2025-03-18] MEDS: ENOXAPARIN 40 MG/0.4 ML SYRINGE SUB-Q (08:41)
[2025-03-18] MEDS: ASPIRIN 81 MG ENTERIC TABLET PO (08:41)
[2025-03-18] MEDS: EMPAGLIFLOZIN 10 MG TABLET PO (08:41)
[2025-03-18] MEDS: PRAVASTATIN SODIUM 20 MG TABLET PO (08:41)
[2025-03-18] MEDS: CALCIUM/VITAMIN D 500 MG/5 MCG (200 I.U.) TABLET PO (08:42)
[2025-03-18] MEDS: CITALOPRAM HYDROBROMIDE 20 MG TABLET PO (08:42)
[2025-03-18] MEDS: MICONAZOLE NITRATE 2% CREAM 30 GM TUBE 1 APPLIC TOPICAL ×4 (08:48→20:10)
--- NOTE | 2025-03-18 09:07 | PM.IMPN ---
Progress Note: A&P Assessment and Plan (1) Sepsis: Qualifiers: Sepsis acute organ dysfunction status: without acute organ dysfunction Sepsis type: sepsis due to unspecified organism Qualified Code(s): A41.9 - Sepsis, unspecified organism Code(s): A41.9 - Sepsis, unspecified organism Status: Acute Assessment and Plan: - meets SIRS criteria: HR >100, RR >20, WBC > 12. -hypotension, -hypoxia - lactic acid: 1.5 - 1L bolus -> 100 mL/hr x1L - suspected source: UTI - started on ceftriaxone - blood cultures drawn on 03/16, follow - monitor hemodynamic stability (2) Acute UTI: Code(s): N39.0 - Urinary tract infection, site not specified Status: Acute Assessment and Plan: - UA: Turbid, 2+ protein, 3+ glucose, 2+ ketones, 3+ blood, positive nitrates, 1+ bilirubin, 2+ leuk esterase, 3-5 RBC, greater than 100 WBC, occasional epithelial cells, yeast budding present - UC pending - no previous micro available for review - started on Ceftriaxone on 03/16 (3) Conjunctivitis: Qualifiers: Acute conjunctivitis type: bacterial Conjunctivitis type: acute Laterality: left Qualified Code(s): H10.32 - Unspecified acute conjunctivitis, left eye Code(s): H10.9 - Unspecified conjunctivitis Status: Acute Assessment and Plan: - left eye injected with purulence drainage. Left eye with purulent drainage however noninjected, associated headache - started on erythromycin ointment q.4 hours while awake (both eyes) (4) Hypertension: Qualifiers: Hypertension type: primary hypertension Qualified Code(s): I10 - Essential (primary) hypertension Code(s): I10 - Essential (primary) hypertension Status: Chronic Assessment and Plan: - chronic, currently 153/77 - continue home medications: Nifedipine - monitor Plan Diet: Heart healthy GI Prophylaxis: n/a DVT Prophylaxis: Lovenox SQ IV fluids: 1L bolus -> 100 mL/hour x1 L Lines/Tubes: Peripheral IV Code Status: Full code Subjective Date/time seen: 03/18/25 09:07 Interval history: Patient is being currently treated for UTI. CT head shows no abnormalities. X-ray of the right shoulder and humerus and forearm shows no fracture. WBC significantly improved Review of Systems Review of Systems: All systems reviewed & are unremarkable except as noted in HPI and below Exam Const: General: comfortable and no acute distress Other: , female, elderly, nontoxic appearance HENMT: Face/Nose/Sinus: Normal nares present Mouth: Yes moist mucous membranes Eyes: General: appearance normal, both eyes and all related structures Pupils: Equal, round and reactive pupils present EOM: EOMs intact bilaterally Other: Left eye injected with purulent drainage, right eye noninjected however mild purulent drainage noted Resp: Effort & Inspection: normal respiratory effort Auscultation: clear to auscultation bilaterally Cardio: Rate: regular rate Other: S1-S2 present without murmur, rub, ectopy GI: Other: Abdomen soft, nondistended, nontender. Normoactive bowel sounds in all quadrants. Skin: General skin exam: normal color and no rashes or lesions noted Wounds: no wounds Neuro: Cranial nerves: Yes Equal, round and reactive pupils present Speech: normal speech Motor exam (neuro): 5/5 motor strength present throughout Sensory Exam: normal sensation Other: A&O x4 Extrem: Other: +1 edema to bilateral ankles, nonpitting in symmetric Psych: Mental Status: mental status grossly normal Affect: normal affect Other: Fair insight and judgment, very pleasant Objective Data Vital Signs Vital Signs: Vital Signs - 24 hr 03/17/25 12:00 03/17/25 14:00 03/17/25 16:00 Temperature 97.3 F L Pulse Rate 79 92 89 Respiratory Rate 18 Blood Pressure 127/64 Pulse Oximetry 98 03/17/25 18:59 03/17/25 20:00 03/17/25 20:00 Temperature 96.1 F L Pulse Rate 88 92 Respiratory Rate 18 Blood Pressure 124/68 135/67 Pulse Oximetry 96 03/18/25 00:00 03/18/25 04:00 03/18/25 05:00 Temperature 96.8 F L Pulse Rate 66 84 83 Respiratory Rate 18 Blood Pressure 140/61 Pulse Oximetry 95 Intake/Output Intake/Output: Intake & Output 03/15/25 03/16/25 03/17/25 03/18/25 23:59 23:59 23:59 23:59 Intake Total 100 2480 1094 Output Total 50 300 500 Balance 50 2180 594 Meds/Results Medications: Active Medications Generic Name Dose Route Start Last Admin Trade Name Freq PRN Reason Stop Dose Admin Acetaminophen 1,000 mg 03/16/25 22:53 03/18/25 08:42 Acetaminophen 500 Mg Tablet PO 1,000 mg Q6H PRN Administration Mild Pain (1-3) or Fever Aspirin 81 mg 03/17/25 08:00 03/18/25 08:41 Aspirin 81 Mg Enteric Tablet PO 81 mg DAILY@0800 [facility] Administration Calcium Carbonate 500 mg 03/17/25 09:00 03/18/25 08:42 Calcium/Vitamin D 500 Mg/5 Mcg (200 I.U.) Tablet PO 500 mg QAM [facility] Administration Citalopram Hydrobromide 20 mg 03/17/25 09:00 03/18/25 08:42 Citalopram Hydrobromide 20 Mg Tablet PO 20 mg DAILY [facility] Administration Empagliflozin 10 mg 03/17/25 09:00 03/18/25 08:41 Empagliflozin 10 Mg Tablet PO 10 mg DAILY [facility] Administration Enoxaparin Sodium 40 mg 03/17/25 09:00 03/18/25 08:41 Enoxaparin 40 Mg/0.4 Ml Syringe SUB-Q 40 mg DAILY [facility] Administration Ergocalciferol 1,250 mcg 03/21/25 09:00 Ergocalciferol (Vitamin D2) 1,250 Mcg (50,000 Units) Capsule PO WEEKLY [facility] Erythromycin 1 applic 03/17/25 05:00 03/18/25 08:42 Erythromycin Ophth Ointment 1 Gm Tube EACH EYE 1 applic Q4HWA [facility] Administration Lactated Ringer's 1,000 mls @ 100 mls/hr 03/16/25 22:50 03/18/25 00:30 Lr - Lactated Ringers Iv IV CONT 100 mls/hr .Q10H [facility] Administration Miconazole Nitrate 1 applic 03/17/25 09:00 03/18/25 08:48 Miconazole Nitrate 2% Cream 30 Gm Tube TOPICAL 1 applic QID [facility] Administration Nifedipine 30 mg 03/17/25 09:00 03/18/25 08:42 Nifedipine 30 Mg Tab.Er.24 PO 30 mg DAILY [facility] Administration Ondansetron HCl 4 mg 03/16/25 22:53 Ondansetron Inj 4 Mg/2 Ml Vial IV PUSH Q6H PRN Nausea And Vomiting Pantoprazole Sodium 40 mg 03/17/25 09:00 03/18/25 08:41 Pantoprazole 40 Mg Tablet PO 40 mg DAILY [facility] Administration Pravastatin Sodium 20 mg 03/17/25 09:00 03/18/25 08:41 Pravastatin Sodium 20 Mg Tablet PO 20 mg DAILY [facility] Administration Radiology Results: ITS Impressions Shoulder X-Ray 03/16/25 20:20 IMPRESSION: No acute osseous finding in the right shoulder. Chest X-Ray 03/16/25 20:23 IMPRESSION: No acute cardiopulmonary process. Head CT 03/17/25 11:48 IMPRESSION: 1. Stable appearance of age-related changes the brain. No acute intracranial process. Humerus X-Ray 03/17/25 12:06 IMPRESSION: 1. Mild osteoarthritis at the right shoulder and elbow. No acute osseous abnormality. Forearm X-Ray 03/17/25 12:08 IMPRESSION: 1. No acute osseous abnormality. 2. 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 Labs Labs: Laboratory Results - last 24 hr 03/18/25 05:52 WBC 12.6 H RBC 3.73 L Hgb 11.1 L Hct 34.2 L MCV 91.7 MCH 29.8 MCHC 32.5 RDW 13.2 Plt Count 443 H MPV 10.1 Sodium 133 L Potassium 3.5 Chloride 100 Carbon Dioxide 28 Anion Gap 5 BUN 21 H Creatinine 0.81 Estim Creat Clear Calc 40 Estimated GFR > 60 Glucose 88 Calcium 8.6 Total Bilirubin 0.3 AST 30 ALT 19 Alkaline Phosphatase 96 Total Protein 6.4 Albumin 2.9 L Quality VTE Prophylaxis VTE prophylaxis: pharmacologic ordered Hospitalist [facility] Advance Care Plan I have confirmed that the patient's Advanced Care Plan is present, code status is documented, or surrogate decision maker is listed in patient medical record.: Yes Medication Reconciliation I have utilized all available resources to obtain, update and review the patients current medications (includes all prescriptions, OTC, herbals, cannabis, and nutritional supplements).: Yes
[2025-03-18] MEDS: cefTRIAXone 1 GM in SODIUM CHLORIDE 0.9% IV 50 ML 100 ML IVPB (13:56)
[2025-03-19] MEDS: ACETAMINOPHEN 500 MG TABLET 1000 MG PO ×3 (03:00→22:05)
[2025-03-19] MEDS: ERYTHROMYCIN OPHTH OINTMENT 1 GM TUBE 1 APPLIC EACH EYE ×4 (04:08→20:28)
[2025-03-19 04:30] VITALS: BP 143/67; PULSE 89; RESP 20; TEMP 36.3; O2SAT 92
[2025-03-19 06:23] LABS: Hematocrit 35.4 % (37.0-47.0); Hemoglobin 11.5 g/dL (12.0-15.0); Mean Corpuscular HGB Conc 32.5 g/dl (32-36); Mean Corpuscular Hemoglobin 29.9 pg (26-34); Mean Corpuscular Volume 91.9 fl (80-100); Platelet Count Result 503 k/mm3 (150-375); Red Blood Count 3.85 M/mm3 (4.2-5.4); White Blood Count 8.6 K/mm3 (4.5-10.0)
[2025-03-19 06:53] LABS: Alanine Aminotransferase 18 U/L (6-35); Albumin Level 3.0 g/dL (3.5-5.1); Alkaline Phosphatase 98 U/L (38-126); Anion Gap 7 mmol/L (4-12); Aspartate Amino Transferase 29 U/L (14-36); Bilirubin,Total 0.2 mg/dL (0.2-1.3); Blood Urea Nitrogen 17 mg/dL (7-17); Calcium 8.6 mg/dL (8.4-10.2); Carbon Dioxide 28 mmol/L (22-30); Chloride 103 mmol/L (98-107); Estimated CRCL calculation 38 ml/min; Estimated Glomerular Filt Rate > 60; Glucose 98 mg/dL (65-110); Potassium 4.0 mmol/L (3.4-5.0); Sodium 138 mmol/L (137-145); Total Protein 6.7 g/dL (6.3-8.2)
[2025-03-19] MEDS: ASPIRIN 81 MG ENTERIC TABLET PO (07:50)
[2025-03-19] MEDS: ENOXAPARIN 40 MG/0.4 ML SYRINGE SUB-Q (07:50)
[2025-03-19] MEDS: PANTOPRAZOLE 40 MG TABLET PO (07:50)
[2025-03-19] MEDS: CALCIUM/VITAMIN D 500 MG/5 MCG (200 I.U.) TABLET PO (07:51)
[2025-03-19] MEDS: PRAVASTATIN SODIUM 20 MG TABLET PO (07:51)
[2025-03-19] MEDS: EMPAGLIFLOZIN 10 MG TABLET PO (07:51)
[2025-03-19] MEDS: CITALOPRAM HYDROBROMIDE 20 MG TABLET PO (07:51)
[2025-03-19] MEDS: MICONAZOLE NITRATE 2% CREAM 30 GM TUBE 1 APPLIC TOPICAL ×4 (07:52→20:29)
[2025-03-19] MEDS: cefTRIAXone 1 GM in SODIUM CHLORIDE 0.9% IV 50 ML 100 ML IVPB (13:15)
[2025-03-19 14:00] VITALS: BP 130/68; PULSE 89; RESP 16; TEMP 36; O2SAT 98
--- NOTE | 2025-03-19 15:23 | P.PNIM_ITS ---
Progress Note: A&P Assessment and Plan (1) Sepsis: Qualifiers: Sepsis acute organ dysfunction status: without acute organ dysfunction Sepsis type: sepsis due to unspecified organism Qualified Code(s): A41.9 - S epsis, unspecified organism Code(s): A41.9 - Sepsis, unspecified organism Status: Acute Assessment and Plan: - meets SIRS criteria: HR >100, RR >20, WBC > 12. -hypotension, -hypoxia - lactic acid: 1.5 - 1L bolus -> 100 mL/hr x1L - suspected source: UTI - started on ceftriaxone - blood cultures drawn on 03/16, follow - monitor hemodynamic stability (2) Acute UTI: Code(s): N39.0 - Urinary tract infection, site not specified Status: Acute Assessment and Plan: - UA: Turbid, 2+ protein, 3+ glucose, 2+ ketones, 3+ blood, positive nitrates, 1+ bilirubin, 2+ leuk esterase, 3-5 RBC, greater than 100 WBC, occasional epithelial cells, yeast budding present - UC pending - no previous micro available for review - started on Ceftriaxone on 03/16 (3) Conjunctivitis: Qualifiers: Acute conjunctivitis type: bacterial Conjunctivitis type: acute Laterality: left Qualified Code(s): H10.32 - Unspecified acute conjunctivitis, left eye Code(s): H10.9 - Unspecified conjunctivitis Status: Acute Assessment and Plan: - left eye injected with purulence drainage. Left eye with purulent drainage however noninjected, associated headache - started on erythromycin ointment q.4 hours while awake (both eyes) (4) Hypertension: Qualifiers: Hypertension type: primary hypertension Qualified Code(s): I10 - Essential (primary) hypertension Code(s): I10 - Essential (primary) hypertension Status: Chronic Assessment and Plan: - chronic, currently 153/77 - continue home medications: Nifedipine - monitor Plan Diet: Heart healthy GI Prophylaxis: n/a DVT Prophylaxis: Lovenox SQ IV fluids: 1L bolus -> 100 mL/hour x1 L Lines/Tubes: Peripheral IV Code Status: Full code Subjective Date/time seen: 03/19/25 15:23 Interval history: Comfortable at bedside Review of Systems Review of Systems: All systems reviewed & are unremarkable except as noted in HPI and below Exam Const: General: comfortable and no acute distress Other: , female, elderly, nontoxic appearance HENMT: Face/Nose/Sinus: Normal nares present Mouth: Yes moist mucous membranes Eyes: General: appearance normal, both eyes and all related structures Pupils: Equal, round and reactive pupils present EOM: EOMs intact bilaterally Other: Left eye injected with purulent drainage, right eye noninjected however mild p urulent drainage noted Resp: Effort & Inspection: normal respiratory effort Auscultation: clear to auscultation bilaterally Cardio: Rate: regular rate Other: S1-S2 present without murmur, rub, ectopy GI: Other: Abdomen soft, nondistended, nontender. Normoactive bowel sounds in all quadrants. Skin: General skin exam: normal color and no rashes or lesions noted Wounds: no wounds Neuro: Cranial nerves: Yes Equal, round and reactive pupils present Speech: normal speech Motor exam (neuro): 5/5 motor strength present throughout Sensory Exam: normal sensation Other: A&O x4 Extrem: Other: +1 edema to bilateral ankles, nonpitting in symmetric Psych: Mental Status: mental status grossly normal Affect: normal affect Other: Fair insight and judgment, very pleasant Objective Data Vital Signs Vital Signs: Vital Signs - 24 hr 03/18/25 20:00 03/19/25 04:30 03/19/25 14:00 Temperature 96.6 F L 97.4 F L 96.8 F L Pulse Rate 88 89 89 Respiratory Rate 18 20 16 Blood Pressure 110/49 L 143/67 H 130/68 Pulse Oximetry 95 92 98 Intake/Output Intake/Output: Intake & Output 03/16/25 03/17/25 03/18/25 03/19/25 23:59 23:59 23:59 23:59 Intake Total 100 2480 1624 680 Output Total 50 300 1200 1050 Balance 50 2180 424 -370 Meds/Results Medications: Active Medications Generic Name Dose Route Start Last Admin Trade Name Freq PRN Reason Stop Dose Admin Acetaminophen 1,000 mg 03/16/25 22:53 03/19/25 03:00 Acetaminophen 500 Mg Tablet PO 1,000 mg Q6H PRN Administration Mild Pain (1-3) or Fever Aspirin 81 mg 03/17/25 08:00 03/19/25 07:50 Aspirin 81 Mg Enteric Tablet PO 81 mg DAILY@0800 [facility] Administration Calcium Carbonate 500 mg 03/17/25 09:00 03/19/25 07:51 Calcium/Vitamin D 500 Mg/5 Mcg (200 I.U.) Tablet PO 500 mg QAM [facility] Administration Citalopram Hydrobromide 20 mg 03/17/25 09:00 03/19/25 07:51 Citalopram Hydrobromide 20 Mg Tablet PO 20 mg DAILY [facility] Administration Empagliflozin 10 mg 03/17/25 09:00 03/19/25 07:51 Empagliflozin 10 Mg Tablet PO 10 mg DAILY [facility] Administration Enoxaparin Sodium 40 mg 03/17/25 09:00 03/19/25 07:50 Enoxaparin 40 Mg/0.4 Ml Syringe SUB-Q 40 mg DAILY [facility] Administration Ergocalciferol 1,250 mcg 03/21/25 09:00 Ergocalciferol (Vitamin D2) 1,250 Mcg (50,000 Units) Capsule PO WEEKLY [facility] Erythromycin 1 applic 03/17/25 05:00 03/19/25 04:08 Erythromycin Ophth Ointment 1 Gm Tube EACH EYE 1 applic Q4HWA [facility] Administration Ceftriaxone Sodium 1 gm/ 50 mls @ 100 mls/hr 03/18/25 12:00 03/19/25 13:15 Sodium Chloride IVPB 100 mls/hr Q24H [facility] Administration Miconazole Nitrate 1 applic 03/17/25 09:00 03/19/25 07:52 Miconazole Nitrate 2% Cream 30 Gm Tube TOPICAL 1 applic QID [facility] Administration Nifedipine 30 mg 03/17/25 09:00 03/19/25 07:51 Nifedipine 30 Mg Tab.Er.24 PO 30 mg DAILY [facility] Administration Ondansetron HCl 4 mg 03/16/25 22:53 Ondansetron Inj 4 Mg/2 Ml Vial IV PUSH Q6H PRN Nausea And Vomiting Pantoprazole Sodium 40 mg 03/17/25 09:00 03/19/25 07:50 Pantoprazole 40 Mg Tablet PO 40 mg DAILY [facility] Administration Pravastatin Sodium 20 mg 03/17/25 09:00 03/19/25 07:51 Pravastatin Sodium 20 Mg Tablet PO 20 mg DAILY [facility] Administration Prednisone 60 mg 03/19/25 13:00 03/19/25 13:15 Prednisone 20 Mg Tablet PO 60 mg DAILY@0800 [facility] Administration Radiology Results: ITS Impressions Shoulder X-Ray 03/16/25 20:20 IMPRESSION: No acute osseous finding in the right shoulder. Chest X-Ray 03/16/25 20:23 IMPRESSION: No acute cardiopulmonary process. Head CT 03/17/25 11:48 IMPRESSION: 1. Stable appearance of age-related changes the brain. No acute intracranial process. Humerus X-Ray 03/17/25 12:06 IMPRESSION: 1. Mild osteoarthritis at the right shoulder and elbow. No acute osseous abnormality. Forearm X-Ray 03/17/25 12:08 IMPRESSION: 1. No acute osseous abnormality. 2. 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 Labs Labs: Laboratory Results - last 24 hr 03/19/25 06:08 WBC 8.6 RBC 3.85 L Hgb 11.5 L Hct 35.4 L MCV 91.9 MCH 29.9 MCHC 32.5 RDW 13.3 Plt Count 503 H MPV 9.7 Sodium 138 Potassium 4.0 Chloride 103 Carbon Dioxide 28 Anion Gap 7 BUN 17 Creatinine 0.85 Estim Creat Clear Calc 38 Estimated GFR > 60 Glucose 98 Calcium 8.6 Total Bilirubin 0.2 AST 29 ALT 18 Alkaline Phosphatase 98 Total Protein 6.7 Albumin 3.0 L Quality VTE Prophylaxis VTE prophylaxis: pharmacologic ordered
[2025-03-19 22:00] VITALS: BP 113/56; PULSE 85; RESP 20; TEMP 36.5; O2SAT 97
[2025-03-20] MEDS: ACETAMINOPHEN 500 MG TABLET 1000 MG PO ×2 (05:31→14:36)
[2025-03-20 06:00] VITALS: BP 121/52; PULSE 82; RESP 20; TEMP 36.6; O2SAT 98
[2025-03-20 06:49] LABS: Hematocrit 36.3 % (37.0-47.0); Hemoglobin 11.2 g/dL (12.0-15.0); Immature Granulocyte Percent A 2.4 % (0-0.5); Lymphocytes Absolute Auto 1.65 K/mm3 (0.9-3.2); Mean Corpuscular HGB Conc 30.9 g/dl (32-36); Mean Corpuscular Hemoglobin 29.2 pg (26-34); Mean Corpuscular Volume 94.5 fl (80-100); Nucleated Red Blood Cells Absolute Auto 0.000 K/mm3 (0.0-0.012); Nucleated Red Blood Cells Perc 0.0 % (0.0-0.2); Platelet Count Result 526 k/mm3 (150-375); Red Blood Count 3.84 M/mm3 (4.2-5.4); White Blood Count 7.2 K/mm3 (4.5-10.0)
[2025-03-20 07:20] LABS: Alanine Aminotransferase 21 U/L (6-35); Albumin Level 3.3 g/dL (3.5-5.1); Alkaline Phosphatase 113 U/L (38-126); Anion Gap 8 mmol/L (4-12); Aspartate Amino Transferase 36 U/L (14-36); Bilirubin,Total 0.3 mg/dL (0.2-1.3); Blood Urea Nitrogen 18 mg/dL (7-17); Calcium 8.5 mg/dL (8.4-10.2); Carbon Dioxide 25 mmol/L (22-30); Chloride 104 mmol/L (98-107); Estimated CRCL calculation 46 ml/min; Estimated Glomerular Filt Rate > 60; Glucose 145 mg/dL (65-110); Magnesium 1.9 mg/dL (1.6-2.3); Potassium 4.0 mmol/L (3.4-5.0); Sodium 137 mmol/L (137-145); Total Protein 6.9 g/dL (6.3-8.2)
[2025-03-20] MEDS: MICONAZOLE NITRATE 2% CREAM 30 GM TUBE 1 APPLIC TOPICAL ×2 (09:00→13:50)
[2025-03-20] MEDS: EMPAGLIFLOZIN 10 MG TABLET PO (09:55)
[2025-03-20] MEDS: ASPIRIN 81 MG ENTERIC TABLET PO (09:58)
[2025-03-20] MEDS: CITALOPRAM HYDROBROMIDE 20 MG TABLET PO (09:58)
[2025-03-20] MEDS: PANTOPRAZOLE 40 MG TABLET PO (09:58)
[2025-03-20] MEDS: PRAVASTATIN SODIUM 20 MG TABLET PO (09:58)
[2025-03-20] MEDS: CALCIUM/VITAMIN D 500 MG/5 MCG (200 I.U.) TABLET PO (09:58)
[2025-03-20 14:00] VITALS: BP 132/63; PULSE 82; RESP 16; TEMP 36.3; O2SAT 100
--- NOTE | 2025-03-20 14:26 | P.DS_ITS ---
DS: Admitting Diagnosis Discharge Date 03/20/25 Admitting Diagnosis Weakness, Headache DS: Discharge Diagnosis Discharge Diagnosis (1) Acute UTI: Code(s): N39.0 - Urinary tract infection, site not specified Status: Acute (2) Sepsis: Qualifiers: Sepsis acute organ dysfunction status: without acute organ dysfunction Sepsis type: sepsis due to unspecified organism Qualified Code(s): A41.9 - Sepsis, unspecified organism Code(s): A41.9 - Sepsis, unspecified organism Status: Acute DS: Summary Hospital Course Hospital Course: 84 y/o F with PMH of HTN, HLD, GERD, intellectual disability, and depression presents here with weakness, headache, and eye discharge. 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 She reports she has been feeling unwell for the past 2-3 days and has mostly been in bed. She reports generalized weakness, headache, pain and redness to her left eye, poor appetite, and right shoulder pain. She believes the pain in her right shoulder is secondary to laying on her right side/on her right shoulder. She describes the headache as sinus-like, the top of her head, nonradiating, intermittent, no aggravating factors, and alleviated by rest/laying down. Generalized weakness is nonfocal and not accompanied by focal weakness, focal numbness, vision changes, dizziness, or changes in gait. She denies abdominal pain, chest pain, nausea, vomiting or diarrhea. Initial VS at presentation: 97.9? F, HR 110, RR 22, 138/66, and 96% on RA. ED workup showed: WBC 22.5, no anemia, sodium 133, glucose 151, creatinine 0.86 and GFR >60. UA consistent with UTI. Right shoulder XR showed no acute osseous finding. CXR showed no acute cardiopulmonary process. Patietn markedly improved on Abx and bolus of IVF, urine culture obtained since 03/16 has just now resulted in result with GNB and since patient has markedly improved since admission. Patient was discharged on 3 more days of Cefdinir. F/u with PCP in 3-5 days Time Spent with Patient Time attestation: Total time spent providing and/or coordinating discharge services: DS: Data Data Completed and Pending Labs on day of discharge: Labs from last 24 hours 03/20/25 05:59 WBC 7.2 RBC 3.84 L Hgb 11.2 L Hct 36.3 L MCV 94.5 MCH 29.2 MCHC 30.9 L RDW 13.2 Plt Count 526 H MPV 9.8 Immature Gran % (Auto) 2.4 H Neut % (Auto) 71.9 Lymph % (Auto) 23.1 Thayer % (Auto) 2.5 L Eos % (Auto) 0.0 Baso % (Auto) 0.1 L Lymph # (Auto) 1.65 Thayer # (Auto) 0.2 Eos # (Auto) 0.0 Baso # (Auto) 0.0 Abs Immat Gran (auto) 0.17 H Absolute Neuts (auto) 5.1 Absolute Nucleated RBC 0.000 Nucleated RBC % 0.0 Sodium 137 Potassium 4.0 Chloride 104 Carbon Dioxide 25 Anion Gap 8 BUN 18 H Creatinine 0.70 Estim Creat Clear Calc 46 Estimated GFR > 60 Glucose 145 H Calcium 8.5 Magnesium 1.9 Total Bilirubin 0.3 AST 36 ALT 21 Alkaline Phosphatase 113 Total Protein 6.9 Albumin 3.3 L Preliminary micro results at discharge 03/16/25 19:22 - Preliminary Urine Catheterized Gram negative bacilli isolated 03/16/25 20:35 Blood Culture - Preliminary Blood 03/16/25 20:35 Blood Culture - Preliminary Blood Discharge Plan Discharge Attending physician on discharge: Lawrence Leos Consulting providers: Lawrence Leos Discharging Clinician: Lawrence Leos Anticipated Discharge Date/Time: 03/20/25 14:20 Patient Disposition: SNF Activity: as tolerated Diet: as tolerated Patient Language: Turkmen Stand Alone Forms: General Discharge Information Follow-up/Referrals: Nakul,Kevin Larry MD [Primary Care Provider] - (F/u with PCP in 3-5 days) Discharge Medications: New cefdinir 300 mg capsule 300 mg PO Q12H 3 Days Qty: 6 0RF prednisone 10 mg tablet 10 mg PO DAILY 3 Days Qty: 3 0RF Continued acetaminophen 500 mg tablet 500 mg PO Q6H PRN (Reason: pain) nystatin 100,000 unit/gram cream 1 applic TOPICAL QID Patient Comments: Used under abdominal folds benzonatate 200 mg capsule 200 mg PO DAILY PRN (Reason: cough) aspirin 81 mg tablet,delayed release (DR/EC) 81 mg PO DAILY@0800 citalopram 20 mg tablet 20 mg PO DAILY docusate sodium 100 mg capsule 100 mg PO DAILY PRN (Reason: constipation) ibuprofen 600 mg tablet 600 mg PO Q12H Jardiance 10 mg tablet 10 mg PO DAILY nifedipine 30 mg tablet extended release 24hr 30 mg PO DAILY pantoprazole 40 mg tablet,delayed release (DR/EC) 40 mg PO DAILY pravastatin 20 mg tablet 20 mg PO DAILY ergocalciferol (vitamin D2) 1,250 mcg (50,000 unit) capsule 1,250 mcg PO WEEKLY calcium carbonate-vitamin D3 600 mg-10 mcg (400 unit) tablet 1 tablet PO DAILY Date of admission: 03/17/25 08:51 Primary Care Provider: Nakul,Kevin Larry Admitting Provider: Yadira Short Attending physician on admission: Yadira Short Condition: Stable
[2025-03-20] MEDS: cefTRIAXone 1 GM in SODIUM CHLORIDE 0.9% IV 50 ML 100 ML IVPB (14:40)
[2025-03-20] MEDS: ERYTHROMYCIN OPHTH OINTMENT 1 GM TUBE 1 APPLIC EACH EYE (14:41)
[2025-03-20 20:16] VITALS: BP 146/70; PULSE 94; RESP 16; TEMP 36.1; O2SAT 96
== END 2025-03-20 20:20 | DRG 872 ==
LOC: ANHED 21:18 → ANH3MEDSUR 21:37
PROVIDERS: General Practice; Admitting Provider Internal Medicine; Emergency Provider Emergency Medicine; PCP Family Medicine; Visit Provider Internal Medicine
DX: A41.9 Sepsis, unspecified organism (principal); N39.0 Urinary tract infection, site not specified; I10 Essential (primary) hypertension; E78.5 Hyperlipidemia, unspecified; K21.9 Gastro-esophageal reflux disease without esophagitis; H10.9 Unspecified conjunctivitis; M79.621 Pain in right upper arm; F79 Unspecified intellectual disabilities; F32.A Depression, unspecified; Z79.82 Long term (current) use of aspirin
CPT/HCPCS: 36415; 70450; 71045; 73030; 73060; 73090; 80053; 81001; 83605; 83735; 85025; 85027; 87040; 87086; 93005; 96361; 96365; 96372; 97110; 97116; 97162; 97166; 97530; 97535; 99285; A9270; G0378; J0696; J1650; J7030; J7120; J7512